=== PATIENT | female | born 1940 | race Caucasian/White ===

== ENCOUNTER → 2017-12-14 00:19 | Outpatient (CLI) | payer MEDICARE, BC, SELFPAY ==
[2017-12-14 08:19] LABS: HCT 41.9 % (36.0-46.0); HGB 13.3 g/dL (12.0-15.5)
--- NOTE | 2017-12-14 08:20 | DI.REPORT_ITS ---
SYMPTOM/DIAGNOSIS: SOB, R06.02, MITRAL VALVE REPLACEMENT Z95.2 CHEST X-RAY: Frontal and lateral views. Comparison 07/27/17 Heart size and pulmonary vasculature are within normal limits. Since the prior examination the patient has had a mitral valve replacement. There is elevation of the left hemidiaphragm. On the AP view there do appear to be lung markings in the left base medially. This may represent atelectasis. Pneumonia cannot be excluded. No effusions or pneumothoraces are identified. Degenerative changes are seen in the spine. Sternal wires are present. IMPRESSION: 1. Interval mitral valve replacement. 2. Question of a left basilar infiltrate medially. This may represent atelectasis or pneumonia. 3. Interval elevation of the left hemidiaphragm.
[2017-12-14 08:41] LABS: INR 2.2 (1.0-3.5); Prothrombin Time 21.2 sec (9.3-10.8)
[2017-12-14 09:08] LABS: TSH (W/Ref FT4) 0.17 uIU/mL (0.358-3.74)
[2017-12-14 09:27] LABS: FREE T4 1.69 ng/dL (0.76-1.46)
[2017-12-14 09:41] LABS: D-Dimer 625 ng/mlFEU (<500)
== END ==
PROVIDERS: PCP Family Medicine; Visit Provider Family Medicine
DX: R06.02 Shortness of breath (principal); I34.0 Nonrheumatic mitral (valve) insufficiency; R91.8 Other nonspecific abnormal finding of lung field; J98.6 Disorders of diaphragm; Z95.2 Presence of prosthetic heart valve; E03.9 Hypothyroidism, unspecified
CPT/HCPCS: 71046; 36415; 84439; 84443; 85014; 85018; 85379; 85610

== ENCOUNTER 2018-01-16 11:23 | Outpatient (CLI) | payer MEDICARE, BC, SELFPAY | END 2018-01-16 11:43 | PROVIDERS: PCP Family Medicine; Visit Provider Surgery | DX: R93.3 Abnormal findings on diagnostic imaging of other parts of digestive tract (principal) | CPT/HCPCS: 99212 ==

== ENCOUNTER 2018-01-18 00:09 | Outpatient (CLI) | payer MEDICARE, BC, SELFPAY ==
--- NOTE | 2018-01-18 14:40 | MERGE_ITS ---
*[facility]* *[facility]* [address] [place] [address] Date of study: 01/18/2018 Transthoracic Echocardiography M-mode, complete 2D, complete spectral Doppler, and color Doppler *STUDY CONCLUSIONS* Impressions: The previous study was not available for direct comparison, however there have been improvement in LV and RV function. Summary: 1. Left ventricle: The cavity size was normal. Wall thickness was increased in a pattern of mild LVH. Systolic function was mildly reduced. The estimated ejection fraction was 45-50%. Wall motion was normal; there were no regional wall motion abnormalities. 2. Ventricular septum: Septal motion showed paradoxical motion consistent with post surgery. 3. Aortic valve: There was mild regurgitation. 4. Mitral valve: Prior procedures included surgical repair. An annular ring prosthesis was present. Mean gradient (D): 2.1mm Hg. 5. Left atrium: The atrium was severely dilated. 6. Right ventricle: The cavity size was normal. Wall thickness was normal. Systolic function was normal. 7. Tricuspid valve: There was moderate regurgitation. 8. Pulmonary arteries: Pulmonary systolic pressure was increased, in the range of 35mm Hg to 40mm Hg. *PATIENT PRESENTATION* Height: 152.4cm ((60in) ) S/D Pressure: 112 / 72 Weight: 54.4kg ((119.7lb) ) BSA: 1.53m^2 Test start time: 12:45 PM. Test stop time: 01:50 PM. PERFORMING Unknown ORDERING Lev Ramirez REFERRING Lev Ramirez PERFORMING [facility] MAPPING ENGINEER RT Guerita (R)(CT), [facility] *PROCEDURE DATA* Procedure information: The patient was identified by two identifiers. This study was interpreted by [facility]. Pertinent images and digital data are archived for permanent storage and are available for subsequent review. Comparison was made to the study of 07/27/2017. Study status: Routine. Transthoracic echocardiography. M-mode, complete 2D, complete spectral Doppler, and color Doppler. A Transthoracic Echocardiogram was performed. Scanning was performed from the parasternal, apical, subcostal, and suprasternal notch acoustic windows. Images were obtained using an [id number] cardiac ultrasound machine. Image quality was adequate. Study completion: The patient tolerated the procedure well. There were no complications. History: PMH: H/O Mitral valve repair. *CARDIAC ANATOMY* Left ventricle: The cavity size was normal. Wall thickness was increased in a pattern of mild LVH. There was a false tendon within the ventricle. Systolic function was mildly reduced. The estimated ejection fraction was 45-50%. Wall motion was normal; there were no regional wall motion abnormalities. The study is not technically sufficient to allow evaluation of LV diastolic function. Aortic valve: Trileaflet; normal thickness leaflets. Mobility was not restricted. Doppler: Transvalvular velocity was within the normal range. There was no stenosis. There was mild regurgitation. VTI ratio of LVOT to aortic valve: 0.62. Valve area (VTI): 1.8cm^2. Indexed valve area (VTI): 1.2cm^2/m^2. Peak velocity ratio of LVOT to aortic valve: 0.63. Valve area (Vmax): 1.9cm^2. Indexed valve area (Vmax): 1.2cm^2/m^2. Mean velocity ratio of LVOT to aortic valve: 0.7. Valve area (Vmean): 2cm^2. Indexed valve area (Vmean): 1.3cm^2/m^2. Mean gradient (S): 5.2mm Hg. Peak gradient (S): 9.6mm Hg. Aorta: Aortic root: The aortic root was normal in size. Ascending aorta: The ascending aorta was normal in size. Mitral valve: Mildly thickened leaflets. Prior procedures included surgical repair. An annular ring prosthesis was present. Mobility was not restricted. Doppler: Transvalvular velocity was within the normal range. There was no evidence for stenosis. There was no significant regurgitation. Valve area by pressure half-time: 1.3cm^2. Indexed valve area by pressure half-time: 0.9cm^2/m^2. Mean gradient (D): 2.1mm Hg. Peak gradient (D): 4.5mm Hg. Left atrium: The atrium was severely dilated. Right ventricle: The cavity size was normal. Wall thickness was normal. Systolic function was normal. Ventricular septum: Septal motion showed paradoxical motion consistent with post surgery. Pulmonic valve: Structurally normal valve. Doppler: Transvalvular velocity was within the normal range. There was no evidence for stenosis. There was mild to moderate regurgitation. Peak gradient (S): 2.1mm Hg. Tricuspid valve: Structurally normal valve. Doppler: Transvalvular velocity was within the normal range. There was no evidence for stenosis. There was moderate regurgitation. Pulmonary artery: Pulmonary systolic pressure was increased, in the range of 35mm Hg to 40mm Hg. Right atrium: The atrium was normal in size. Pericardium: There was no pericardial effusion. Systemic veins: Inferior vena cava: Well visualized. The vessel was patent and normal in size. The respirophasic diameter changes were in the normal range (greater than or equal to 50%). Measurements Left ventricle Value 07/27/2017 Reference LV ID, ED, PLAX 4.1 cm 3.5 - 6.0 LV ID, ES, PLAX 3.3 cm 2.1 - 4.0 LV PW thickness, ED, PLAX 1.2 cm LV end-diastolic volume, 72 ml 85 1-p A2C LV ejection fraction, 1-p 50 % 60 A2C LV end-diastolic volume, 66 ml 103 1-p A4C LV ejection fraction, 1-p 42 % 64 A4C LV filling time, D, DP 660 ms LV e', lateral 0.047 m/sec 0.088 LV E/e', lateral 22 13 LV e', medial 0.041 m/sec 0.064 LV E/e', medial 26 17 LV e', average 0.044 m/sec 0.076 LV E/e', average 24 14 Ventricular septum Value 07/27/2017 Reference IVS thickness, ED, PLAX 1.2 cm LVOT Value 07/27/2017 Reference LVOT ID, A-P 1.9 cm 1.9 LVOT area 2.9 cm^2 2.7 LVOT peak velocity, S 0.98 m/sec 1.12 LVOT mean velocity, S 0.76 m/sec 0.76 LVOT VTI, S 19.4 cm 19.6 LVOT peak gradient, S 3.9 mm Hg 5 LVOT mean gradient, S 2.5 mm Hg 2.7 Stroke volume (SV), LVOT 57 ml 54 DP Stroke index (SV/bsa), 37 ml/m^2 35 LVOT DP Aortic valve Value 07/27/2017 Reference Aortic valve peak 1.5 m/sec 1.4 velocity, S Aortic valve mean 1.09 m/sec 1.03 velocity, S Aortic valve VTI, S 31.4 cm 25.0 Aortic mean gradient, S 5.2 mm Hg 4.7 Aortic peak gradient, S 9.6 mm Hg VTI ratio, LVOT/AV 0.62 0.79 Aortic valve area, VTI 1.8 cm^2 2.2 Velocity ratio, peak, 0.63 0.78 LVOT/AV Aortic valve area, peak 1.9 cm^2 2.1 velocity Velocity ratio, mean, 0.7 0.74 LVOT/AV Aortic valve area, mean 2 cm^2 2 velocity Aortic valve area/bsa, 1.3 cm^2/m^2 1.3 mean velocity Aortic regurg deceleration 321 cm/s^2 296 Aortic regurg pressure 424 ms 490 half-time Aorta Value 07/27/2017 Reference Aortic root ID, ED 3.3 cm 3.3 Ascending aorta ID, A-P, S 3.4 cm 3.4 RVOT Value 07/27/2017 Reference RVOT VTI, S 10.8 cm 9.4 Left atrium Value 07/27/2017 Reference LA ID, A-P, ES 4.4 cm LA ID/bsa, A-P (H) 2.9 cm/m^2 <=2.2 LA area, ES, A4C (H) 25.1 cm^2 29.8 8.8 - 23.4 LA area, ES, A2C 23 cm^2 31 LA volume/bsa, ES, 1-p A4C 55 ml/m^2 79 LA volume, ES, 2-p 84 ml 121 LA volume/bsa, ES, 2-p 55 ml/m^2 79 LA/aortic root ratio 1.33 Mitral valve Value 07/27/2017 Reference Mitral E-wave peak 1.06 m/sec 1.1 velocity Mitral A-wave peak 1.31 m/sec 0.78 velocity Mitral mean velocity, D 0.63 m/sec Mitral deceleration time (H) 584 ms 122 150 - 230 Mitral pressure half-time 169 ms 35 Mitral mean gradient, D 2.1 mm Hg Mitral peak gradient, D 4.5 mm Hg 4.9 Mitral E/A ratio, peak 0.81 1.41 Mitral valve area, PHT, DP 1.3 cm^2 6.2 Pulmonary veins Value 07/27/2017 Reference Pulmonary vein peak 0.57 m/sec velocity, S Pulmonary vein peak 0.36 m/sec velocity, D Pulmonary vein velocity 1.58 ratio, peak, S/D Pulmonary vein A-wave 0.41 m/sec reversal peak velocity Pulmonary vein A-wave 171 ms reversal duration Tricuspid valve Value 07/27/2017 Reference Tricuspid regurg peak 3 m/sec 3 velocity Tricuspid peak RV-RA 36.8 mm Hg 36.2 gradient Right atrium Value 07/27/2017 Reference RA area, ES, A4C 17.2 cm^2 15 8.3 - 19.5 Pulmonic valve Value 07/27/2017 Reference Pulmonic peak gradient, S 2.1 mm Hg 2.8 Legend: (L) and (H) violetta values outside specified reference range. I have personally reviewed the images and have reviewed and edited the reported findings. Electronically signed by Lev Ramirez 01/18/2018 15:58
== END 2018-01-18 00:29 ==
PROVIDERS: PCP Family Medicine; Visit Provider Student in an Organized Health Care Education/Training Program
DX: I48.91 Unspecified atrial fibrillation (principal); I51.7 Cardiomegaly; I08.2 Rheumatic disorders of both aortic and tricuspid valves; Z95.2 Presence of prosthetic heart valve; Z98.890 Other specified postprocedural states
CPT/HCPCS: 93306; 99212

== ENCOUNTER 2018-01-25 00:10 | Outpatient (CLI) | payer MEDICARE, BC, SELFPAY ==
--- NOTE | 2018-01-25 13:22 | DI.US_ITS ---
SYMPTOMS/DIAGNOSIS: RIGHT URETERAL STONE, N20.1, ? HYDRONEPHROSIS, F/U, RECHECK RENAL ULTRASOUND: Comparison CT is 12/20/17. The right kidney measures 9 cm long. There is mild to moderate hydronephrosis of the right kidney. Dilatation of the renal collecting system was present on the CT scan from 12/20/17. No renal mass or calculus is identified. Blood flow is seen to the right kidney. The left kidney measures 11.1 cm. There is a prominent left renal pelvis. No renal mass, calculus or obstruction is identified. The prevoid urinary bladder volume is 90.3 cc. Bladder wall appeared smooth. No intraluminal masses are seen. Both ureteral jets are visualized. The postvoid urinary bladder volume is 10 cc. IMPRESSION: Persistent mild to moderate right hydronephrosis.
== END 2018-01-25 00:30 ==
PROVIDERS: PCP Family Medicine; Visit Provider Urology
DX: N20.1 Calculus of ureter (principal); N13.39 Other hydronephrosis
CPT/HCPCS: 76770; 99213

== ENCOUNTER → 2018-01-25 13:41 | Outpatient (BNVA) | payer MEDICARE, BC, SELFPAY | PROVIDERS: Visit Provider Urology | DX: N20.1 Calculus of ureter (principal) | CPT/HCPCS: 99213 ==

== ENCOUNTER → 2018-02-20 14:17 | Outpatient (BNVA) | payer MEDICARE, BC, SELFPAY | PROVIDERS: PCP Family Medicine; Visit Provider Student in an Organized Health Care Education/Training Program | DX: I34.1 Nonrheumatic mitral (valve) prolapse (principal); Z95.818 Presence of other cardiac implants and grafts; I50.9 Heart failure, unspecified; I48.91 Unspecified atrial fibrillation; R03.0 Elevated blood-pressure reading, without diagnosis of hypertension | CPT/HCPCS: 99214 ==

== ENCOUNTER 2018-02-26 01:27 | Outpatient (CLI) | payer MEDICARE, BC, SELFPAY ==
--- NOTE | 2018-03-18 13:31 | ZIOP_ITS ---
O MONITOR DATE OF DICTATION March 18, 2018 Baseline rhythm sinus. Occasional single PAC. 5252 bursts SVT, longest 2 minute 8 second duration, fastest 214 beats per min vargas. Occasional single PVC, 1.7% total beat, occasional couplet, 1.1% total beat. 92 triplet. 24 bursts NS VT: longest 4 beat duration. Fastest 245 beats per minute. No bradycardia/Block. SYMPTOMS No symptoms. No triggered events. Average heart rate sinus 77 beats per minute, range 52-109 beats per minute. Nomi Connolly M.D. GREG/merlyn T - 03/18/2018
== END 2018-02-26 01:47 ==
PROVIDERS: PCP Family Medicine; Visit Provider Student in an Organized Health Care Education/Training Program
DX: I48.91 Unspecified atrial fibrillation (principal); I47.1 Supraventricular tachycardia; Z95.2 Presence of prosthetic heart valve
CPT/HCPCS: 93225

== ENCOUNTER 2018-03-18 09:52 | Outpatient (CLI) | payer MEDICARE, BC, SELFPAY | END 2018-03-18 10:12 | PROVIDERS: PCP Family Medicine; Referring Provider Student in an Organized Health Care Education/Training Program; Visit Provider Internal Medicine Interventional Cardiology | DX: I48.91 Unspecified atrial fibrillation (principal); I47.1 Supraventricular tachycardia; Z95.2 Presence of prosthetic heart valve | CPT/HCPCS: 0298T ==

== ENCOUNTER → 2018-03-20 08:49 | Outpatient (BNVA) | payer MEDICARE, BC, SELFPAY | PROVIDERS: PCP Family Medicine; Visit Provider Student in an Organized Health Care Education/Training Program | DX: I34.1 Nonrheumatic mitral (valve) prolapse (principal); Z79.01 Long term (current) use of anticoagulants; I50.9 Heart failure, unspecified; I48.91 Unspecified atrial fibrillation | CPT/HCPCS: 36415; 99214; 85610 ==

== ENCOUNTER 2018-03-20 09:36 | Outpatient (CLI) | payer MEDICARE, BC, SELFPAY ==
[2018-03-20 10:21] LABS: INR 1.6 (1.0-3.5); Prothrombin Time 15.3 sec (9.3-10.8)
== END 2018-03-20 09:56 ==
PROVIDERS: PCP Family Medicine; Visit Provider Student in an Organized Health Care Education/Training Program
DX: I48.91 Unspecified atrial fibrillation (principal); Z95.2 Presence of prosthetic heart valve; Z79.01 Long term (current) use of anticoagulants
CPT/HCPCS: 36415; 85610

== ENCOUNTER → 2018-04-12 09:48 | Outpatient (BNVA) | payer MEDICARE, BC, SELFPAY | PROVIDERS: PCP Family Medicine; Referring Provider Family Medicine; Visit Provider Surgery | DX: R93.5 Abnormal findings on diagnostic imaging of other abdominal regions, including retroperitoneum (principal); Z80.0 Family history of malignant neoplasm of digestive organs | CPT/HCPCS: 99213 ==

== ENCOUNTER → 2018-06-07 10:23 | Outpatient (BNVA) | payer MEDICARE, BC, SELFPAY | PROVIDERS: PCP Family Medicine; Referring Provider Family Medicine; Visit Provider Surgery | DX: Z01.818 Encounter for other preprocedural examination (principal); Z80.0 Family history of malignant neoplasm of digestive organs; K63.89 Other specified diseases of intestine | CPT/HCPCS: 99212; 99213 ==

== ENCOUNTER 2018-06-12 10:18 | Day surgery (SDC) | payer MEDICARE, BC, SELFPAY ==
--- NOTE | 2018-06-12 07:08 | W.COLOREPORT ---
Date of service: 06/12/18 Time of Service: 13:26 Colonoscopy Report Date of procedure: 06/12/18 Pre-op diagnosis general: Abnormal CT scan Post-op diagnosis procedure note: other (Rectal polyp) Procedure: Flexible sigmoidoscopy with polypectomy by cold forceps Surgeon: Deborah Juarez Anesthesia proc note operative: MAC (Carla Washington CRNA/ ASA 2) Estimated blood loss (mL): 5 Pathology: other (Rectal polyp) Complications: None Disposition: same day Indications: Mrs. Sellers is a pleasant 77 year old female who had a CT scan which showed thickening in the sigmoid colon. No GI symptoms. Her last Colonsocopy was in 2015 and was normal. She does have a sister with Colon Cancer. Risks, benefits and complications have been reviewed. Complications include but are not limited to bleeding, pain, perforation, missed small lesion/polyp, sore throat, aspiration and adverse reaction to the medications. Questions were entertained and answered to their satisfaction and they wished to proceed. No guarantees were given or implied. Prep: Other Procedure Start Time: 13:26 Procedure End Time: 13:35 Retraction Time: 5 minutes Findings: One rectal polyp. Normal colon otherwise Procedure Description: After informed consent was obtained the patient was taken to the procedure room and placed in a left decubitous position. Monitors were applied and a time out was done. The patients name, date of , procedure, allergies to medications and metal in their body was reviewed. The patient was then sedated. Once sedated and comfortable a rectal exam was done. External exam was normal. Internal exam revealed a normal sphincter tone and no palpable masses. The scope was then introduced and retro-flexed. No internal hemorrhoids were identified. The scope was then advanced to the splenic flexure without difficulty. The TI and appendiceal orifice were identified. The prep was adequate. The scope was then slowly retracted over 5 minutes back into the rectum. Polyps were removed at the rectum. The scope was removed and the patient was woken up and taken back to Same day surgery in stable condition. The patient tolerated the procedure well and there were no immediate complications. Follow up: The patient should follow up in 2 years unless they develop changes in bowel habits or other new gastrointestinal complaints.
--- NOTE | 2018-06-12 07:10 | W.PM.DSUDISC ---
Discharge Plan Disposition Patient Disposition: HOME Condition: Good Discharge Details Reason For Visit: abnormal CT scan Attending Provider: Deborah Juarez Primary Care Provider: Magdalena Tariq V Home Meds and New Rx's Prescriptions: Continued ADVAIR 100/50 1 DISK W/DEV DISK.W.DEV 1 puff Inhalation BID Qty: 3 RF: 4 amoxicillin 500 MG capsule 2,000 mg PO .PRE DENTAL PROCEDUR RF: 0 levothyroxine 100 MCG tablet 100 mcg PO .4 DAYS A WEEK RF: 0 montelukast [Singulair] 10 MG tablet 10 mg PO DAILY PRN PRNRF: 0 lisinopril 5 MG tablet 5 mg PO DAILY RF: 0 levothyroxine [Synthroid] 112 MCG tablet 112 mcg PO .3 DAYS A WEEK RF: 0 Veramyst 10 GM spray,suspension 2 spr NS DAILY RF: 0 metoprolol tartrate 25 mg tablet 25 mg PO BID RF: 0 Discharge Instructions Instructions: Flexible Sigmoidoscopy (DC) Additional Instructions: Findings: rectal polyp Follow up: 2 years Please call if you develop: fevers >101.5 Nausea or Vomiting Abdominal pain that is not transient DAY SURGERY UNIT POST COLONOSCOPY INSTRUCTIONS 1. Because there will be medication in your system for the next 24 hours, you may feel a little sleepy. Your coordination will be affected. Therefore: a. Do not drive or operate dangerous equipment for 24 hours. b. Do not drink alcohol beverages for 24 hours (not even beer). c. Plan to go home and rest for the day. 2. Generally there are no restrictions on your activity after a day or so has gone by, but you may feel a bit fatigued for a few days. 3 After you arrive home you may have a light meal and return to a normal diet as you can tolerate it without feeling sick to your stomach. 4. After surgery, you may feel pain or discomfort. This should be only transient, but if it persists please contact your doctor. 5. If there are any questions regarding the findings of your procedure, please feel free to contact your doctor. 6. If you are unable to contact your doctor with a problem, contact the hospital at [phone]. 7. Continue all your regular medications unless directed otherwise. I understand the above instructions and have no questions. Signature of Patient or Responsible Adult Escort Date/Time Name of Responsible Adult Escort Signature of Nurse Date/Time Stand Alone Forms: Solomon Sheldon (KEZIAU) Activity:: Activity as Tolerated Diet:: As Tolerated Discharge Orders Discharge Orders: Discharge Order (Routine); Ordered 06/12/18 Ordered By: Deborah Juarez DS: Diagnosis Discharge Diagnosis (1) H/O sigmoidoscopy: Status: Acute (2) Rectal polyp: Status: Acute
[2018-06-12 10:45] VITALS: BP 134/87; PULSE 90; RESP 18; TEMP 35.7; O2SAT 97
[2018-06-12] MEDS: Lactated Ringers 1,000 ML 80 ML IV (12:18)
--- NOTE | 2018-06-12 13:32 | BOWEL_PTH ---
PATIENT: Lilliana Sellers LOC: [facility] U#:[id number] AGE/SX: 77/F ROOM: RE06/12/[address]: Deborah Juarez MD : [id number] BED: DIS: 06/12/2018 SPEC #: [id number] RECD: 06/12/18 18:00 STATUS: SOPHIA RERoxana #: [id number] EFRAÍN: 06/12/18 13:[address]: Deborah Juarez DEPT: Surgical Specimen RECD BY: Brandy Mckeon ENTERED: 06/12/18 18:01 SP TYPE: Bowel OTHR DR: Magdalena Tariq V Tissues: 1 - BIOPSY BOWEL Procedures: GROSS AND MICRO LEVEL 4 Comments: [id number]
[2018-06-12 14:15] VITALS: BP 138/81; PULSE 82; RESP 18; TEMP 36.2; O2SAT 95
== END 2018-06-12 14:26 | disposition home or self-care (01) ==
LOC: SUR 10:20
PROVIDERS: PCP Family Medicine; Visit Provider Surgery
PROC: 0DJD8ZZ Inspection of Lower Intestinal Tract, Via Natural or Artificial Opening Endoscopic (ICD-10-PCS; CPT 45330; principal; 2018-06-12 11:15)
DX: R93.5 Abnormal findings on diagnostic imaging of other abdominal regions, including retroperitoneum (principal); D12.8 Benign neoplasm of rectum; Z80.0 Family history of malignant neoplasm of digestive organs; K21.9 Gastro-esophageal reflux disease without esophagitis
CPT/HCPCS: 45380; 88305

== ENCOUNTER 2018-06-29 10:37 | Emergency (ER) | payer MEDICARE, BC, SELFPAY ==
[2018-06-29 10:52] VITALS: BP 104/71; PULSE 90; RESP 16; TEMP 36; O2SAT 95
--- NOTE | 2018-06-29 11:21 | ED.GENADUL_ITS ---
Discharge Plan Disposition Patient Disposition: HOME Condition: Stable Discharge Details Chief Complaint: RespSymp Clinical Impression: Influenza A Primary Care Provider: Magdalena Tariq V ED Provider: Joi Saldaña Home Meds and New Rx's Prescriptions: New doxycycline hyclate 100 mg tablet 100 mg PO BID Qty: 7 RF: 0 benzonatate [Tessalon Perles] 100 mg capsule 100 mg PO TID PRN (Reason: cough) Qty: 10 RF: 0 oseltamivir [Tamiflu] 75 mg capsule 75 mg PO BID 5 Days Qty: 10 RF: 0 Continued ADVAIR 100/50 1 DISK W/DEV DISK.W.DEV 1 puff Inhalation BID Qty: 3 RF: 4 amoxicillin 500 MG capsule 2,000 mg PO .PRE DENTAL PROCEDUR RF: 0 levothyroxine 100 MCG tablet 100 mcg PO .4 DAYS A WEEK RF: 0 montelukast [Singulair] 10 MG tablet 10 mg PO DAILY PRN PRNRF: 0 lisinopril 5 MG tablet 5 mg PO DAILY RF: 0 levothyroxine [Synthroid] 112 MCG tablet 112 mcg PO .3 DAYS A WEEK RF: 0 Veramyst 10 GM spray,suspension 2 spr NS DAILY RF: 0 metoprolol tartrate 25 mg tablet 12.5 mg PO DAILY RF: 0 Discharge Instructions Instructions: H1N1 Influenza (ED) Additional Instructions: Use the albuterol inhaler as needed and directed for any shortness of breath. Take the Tessalon Perles as needed and directed for coughing. Take the Tamiflu until finished. If you have no relief or worsening of symptoms in the next week, start the antibiotics. An order for a outpatient echocardiogram was placed for you to obtain as soon as possible for further evaluation of the blood vessels in your lungs. Follow-up with your primary care in 2 days for reevaluation and for results of outpatient echocardiogram. Return immediately to the emergency department any worsening or new concerning symptoms. Discharge Data Discharge Physician: Joi Saldaña Medical Decision Making 77-year-old female with a history of asthma, atrial fibrillation and mitral valve repair due to mitral stenosis who presents with cough with yellow sputum, chills, intermittent shortness of breath and chest pain with coughing. Vitals within normal limits. Oxygen saturation 95% on room air. Patient noted to have frequent coughing in room. Slightly diminished breath sounds left upper lobe. No wheezing noted. No murmur noted. Differential diagnosis include bronchitis, influenza, pneumonia, viral syndrome. Patient is not short of breath and without any chest pain, due to her frequent coughing, will likely benefit from an albuterol treatment. Due to her history of asthma and intermittent shortness of breath, will give a dose of p.o. steroids. We will also obtain an influenza swab and chest x-ray to rule out pneumonia and flu. 1345 --labs and imaging reviewed. Influenza a positive. Chest x-ray noted a 2.5 cm right hilar mass and recommended a CT chest with contrast. CT chest noted a prominent right pulmonary artery in the same location as the mass seen on the chest x-ray and this was thought to be a shadow and not a mass. There is also a prominent right inferior pulmonary vein which is enlarged and could represent a pulmonary AV fistula. I placed an written order for an outpatient echo but I do not think this needs to be done urgently. There was a mild left basilar atelectasis or pneumonia. Patient has a normal white blood cell count, no fever, no tachycardia, normal O2 sat and her influenza A was positive. Will therefore hold on any treatment for pneumonia as this is likely atelectasis but will send home with a prescription for antibiotics if her symptoms do not improve or worsen. She states her cough has been present for 3 days, but she got significantly worse yesterday. As this is under 48 hours, with her history of mitral valve repair, will start Tamiflu. Will also send home with a prescription for Tessalon Perles. Will hold on further steroids due to risk of compromising her immune system and she since has no wheezing. Patient placed on care management list to arrange a f/u appt with pcp in the next week. She has a follow-up appointment with her server assistant Dr. Ramirez next month and states there was an echo already planned. Will have her obtain echo sooner and f/u with Dr. Ramirez for the results. Medical Records Medical records reviewed: Yes I reviewed the patient's medical records. Imaging Data Radiologic Study: Radiologist's impression: XR Chest, 2 Views EXAM DATE/TIME: 06/29/2018 11:38 AM FINDINGS: Lungs: Stable moderate COPD . Pleural space: Unremarkable. No pleural effusion. No pneumothorax. Heart/Mediastinum: Interval appearance of 2.5 cm right hilar mass. CT chest with contrast may be helpful to rule out neoplasm. Upper abdomen: Stable elevation of the left hemidiaphragm consistent with eventration. Surgical clips in the gallbladder fossa consistent with cholecystectomy. Bones/joints: Stable sternotomy. Mild thoracic spondylosis. IMPRESSION: 1. Interval appearance of 2.5 cm right hilar mass. CT chest with contrast may be helpful to rule out neoplasm. 2. Stable moderate COPD . CT Chest With Contrast EXAM DATE/TIME: 06/29/2018 12:10 PM FINDINGS: Lungs: Mild left basilar atelectasis and/or pneumonia. Possible 4 mm pulmonary nodule in the right upper lobe on the axial images which appears to be a branching blood vessel on sagittal images. Axial series 2, image 13, sagittal series 6, image 42. Pleural space: Bilateral apical pleural and/or parenchymal scarring. Heart: Moderate calcified coronary artery disease. Mediastinum: The prominent right pulmonary artery on axial series 2, image images 28-30, is in the same location as the possible 2.5 cm right hilar mass. This is a summation shadow with no mass. Pulmonary arteries: 33 mm diameter main pulmonary trunk suggesting pulmonary artery hypertension. Aorta: Normal. No aortic aneurysm. Other veins: Prominent 1.1 cm diameter right inferior posterior pulmonary vein which appears enlarged and could represent acquired pulmonary AV fistula. This could also help explain the apparent increased size of the right pulmonary artery since the previous exam. Axial series 2, image 31. Lymph nodes: Unremarkable. No enlarged lymph nodes. Bones/joints: Previous sternotomy. Mild thoracic spondylosis. Soft tissues: Unremarkable. Spleen: There are one or more accessory splenules. Upper abdomen: Stable elevation of the left hemidiaphragm consistent with eventration. IMPRESSION: 1. Mild left basilar atelectasis and/or pneumonia. 2. 33 mm diameter main pulmonary trunk suggesting pulmonary artery hypertension. 3. The prominent right pulmonary artery on axial series 2, image images 28-30, is in the same location as the possible 2.5 cm right hilar mass. This is a summation shadow with no mass. 4. Prominent 1.1 cm diameter right inferior posterior pulmonary vein which appears enlarged and could represent acquired pulmonary AV fistula. This could also help explain the apparent increased size of the adjacent right pulmonary artery since the previous exam. Axial series 2, image 31. Impression. Lab Data Lab results reviewed: Yes I reviewed the patient's lab results. 06/29/18 11:43 Nasopharynx Influenza Types A,B Antigen - Final Laboratory Tests Range/Units 06/29/18 06/29/18 12:10 12:10 WBC (4.4-10.8) k/cumm 6.79 RBC (4.00-5.20) m/cumm 4.80 Hgb (12.0-15.5) g/dL 14.2 Hct (36.0-46.0) % 43.6 MCV (80-95) fL 90.8 MCH (27.0-33.0) pg 29.6 MCHC (32.0-36.0) g/dL 32.6 RDW (11.7-14.6) % 14.7 H Plt Count (130-400) x1000/uL 180 MPV (8.0-11.0) fL 11.0 Immature Gran % 0.1 Neutrophils % 78.0 Lymphocytes % 6.5 Monocytes % 10.2 Eosinophils % 4.9 Basophils % 0.3 Absolute Neutrophils (1.2-6.7) k/cumm 5.30 Absolute Lymphocytes (1.2-3.4) k/cumm 0.44 L Absolute Monocytes (0.11-0.7) k/cumm 0.69 Absolute Eosinophils (0.0-0.7) k/cumm 0.33 Absolute Basophils (0.0-0.2) k/cumm 0.02 Sodium (136-145) mmol/L 139 Potassium (3.5-5.1) mmol/L 3.6 Chloride (98-107) mmol/L 102 Carbon Dioxide (21.0-32.0) mmol/L 28.6 Anion Gap (3-11) mmol/L 8.4 BUN (7-18) mg/dL 20 H Creatinine (0.55-1.02) mg/dL 0.76 Estimated GFR/1.73 m2 (mL/min/1.73m2) >= 60.00 Glucose (70-100) mg/dL 103 H Calcium (8.5-10.1) mg/dL 8.6 HPI General Mode of arrival: ambulatory . Date/Time Provider Initiated Documentation: 06/29/18 11:03 . Limitations to Documentation: no limitations . Information obtained by: patient . HPI Narrative: Patient is a 69-year-old female presents with cough with yellow sputum for the past 3 days. She admits to intermittent chills and shortness of breath. She denies known fever. She states she has had occasional chest pain only with coughing. She has a history of asthma and has had intermittent wheezing. She denies sore throat, ear pain, runny nose. She states she has been eating and drinking but slightly less than usual. She states she did not receive the flu shot this year. She states she was at the dentist this week and she took a dose of amoxicillin prior to her appointment due to her history of mitral valve repair. Patient states she is mainly concerned about her symptoms due to her mitral valve repair. She states she had her surgery done 8 months ago at [facility] in [place]. Related Data Home Medications Medication Instructions Recorded Confirmed Advair 100/50 1 puff INHALATION BID #3 08/10/09 06/29/18 Veramyst 2 spr NS DAILY 12/20/17 06/29/18 amoxicillin 2,000 mg PO .PRE DENTAL PROCEDUR 12/20/17 06/29/18 levothyroxine 100 mcg PO .4 DAYS A WEEK 12/20/17 06/29/18 levothyroxine [Synthroid] 112 mcg PO .3 DAYS A WEEK 12/20/17 06/29/18 lisinopril 5 mg PO DAILY 12/20/17 06/29/18 montelukast [Singulair] 10 mg PO DAILY PRN PRN 12/20/17 06/29/18 metoprolol tartrate 25 mg tablet 12.5 mg PO DAILY 03/20/18 06/29/18 benzonatate [Tessalon Perles] 100 mg PO TID PRN #10 cap 06/29/18 doxycycline hyclate 100 mg PO BID #7 tab 06/29/18 oseltamivir [Tamiflu] 75 mg PO BID 5 Days #10 cap 06/29/18 Previous Rx's Medication Instructions Recorded benzonatate [Tessalon Perles] 100 mg PO TID PRN #10 cap 06/29/18 doxycycline hyclate 100 mg PO BID #7 tab 06/29/18 oseltamivir [Tamiflu] 75 mg PO BID 5 Days #10 cap 06/29/18 Allergies Allergy/AdvReac Type Severity Reaction Status Date / Time egg Allergy Unknown Unverified 06/29/18 10:55 peas Allergy Unknown Unverified 06/29/18 10:55 tomato Allergy Unknown Unverified 06/29/18 10:55 lactose AdvReac Unknown Unverified 06/29/18 10:55 General Stated Complaint: RespSymp MERI: 4 Review of Systems Review of Systems All systems reviewed & are unremarkable except as noted in HPI and below Constitutional Reports as per HPI, Reports chills and Denies fever(s) Eyes Denies blurry vision ENT Denies dizziness, Denies sore throat and Denies throat swelling Cardiovascular Denies chest pain and Reports dyspnea Respiratory Reports cough and Reports dyspnea Gastrointestinal Denies abdominal pain, Denies diarrhea and Denies vomiting Genitourinary Denies hematuria and Denies dysuria Musculoskeletal Denies back pain and Denies numbness Integumentary/Breasts Denies lesions and Denies rash Neurologic Denies dizziness, Denies focal weakness and Denies numbness Allergic/Immunologic Denies throat swelling [facility] Medical History Right ureteral calculus (Resolved) Atrial fibrillation (Acute) H/O mitral valve replacement (Acute) Hypothyroidism (Acute) Asthma (Acute) Diverticulosis (Chronic) Urinoma (Resolved) Asthma GERD (gastroesophageal reflux disease) Hypothyroidism Mitral valve disorder Trigeminal neuralgia Surgical History History of open heart surgery (Resolved) Cholecystectomy Colonoscopy - IV Sedation (04/24/16) Family History Father Parkinsons Son Cardiovascular disease Sister Colon cancer Social History Smoking and Tabacco status: Never alcohol intake: current alcohol intake frequency: holidays/special occasions only substance use type: does not use Exam Const General: cooperative and no acute distress Orientation: alert, awake and oriented x3 HENMT Head: normal to inspection Ears: hearing grossly normal bilaterally, external ears normal and TM's normal bilaterally General nose exam: external nose normal Face and sinus: normal facial exam Mouth: oral mucosae normal Teeth and gingiva: dentition normal Throat: posterior oropharynx normal Eyes General: appearance normal, both eyes and all related structures Eyelids: eyelids normal Neck Neck: normal visual inspection Lymphatic: no lymphadenopathy noted Resp Effort & Inspection: normal respiratory effort and able to speak in complete sentences Auscultation: clear to auscultation bilaterally (but with slightly diminshed BS RAMOS), no rhonchi and no wheezes Cardio Rate: regular rate Rhythm: regular rhythm GI Inspection: normal to inspection Palpation: soft, not firm, no guarding, no hepatosplenomegaly, no masses and nontender Auscultation: normal bowel sounds Skin General skin exam: no rashes or lesions noted Neuro General: alert and awake Cognition: normal cognition Speech: speech normal Gait: normal gait Motor: muscle tone normal throughout Sensory Exam: no sensory deficits noted Extrem General: full ROM and no edema Psych Appearance: grossly normal Mental Status: mental status grossly normal Speech and Movement: speech and movement normal Affect: normal affect Thought Process: normal Course Vital Signs Temperature 96.8 F L 06/29/18 10:52 Pulse 90 06/29/18 10:52 Respiratory Rate 16 06/29/18 10:52 Blood Pressure 104/71 06/29/18 10:52 Pulse Oximetry 95 06/29/18 10:52 Temperature 96.8 F L 06/29/18 10:52 Temperature Source Skin 06/29/18 10:52 Pulse 90 06/29/18 10:52 Respiratory Rate 16 06/29/18 10:52 Respiratory Effort Non-Labored 06/29/18 10:52 Blood Pressure 104/71 06/29/18 10:52 Blood Pressure Position Sitting 06/29/18 10:52 Pulse Oximetry 95 06/29/18 10:52 Oxygen Delivery Method Room Air 06/29/18 10:52 Oxygen Flow Rate 0 06/29/18 10:52 Pain Level 9 06/29/18 10:52
--- NOTE | 2018-06-29 11:30 | DI.RAD_ITS ---
SYMPTOM/DIAGNOSIS: SOB, ? PNEUMONIA PA AND LATERAL CHEST: Comparison is made with 12/14/17. The left diaphragm is again noted to be elevated and there is left basilar scarring. There is question of a rounded area near the right hilum which could represent mass, adenopathy or overlying structures. The lungs show mild underlying fibrotic changes. Sternal wires are again noted. IMPRESSION: Question of a right perihilar mass. Stable left lower lobe scarring.
[2018-06-29] MEDS: predniSONE 20 MG TAB 60 MG PO (11:51)
[2018-06-29] MEDS: Albuterol/Ipratropium 3 ML UPD VIAL UPD (11:51)
--- NOTE | 2018-06-29 11:54 | DI.VRAD_ITS ---
EXAM: XR Chest, 2 Views EXAM DATE/TIME: 06/29/2018 11:38 AM CLINICAL HISTORY: 77 years old, female; Signs and symptoms; Cough and shortness of breath; Prior surgery TECHNIQUE: XR of the chest, 2 views. COMPARISON: CR CHEST 2 VIEWS PA,LAT 12/14/2017 8:20 AM FINDINGS: Lungs: Stable moderate COPD . Pleural space: Unremarkable. No pleural effusion. No pneumothorax. Heart/Mediastinum: Interval appearance of 2.5 cm right hilar mass. CT chest with contrast may be helpful to rule out neoplasm. Upper abdomen: Stable elevation of the left hemidiaphragm consistent with eventration. Surgical clips in the gallbladder fossa consistent with cholecystectomy. Bones/joints: Stable sternotomy. Mild thoracic spondylosis. IMPRESSION: 1. Interval appearance of 2.5 cm right hilar mass. CT chest with contrast may be helpful to rule out neoplasm. 2. Stable moderate COPD . Dictated and Authenticated by: Nomi Akhtar MD. Ordering:ESTHER Tamez MD
--- NOTE | 2018-06-29 12:08 | DI.CT_ITS ---
SYMPTOMS/DIAGNOSIS: RIGHT HILAR MASS, ? NEOPLASM VS PNEUMONIA CHEST CT: Comparison is made with December,. There is no evidence of mass, adenopathy or pneumonia. No pleural or pericardial effusions are seen. Again noted is marked biatrial enlargement as well as left ventricular enlargement. Coronary artery calcifications and mild aortic calcifications are seen. There is no evidence of aortic dissection. The pulmonary arteries are not well opacified and emboli cannot be excluded. There is dilatation of the main pulmonary trunk, as well as bilateral main pulmonary arteries. There is also a question of a dilated right pulmonary vein inferiorly. A pulmonary AV fistula is a possibility. The findings do not appear significantly changed from the previous exam. Sternal wires and mitral valve prosthesis are seen. The left diaphragm is again noted to be elevated with minimal adjacent atelectasis. Degenerative changes are noted in the spine. IMPRESSION: Questioned mass on chest x-ray is secondary to summation shadows of right pulmonary artery and right pulmonary vein. An AV fistula cannot be excluded. There are prominent pulmonary arteries, which could indicate pulmonary hypertension. Cardiac enlargement is again noted.
[2018-06-29 12:30] LABS: Abs Immature Grans 0.01 k/cumm (0.0-0.09); Absolute Basophil Count 0.02 k/cumm (0.0-0.2); Absolute Eosinophil Count 0.33 k/cumm (0.0-0.7); Absolute Lymphocyte Count 0.44 k/cumm (1.2-3.4); Absolute Monocyte Count 0.69 k/cumm (0.11-0.7); Basophils % 0.3; Eosinophils % 4.9; HCT 43.6 % (36.0-46.0); HGB 14.2 g/dL (12.0-15.5); Immature Grans % 0.1; Lymphocytes % 6.5; Mean Corp. HGB Concentration 32.6 g/dL (32.0-36.0); Mean Corpuscular Hemoglobin 29.6 pg (27.0-33.0); Mean Corpuscular Volume 90.8 fL (80-95); Monocytes % 10.2; Platelet Count 180 x1000/uL (130-400); RBC Distribution Width 14.7 % (11.7-14.6); White Blood Cell Count 6.79 k/cumm (4.4-10.8)
[2018-06-29 12:37] LABS: Anion Gap 8.4 mmol/L (3-11); BUN 20 mg/dL (7-18); CO2 28.6 mmol/L (21.0-32.0); CREATININE 0.76 mg/dL (0.55-1.02); Calcium 8.6 mg/dL (8.5-10.1); Chloride 102 mmol/L (98-107); Glucose 103 mg/dL (70-100); Potassium 3.6 mmol/L (3.5-5.1); Sodium 139 mmol/L (136-145)
[2018-06-29] MEDS: Omnipaque 350 MG/ML 100 ML BTL IJ (13:13)
--- NOTE | 2018-06-29 13:38 | DI.VRAD_ITS ---
EXAM: CT Chest With Contrast EXAM DATE/TIME: 06/29/2018 12:10 PM CLINICAL HISTORY: 77 years old, female; Signs and symptoms; Cough; Cough with hemorrhage; Patient HX: Right hilar mass seen on x-ray, rule out neoplasm vs. Pneumonia TECHNIQUE: Axial computed tomography images of the chest with intravenous contrast. All CT scans at this facility use at least one of these dose optimization techniques: automated exposure control; mA and/or kV adjustment per patient size (includes targeted exams where dose is matched to clinical indication); or iterative reconstruction. Coronal and sagittal reformatted images were created and reviewed. CONTRAST: Contrast Material: 70 ml of Omnipaque 350; Contrast Route: IV COMPARISON: CR XR CHEST 2V PA LATERAL 06/29/2018 11:26 AM FINDINGS: Lungs: Mild left basilar atelectasis and/or pneumonia. Possible 4 mm pulmonary nodule in the right upper lobe on the axial images which appears to be a branching blood vessel on sagittal images. Axial series 2, image 13, sagittal series 6, image 42. Pleural space: Bilateral apical pleural and/or parenchymal scarring. Heart: Moderate calcified coronary artery disease. Mediastinum: The prominent right pulmonary artery on axial series 2, image images 28-30, is in the same location as the possible 2.5 cm right hilar mass. This is a summation shadow with no mass. Pulmonary arteries: 33 mm diameter main pulmonary trunk suggesting pulmonary artery hypertension. Aorta: Normal. No aortic aneurysm. Other veins: Prominent 1.1 cm diameter right inferior posterior pulmonary vein which appears enlarged and could represent acquired pulmonary AV fistula. This could also help explain the apparent increased size of the right pulmonary artery since the previous exam. Axial series 2, image 31. Lymph nodes: Unremarkable. No enlarged lymph nodes. Bones/joints: Previous sternotomy. Mild thoracic spondylosis. Soft tissues: Unremarkable. Spleen: There are one or more accessory splenules. Upper abdomen: Stable elevation of the left hemidiaphragm consistent with eventration. IMPRESSION: 1. Mild left basilar atelectasis and/or pneumonia. 2. 33 mm diameter main pulmonary trunk suggesting pulmonary artery hypertension. 3. The prominent right pulmonary artery on axial series 2, image images 28-30, is in the same location as the possible 2.5 cm right hilar mass. This is a summation shadow with no mass. 4. Prominent 1.1 cm diameter right inferior posterior pulmonary vein which appears enlarged and could represent acquired pulmonary AV fistula. This could also help explain the apparent increased size of the adjacent right pulmonary artery since the previous exam. Axial series 2, image 31. Impression. Dictated and Authenticated by: Nomi Akhtar MD. Ordering:ESTHER Tamez MD
[2018-06-29 14:28] VITALS: BP 110/70; PULSE 99; RESP 18; TEMP 37.5; O2SAT 93
--- NOTE | 2018-07-01 08:22 | PDOC.ERCMPRO ---
Care Management Progress Note 07/01-Dr. Saldaña requested assistance with a PCP(Dr. Tucker) f/u this week for flu, possible pneumonia. Order for echo was sent to [facility]. Referral faxed to [facility] this am.
== END 2018-06-29 14:30 | disposition home or self-care (01) ==
PROVIDERS: Emergency Provider Physician Assistant; PCP Family Medicine
DX: J10.1 Influenza due to other identified influenza virus with other respiratory manifestations (principal); J45.909 Unspecified asthma, uncomplicated; Z95.4 Presence of other heart-valve replacement
CPT/HCPCS: 80048; 87449; 99285; 71046; 71260; 85025; 99284; J3490; J7512; J7620

== ENCOUNTER 2018-07-05 00:27 | Outpatient (CLI) | payer MEDICARE, BC, SELFPAY ==
--- NOTE | 2018-07-05 10:30 | MERGE_ITS ---
*[facility]* *[facility]* [address] [place] [address] Date of study: 07/05/2018 Transthoracic Echocardiography M-mode, complete 2D, complete spectral Doppler, and color Doppler *STUDY CONCLUSIONS* Impressions: Compared to the prior study 4 months ago, there has been no significant interval change. Summary: 1. Left ventricle: The cavity size was normal. Wall thickness was increased in a pattern of mild LVH. Systolic function was mildly reduced. The estimated ejection fraction was 45-50%. Wall motion was normal; there were no regional wall motion abnormalities. 2. Ventricular septum: Septal motion showed paradoxical motion. 3. Aortic valve: There was mild regurgitation. Valve area (VTI): 2.7cm^2. Valve area (Vmax): 2.1cm^2. Valve area (Vmean): 2.1cm^2. 4. Mitral valve: Prior procedures included surgical repair. An annular ring prosthesis was present. Mild thickening. Valve area by pressure half-time: 2.4cm^2. 5. Left atrium: The atrium was severely dilated. 6. Right ventricle: The cavity size was normal. Wall thickness was normal. Systolic function was normal. 7. Tricuspid valve: There was moderate regurgitation. 8. Pulmonic valve: Peak gradient (S): 2.9mm Hg. 9. Pulmonary arteries: Pulmonary systolic pressure was mildly increased. PA peak pressure: 40mm Hg (S). *PATIENT PRESENTATION* Height: 152.4cm ((60in) ) S/D Pressure: 115 / 78 Weight: 54kg ((118.7lb) ) BSA: 1.52m^2 Test start time: 10:45 AM. Test stop time: 11:50 AM. CONSULTING Magdalena Tariq V PERFORMING Unknown PERFORMING [facility] BELT BRANDER RT Guerita (Cherelle)(CT), [facility] ORDERING Joi Saldaña REFERRING HubertruiJoi rivera REFERRING Margaret, Do Piotr Tamez *PROCEDURE DATA* Procedure information: The patient was identified by two identifiers. This study was interpreted by [facility]. Pertinent images and digital data are archived for permanent storage and are available for subsequent review. Comparison was made to the study of 01/18/2018. Study status: Routine. Transthoracic echocardiography. M-mode, complete 2D, complete spectral Doppler, and color Doppler. A Transthoracic Echocardiogram was performed. Scanning was performed from the parasternal, apical, subcostal, and suprasternal notch acoustic windows. Images were obtained using an [id number] cardiac ultrasound machine. Image quality was adequate. Study completion: The patient tolerated the procedure well. History: PMH: Prominent right inferior posterior pulmonary vein. r/o pulmonary HTN/AV fistula. h/o MV repair. Z95.4. *CARDIAC ANATOMY* Left ventricle: The cavity size was normal. Wall thickness was increased in a pattern of mild LVH. There was a false tendon within the ventricle. Systolic function was mildly reduced. The estimated ejection fraction was 45-50%. Wall motion was normal; there were no regional wall motion abnormalities. The study is not technically sufficient to allow evaluation of LV diastolic function. Aortic valve: Trileaflet; normal thickness leaflets. Mobility was not restricted. Doppler: Transvalvular velocity was within the normal range. There was no stenosis. There was mild regurgitation. VTI ratio of LVOT to aortic valve: 0.86. Valve area (VTI): 2.7cm^2. Indexed valve area (VTI): 1.7cm^2/m^2. Peak velocity ratio of LVOT to aortic valve: 0.69. Valve area (Vmax): 2.1cm^2. Indexed valve area (Vmax): 1.4cm^2/m^2. Mean velocity ratio of LVOT to aortic valve: 0.68. Valve area (Vmean): 2.1cm^2. Indexed valve area (Vmean): 1.4cm^2/m^2. Mean gradient (S): 3.5mm Hg. Peak gradient (S): 6.4mm Hg. Aorta: Aortic root: The aortic root was at upper normal limits. Ascending aorta: The ascending aorta was normal in size. Mitral valve: Prior procedures included surgical repair. An annular ring prosthesis was present. Mild thickening. Mobility was not restricted. Doppler: Transvalvular velocity was within the normal range. There was no evidence for stenosis. There was no significant regurgitation. Valve area by pressure half-time: 2.4cm^2. Indexed valve area by pressure half-time: 1.6cm^2/m^2. Peak gradient (D): 3.2mm Hg. Left atrium: The atrium was severely dilated. Right ventricle: The cavity size was normal. Wall thickness was normal. Systolic function was normal. Ventricular septum: Septal motion showed paradoxical motion. Pulmonic valve: Poorly visualized. Structurally normal valve. Doppler: Transvalvular velocity was within the normal range. There was no evidence for stenosis. There was mild to moderate regurgitation. Peak gradient (S): 2.9mm Hg. Tricuspid valve: Mildly thickened leaflets. Doppler: Transvalvular velocity was within the normal range. There was no evidence for stenosis. There was moderate regurgitation. Pulmonary artery: Poorly visualized. Pulmonary systolic pressure was mildly increased. Right atrium: The atrium was normal in size. The Eustachian valve appeared prominent. Pericardium: There was no pericardial effusion. Systemic veins: Inferior vena cava: Well visualized. The vessel was patent and normal in size. The respirophasic diameter changes were in the normal range (greater than or equal to 50%), consistent with normal central venous pressure. Measurements Left ventricle Value 01/18/2018 Reference LV ID, ED, PLAX 4.3 cm 4.1 3.5 - 6.0 LV ID, ES, PLAX 3.0 cm 3.3 2.1 - 4.0 LV PW thickness, ED, PLAX 1.2 cm 1.2 LV end-diastolic volume, 79 ml 72 1-p A2C LV ejection fraction, 1-p 38 % 50 A2C LV end-diastolic volume, 85 ml 66 1-p A4C LV ejection fraction, 1-p 47 % 42 A4C LV e', lateral 0.058 m/sec 0.047 LV E/e', lateral 15 22 LV e', medial 0.037 m/sec 0.041 LV E/e', medial 24 26 LV e', average 0.048 m/sec 0.044 LV E/e', average 19 24 Ventricular septum Value 01/18/2018 Reference IVS thickness, ED, PLAX 1.2 cm 1.2 LVOT Value 01/18/2018 Reference LVOT ID, A-P 2.0 cm 1.9 LVOT area 3.1 cm^2 2.9 LVOT peak velocity, S 0.88 m/sec 0.98 LVOT mean velocity, S 0.6 m/sec 0.76 LVOT VTI, S 18.1 cm 19.4 LVOT peak gradient, S 3.1 mm Hg 3.9 LVOT mean gradient, S 1.7 mm Hg 2.5 Stroke volume (SV), LVOT 56 ml 57 DP Stroke index (SV/bsa), 37 ml/m^2 37 LVOT DP Aortic valve Value 01/18/2018 Reference Aortic valve peak 1.3 m/sec 1.5 velocity, S Aortic valve mean 0.89 m/sec 1.09 velocity, S Aortic valve VTI, S 21.0 cm 31.4 Aortic mean gradient, S 3.5 mm Hg 5.2 Aortic peak gradient, S 6.4 mm Hg 9.6 VTI ratio, LVOT/AV 0.86 0.62 Aortic valve area, VTI 2.7 cm^2 1.8 Velocity ratio, peak, 0.69 0.63 LVOT/AV Aortic valve area, peak 2.1 cm^2 1.9 velocity Velocity ratio, mean, 0.68 0.7 LVOT/AV Aortic valve area, mean 2.1 cm^2 2 velocity Aortic valve area/bsa, 1.4 cm^2/m^2 1.3 mean velocity Aorta Value 01/18/2018 Reference Aortic root ID, ED 3.3 cm 3.3 Ascending aorta ID, A-P, S 3.6 cm 3.4 Left atrium Value 01/18/2018 Reference LA ID, A-P, ES 4.2 cm 4.4 LA ID/bsa, A-P (H) 2.8 cm/m^2 2.9 <=2.2 LA area, ES, A4C (H) 25.7 cm^2 25.1 8.8 - 23.4 LA area, ES, A2C 28 cm^2 23 LA volume/bsa, ES, 1-p A4C 64 ml/m^2 55 LA volume, ES, 2-p 98 ml 84 LA volume/bsa, ES, 2-p 64 ml/m^2 55 LA/aortic root ratio 1.28 1.33 Mitral valve Value 01/18/2018 Reference Mitral E-wave peak 0.89 m/sec 1.06 velocity Mitral A-wave peak 1.28 m/sec 1.31 velocity Mitral deceleration time (H) 314 ms 584 150 - 230 Mitral pressure half-time 91 ms 169 Mitral peak gradient, D 3.2 mm Hg 4.5 Mitral E/A ratio, peak 0.69 0.81 Mitral valve area, PHT, DP 2.4 cm^2 1.3 Pulmonary arteries Value 01/18/2018 Reference PA pressure, S, DP (H) 40 mm Hg <=30 Tricuspid valve Value 01/18/2018 Reference Tricuspid regurg peak 2.9 m/sec 3 velocity Tricuspid peak RV-RA 33 mm Hg 36.8 gradient Right atrium Value 01/18/2018 Reference RA area, ES, A4C 16.1 cm^2 17.2 8.3 - 19.5 Systemic veins Value 01/18/2018 Reference Estimated CVP 10 mm Hg Right ventricle Value 01/18/2018 Reference RV pressure, S, DP (H) 43 mm Hg <=30 Pulmonic valve Value 01/18/2018 Reference Pulmonic peak gradient, S 2.9 mm Hg 2.1 Legend: (L) and (H) violetta values outside specified reference range. I have personally reviewed the images and have reviewed and edited the reported findings. Electronically signed by Garima Oconnor 07/05/2018 17:08
== END 2018-07-05 00:47 ==
PROVIDERS: PCP Family Medicine; Visit Provider Physician Assistant
DX: I50.1 Left ventricular failure, unspecified (principal); I51.7 Cardiomegaly; I25.10 Atherosclerotic heart disease of native coronary artery without angina pectoris; I48.91 Unspecified atrial fibrillation; I08.2 Rheumatic disorders of both aortic and tricuspid valves; Z95.4 Presence of other heart-valve replacement
CPT/HCPCS: 93306

== ENCOUNTER → 2018-11-13 10:15 | Outpatient (BNVA) | payer MEDICARE, BC, SELFPAY | PROVIDERS: PCP Family Medicine; Visit Provider Student in an Organized Health Care Education/Training Program | DX: Z95.4 Presence of other heart-valve replacement (principal); I48.1 Persistent atrial fibrillation; I51.9 Heart disease, unspecified; E03.9 Hypothyroidism, unspecified | CPT/HCPCS: 99214 ==

== ENCOUNTER 2018-12-10 01:39 | Outpatient (CLI) | payer MEDICARE, BC, SELFPAY ==
--- NOTE | 2018-12-30 11:37 | ZIOP_ITS ---
ZIO MONITOR DATE OF DICTATION December 30, [address] 12 days, 23 hours, December 10-2018 Baseline rhythm sinus. Occasional single PAC. 2323 bursts SVT, longest 1 minute 35 seconds duration, fastest 214 beats per minute. Atrial fibrillation/flutter noted less than 1% of monitor with average heart rate 138 beats per minute, range 93-180 beats per minute. The longest burst atrial fibrillation: 5 minutes, 4 seconds at 140 beats per minute average rate. Occasional single PVC, 1.1% total beat. Rare couplet. Rare triplet. Nonsustained ventricular tachycardia noted 7 times, longest run 5-beat duration, fastest 197 beats per minute. Arrhythmias do not appear to follow any sort of diurnal/nocturnal pattern. No symptoms. 2 triggered events during sinus rhythm PVCs. Average heart rate sinus 76 beats per minute, range 48-105 beats per minute. Nomi Connolly M.D. GREG/merlyn T - 12/30/2018
== END 2018-12-10 01:59 ==
PROVIDERS: PCP Family Medicine; Visit Provider Student in an Organized Health Care Education/Training Program
DX: R06.02 Shortness of breath (principal); I48.91 Unspecified atrial fibrillation; I47.1 Supraventricular tachycardia
CPT/HCPCS: 0296T

== ENCOUNTER 2018-12-30 10:46 | Outpatient (CLI) | payer MEDICARE, BC, SELFPAY | END 2018-12-30 11:06 | PROVIDERS: PCP Family Medicine; Referring Provider Family Medicine; Visit Provider Internal Medicine Interventional Cardiology | DX: R06.02 Shortness of breath (principal); I47.1 Supraventricular tachycardia; I48.91 Unspecified atrial fibrillation | CPT/HCPCS: 0298T ==

== ENCOUNTER → 2019-01-29 11:57 | Outpatient (BNVA) | payer MEDICARE, BC, SELFPAY | PROVIDERS: PCP Family Medicine; Visit Provider Student in an Organized Health Care Education/Training Program | DX: I48.1 Persistent atrial fibrillation (principal); I51.89 Other ill-defined heart diseases; Z95.4 Presence of other heart-valve replacement | CPT/HCPCS: 99214 ==

== ENCOUNTER 2019-07-08 08:00 | Outpatient (REF) | payer MEDICARE, BC, SELFPAY ==
[2019-07-08 20:21] LABS: FREE T4 1.59 ng/dL (0.76-1.46); TSH 0.06 uIU/mL (0.36-3.74)
== END 2019-07-08 08:20 ==
LOC: NCHCN 08:00
PROVIDERS: PCP Family Medicine; Visit Provider Family Medicine
DX: E03.9 Hypothyroidism, unspecified (principal)
CPT/HCPCS: 84439; 84443

== ENCOUNTER 2020-03-16 15:03 | Outpatient (REF) | payer MEDICARE, BC, SELFPAY ==
[2020-03-16 19:34] LABS: HCT 43.8 % (36.0-46.0); HGB 14.1 g/dL (11.2-15.7)
[2020-03-16 19:41] LABS: Anion Gap 9.1 mmol/L (3-11); BUN 21 mg/dL (7-18); CO2 26.9 mmol/L (21.0-32.0); CREATININE 0.79 mg/dL (0.55-1.02); Calcium 9.2 mg/dL (8.5-10.1); Chloride 105 mmol/L (98-107); Glucose 82 mg/dL (74-106); Sodium 141 mmol/L (136-145)
== END 2020-03-16 15:23 ==
LOC: NCHCN 15:03
PROVIDERS: PCP Family Medicine; Visit Provider Family Medicine
DX: Z00.00 Encounter for general adult medical examination without abnormal findings (principal); Z86.79 Personal history of other diseases of the circulatory system; Z79.01 Long term (current) use of anticoagulants
CPT/HCPCS: 80048; 85014; 85018

== ENCOUNTER 2020-08-04 10:45 | Outpatient (REF) | payer MEDICARE, BC, SELFPAY ==
[2020-08-04 16:21] LABS: TSH 0.03 uIU/mL (0.36-3.74)
== END 2020-08-04 10:46 | disposition home or self-care (01) ==
LOC: NCHCN 10:45
PROVIDERS: PCP Family Medicine; Visit Provider Family Medicine
DX: E03.9 Hypothyroidism, unspecified (principal)
CPT/HCPCS: 84439; 84443

== ENCOUNTER 2020-08-12 19:55 | Inpatient (IN) | payer MEDICARE, BC, SELFPAY ==
[2020-08-12] VITALS (48 sets, daily range): BP systolic 156–177; BP diastolic 66–84; PULSE 58–74; RESP 11–22; TEMP 36–36.6; O2SAT 93–99
--- NOTE | 2020-08-12 20:00 | RT.EKG_ITS ---
APPROVED REPORT Exam: Resting ECG Patient Location: E HR:77 bpm ECG Measurements Heart Rate 77 AXIS AK 144 P 82 QRSd 97 QRS -24 QT 440 T 8 QTc 478 Conclusion Sinus rhythm... Paired ventricular premature complexes...sequence of 2 V complexes
[2020-08-12 20:30] LABS: Lactate 1.1 mmol/L (0.6-1.4)
[2020-08-12 20:31] LABS: Abs Immature Grans 0.03 10^3/uL (0.0-0.06); Absolute Basophil Count 0.03 10^3/uL (0.0-0.2); Absolute Eosinophil Count 0.01 10^3/uL (0.0-0.7); Absolute Lymphocyte Count 0.36 10^3/uL (1.2-3.4); Absolute Monocyte Count 0.42 10^3/uL (0.1-0.8); Absolute Neutrophil Count 8.37 10^3/uL (1.2-6.7); Basophils % 0.3; Eosinophils % 0.1; HCT 42.5 % (36.0-46.0); HGB 13.9 g/dL (11.2-15.7); Immature Grans % 0.3; Lymphocytes % 3.9; MCH 29.6 pg (27.0-33.0); MCHC 32.7 % (32.0-36.0); MCV 90.6 fL (80-95); MPV 10.7 fL (8.0-11.0); Monocytes % 4.6; Neutrophils % 90.8; Nucleated RBC 0 %; Platelet Count 229 10^3/uL (130-400); RBC 4.69 10^6/uL (3.93-5.22); RDW-SD 42.8 fL; WBC 9.22 10^3/uL (4.4-10.8)
--- NOTE | 2020-08-12 20:36 | ED.GENADUL_ITS ---
Discharge Plan Disposition Patient Disposition: [facility] IN[facility]IENT Condition: Serious Discharge Details Chief Complaint: Abd Prob Clinical Impression: Acute appendicitis Primary Care Provider: Magdalena Tariq V ED Provider: Leo Segovia Home Meds and New Rx's Prescriptions: No Action Eliquis 5 mg tablet 5 mg PO BID RF: 0 metoprolol succinate 25 mg tablet extended release 24 hr 12.5 mg PO DAILY Qty: 30 RF: 6 ADVAIR 100/50 1 DISK W/DEV DISK.W.DEV 1 puff Inhalation DAILY Qty: 3 RF: 4 levothyroxine 100 MCG tablet 100 mcg PO .4 DAYS A WEEK RF: 0 montelukast [Singulair] 10 MG tablet 10 mg PO DAILY PRN PRNRF: 0 lisinopril 5 MG tablet 5 mg PO DAILY RF: 0 levothyroxine [Synthroid] 112 MCG tablet 112 mcg PO .3 DAYS A WEEK RF: 0 Veramyst 10 GM spray,suspension 2 spr NS DAILY RF: 0 Medical Decision Making 79-year-old female with past sickle history of coronary artery sclerosis, A. fib, mitral valve replacement, hypothyroidism, asthma, on apixaban presents with abdominal pain, nausea, and forcing herself to vomit that began earlier this morning. Clinically she does have some reproducible discomfort but she appears nontoxic. Will obtain routine laboratory values, lactate, give IV fluid and Zofran. Patient does not want any IV pain medication at this time Laboratory values are unremarkable for any obvious emergent process. Patient reports that her nausea is slightly improved but not resolved, pain persists. Will obtain CT imaging of the abdomen and pelvis with contrast. CT imaging read by radiology reveals acute appendicitis. Diverticulosis. Status post cholecystectomy and hysterectomy. Chronic generative changes of the spine. Thickening of a segment of the sigmoid colon wall suspicious for plan for bowel disease versus other causes of colitis. Patient given 3.375 of Zosyn. I made her aware of her diagnosis, she is agreeable to admission, still declines pain medication. Case discussed with Dr. Urban who is agreeable to admit the patient to her services. Medical Records Medical records reviewed: Yes I reviewed the patient's medical records. Lab Data Lab results reviewed: Yes I reviewed the patient's lab results. Labs: Laboratory Tests Range/Units 08/12/20 08/12/20 08/12/20 20:20 20:20 20:20 WBC (4.4-10.8) 10^3/uL 9.22 RBC (3.93-5.22) 10^6/uL 4.69 Hgb (11.2-15.7) g/dL 13.9 Hct (36.0-46.0) % 42.5 MCV (80-95) fL 90.6 MCH (27.0-33.0) pg 29.6 MCHC (32.0-36.0) % 32.7 RDW (11.7-14.6) % 13.0 Plt Count (130-400) 10^3/uL 229 MPV (8.0-11.0) fL 10.7 Immature Gran % 0.3 Neutrophils % 90.8 Lymphocytes % 3.9 Monocytes % 4.6 Eosinophils % 0.1 Basophils % 0.3 Nucleated RBC % % 0 Absolute Neutrophils (1.2-6.7) 10^3/uL 8.37 H Absolute Lymphocytes (1.2-3.4) 10^3/uL 0.36 L Absolute Monocytes (0.1-0.8) 10^3/uL 0.42 Absolute Eosinophils (0.0-0.7) 10^3/uL 0.01 Absolute Basophils (0.0-0.2) 10^3/uL 0.03 PT (9.3-11.0) sec INR (0.9-1.1) APTT (21.0-27.5) sec VBG Lactate (0.6-1.4) mmol/L 1.1 Sodium (136-145) mmol/L 138 Potassium (3.5-5.1) mmol/L 4.0 Chloride (98-107) mmol/L 103 Carbon Dioxide (21.0-32.0) mmol/L 28.6 Anion Gap (3-11) mmol/L 6.4 BUN (7-18) mg/dL 23 H Creatinine (0.55-1.02) mg/dL 0.7 Estimated GFR/1.73 m2 (mL/min/1.73m2) >= 60.00 Glucose (74-106) mg/dL 141 H Calcium (8.5-10.1) mg/dL 9.8 Total Bilirubin (0.2-1.0) mg/dL 0.5 AST (15-37) U/L 38 H ALT (14-59) U/L 26 Alkaline Phosphatase (46-116) U/L 110 Troponin I (<0.06) ng/mL < 0.05 Total Protein (6.4-8.2) g/dL 7.4 Albumin (3.4-5.0) g/dL 4.1 Lipase (73-393) U/L 66 TSH (0.36-3.74) uIU/mL 0.01 L Free T4 (0.76-1.46) ng/dL 1.67 H Range/Units 08/12/20 20:20 WBC (4.4-10.8) 10^3/uL RBC (3.93-5.22) 10^6/uL Hgb (11.2-15.7) g/dL Hct (36.0-46.0) % MCV (80-95) fL MCH (27.0-33.0) pg MCHC (32.0-36.0) % RDW (11.7-14.6) % Plt Count (130-400) 10^3/uL MPV (8.0-11.0) fL Immature Gran % Neutrophils % Lymphocytes % Monocytes % Eosinophils % Basophils % Nucleated RBC % % Absolute Neutrophils (1.2-6.7) 10^3/uL Absolute Lymphocytes (1.2-3.4) 10^3/uL Absolute Monocytes (0.1-0.8) 10^3/uL Absolute Eosinophils (0.0-0.7) 10^3/uL Absolute Basophils (0.0-0.2) 10^3/uL PT (9.3-11.0) sec 10.1 INR (0.9-1.1) 1.0 APTT (21.0-27.5) sec 23.2 VBG Lactate (0.6-1.4) mmol/L Sodium (136-145) mmol/L Potassium (3.5-5.1) mmol/L Chloride (98-107) mmol/L Carbon Dioxide (21.0-32.0) mmol/L Anion Gap (3-11) mmol/L BUN (7-18) mg/dL Creatinine (0.55-1.02) mg/dL Estimated GFR/1.73 m2 (mL/min/1.73m2) Glucose (74-106) mg/dL Calcium (8.5-10.1) mg/dL Total Bilirubin (0.2-1.0) mg/dL AST (15-37) U/L ALT (14-59) U/L Alkaline Phosphatase (46-116) U/L Troponin I (<0.06) ng/mL Total Protein (6.4-8.2) g/dL Albumin (3.4-5.0) g/dL Lipase (73-393) U/L TSH (0.36-3.74) uIU/mL Free T4 (0.76-1.46) ng/dL HPI General Mode of arrival: ambulatory . Date/Time Provider Initiated Documentation: 08/12/20 19:55 . Limitations to Documentation: no limitations . Information obtained by: patient . HPI Narrative: This is a 79-year-old female with [place] history of coronary arterial sclerosis, A. fib, mitral valve replacement, diverticulosis, hypothyroidism, asthma, takes apixaban daily. She states that she awoke this morning feeling fine, asymptomatic. She states that she ate blueberries and soon after had abdominal pain, diffuse, crampy in nature. She states the pain was moderate but subsequently became severe a 10 out of 10. She felt nauseous and force herself to vomit. She states that she felt better after vomiting. She denies recent travel, sick contacts or bad food exposure. Denies fever, headache, chest pain, shortness of breath, back pain, change in bowel or bladder function, skin rash, numbness, tingling, weakness. She reports a history of cholecystectomy but denies any other abdominal surgerie s. Denies history of bowel obstruction. Currently the pain is crampy and 5 out of 10. She states that she had a normal bowel movement this morning but no bowel movement since. Related Data Home Medications Medication Instructions Recorded Confirmed Veramyst 2 spr NS DAILY 12/20/17 08/12/20 levothyroxine 100 mcg PO .4 DAYS A WEEK 12/20/17 08/12/20 levothyroxine [Synthroid] 112 mcg PO .3 DAYS A WEEK 12/20/17 08/12/20 lisinopril 5 mg PO DAILY 12/20/17 08/12/20 montelukast [Singulair] 10 mg PO DAILY PRN PRN 12/20/17 08/12/20 metoprolol succinate 25 mg 12.5 mg PO DAILY #30 tab 07/30/18 08/12/20 tablet,extended release 24 hr apixaban 5 mg tablet 5 mg PO BID 11/13/18 08/12/20 ADVAIR 100/50 1 puff INHALATION DAILY #3 01/29/19 08/12/20 Previous Rx's Medication Instructions Recorded metoprolol succinate 25 mg 12.5 mg PO DAILY #30 tab 07/30/18 tablet,extended release 24 hr Allergies Allergy/AdvReac Type Severity Reaction Status Date / Time egg Allergy Unknown Unverified 08/12/20 21:10 peas Allergy Unknown Unverified 08/12/20 21:10 tomato Allergy Unknown Unverified 08/12/20 21:10 lactose AdvReac Unknown Unverified 08/12/20 21:10 General Stated Complaint: Abd Prob MERI: 4 Review of Systems Constitutional Constitutional: Denies fatigue, Denies fever(s) and Denies headache(s) ENT Ears, Nose, Mouth, and Throat: Denies headache(s) and Denies neck pain Cardiovascular Cardiovascular: Denies chest pain and Denies dyspnea Respiratory Respiratory: Denies dyspnea Gastrointestinal Gastrointestinal: Reports abdominal pain, Denies constipation, Denies diarrhea, Reports nausea and Reports vomiting Musculoskeletal Musculoskeletal: Denies back pain and Denies neck pain Integumentary/Breasts Skin/Breast: Denies rash Neurologic Neurologic: Denies headache(s) Endocrine Endocrine: Denies fatigue Hematologic/Lymphatic Hematologic/Lymphatic: Reports easy bleeding and Reports easy bruising [facility] Medical History (Updated 08/12/20 @ 22:18 by TARSHA Saenz) Asthma Asthma Atrial fibrillation Diverticulosis GERD (gastroesophageal reflux disease) H/O mitral valve replacement Hypothyroidism Hypothyroidism Mitral valve disorder Right ureteral calculus 90% calcium oxalate monohydrate and 10% calcium oxalate dihydrate Trigeminal neuralgia Urinoma Surgical History Cholecystectomy Colonoscopy - IV Sedation (04/24/16) History of open heart surgery Family History Father Parkinsons Son Cardiovascular disease Sister Colon cancer diseased Social History Smoking/Tobacco Use Status: Never Smoking risk assessment performed?: Yes Alcohol Intake: current Alcohol Intake frequency: holidays/special occasions only Drug use: Never Substance use type: does not use Do you feel safe at home: Yes Do you feel safe in your relationship?: Yes Exam Const General: cooperative, healthy appearing, comfortable and no acute distress Orientation: alert, awake and oriented x3 HENMT Head: normal to inspection, normocephalic and atraumatic Mouth: moist mucous membranes Eyes General: appearance normal, both eyes and all related structures Conjunctivae: conjunctivae normal Neck Neck: normal visual inspection, trachea midline and supple Resp Effort & Inspection: normal respiratory effort and able to speak in complete sentences Auscultation: clear to auscultation bilaterally Cardio Rate: regular rate Rhythm: regular rhythm GI Inspection: normal to inspection Palpation: soft, not firm, no guarding, no pulsatile masses and tender (Diffuse mild, slightly worse in the right lower quadrant) not at McBurney's point and with no rebound tenderness Auscultation: hypoactive bowel sounds Back/Spine/Pelvis Back: No back tenderness Skin General skin exam: no rashes or lesions noted Neuro General: patient alert, patient awake, moves all extremities and no focal motor deficits Cognition: normal cognition Speech: speech normal Gait: normal gait Motor: muscle tone normal throughout Sensory Exam: no sensory deficits noted Extrem General: normal to inspection and full ROM Psych Appearance: grossly normal Mental Status: mental status grossly normal Course Vital Signs Vital signs: Vital Signs Temperature 36.0 C L 08/12/20 20:00 Pulse 65 08/12/20 20:00 Respiratory Rate 18 08/12/20 20:00 Blood Pressure 156/77 H 08/12/20 20:00 Pulse Oximetry 97 08/12/20 20:00 Temperature 36.0 C L 08/12/20 20:00 Temperature Source Temporal Artery Scan 08/12/20 20:00 Pulse 65 08/12/20 20:00 Respiratory Rate 18 08/12/20 20:00 Respiratory Effort Non-Labored 08/12/20 20:04 Blood Pressure 156/77 H 08/12/20 20:00 Blood Pressure Position Sitting 08/12/20 20:00 Pulse Oximetry 97 08/12/20 20:00 Oxygen Delivery Method Room Air 08/12/20 20:00 Oxygen Flow Rate 0 08/12/20 20:00 Pain Level 5 08/12/20 20:00 Lab/Test Results Lab/Test Results: Laboratory Tests Range/Units 08/12/20 08/12/20 20:20 20:20 WBC (4.4-10.8) 10^3/uL 9.22 RBC (3.93-5.22) 10^6/uL 4.69 Hgb (11.2-15.7) g/dL 13.9 Hct (36.0-46.0) % 42.5 MCV (80-95) fL 90.6 MCH (27.0-33.0) pg 29.6 MCHC (32.0-36.0) % 32.7 RDW (11.7-14.6) % 13.0 Plt Count (130-400) 10^3/uL 229 MPV (8.0-11.0) fL 10.7 Immature Gran % 0.3 Neutrophils % 90.8 Lymphocytes % 3.9 Monocytes % 4.6 Eosinophils % 0.1 Basophils % 0.3 Nucleated RBC % % 0 Absolute Neutrophils (1.2-6.7) 10^3/uL 8.37 H Absolute Lymphocytes (1.2-3.4) 10^3/uL 0.36 L Absolute Monocytes (0.1-0.8) 10^3/uL 0.42 Absolute Eosinophils (0.0-0.7) 10^3/uL 0.01 Absolute Basophils (0.0-0.2) 10^3/uL 0.03 VBG Lactate (0.6-1.4) mmol/L 1.1
[2020-08-12 20:45] LABS: PTT Activated 23.2 sec (21.0-27.5); Prothrombin Time 10.1 sec (9.3-11.0)
[2020-08-12] MEDS: Normal Saline 1,000 ML 1000 ML IV (20:51)
[2020-08-12] MEDS: Ondansetron 4 MG/2 ML VIAL IVP ×2 (20:51→22:41)
[2020-08-12 20:56] LABS: ALT 26 U/L (14-59); AST 38 U/L (15-37); Albumin 4.1 g/dL (3.4-5.0); Alkaline Phosphatase 110 U/L (46-116); Anion Gap 6.4 mmol/L (3-11); BUN 23 mg/dL (7-18); Bilirubin, Total 0.5 mg/dL (0.2-1.0); CO2 28.6 mmol/L (21.0-32.0); CREATININE 0.7 mg/dL (0.55-1.02); Calcium 9.8 mg/dL (8.5-10.1); Chloride 103 mmol/L (98-107); Glucose 141 mg/dL (74-106); Lipase 66 U/L (73-393); Sodium 138 mmol/L (136-145); TSH (W/Ref FT4) 0.01 uIU/mL (0.36-3.74); Total Protein 7.4 g/dL (6.4-8.2)
[2020-08-12 20:57] LABS: Troponin I < 0.05 ng/mL (<0.06)
[2020-08-12 21:13] LABS: FREE T4 1.67 ng/dL (0.76-1.46)
[2020-08-12] MEDS: Normal Saline - Diluent 50 ML VIAL IV (21:19)
[2020-08-12] MEDS: Omnipaque 350 MG/ML 100 ML BTL IJ (21:23)
[2020-08-12] MEDS: Normal Saline Flush 10 ML SYR IVP ×2 (21:24→23:23)
--- NOTE | 2020-08-12 21:38 | DI.CT_ITS ---
EXAM: CT ABDOMEN PELVIS W CLINICAL HISTORY: pain/n/v TECHNIQUE: Imaging Protocol: Axial computed tomography images with coronal and sagittal reformatted images were created and reviewed CONTRAST MATERIAL: Intravenous: Omnipaque 350 Contrast volume:77 mL Oral: No FINDINGS: ABDOMEN: Lung Bases: Mild dependent atelectasis or scarring. Small hiatal hernia. Liver: Hypodensities seen in the liver likely reflecting a small cyst. The liver is normal density. No measurable mass. Portal, Superior Mesenteric, and Splenic Veins: Unremarkable. Gallbladder and Biliary Tract: Status post cholecystectomy. Stable appearance of the bile ducts. Pancreas: Normal density, no abnormal calcifications or inflammatory process. Spleen: Normal. Adrenals: No masses seen. Kidneys: Normal size, contour and axis. 2 mm nonobstructing stone in the lower pole of the right kidn ey. No masses seen. Abdominal Aorta: Abdominal portion non-dilated. There is tortuosity of the abdominal aorta. Mild-to- moderate atherosclerosis is present. Bowel: No obstruction or suspicious bowel wall thickening. There is a retrocecal appendix with its ti p at the inferior aspect of the liver. The appendix is enlarged measuring 1.2 cm in diameter with an enhancing wall. There are inflammatory changes around the appendix. No appendicoliths is seen. No periappendiceal abscess is present. The findings are suspicious for acute appendicitis. There is d iverticulosis of the descending and sigmoid colon but no evidence of acute diverticulitis. The sigmo id colon is underdistended. Peritoneal Cavity: No ascites, collection or mesenteric inflammatory response. No free air. Lymph Nodes: Within normal limits. Bones: Within normal limits for the patient's age. Soft Tissues: Unremarkable. PELVIS: Bladder: Symmetric distention, no gross wall thickening. Reproductive Organs: Status post hysterectomy. Lymph Nodes: Within normal limits. Bones: Within normal limits for the patient's age. IMPRESSION: Findings consistent with acute appendicitis. No abscess or free air. RADIATION DOSE DELIVERED: 632.84mGy.cm Total DLP DATA REPOSITORY: All CT scans at this facility are submitted to the National Radiology Data Registry (NRDR) Dose Index Registry (DIR) with the [employer] ([employer]). RADIATION OPTIMIZATION: All CT scans at this facility use at least one of these dose optimization te chniques: automated exposure control; mA and/or kV adjustment per patient size (includes targeted exa ms where dose is matched to clinical indication); or iterative reconstruction.
--- NOTE | 2020-08-12 22:03 | DI.VRAD_ITS ---
PROCEDURE INFORMATION: Exam: CT Abdomen And Pelvis With Contrast Exam date and time: 08/12/2020 9:16 PM Age: 79 years old Clinical indication: Nausea and vomiting; Prior surgery; Surgery date: 6+ months; Surgery type: Bladder, gallbladder TECHNIQUE: Imaging protocol: Computed tomography of the abdomen and pelvis with contrast. Radiation optimization: All CT scans at this facility use at least one of these dose optimization techniques: automated exposure control; mA and/or kV adjustment per patient size (includes targeted exams where dose is matched to clinical indication); or iterative reconstruction. Contrast material: [id number]; Contrast volume: 77 ml; Contrast route: INTRAVENOUS (IV); COMPARISON: CT Abdomen^ROUTINE ABDOMEN PELVIS WITH CONTRAST (Adult) 12/20/2017 8:53 AM FINDINGS: Heart: Cardiomegaly is present. Mediastinal space: A small hiatal hernia is present. Liver: A 7 mm cyst of the dome of the liver appears unchanged. The appendix is located within the right upper abdomen immediately inferior to the inferior surface of the liver. Gallbladder and bile ducts: The gallbladder is surgically absent. Pancreas: Normal. No ductal dilation. Spleen: Normal. No splenomegaly. Adrenal glands: Normal. No mass. Kidneys and ureters: Normal. No hydronephrosis. Stomach and bowel: Diverticulosis is present. There is thickening of the wall of a segment of the sigmoid colon without significant adjacent mesenteric inflammatory changes. Appendix: The appendix is dilated measuring up to 11 mm in diameter. The appendix wall is enhancing. Intraperitoneal space: Unremarkable. No free air. No significant fluid collection. Vasculature: The aorta demonstrates mild atherosclerotic calcification.. Aortic tortuosity is present. Lymph nodes: Unremarkable. No enlarged lymph nodes. Urinary bladder: Unremarkable as visualized. Reproductive: The uterus is surgically absent. No adnexal masses are seen. Bones/joints: Chronic degenerative changes of the spine are present. Soft tissues: Morbid obesity is present. IMPRESSION: 1. Acute appendicitis. 2. Diverticulosis. 3. Status post cholecystectomy and hysterectomy. 4. Chronic degenerative changes of the spine. 5. Thickening of a segment of the sigmoid colon wall suspicious for inflammatory bowel disease versus other causes of colitis. Dictated and Authenticated by: Paul Carnes MD. Ordering:BILLY Bailey MD
[2020-08-12] MEDS: PIPERACILLIN/TAZO 3.375 GM in Normal Saline 50 ML IVPB (22:18)
--- NOTE | 2020-08-12 22:20 | W.PM.HP.N ---
Date of service: 08/12/20 Time of Service: 22:20 Assessment and Plan Assessment and plan (1) Acute appendicitis: Status: Acute Assessment and plan: Informed consent is obtained for the procedural (explained in simple layman's terms that the pt and/or family could understand) explaining risks vs benefits and alternatives to the procedure and consequences if we do not do the procedure. Risks include but are not limited to:bleeding,infections, pneumonia, blood clots/DVT/PE, anesthesia(aspiration, damage to teeth/airway/LA/CVA//prolonged mechanical ventilation/PTX/IV infections), damage to bowel, bladder,blood vessels, ureters, bile ducts. Damage to solid organs requiring removal. Infertility. Leakage from anastomosis requiring colostomy/ Wound infections requiring further surgery. Scarring and disfigurement. Subsequent bowel obstructions from scar tissue. Possible open procedure if minimally invasive procedure is being attempted. We did have to reverse the apixaban. She has she is at risk for clotting. We will use for study units per kilogram and give 60 minutes prior to cut time. There is a theoretical risk of stroke including LA or CVA with giving this medication. There is a risk of bleeding because of her blood thinners. She has had a previous open vertical midline hysterectomy so there is a risk that we will need to do an open procedure because of this prior surgery. 75 mins spent in consultation- reviewing CT w/ rads, med review w/ pharmacy, med review w/ anesthesia , H/P surgical planning. (2) Coronary arteriosclerosis: Status: Acute (3) Atrial fibrillation: Status: Acute Qualifiers: Atrial fibrillation type: persistent Qualified Code(s): I48.1 - Persistent atrial fibrillation (4) H/O mitral valve replacement: Status: Acute (5) Hypothyroidism: Status: Acute (6) Asthma: Status: Acute History of Present Illness Consults Consult date: 08/13/20 Narrative: pt seen and examined. Still c/o RLQ pain. She is febrile. She vomited already this am. She has had a mitral valve repair done open-18 . She is on apixaban for A. fib. She has had an open vertical midline hyst and a lap moose. no problems w/ aesthesis. I did discuss the case with Dr. Javier. There is no signs of a sigmoid cancer. She does meet criteria for acute appendicitis by CT. There is no abscesses or fluid collection. D/w pharmacy. will do Kcentra 50 units per KG and give 60mis prior to procedure. Review of Systems All systems reviewed & are unremarkable except as noted in HPI and below PFSH Medical History (Updated 08/13/20 @ 09:32 by Angi Urban DO) Asthma Asthma Atrial fibrillation Diverticulosis GERD (gastroesophageal reflux disease) H/O mitral valve replacement Hypothyroidism Hypothyroidism Mitral valve disorder Right ureteral calculus 90% calcium oxalate monohydrate and 10% calcium oxalate dihydrate Trigeminal neuralgia Urinoma Surgical History Cholecystectomy Colonoscopy - IV Sedation (04/24/16) History of open heart surgery Family History Father Parkinsons Son Cardiovascular disease Sister Colon cancer diseased Social History Smoking/Tobacco Use Status: Never Smoking risk assessment performed?: Yes Alcohol Intake: current Alcohol Intake frequency: holidays/special occasions only Drug use: Never Substance use type: does not use Do you feel safe at home: Yes Do you feel safe in your relationship?: Yes Meds Home Medications and Allergies Allergies Allergy/AdvReac Type Severity Reaction Status Date / Time egg Allergy Unknown Unverified 08/12/20 21:10 peas Allergy Unknown Unverified 08/12/20 21:10 tomato Allergy Unknown Unverified 08/12/20 21:10 promethazine AdvReac Intermediate Other (See Unverified 08/13/20 07:31 Comment) lactose AdvReac Unknown Unverified 08/12/20 21:10 Home Medications Medication Instructions Recorded Confirmed Type Veramyst 2 spr NS DAILY 12/20/17 08/12/20 History levothyroxine 100 mcg PO DAILY 12/20/17 08/13/20 History lisinopril 5 mg PO DAILY 12/20/17 08/12/20 History montelukast [Singulair] 10 mg PO DAILY PRN PRN 12/20/17 08/12/20 History metoprolol succinate 25 mg 12.5 mg PO DAILY #30 tab 07/30/18 08/12/20 Rx tablet,extended release 24 hr apixaban 5 mg tablet 5 mg PO BID 11/13/18 08/12/20 History fluticasone propion-salmeterol 1 INHALATION DAILY 08/13/20 History [Advair Diskus] Exam Const General: cooperative, healthy appearing, comfortable, no acute distress, well developed and well groomed Nutritional Appearance: average body habitus and well nourished Orientation: alert, awake and oriented x3 HENMT Head: normal to inspection, normocephalic and atraumatic Ears: hearing grossly normal bilaterally and external ears normal General nose exam: external nose normal Face and sinus: normal facial exam and sinuses nontender Mouth: oral mucosae normal, lip normal, tongue normal and moist mucous membranes Teeth and gingiva: dentition normal Eyes General: appearance normal, both eyes and all related structures Conjunctivae: conjunctivae normal Sclera: sclerae normal Pupils: PERRL Neck Neck: normal visual inspection and full ROM Chest Chest: normal inspection of the chest Resp Effort & Inspection: normal respiratory effort, able to speak in complete sentences, no cough, no nasal flaring, not tachypneic and no use of accessory muscles Auscultation: clear to auscultation bilaterally, no rales, no rhonchi and no wheezes Cardio Jugular venous pressure: no JVD Rate: regular rate Rhythm: regular rhythm GI Inspection: no edema and non-distended Palpation: soft, no masses, tender and No ascites Auscultation: normal bowel sounds Other: vertical midline incision. no hernias. Localized rebound and guarding in RLQ. 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, margaret hands Psych Appearance: grossly normal and well kempt Mental Status: mental status grossly normal Speech and Movement: speech and movement normal Affect: normal affect Results Labs Result diagrams: 08/12/20 20:20 08/12/20 20:20 Labs: Laboratory Results - last 24 hr 08/12/20 08/12/20 08/12/20 20:20 20:20 20:20 WBC 9.22 RBC 4.69 Hgb 13.9 Hct 42.5 MCV 90.6 MCH 29.6 MCHC 32.7 RDW 13.0 Plt Count 229 MPV 10.7 Immature Gran % 0.3 Neutrophils % 90.8 Lymphocytes % 3.9 Monocytes % 4.6 Eosinophils % 0.1 Basophils % 0.3 Nucleated RBC % 0 Absolute Neutrophils 8.37 H Absolute Lymphocytes 0.36 L Absolute Monocytes 0.42 Absolute Eosinophils 0.01 Absolute Basophils 0.03 PT INR APTT VBG Lactate 1.1 Sodium 138 Potassium 4.0 Chloride 103 Carbon Dioxide 28.6 Anion Gap 6.4 BUN 23 H Creatinine 0.7 Estimated GFR/1.73 m2 >= 60.00 Glucose 141 H Calcium 9.8 Total Bilirubin 0.5 AST 38 H ALT 26 Alkaline Phosphatase 110 Troponin I < 0.05 Total Protein 7.4 Albumin 4.1 Lipase 66 TSH 0.01 L Free T4 1.67 H 08/12/20 20:20 WBC RBC Hgb Hct MCV MCH MCHC RDW Plt Count MPV Immature Gran % Neutrophils % Lymphocytes % Monocytes % Eosinophils % Basophils % Nucleated RBC % Absolute Neutrophils Absolute Lymphocytes Absolute Monocytes Absolute Eosinophils Absolute Basophils PT 10.1 INR 1.0 APTT 23.2 VBG Lactate Sodium Potassium Chloride Carbon Dioxide Anion Gap BUN Creatinine Estimated GFR/1.73 m2 Glucose Calcium Total Bilirubin AST ALT Alkaline Phosphatase Troponin I Total Protein Albumin Lipase TSH Free T4 Last Vital Signs Temp 36.0 C L 08/12/20 20:00 Pulse 60 08/12/20 21:01 Resp 13 08/12/20 21:01 BP 166/84 H 08/12/20 21:01 Pulse Ox 93 08/12/20 20:31 COVID-19 Screening Have you, or household traveled for leisure in last 14 days?: No Had IN PERSON contact w/suspected or confirmed C-19 person: No
[2020-08-12 22:42] LABS: Source Nasal/Nares
[2020-08-12 23:22] LABS: COVID-19 PCR Negative (Negative)
[2020-08-12] MEDS: Normal Saline 1,000 ML 125 ML IV (23:24)
[2020-08-12] MEDS: ACETAMINOPHEN 1,000 MG/100 ML BTL 400 MG IVPB (23:36)
[2020-08-13] VITALS (48 sets, daily range): BP systolic 118–167; BP diastolic 59–91; PULSE 50–85; RESP 15–27; TEMP 35.8–37.4; O2SAT 91–100
--- NOTE | 2020-08-13 03:31 | NUR.NOTE ---
Nursing Note: pt was ringing bautista. went into room and pt claimed she was eating her SCDs that go on her legs for compression. she ripped it off her legs, ripped it apart and had was drinking her antibiotics to make her feel better i explained to her that she has an iv with her anitbiotics and the leg compressings were to stay on her legs. after reporting to her nurse what she did the nurse asked for the bed alarms to be on, i went back into the room and i turned on bed alarms and asked Pt if she knew where she was. she said i feed the dog so you dont have to worry about it. i told her she was at [facility] the hospital and said no i came here two weeks ago.
[2020-08-13] MEDS: PIPERACILLIN/TAZO 3.375 GM in Normal Saline 50 ML IVPB ×4 (04:57→22:58)
[2020-08-13] MEDS: Ondansetron 4 MG/2 ML VIAL IVP ×2 (05:33→20:16)
[2020-08-13] MEDS: Normal Saline Flush 10 ML SYR IVP ×2 (05:33→20:17)
[2020-08-13] MEDS: Metoprolol CR 25 MG TABCR 12.5 MG PO (07:37)
[2020-08-13 08:34] LABS: Bilirubin Negative (Negative); Blood Trace-intact (Negative); Clarity Clear (Clear); Glucose Negative (Negative); Ketones Trace mg/dL (Negative); Leukocyte Esterase Negative (Negative); Nitrite Negative (Negative); Urobilinogen 0.2 EU/dL (Up TO 0.2)
--- NOTE | 2020-08-13 08:35 | INITIAL_ITS ---
- If Service Date Differs Date of service: 08/13/20 Time of Service: 08:35 Care Management Initial Assess REASON FOR HOSPITALIZATION:: Acute Appendicitis PAST MEDICAL HISTORY/PAST SURGICAL HISTORY:: Acute appendicitis, rectal polyp, sigmoidectomy, coronary arteriosclerosis, right uteral calculus, atrial fibrillation, mitral valve replacement, hypothyroidism, asthma PREVIOUS FUNCTIONAL STATUS/SOCIAL/FAMILY SUPPORTS:: Lilliana resides in [place], her children reside out of area including her son, Yousif in [place], [place], son Jacob in [facility] and daughter, Gwendolyn and grand-daughter Maribel. She has a friend Eladia who resides locally and is supportive. Lilliana is very independent at baseline and enjoys cross country skiing, golfing, kayaking, walking and biking. CURRENT FUNCTIONAL STATUS:: Lilliana will be brought to the OR for surgical intervention. CM will assess post operatively to discuss any pertinent discharge planning considerations. ADVANCE DIRECTIVES:: On file at [facility]; Yousif as agent, Jacob as alternate. Has patient been provided with info about the portal/API?: Yes Did the patient sign up for the portal?: No CODE STATUS:: Full Code INSURANCE COVERAGE / FINANCIAL ISSUES:: BC/BS. Medicare CURRENT HOME/COMMUNITY SERVICES/EQUIPMENT:: No current services or equipment. PRIMARY CARE PHYSICIAN:: Magdalena Tariq POTENTIAL DISCHARGE NEEDS:: Follow up appointment with PCP. PATIENT/FAMILY EDUCATION NEEDS:: Review discharge instructions, discuss Ask Me Three. ANTICIPATED BARRIERS TO DISCHARGE:: None identified. TRANSPORTATION:: Via private vehicle with a friend. PLAN:: Lilliana will return home when ready per MD. She will follow up with her PCP and plan of care as prescribed. She will transport via private vehicle with a friend.
[2020-08-13] MEDS: Normal Saline 1,000 ML 125 ML IV ×2 (08:40→16:55)
[2020-08-13 08:41] LABS: Bacteria Negative HPF (Negative); C & S Indicated? No; Casts Negative LPF (Negative); Crystals Negative HPF (Negative); Epithelial Cells Few HPF (Negative); Mucus Negative (Negative); WBC Negative HPF (0-5)
[2020-08-13 14:35] LABS: HCT 38.7 % (36.0-46.0); HGB 12.5 g/dL (11.2-15.7)
--- NOTE | 2020-08-13 15:35 | APP_PTH ---
PATIENT: Lilliana Sellers LOC: ICU U#:[id number] AGE/SX: 79/F ROOM: ICU.222 RE08/12/[address]: Angi Urban : 1940 BED: A DIS: 08/23/2020 SPEC #: [id number] RECD: 08/16/20 11:00 STATUS: SOPHIA REQ #: [id number] EFRAÍN: 08/13/20 15:[address]: Angi Urban DEPT: Surgical Specimen RECD BY: Brandy Mckeon ENTERED: 08/16/20 11:00 SP TYPE: Appendix OTHR DR: Magdalena Tariq V Tissues: 1 - APPENDIX NOT INCIDENTAL Procedures: GROSS AND MICRO LEVEL 3 Comments: [id number]
--- NOTE | 2020-08-13 17:10 | ROE_ITS ---
Date of service: 08/13/20 Time of Service: 17:10 Operative Note Operative Note DATE OF PROCEDURE: 08/13/20 PRE-OP DIAGNOSIS: acute appendix POST-OP DIAGNOSIS: other (gangrenous ) PROCEDURE: roderick baron SURGEON: Mumtaz Lr SQUAD BOSS: Magdalena Flores ANESTHESIA TYPE: General LMA/ETT Refer to Anesthesia Record ESTIMATED BLOOD LOSS: 50 PATHOLOGY: other COMPLICATIONS: None Patient was transported to: PACU Procedure Description: INDICATIONS: The patient has signs and symptoms compatible with acute appendicitis and is brought to the OR for laparoscopic appendectomy, possible open procedure. Informed consent is obtained for the procedural (explained in simple layman's terms that the pt and/or family could understand) explaining risks vs benefits and alternatives to the procedure and consequences if we do not do the procedure. Risks include but are not limited to:bleeding,infections, pneumonia, blood clots/DVT/PE, anesthesia(aspiration, damage to teeth/airway/DC/CVA//prolonged mechanical ventilation/PTX/IV infections), damage to bowel, bladder,blood vessels, ureters. Damage to solid organs requiring removal. Leakage from anastomosis requiring colostomy. Wound infections requirng further surgery. Scarring and disfigurement. Subsequent bowel obstructions from scar tissue. Possible open procedure if minimaly invsive procedure is being attempted. Abscess and stump appendicitis as well as others. DESCRIPTION OF PROCEDURE: She had received Kcentra earlier in the day because she is on a NOAC. The patient was brought to the operating room suite and placed in supine position. Anesthesia was administered per the Department of Anesthesia. A Whiting catheter and OG tube are placed. The patient was prepped and draped in the usual sterile fashion using ChloraPrep scrub solution. Pause for the cause was done. 30 mL of 1% buffered was used for local anesthetization. The patient had had a previous vertical midline scar for a radical hysterectomy. Cutdown was done using the scar at the umbilicus. Stay sutures of 0 Vicryl are placed through the fascia. She finger is placed and swept into the abdomen. She has dense adhesions from the omentum up until the anterior abdominal wall. These were taken down with combination of blunt dissection and electrocautery. I was able to gain sufficient access to place a trocar. This was secured with Vicryl sutures camera was inserted through the port shows no damage to underlying structures. She does have a pessary in place in the vagina this is noted camera inserted through the port shows no damage to underlying structures. Bowel, liver and stomach that are visualized are normal in appearance. Pelvic organs are not visualized. The appendix is inflamed, erythematous,enlarged, & distened, but does not appear to have been ruptured. There is no purulent drainage in the pelvis. It is not adhered to any adjacent structures. A 5 mm port was then placed in the suprapubic position under direct visualization following creation of a local field block as well as a second 5 mm port in the LLQ. The appendix is extremely retrocecal. I had to open the white line of Toldt with the scissors in order to expose the base of the appendix. It was also intermittently adhered to the sidewall, whether this is truly a mesenteric attachment or just inflammatory tissue is not identified but she has multiple adhesions from the sidewall to other structures including the liver and the colon. The adhesions that are in my way are taken down with with clipping and sharply divided with the scissors. About 30 minutes is spent simply dissecting out the appendix. It is does not appear to be ruptured. There are no fluid collections or any leakage of stool or abscess fluid. The base appears healthy and will take and hold sutures. the appendix is elevated and a rent dissected into the mesentery. The base of the appendix is healthy and will hold yue. A Endo-PRISCILA stapler is placed across the base of the appendix and fired and 2nd stapler placed across the mesentery and fired. The appendix is placed in a bag and brought out. There is no bleeding or enteric leakage from the staple lines. The pt does not require a drain. The abdomen was copiously irrigated with a liter of saline. All saline is evacuated. The scope and ports are removed. Pneumoperitoneum is evacuated. The fascia under the 12 mm port is closed with 0 Vicryl. There is some mild bleeding from the dissection sites that is slightly more than I would expect. I think this is more from being on the NOAC. FloSeal was placed in this area. There is no specific bleeder that could be ligated or cauterized but just generalized ooze in the region. There was no bleeding from the port sites as when they removed and the pneumoperitoneum evacuated. The fascia under the Sol trocar site is closed with interrupted sutures of 0 vicryl. the wounds were copiously irrigated and closed in 2 layers with 4-0 Monocryl. Skin glue is used. Sterile dressings are applied. The patient tolerated the procedure without complication, transferred to the recovery room in stable condition. MUMTAZ LR DO
--- NOTE | 2020-08-13 17:15 | PGE_ITS ---
Date of Service Date of service: 08/13/20 Time of Service: 17:00 Assessment and Plan Assessment and plan (1) GERD (gastroesophageal reflux disease): Status: None (2) Acute appendicitis: Status: Acute Assessment and plan: will admit pt to ICU postOP for close observation no signs of acute AR/CVA continue to monitoer hold NSAID's/lovnox cont abx supporive care pulm toilet (3) Coronary arteriosclerosis: Status: Acute (4) Atrial fibrillation: Status: Acute Qualifiers: Atrial fibrillation type: persistent Qualified Code(s): I48.1 - Persistent atrial fibrillation (5) H/O mitral valve replacement: Status: Acute (6) Hypothyroidism: Status: Acute (7) Asthma: Status: Acute Subjective Subjective Interval history since last seen: pt was extremely sleepy adn slow to wake up in PACU. She would respond to pain. After a prolonged stay, she was more awake. A complete Neuro exam was done by anethesia adn observed. There were no neurologic deficets. Pt did wake up to cooperate. She had some PAC and sinus arrthymia throughout the case- nothing sustained. There were no ST or T wave changes. She did have some vomiting in PACU. She seems to be able to handle her secretions. There was a slight more amount of bleeding than what I would normally expect. A drain was not placed. Lovenox will be held. She is not c/o any chest pain. vitals were all stable throughout the case. SKIN: No rashes. No breakdown HEAD, EYES, EARS, NECK, AND THROAT: Head is normocephalic, pupils equal, round, reactive to light and accommodation, ocular movement intact, sclera clear no jaundice. Dentition intact. No thrush NECK: Supple, Trachea midline. No JVD LUNGS: normal respiration, clear to auscultation HEART: Regular rate and rhythm, EXTREMITY: No edema or cyanosis no redness or calf pain ABDOMEN: incisions are c/d/i. no distention NEURO: no focal neuro deficits. motor 4/5 upper and lower. Objective Last Vital Signs Temp 36.1 C L 08/13/20 17:05 Pulse 58 L 08/13/20 17:05 Resp 21 08/13/20 17:05 BP 144/91 H 08/13/20 17:05 Pulse Ox 97 08/13/20 17:05 Laboratory Results - last 24 hr 08/12/20 08/12/20 08/12/20 20:20 20:20 20:20 WBC 9.22 RBC 4.69 Hgb 13.9 Hct 42.5 MCV 90.6 MCH 29.6 MCHC 32.7 RDW 13.0 Plt Count 229 MPV 10.7 Immature Gran % 0.3 Neutrophils % 90.8 Lymphocytes % 3.9 Monocytes % 4.6 Eosinophils % 0.1 Basophils % 0.3 Nucleated RBC % 0 Absolute Neutrophils 8.37 H Absolute Lymphocytes 0.36 L Absolute Monocytes 0.42 Absolute Eosinophils 0.01 Absolute Basophils 0.03 PT INR APTT VBG Lactate 1.1 Sodium 138 Potassium 4.0 Chloride 103 Carbon Dioxide 28.6 Anion Gap 6.4 BUN 23 H Creatinine 0.7 Estimated GFR/1.73 m2 >= 60.00 Glucose 141 H Calcium 9.8 Total Bilirubin 0.5 AST 38 H ALT 26 Alkaline Phosphatase 110 Troponin I < 0.05 Total Protein 7.4 Albumin 4.1 Lipase 66 TSH 0.01 L Free T4 1.67 H Urine Color Urine Clarity Urine pH Ur Specific [place] Urine Protein Urine Ketones Urine Blood Urine Nitrite Urine Bilirubin Urine Urobilinogen Ur Leukocyte Esterase Urine RBC Urine WBC Ur Epithelial Cells Urine Crystals Urine Bacteria Urine Casts Urine Mucus Ur Culture Indicated? Urine Glucose COVID-19 Source SARS-CoV-2 (PCR) Patient ABO/Rh Antibody Screen 08/12/20 08/12/20 08/12/20 20:20 22:15 22:25 WBC RBC Hgb Hct MCV MCH MCHC RDW Plt Count MPV Immature Gran % Neutrophils % Lymphocytes % Monocytes % Eosinophils % Basophils % Nucleated RBC % Absolute Neutrophils Absolute Lymphocytes Absolute Monocytes Absolute Eosinophils Absolute Basophils PT 10.1 INR 1.0 APTT 23.2 VBG Lactate Sodium Potassium Chloride Carbon Dioxide Anion Gap BUN Creatinine Estimated GFR/1.73 m2 Glucose Calcium Total Bilirubin AST ALT Alkaline Phosphatase Troponin I Total Protein Albumin Lipase TSH Free T4 Urine Color Urine Clarity Urine pH Ur Specific [place] Urine Protein Urine Ketones Urine Blood Urine Nitrite Urine Bilirubin Urine Urobilinogen Ur Leukocyte Esterase Urine RBC Urine WBC Ur Epithelial Cells Urine Crystals Urine Bacteria Urine Casts Urine Mucus Ur Culture Indicated? Urine Glucose COVID-19 Source Cancelled Nasal/nares SARS-CoV-2 (PCR) Cancelled Negative Patient ABO/Rh Antibody Screen 08/13/20 08/13/20 08/13/20 08:25 14:14 14:15 WBC RBC Hgb Hct MCV MCH MCHC RDW Plt Count MPV Immature Gran % Neutrophils % Lymphocytes % Monocytes % Eosinophils % Basophils % Nucleated RBC % Absolute Neutrophils Absolute Lymphocytes Absolute Monocytes Absolute Eosinophils Absolute Basophils PT INR APTT VBG Lactate Sodium Potassium Chloride Carbon Dioxide Anion Gap BUN Creatinine Estimated GFR/1.73 m2 Glucose Calcium Total Bilirubin AST ALT Alkaline Phosphatase Troponin I Total Protein Albumin Lipase TSH Free T4 Urine Color Yellow Urine Clarity Clear Urine pH 6.0 Ur Specific [place] 1.020 Urine Protein Negative Urine Ketones Trace H Urine Blood Trace-intact H Urine Nitrite Negative Urine Bilirubin Negative Urine Urobilinogen 0.2 Ur Leukocyte Esterase Negative Urine RBC 3-5 H Urine WBC Negative Ur Epithelial Cells Few Urine Crystals Negative Urine Bacteria Negative Urine Casts Negative Urine Mucus Negative Ur Culture Indicated? No Urine Glucose Negative COVID-19 Source SARS-CoV-2 (PCR) Patient ABO/Rh Cancelled O Positive Antibody Screen Negative 08/13/20 14:15 WBC RBC Hgb 12.5 Hct 38.7 MCV MCH MCHC RDW Plt Count MPV Immature Gran % Neutrophils % Lymphocytes % Monocytes % Eosinophils % Basophils % Nucleated RBC % Absolute Neutrophils Absolute Lymphocytes Absolute Monocytes Absolute Eosinophils Absolute Basophils PT INR APTT VBG Lactate Sodium Potassium Chloride Carbon Dioxide Anion Gap BUN Creatinine Estimated GFR/1.73 m2 Glucose Calcium Total Bilirubin AST ALT Alkaline Phosphatase Troponin I Total Protein Albumin Lipase TSH Free T4 Urine Color Urine Clarity Urine pH Ur Specific [place] Urine Protein Urine Ketones Urine Blood Urine Nitrite Urine Bilirubin Urine Urobilinogen Ur Leukocyte Esterase Urine RBC Urine WBC Ur Epithelial Cells Urine Crystals Urine Bacteria Urine Casts Urine Mucus Ur Culture Indicated? Urine Glucose COVID-19 Source SARS-CoV-2 (PCR) Patient ABO/Rh Antibody Screen
--- NOTE | 2020-08-13 18:46 | NUR.NOTE ---
Nursing Note: At 1726 on 08/13/20, this RN gave bedside report on the pt. to the SHAKER REPAIRER (Coral Freitas RN). Pt. being transferred from PACU to ICU after having originally been on Med/Surg per MD order. Pt.'s belongings moved from Med/Surg to ICU at this time. RN will reassess as necessary.
[2020-08-13] MEDS: Budesonide/Formoterol 160/4.5 6 GM 60 PUFF INH IH (20:16)
[2020-08-13 21:09] LABS: HCT 40.4 % (36.0-46.0); HGB 12.8 g/dL (11.2-15.7)
[2020-08-13 21:36] LABS: Troponin I < 0.05 ng/mL (<0.06)
[2020-08-14] VITALS (42 sets, daily range): BP systolic 152–174; BP diastolic 77–103; PULSE 57–128; RESP 12–28; TEMP 36.2–36.6; O2SAT 86–99
[2020-08-14] MEDS: ACETAMINOPHEN 1,000 MG/100 ML BTL 400 MG IVPB ×4 (00:17→23:56)
[2020-08-14] MEDS: Normal Saline 1,000 ML 125 ML IV (02:06)
[2020-08-14] MEDS: PIPERACILLIN/TAZO 3.375 GM in Normal Saline 50 ML IVPB ×4 (04:23→23:17)
[2020-08-14] MEDS: Levothyroxine 100 MCG TAB PO (06:40)
[2020-08-14 07:19] LABS: Abs Immature Grans 0.03 10^3/uL (0.0-0.06); Absolute Basophil Count 0.02 10^3/uL (0.0-0.2); Absolute Lymphocyte Count 0.56 10^3/uL (1.2-3.4); Absolute Monocyte Count 1.53 10^3/uL (0.1-0.8); Absolute Neutrophil Count 8.55 10^3/uL (1.2-6.7); Basophils % 0.2; HCT 38.8 % (36.0-46.0); HGB 12.3 g/dL (11.2-15.7); Immature Grans % 0.3; Lymphocytes % 5.2; MCH 29.2 pg (27.0-33.0); MCHC 31.7 % (32.0-36.0); MCV 92.2 fL (80-95); MPV 11.5 fL (8.0-11.0); Monocytes % 14.3; Nucleated RBC 0 %; Platelet Count 198 10^3/uL (130-400); RBC 4.21 10^6/uL (3.93-5.22); RDW 13.2 % (11.7-14.6); RDW-SD 45.3 fL; WBC 10.69 10^3/uL (4.4-10.8)
--- NOTE | 2020-08-14 07:34 | PDOC.CMPRO ---
Care Management Progress Note S/O: Lilliana was admitted to ICU post surgically for close monitoring, per RN she is doing well and will be moved out of the ICU to Med/Surg and begin to have her diet advanced and monitored for toleration. CM continues to follow. A: 79 year old female admitted to [facility] 08/12/20 for Acute Appendicitis P: Lilliana will return home when ready per MD. She will follow up with her PCP and plan of care as prescribed. She will transport via private vehicle with a friend.
[2020-08-14 07:42] LABS: Diff Comment Diff Reviewed; RBC Morphology Normal
[2020-08-14] MEDS: Ondansetron 4 MG/2 ML VIAL IVP (08:07)
--- NOTE | 2020-08-14 10:20 | PGE_ITS ---
Date of Service Date of service: 08/14/20 Time of Service: 10:20 Assessment and Plan Assessment and plan (1) S/P laparoscopic appendectomy: Status: Acute (2) GERD (gastroesophageal reflux disease): Status: None (3) Acute appendicitis: Status: Acute Assessment and plan: pod#1. s/p lap appy no signs of acute IL/CVA encourage walking hold diet until passing gas can transfer to [facility]-surg supportive care (4) Atrial fibrillation: Status: Acute Qualifiers: Atrial fibrillation type: persistent Qualified Code(s): I48.1 - Persis tent atrial fibrillation Subjective Subjective Interval history since last seen: pt c/o feeling nausated. x1 episode of emesis. pt i smuch more alert today. She is not hungry adn not passing gas. no headaches. No CP or SOB. no productive cough. no dysuria. no leg pain or swelling. no focal neurologic defeciets. Exam Const General: cooperative, healthy appearing, comfortable, no acute distress, well developed and well groomed Nutritional Appearance: average body habitus and well nourished Orientation: alert, awake and oriented x3 [facility] Head: normal to inspection, normocephalic and atraumatic Ears: hearing grossly normal bilaterally and external ears normal General nose exam: external nose normal Face and sinus: normal facial exam and sinuses nontender Mouth: oral mucosae normal, lip normal, tongue normal and moist mucous membranes Teeth and gingiva: dentition normal Eyes General: appearance normal, both eyes and all related structures Conjunctivae: conjunctivae normal Sclera: sclerae normal Pupils: PERRL Neck Neck: normal visual inspection and full ROM Chest Chest: normal inspection of the chest Resp Effort & Inspection: normal respiratory effort, able to speak in complete sentences, no cough, no nasal flaring, not tachypneic and no use of accessory muscles Auscultation: clear to auscultation bilaterally, no rales, no rhonchi and no wheezes Cardio Jugular venous pressure: no JVD Rate: regular rate Rhythm: regular rhythm GI Inspection: normal to inspection, no edema and non-distended Palpation: soft, no masses, tender (mildly tender at epigastric incision ) and No ascites Auscultation: hypoactive bowel sounds Skin General skin exam: no rashes or lesions noted Trauma: no lacerations or abrasions Neuro General: patient alert, patient oriented x3, oriented, gait normal, moves all extremities, no focal motor deficits and CN's II-XI intact bilaterally Cognition: normal cognition Speech: speech normal Gait: normal gait Motor: muscle tone normal throughout Extrem General: normal to inspection, full ROM and no clubbing, cyanosis or edema Psych Appearance: grossly normal and well kempt Mental Status: mental status grossly normal Speech and Movement: speech and movement normal Affect: normal affect Objective Last Vital Signs Temp 36.4 C L 08/14/20 08:07 Pulse 64 08/14/20 05:01 Resp 16 08/14/20 05:01 BP 164/81 H 08/14/20 05:01 Pulse Ox 93 08/14/20 05:01 Laboratory Results - last 24 hr 08/13/20 08/13/20 08/13/20 14:14 14:15 14:15 WBC RBC Hgb 12.5 Hct 38.7 MCV MCH MCHC RDW Plt Count MPV Immature Gran % Neutrophils % Lymphocytes % Monocytes % Eosinophils % Basophils % Nucleated RBC % Absolute Neutrophils Absolute Lymphocytes Absolute Monocytes Absolute Eosinophils Absolute Basophils RBC Morphology Troponin I Patient ABO/Rh Cancelled O Positive Antibody Screen Negative 08/13/20 08/13/20 08/14/20 21:00 21:00 06:18 WBC 10.69 RBC 4.21 Hgb 12.8 12.3 Hct 40.4 38.8 MCV 92.2 MCH 29.2 MCHC 31.7 L RDW 13.2 Plt Count 198 MPV 11.5 H Immature Gran % 0.3 Neutrophils % 80.0 Lymphocytes % 5.2 Monocytes % 14.3 Eosinophils % 0.0 Basophils % 0.2 Nucleated RBC % 0 Absolute Neutrophils 8.55 H Absolute Lymphocytes 0.56 L Absolute Monocytes 1.53 H Absolute Eosinophils 0.00 Absolute Basophils 0.02 RBC Morphology Normal Troponin I < 0.05 Patient ABO/Rh Antibody Screen
[2020-08-14 10:42] LABS: Anion Gap 9.8 mmol/L (3-11); BUN 13 mg/dL (7-18); CO2 26.2 mmol/L (21.0-32.0); CREATININE 0.7 mg/dL (0.55-1.02); Calcium 9.1 mg/dL (8.5-10.1); Chloride 104 mmol/L (98-107); Glucose 114 mg/dL (74-106); NT-proBNP 4114 pg/mL (<300); Potassium 3.9 mmol/L (3.5-5.1); Sodium 140 mmol/L (136-145)
[2020-08-14] MEDS: Metoprolol CR 25 MG TABCR 12.5 MG PO (11:21)
[2020-08-14] MEDS: Pantoprazole 40 MG VIAL IVP (11:22)
[2020-08-14] MEDS: Normal Saline Flush 10 ML SYR IVP (11:22)
[2020-08-14] MEDS: Budesonide/Formoterol 160/4.5 6 GM 60 PUFF INH IH ×2 (11:25→20:40)
[2020-08-14] MEDS: Enoxaparin 40 MG/0.4 ML SYR SC (14:14)
[2020-08-14] MEDS: Normal Saline 1,000 ML 100 ML IV (14:31)
--- NOTE | 2020-08-14 15:14 | NUR.NOTE ---
Nursing Note: 08/14/20 1500 pt transferred from ICU room 219 to ms room 225. Pt ambulated from ICU to MS. HR irregular, ls diminished posteriorly. Positive bs x 4. IV in bilat ac, right ac with ns running. Pt denies chest pain/ pressure/ SOB. pt denies pain. Gait steady with ambulation. output not seen at this itme. 3 trochar sites cdi with glue.
[2020-08-15] VITALS (16 sets, daily range): BP systolic 116–164; BP diastolic 71–94; PULSE 61–158; RESP 15–20; TEMP 35.9–36.9; O2SAT 89–96
[2020-08-15] MEDS: Mylanta Suspension 30 ML CUP PO (00:42)
[2020-08-15] MEDS: Normal Saline 1,000 ML 100 ML IV ×2 (02:27→15:20)
[2020-08-15] MEDS: Ondansetron 4 MG/2 ML VIAL IVP ×2 (03:06→08:21)
[2020-08-15] MEDS: PIPERACILLIN/TAZO 3.375 GM in Normal Saline 50 ML IVPB ×4 (03:07→22:30)
[2020-08-15] MEDS: Levothyroxine 100 MCG TAB PO (05:34)
[2020-08-15 06:57] LABS: Abs Immature Grans 0.04 10^3/uL (0.0-0.06); Absolute Basophil Count 0.03 10^3/uL (0.0-0.2); Absolute Eosinophil Count 0.01 10^3/uL (0.0-0.7); Absolute Lymphocyte Count 0.62 10^3/uL (1.2-3.4); Absolute Monocyte Count 1.45 10^3/uL (0.1-0.8); Absolute Neutrophil Count 8.65 10^3/uL (1.2-6.7); Basophils % 0.3; Eosinophils % 0.1; HCT 38.8 % (36.0-46.0); HGB 12.6 g/dL (11.2-15.7); Immature Grans % 0.4; Lymphocytes % 5.7; MCH 29.3 pg (27.0-33.0); MCHC 32.5 % (32.0-36.0); MCV 90.2 fL (80-95); MPV 11.7 fL (8.0-11.0); Monocytes % 13.4; Neutrophils % 80.1; Nucleated RBC 0 %; Platelet Count 198 10^3/uL (130-400); RDW 13.2 % (11.7-14.6); RDW-SD 43.4 fL
[2020-08-15] MEDS: Budesonide/Formoterol 160/4.5 6 GM 60 PUFF INH IH ×2 (07:42→20:24)
[2020-08-15] MEDS: Enoxaparin 40 MG/0.4 ML SYR SC (08:24)
[2020-08-15] MEDS: Normal Saline Flush 10 ML SYR IVP ×4 (08:25→22:00)
[2020-08-15] MEDS: ACETAMINOPHEN 1,000 MG/100 ML BTL 400 MG IVPB ×2 (08:25→15:43)
[2020-08-15] MEDS: Pantoprazole 40 MG VIAL IVP (08:25)
[2020-08-15] MEDS: Lisinopril 5 MG TAB PO (10:08)
[2020-08-15] MEDS: Metoprolol CR 25 MG TABCR 12.5 MG PO (10:08)
--- NOTE | 2020-08-15 10:23 | PHA.REVIEW ---
Pharmacy Admission Review - Admission Clinical Review (Last Updated 08/13/20 @ 09:32 by Angi Urban DO) Acute appendicitis (Acute) Coronary arteriosclerosis (Acute) Atrial fibrillation (Acute) H/O mitral valve replacement (Acute) Hypothyroidism (Acute) Asthma (Acute) egg Allergy (Unknown, Unverified 08/12/20 21:10) peas Allergy (Unknown, Unverified 08/12/20 21:10) tomato Allergy (Unknown, Unverified 08/12/20 21:10) promethazine Adverse Reaction (Intermediate, Unverified 08/13/20 07:31) Other (See Comment) lactose Adverse Reaction (Unknown, Unverified 08/12/20 21:10) Height 5 ft Weight 52.7 kg - Renal Dosing Renal Dosing: BUN 13 mg/dL (7-18) D 08/14/20 06:18 Creatinine 0.7 mg/dL (0.55-1.02) 08/14/20 06:18 - Anticoagulation Anticoagulation: Hgb 12.6 g/dL (11.2-15.7) 08/15/20 06:10 Hct 38.8 % (36.0-46.0) 08/15/20 06:10 Plt Count 198 10^3/uL (130-400) 08/15/20 06:10 INR 1.0 (0.9-1.1) 08/12/20 20:20 Creatinine 0.7 mg/dL (0.55-1.02) 08/14/20 06:18 DVT Prohphylaxis: Reviewed Medications: Enoxaparin Therapeutic Anticoagulation: Reviewed (expect apixaban to restart 1-2 days post op) - Opiate Usage Scheduled Bowel Reg ordered if on Opiates?: No (NPO) - Relevant Labs Sodium 140 mmol/L (136-145) 08/14/20 06:18 Potassium 3.9 mmol/L (3.5-5.1) 08/14/20 06:18 Chloride 104 mmol/L (98-107) 08/14/20 06:18 Magnesium 2.0 mg/dL (1.8-2.4) 08/14/20 06:18 - DM Control DM Control: Glucose 114 mg/dL (74-106) H 08/14/20 06:18 - Heart Failure/TX Heart Failure/TX: Troponin I < 0.05 ng/mL (<0.06) 08/13/20 21:00 NT-Pro-B Natriuret Pep 4114 pg/mL (<300) H 08/14/20 06:18 - BP Control BP Control: Blood Pressure 138/71 Blood Pressure 164/77 If elevated: Reviewed - IV to PO Switch IV Medications: Reviewed (NPO) - Current meds Current Medication Order Review: Reviewed
--- NOTE | 2020-08-15 12:33 | PDOC.CMPRO ---
Care Management Progress Note S/O: Lilliana remains on Med/Surg and is walking the hallways independently when CM greets her. Per reports she is struggling with nausea and vomiting this afternoon and will remain at [facility] for further monitoring and treatment. CM continues to follow. A: 79 year old female admitted to [facility] 08/12/20 for Acute Appendicitis P: Lilliana will return home when ready per MD. She will follow up with her PCP and plan of care as prescribed. She will transport via private vehicle with a friend.
--- NOTE | 2020-08-15 12:56 | W.PM.PROGNOT ---
Date of Service Date of service: 08/15/20 Time of Service: 12:56 Assessment and Plan Assessment and plan (1) S/P laparoscopic appendectomy: Status: Acute (2) GERD (gastroesophageal reflux disease): Status: None (3) Acute appendicitis: Status: Acute (4) Atrial fibrillation: Status: Acute Qualifiers: Atrial fibrillation type: persistent Qualified Code(s): I48.1 - Persistent atrial fibrillation (5) Hypothyroidism: Status: Acute (6) Asthma: Status: Acute (7) Ileus following gastrointestinal surgery: Status: Acute Assessment and plan: POD#2 s/p lap appy for gangrenous appy cont hydration encourage ambulation- pt is excelerating at this. cont abx cont supportive care Subjective Subjective Interval history since last seen: Pt denies: no headaches. No CP or SOB. no productive cough. no dysuria. no leg pain or swelling. She has been up walking frequently. She continues to have emesis in early am- possibly after sleeping. Her BS or high pitched. She is not passing gas and is distended. She is mildly uncomfortable, from feeling bloated. She has no appetite. Exam Const General: cooperative, healthy appearing, comfortable, no acute distress, well developed and well groomed Nutritional Appearance: average body habitus and well nourished Orientation: alert, awake and oriented x3 [facility] Head: normal to inspection, normocephalic and atraumatic Ears: hearing grossly normal bilaterally and external ears normal General nose exam: external nose normal Face and sinus: normal facial exam and sinuses nontender Mouth: oral mucosae normal, lip normal, tongue normal and moist mucous membranes Teeth and gingiva: dentition normal Eyes General: appearance normal, both eyes and all related structures Conjunctivae: conjunctivae normal Sclera: sclerae normal Pupils: PERRL Neck Neck: normal visual inspection and full ROM Chest Chest: normal inspection of the chest Resp Effort & Inspection: normal respiratory effort, able to speak in complete sentences, no cough, no nasal flaring, not tachypneic and no use of accessory muscles Auscultation: clear to auscultation bilaterally, no rales, no rhonchi and no wheezes Cardio Jugular venous pressure: no JVD Rate: regular rate Rhythm: regular rhythm GI Inspection: normal to inspection, no edema and distended Palpation: soft, no masses, tender (more so at umbilical insicion. no rebound or guarding) and No ascites Auscultation: high-pitched sounds Skin General skin exam: no rashes or lesions noted Trauma: no lacerations or abrasions Neuro General: patient alert, patient oriented x3, oriented, gait normal, moves all extremities, no focal motor deficits and CN's II-XI intact bilaterally Cognition: normal cognition Speech: speech normal Gait: normal gait Motor: muscle tone normal throughout Extrem General: full ROM and no clubbing, cyanosis or edema Other: changes consistent w/ OA. Psych Appearance: grossly normal and well kempt Mental Status: mental status grossly normal Speech and Movement: speech and movement normal Affect: normal affect Objective Last Vital Signs Temp 36.7 C 08/15/20 08:16 Pulse 86 08/15/20 08:16 Resp 18 08/15/20 08:16 BP 138/71 08/15/20 08:16 Pulse Ox 94 08/15/20 08:16 Laboratory Results - last 24 hr 08/15/20 06:10 WBC 10.80 RBC 4.30 Hgb 12.6 Hct 38.8 MCV 90.2 MCH 29.3 MCHC 32.5 RDW 13.2 Plt Count 198 MPV 11.7 H Immature Gran % 0.4 Neutrophils % 80.1 Lymphocytes % 5.7 Monocytes % 13.4 Eosinophils % 0.1 Basophils % 0.3 Nucleated RBC % 0 Absolute Neutrophils 8.65 H Absolute Lymphocytes 0.62 L Absolute Monocytes 1.45 H Absolute Eosinophils 0.01 Absolute Basophils 0.03
[2020-08-15] MEDS: LORazepam 2 MG/ML VIAL 0.5 MG IVP ×2 (19:49→20:23)
--- NOTE | 2020-08-15 20:00 | RT.EKG_ITS ---
APPROVED REPORT Exam: Resting ECG Patient Location: I HR:135 bpm ECG Measurements Heart Rate 135 AXIS MD [id number] P [id number] QRSd 90 QRS -30 QT 307 T 107 QTc 471 Conclusion Atrial fibrillation with rapid V-rate...A-rate 351 Ventricular premature complex...V complex w/ short R-R interval LVH with secondary repolarization abnormality...multi-LVH criteria, abnrm ST-T
--- NOTE | 2020-08-15 20:07 | NUR.NOTE ---
Patient state she wants to hold off on having a nasogastric tube inserted at the moment. State she is worried that her heart is not gonna take the pressure of the insert. Procedure was explained in detail to the patient she voiced understanding but fear. patient state she is scared since earlier when told she about the procedure from previous nurse. Patient was further educated about Lorezepam that will be administered for the anxiety. Same was administered. CC was informed.
--- NOTE | 2020-08-15 20:48 | W.MEDCONSULT ---
Date of service: 08/15/20 Time of Service: 20:48 Assessment and Plan Assessment and plan (1) Atrial fibrillation: Status: Acute Assessment and plan: AF/RVR. Will start with IV Lopressor, and check K, Mg stat. Further treatment as responds. Qualifiers: Atrial fibrillation type: persistent Qualified Code(s): I48.1 - Persistent atrial fibrillation History of Present Illness History of Present Illness Chief Complaint: palpitations Narrative: I was asked to see patient due to AF/RVR. Patient is s/p appy. Patient with known AF (apparently paroxysmal), usually on Lopressor 12.5 daily. Last given dose this AM but there is report that she has been vomiting and may not have absorbed the dose. In any case had been in NSR until a short while ago was noted to be in AF. patient states she feels a fluttering but denies CP or SOB. On exam BP 116/74, pulse 130s-140s. EKG shows AF, NSSTTWCs. Review of Systems All systems reviewed & are unremarkable except as noted in HPI and below PFSH Medical History Asthma Asthma Atrial fibrillation Diverticulosis GERD (gastroesophageal reflux disease) H/O mitral valve replacement Hypothyroidism Hypothyroidism Mitral valve disorder Right ureteral calculus 90% calcium oxalate monohydrate and 10% calcium oxalate dihydrate Trigeminal neuralgia Urinoma Surgical History Cholecystectomy Colonoscopy - IV Sedation (04/24/16) History of open heart surgery Family History Father Parkinsons Son Cardiovascular disease Sister Colon cancer diseased Social History Smoking/Tobacco Use Status: Never Smoking risk assessment performed?: Yes Alcohol Intake: current Alcohol Intake frequency: holidays/special occasions only Drug use: Never Substance use type: does not use Do you feel safe at home: Yes Do you feel safe in your relationship?: Yes Exam Narrative Exam Narrative: see HPI Results Last Vital Signs Temp 36.5 C 08/15/20 20:05 Pulse 66 08/15/20 20:05 Resp 20 08/15/20 20:05 BP 116/74 08/15/20 20:05 Pulse Ox 95 04/11/21 20:05 Labs Result diagrams: 08/15/20 06:10 08/14/20 06:18 Labs: Laboratory Results - last 24 hr 08/15/20 06:10 WBC 10.80 RBC 4.30 Hgb 12.6 Hct 38.8 MCV 90.2 MCH 29.3 MCHC 32.5 RDW 13.2 Plt Count 198 MPV 11.7 H Immature Gran % 0.4 Neutrophils % 80.1 Lymphocytes % 5.7 Monocytes % 13.4 Eosinophils % 0.1 Basophils % 0.3 Nucleated RBC % 0 Absolute Neutrophils 8.65 H Absolute Lymphocytes 0.62 L Absolute Monocytes 1.45 H Absolute Eosinophils 0.01 Absolute Basophils 0.03
[2020-08-15] MEDS: Metoprolol 5 MG/5 ML VIAL IVP ×2 (21:06→21:22)
[2020-08-15 21:31] LABS: Magnesium 2.1 mg/dL (1.8-2.4); Potassium 3.2 mmol/L (3.5-5.1)
[2020-08-15] MEDS: Metoprolol 5 MG/5 ML VIAL (21:38)
[2020-08-15 21:40] LABS: Troponin I 0.06 ng/mL (<0.06)
[2020-08-15] MEDS: dilTIAZem 25 MG/5 ML VIAL 10 MG IVP (22:22)
[2020-08-15] MEDS: POTASSIUM CHLORIDE 20 MEQ/100 ML BAG 50 MEQ IVPB (23:00)
[2020-08-15] MEDS: Normal Saline 100 ML (23:30)
[2020-08-15] MEDS: dilTIAZem 125 MG in Normal Saline 100 ML IV (23:57)
[2020-08-16] VITALS (49 sets, daily range): BP systolic 85–157; BP diastolic 41–127; PULSE 53–123; RESP 13–22; TEMP 36–36.6; O2SAT 88–97
[2020-08-16] MEDS: ACETAMINOPHEN 1,000 MG/100 ML BTL 400 MG IVPB ×4 (00:05→23:30)
[2020-08-16] MEDS: Metoprolol 5 MG/5 ML VIAL 2.5 MG IVP ×5 (00:52→23:30)
[2020-08-16] MEDS: POTASSIUM CHLORIDE 20 MEQ/100 ML BAG 50 MEQ IVPB (01:05)
[2020-08-16] MEDS: Normal Saline 1,000 ML 100 ML IV ×2 (03:05→14:17)
[2020-08-16] MEDS: PIPERACILLIN/TAZO 3.375 GM in Normal Saline 50 ML IVPB ×4 (03:40→21:33)
[2020-08-16] MEDS: Metoprolol 5 MG/5 ML VIAL (03:44)
[2020-08-16 07:00] LABS: Abs Immature Grans 0.04 10^3/uL (0.0-0.06); Absolute Basophil Count 0.05 10^3/uL (0.0-0.2); Absolute Eosinophil Count 0.02 10^3/uL (0.0-0.7); Absolute Lymphocyte Count 0.72 10^3/uL (1.2-3.4); Basophils % 0.5; Eosinophils % 0.2; HCT 42.3 % (36.0-46.0); HGB 13.6 g/dL (11.2-15.7); Immature Grans % 0.4; Lymphocytes % 6.6; MCH 29.2 pg (27.0-33.0); MCHC 32.2 % (32.0-36.0); MPV 11.5 fL (8.0-11.0); Monocytes % 15.6; Neutrophils % 76.7; Nucleated RBC 0 %; Platelet Count 226 10^3/uL (130-400); RBC 4.65 10^6/uL (3.93-5.22); RDW 13.2 % (11.7-14.6); RDW-SD 44.2 fL; WBC 10.89 10^3/uL (4.4-10.8)
[2020-08-16 07:07] LABS: Anion Gap 7.3 mmol/L (3-11); BUN 19 mg/dL (7-18); CO2 31.7 mmol/L (21.0-32.0); CREATININE 0.8 mg/dL (0.55-1.02); Chloride 104 mmol/L (98-107); Glucose 96 mg/dL (74-106); Potassium 3.9 mmol/L (3.5-5.1); Sodium 143 mmol/L (136-145)
[2020-08-16 07:13] LABS: Absolute Neutrophil Count 8.35 10^3/uL (1.2-6.7); Troponin I < 0.05 ng/mL (<0.06)
[2020-08-16 07:36] LABS: Diff Comment Diff Reviewed; RBC Morphology Normal
--- NOTE | 2020-08-16 07:53 | PDOC.CMPRO ---
Care Management Progress Note S/O: Lilliana was transferred back to the ICU. Per report she is not passing gas and distended, and feels uncomfortable and bloated. Med consult ordered and started on IV Lopressor. CM notified that Lilliana has an ileus, will be made NPO and NG tube will be placed. CM continues to follow. A: 79 year old female admitted to [facility] 08/12/20 for Acute Appendicitis P: Lilliana will return home when ready per MD. She will follow up with her PCP and plan of care as prescribed. She will transport via private vehicle with a friend.
[2020-08-16] MEDS: Budesonide/Formoterol 160/4.5 6 GM 60 PUFF INH IH (08:04)
[2020-08-16] MEDS: Normal Saline Flush 10 ML SYR IVP ×2 (08:12→21:33)
[2020-08-16] MEDS: Enoxaparin 40 MG/0.4 ML SYR SC (08:13)
[2020-08-16] MEDS: Pantoprazole 40 MG VIAL IVP (08:13)
--- NOTE | 2020-08-16 08:38 | W.PM.PROGNOT ---
Date of Service Date of service: 08/16/20 Time of Service: 08:38 Assessment and Plan Assessment and plan (1) Ileus following gastrointestinal surgery: Status: Acute Assessment and plan: I did discuss with the patient the rationale and need for placing NG tube. I think this will help alleviate her vomiting and allow the ileus to resolve quicker Patient understood and consents Continue supportive care. (2) S/P laparoscopic appendectomy: Status: Acute (3) GERD (gastroesophageal reflux disease): Status: None (4) Atrial fibrillation: Status: Acute Assessment and plan: Rate controlled today. Qualifiers: Atrial fibrillation type: persistent Qualified Code(s): I48.1 - Persistent atrial fibrillation Subjective Subjective Interval history since last seen: Patient feels that she is having a lot of gurgling in her stomach. But she is not passing gas. She had another emesis this morning. Her heart rate is in the 80s today. Notes from medicine reviewed and appreciated. Her abdomen seems slightly less less distended. Although she did vomit again this a.m. No chest pain or shortness of breath. No thrush. No dysuria. No pain or swelling in her calves. She is not passing any gas. She did refuse an NG tube last night. I did discuss with her that distention of her abdomen and her bowels can actually press on the vagus nerve and cause worsening or recurrence of her A. fib. Also coupled with the fact that she probably was not absorbing her p.o. beta-hilda. Her heart rate is much better now that she is on IV. However we do need to get her bowels decompressed and most likely the ileus will resolve. She has no fevers. She has no peritonitis. She is not tachycardic today. And her BP is stable. Exam Const Other: PHYSICAL EXAM GENERAL APPEARANCE: Alert, healthy appearance, oriented, in no acute distress SKIN: No rashes. No breakdown HYDRATION: Well hydrated HEAD, EYES, EARS, NECK, THROAT: Head is normocephalic, pupils equal, round, reactive to light and accommodation, ocular movement intact, sclera clear and no jaundice. Dentition intact. No sore throat. No jaw pain. No thrush NECK: Supple, Trachea midline. No JVD. LUNGS: normal respiration/nl chest excursion. Clear to auscultation B/l no R/R/W HEART: Regular rate and rhythm, EXTREMITY: No edema or cyanosis no leg pain, redness, swelling. No IV infiltration ABDOMEN: moderate distention. incision are C/D/I. BS are high pitched. no peritonitis. NEURO: no focal neuro deficits. Objective Last Vital Signs Temp 36.1 C L 08/16/20 05:30 Pulse 74 08/16/20 06:34 Resp 16 08/16/20 06:01 BP 138/88 08/16/20 06:01 Pulse Ox 93 08/16/20 08:06 Laboratory Results - last 24 hr 08/15/20 08/15/20 08/16/20 21:12 21:12 06:08 WBC RBC Hgb Hct MCV MCH MCHC RDW Plt Count MPV Immature Gran % Neutrophils % Lymphocytes % Monocytes % Eosinophils % Basophils % Nucleated RBC % Absolute Neutrophils Absolute Lymphocytes Absolute Monocytes Absolute Eosinophils Absolute Basophils RBC Morphology Sodium 143 Potassium 3.2 L 3.9 D Chloride 104 Carbon Dioxide 31.7 Anion Gap 7.3 BUN 19 H D Creatinine 0.8 Estimated GFR/1.73 m2 >= 60.00 Glucose 96 Calcium 9.0 Magnesium 2.1 2.0 Troponin I 0.06 08/16/20 08/16/20 06:08 06:08 WBC 10.89 H RBC 4.65 Hgb 13.6 Hct 42.3 MCV 91.0 MCH 29.2 MCHC 32.2 RDW 13.2 Plt Count 226 MPV 11.5 H Immature Gran % 0.4 Neutrophils % 76.7 Lymphocytes % 6.6 Monocytes % 15.6 Eosinophils % 0.2 Basophils % 0.5 Nucleated RBC % 0 Absolute Neutrophils 8.35 H Absolute Lymphocytes 0.72 L Absolute Monocytes 1.70 H Absolute Eosinophils 0.02 Absolute Basophils 0.05 RBC Morphology Normal Sodium Potassium Chloride Carbon Dioxide Anion Gap BUN Creatinine Estimated GFR/1.73 m2 Glucose Calcium Magnesium Troponin I < 0.05
--- NOTE | 2020-08-16 08:59 | DI.RAD_ITS ---
EXAM: XR ABDOMEN FLAT PLATE CLINICAL HISTORY: sbo. TECHNIQUE: 2D digital imaging was performed. COMPARISON: CT CT ABDOMEN PELVIS W from 08/12/[address] ABDOMEN PELVIS W from 08/12/2020 FINDINGS: There are sternotomy wires noted and possible prosthetic cardiac valve. Surgical clips are seen in the right upper quad from prior cholecystectomy. There are also surgical clips lower down on the right side possibly related to appendectomy subsequent to the CT scan of 12/2020. There is a diffuse highly is pattern evident on this supine film. Cannot assess for free air without an upright or decubitus view. Nevertheless, there is air seen in the hepatic flexure of the colon a s well as the transverse colon. IMPRESSION: Recent appendicitis surgery. Non recent cholecystectomy. Diffuse probable I ileus pattern. Recommend upright view. DATA REPOSITORY: RADIATION DOSE DELIVERED:
[2020-08-16] MEDS: Lidocaine 2% Jelly 6 ML SYR TP (09:57)
[2020-08-16] MEDS: LORazepam 2 MG/ML VIAL 0.5 MG IVP (09:58)
--- NOTE | 2020-08-16 10:51 | W.PM.PROGNOT ---
Date of Service Date of service: 08/16/20 Time of Service: 10:51 Assessment and Plan Assessment and plan (1) Ileus following gastrointestinal surgery: Status: Acute Assessment and plan: Surgery managing. NG being placed this AM and will be NPO (2) Coronary arteriosclerosis: Status: Acute Assessment and plan: Typically on BB; now NPO. (3) Atrial fibrillation: Status: Acute Assessment and plan: Typically in sinus rhythm. Transitioned to afib with RVR and placed on cardizem drip. Drip rate at 15mg/hr this AM and HR improved; in the 70's - 90's. Will continue with cardizem drip; cannot attempt to transition to oral given NPO status. Monitor. When not NPO planning to restart metoprolol but at higher dose than her home dose of 12.5mg daily. Qualifiers: Atrial fibrillation type: persistent Qualified Code(s): I48.1 - Persistent atrial fibrillation Subjective Subjective Patient reports: afebrile Interval history since last seen: No CP. NG being placed d/t ileus; NPO status. Continues on Cardizem drip at 15mg/hr. Exam Const General: cooperative and no acute distress Nutritional Appearance: average body habitus Orientation: alert and oriented x3 Resp Effort & Inspection: normal respiratory effort Auscultation: clear to auscultation bilaterally Cardio Other: Irreg irreg GI Palpation: soft Auscultation: absent bowel sounds Extrem General: no pedal edema and no calf tenderness Objective Last Vital Signs Temp 36.1 C L 08/16/20 05:30 Pulse 74 08/16/20 06:34 Resp 16 08/16/20 06:01 BP 138/88 08/16/20 06:01 Pulse Ox 94 08/16/20 08:56 Laboratory Results - last 24 hr 08/15/20 08/15/20 08/16/20 21:12 21:12 06:08 WBC RBC Hgb Hct MCV MCH MCHC RDW Plt Count MPV Immature Gran % Neutrophils % Lymphocytes % Monocytes % Eosinophils % Basophils % Nucleated RBC % Absolute Neutrophils Absolute Lymphocytes Absolute Monocytes Absolute Eosinophils Absolute Basophils RBC Morphology Sodium 143 Potassium 3.2 L 3.9 D Chloride 104 Carbon Dioxide 31.7 Anion Gap 7.3 BUN 19 H D Creatinine 0.8 Estimated GFR/1.73 m2 >= 60.00 Glucose 96 Calcium 9.0 Magnesium 2.1 2.0 Troponin I 0.06 08/16/20 08/16/20 06:08 06:08 WBC 10.89 H RBC 4.65 Hgb 13.6 Hct 42.3 MCV 91.0 MCH 29.2 MCHC 32.2 RDW 13.2 Plt Count 226 MPV 11.5 H Immature Gran % 0.4 Neutrophils % 76.7 Lymphocytes % 6.6 Monocytes % 15.6 Eosinophils % 0.2 Basophils % 0.5 Nucleated RBC % 0 Absolute Neutrophils 8.35 H Absolute Lymphocytes 0.72 L Absolute Monocytes 1.70 H Absolute Eosinophils 0.02 Absolute Basophils 0.05 RBC Morphology Normal Sodium Potassium Chloride Carbon Dioxide Anion Gap BUN Creatinine Estimated GFR/1.73 m2 Glucose Calcium Magnesium Troponin I < 0.05
[2020-08-16] MEDS: dilTIAZem 125 MG in Normal Saline 100 ML 10 MG IV (12:03)
--- NOTE | 2020-08-16 15:10 | W.NUTCONSULT ---
Date of service: 08/16/20 Time of Service: 15:10 Nutritional Consult ASSESSMENT: 79 year old female admitted to ICU after developing ileus s/p lap appendectomy (08/13/20). NPO day x 4. BMI on low end of normal for age. Allergic to egg products and lactose. Pt at nutritional risk in view of extended period of time NPO, increased nutrition needs after recent surgery, advanced age and low weight for age. May need to consider nutrition support if unable to advance diet in next 24-48 hours. In view of egg allergy, TPN lipids may be contraindicated. Estimated Needs: 8115-6347 kcal, 55-66 g protein, 1560 ml fluid. Met with Lilliana today. She appears well nourished and she reports stable weight prior to surgery. INTERVENTION: currently NPO may need nutrition support if unable to advance diet in next 24-48 hours MONITORING AND EVALUATION: labs, weight, diet Time Spent in Nutritional Counseling and Treatment: 20
[2020-08-17] VITALS (40 sets, daily range): BP systolic 117–140; BP diastolic 69–90; PULSE 65–108; RESP 13–21; TEMP 35.8–36.5; O2SAT 87–97
[2020-08-17] MEDS: Normal Saline 1,000 ML 100 ML IV ×2 (02:52→14:09)
[2020-08-17] MEDS: PIPERACILLIN/TAZO 3.375 GM in Normal Saline 50 ML IVPB ×4 (03:37→22:00)
[2020-08-17] MEDS: dilTIAZem 125 MG in Normal Saline 100 ML 10 MG IV (03:37)
[2020-08-17] MEDS: Metoprolol 5 MG/5 ML VIAL 2.5 MG IVP ×3 (05:46→17:43)
[2020-08-17 07:06] LABS: Abs Immature Grans 0.05 10^3/uL (0.0-0.06); Absolute Basophil Count 0.06 10^3/uL (0.0-0.2); Absolute Eosinophil Count 0.08 10^3/uL (0.0-0.7); Absolute Lymphocyte Count 0.77 10^3/uL (1.2-3.4); Absolute Neutrophil Count 7.42 10^3/uL (1.2-6.7); Basophils % 0.6; Eosinophils % 0.8; HCT 40.2 % (36.0-46.0); HGB 12.8 g/dL (11.2-15.7); Immature Grans % 0.5; MCH 29.1 pg (27.0-33.0); MCHC 31.8 % (32.0-36.0); MCV 91.4 fL (80-95); MPV 10.8 fL (8.0-11.0); Monocytes % 12.5; Neutrophils % 77.6; Nucleated RBC 0 %; Platelet Count 220 10^3/uL (130-400); WBC 9.58 10^3/uL (4.4-10.8)
[2020-08-17 07:16] LABS: Anion Gap 7.9 mmol/L (3-11); BUN 23 mg/dL (7-18); CO2 30.1 mmol/L (21.0-32.0); CREATININE 0.6 mg/dL (0.55-1.02); Calcium 8.9 mg/dL (8.5-10.1); Chloride 107 mmol/L (98-107); Glucose 87 mg/dL (74-106); Potassium 3.2 mmol/L (3.5-5.1); Sodium 145 mmol/L (136-145)
[2020-08-17] MEDS: Normal Saline Flush 10 ML SYR IVP (07:37)
[2020-08-17] MEDS: ACETAMINOPHEN 1,000 MG/100 ML BTL 400 MG IVPB ×2 (07:37→15:33)
[2020-08-17] MEDS: Enoxaparin 40 MG/0.4 ML SYR SC (07:38)
[2020-08-17] MEDS: Pantoprazole 40 MG VIAL IVP (07:38)
[2020-08-17] MEDS: Budesonide/Formoterol 160/4.5 6 GM 60 PUFF INH IH (08:14)
[2020-08-17] MEDS: POTASSIUM CHLORIDE 20 MEQ/100 ML BAG 50 MEQ IVPB ×2 (08:17→10:50)
--- NOTE | 2020-08-17 08:26 | W.PM.PROGNOT ---
Date of Service Date of service: 08/17/20 Time of Service: 14:45 Assessment and Plan Assessment and plan (1) Atrial fibrillation: Status: Acute Assessment and plan: Since NGT is to suction, would continue cardizem drip and IV lopressor. Qualifiers: Atrial fibrillation type: persistent Qualified Code(s): I48.1 - Persistent atrial fibrillation (2) Ileus following gastrointestinal surgery: Status: Acute Assessment and plan: NGT back to suction. Defer to primary team (3) Coronary arteriosclerosis: Status: Acute Assessment and plan: NO evidence of ACS. Continue IV lopressor. No change in tx. Hospitalists will continue to follow. Subjective Subjective Interval history since last seen: On diltiazem @5-10 cc/hr. Currently on 5 cc/hr with HR in the 70s. NGT placed back on suction last night with a large amount of output (remains so). Denies dizziness, chest pain/pain of any kind/SOB, nausea/vomiting. No flatus. Exam Narrative Exam Narrative: General: Pleasant elderly female, very comfortable in bed HEENT: EOMI, MMM Heart: Irregularly irregular rhythm Lungs: CTAB/diminished at bases Abdomen: soft, nontender, +BS Extremities: no edema BLE's Objective Last Vital Signs Temp 36.4 C L 08/17/20 01:41 Pulse 84 08/17/20 05:23 Resp 13 08/17/20 07:00 BP 126/71 08/17/20 04:01 Pulse Ox 96 08/17/20 07:00 Laboratory Results - last 24 hr 08/17/20 08/17/20 06:47 06:47 WBC 9.58 RBC 4.40 Hgb 12.8 Hct 40.2 MCV 91.4 MCH 29.1 MCHC 31.8 L RDW 13.0 Plt Count 220 MPV 10.8 Immature Gran % 0.5 Neutrophils % 77.6 Lymphocytes % 8.0 Monocytes % 12.5 Eosinophils % 0.8 Basophils % 0.6 Nucleated RBC % 0 Absolute Neutrophils 7.42 H Absolute Lymphocytes 0.77 L Absolute Monocytes 1.20 H Absolute Eosinophils 0.08 Absolute Basophils 0.06 Sodium 145 Potassium 3.2 L Chloride 107 Carbon Dioxide 30.1 Anion Gap 7.9 BUN 23 H Creatinine 0.6 Estimated GFR/1.73 m2 >= 60.00 Glucose 87 Calcium 8.9 Magnesium 2.0
--- NOTE | 2020-08-17 08:29 | W.PM.PROGNOT ---
Documented by User: TARSHA Bejarano 08/17/20 08:34 Date of Service Date of service: 08/17/20 Time of Service: 08:29 Assessment and Plan Assessment and plan (1) S/P laparoscopic appendectomy: Status: Acute (2) GERD (gastroesophageal reflux disease): Status: None (3) Acute appendicitis: Status: Acute (4) Atrial fibrillation: Status: Acute Qualifiers: Atrial fibrillation type: persistent Qualified Code(s): I48.1 - Persistent atrial fibrillation (5) Hypothyroidism: Status: Acute (6) Asthma: Status: Acute (7) Ileus following gastrointestinal surgery: Status: Acute Assessment and plan: POD #4 s/p lap appy for gangrenous appy cont hydration NG tube in place. Bilious material in the canister Strongly encouraged ambulation cont abx cont supportive care Subjective Subjective Interval history since last seen: patient reports she is feeling okay this morning. Denies any nausea or vomiting at this time. Denies any pain at this time. Exam Const General: cooperative, healthy appearing and comfortable Orientation: alert and oriented x3 Resp Effort & Inspection: normal respiratory effort, no audible wheezes and no cough GI Palpation: soft, no guarding and nontender Other: Mild ecchymosis around incision sites. Objective Last Vital Signs Temp 36.4 C L 08/17/20 01:41 Pulse 84 08/17/20 05:23 Resp 13 08/17/20 07:00 BP 126/71 08/17/20 04:01 Pulse Ox 96 08/17/20 07:00 Laboratory Results - last 24 hr 08/17/20 08/17/20 06:47 06:47 WBC 9.58 RBC 4.40 Hgb 12.8 Hct 40.2 MCV 91.4 MCH 29.1 MCHC 31.8 L RDW 13.0 Plt Count 220 MPV 10.8 Immature Gran % 0.5 Neutrophils % 77.6 Lymphocytes % 8.0 Monocytes % 12.5 Eosinophils % 0.8 Basophils % 0.6 Nucleated RBC % 0 Absolute Neutrophils 7.42 H Absolute Lymphocytes 0.77 L Absolute Monocytes 1.20 H Absolute Eosinophils 0.08 Absolute Basophils 0.06 Sodium 145 Potassium 3.2 L Chloride 107 Carbon Dioxide 30.1 Anion Gap 7.9 BUN 23 H Creatinine 0.6 Estimated GFR/1.73 m2 >= 60.00 Glucose 87 Calcium 8.9 Magnesium 2.0 Documented by User: Angi Urban DO 08/17/20 14:01 Assessment and Plan Assessment and plan (1) Ileus following gastrointestinal surgery: Status: Acute Assessment and plan: Patient continues to having ileus and is frustrated. She is passed gas yesterday afternoon but none today. I am going to check a CT and make sure she is not developing an abscess. She does not appear toxic/septic. Her bowels just are not opening up. Hemoglobin is stable. She is not running a fever or white count. Her lungs are clear. She has no no lower extremity edema or swelling. Her heart rate is controlled today.
--- NOTE | 2020-08-17 10:09 | W.NUTRFU ---
Date of service: 08/17/20 Time of Service: 10:09 Nutritional Follow up NOTE: Lilliana continues to need NG tube/suction. Egg allergy documented. Recommend consider TPN if NPO status continuous past 5 days. Per Pharmacy, lipid emulsion contraindicated with egg allergy. Recommend D10/AA 4.25% 2000 ml run at 83cc/hour providing 1020 kcal/82 g protein. Recommend avoiding lipid emulsion as contains egg derivatives. Will continue to follow Time Spent in Nutritional Counseling and Treatment: 5
--- NOTE | 2020-08-17 10:27 | CMPROGNOTE_ITS ---
- If Service Date Differs Date of service: 08/17/20 Time of Service: 10:27 Care Management Progress Note S/O: Lilliana was sitting up in bed when CM met with her. She appeared to be in good spirits and readily engaged with CM. She stated that she was not having any pain but that her bowel would just not become unblocked. She verbalized wanting to go home and asserted that she would not need any services. She informed CM that she lives in a building that has 4 apartments and that all of the tenants are like family. She assured CM that they would all fuss over her and do whatever she needed for them to do. A: 79 year old female admitted to [facility] 08/12/20 for Acute Appendicitis P: Lilliana will return home when ready per MD. She will follow up with her PCP and plan of care as prescribed. She will transport via private vehicle with a friend. CM will continue to support Lilliana and assess for discharge planning needs.
--- NOTE | 2020-08-17 10:33 | DI.RAD_ITS ---
EXAM: 2D digital imaging was performed. CLINICAL HISTORY: SBO. COMPARISON: CR XR ABDOMEN FLAT PLATE from 08/16/2020 TECHNIQUE: Supine views of the abdomen performed. FINDINGS: BOWEL GAS PATTERN: There has been a decrease in size and number of dilated loops of small bowel since the prior examination. CALCIFICATIONS: No radiopaque calcifications. OSSEOUS STRUCTURES: Normal for age. OTHER FINDINGS: The tip of the orogastric tube is seen in the stomach. Surgical clips are seen in th e abdomen. IMPRESSION: 1. Interval decrease in size and number of dilated loops of small bowel since the prior examination. 2. No radiopaque calculi. DATA REPOSITORY: RADIATION DOSE DELIVERED:
--- NOTE | 2020-08-17 13:00 | DI.CT_ITS ---
EXAM: CT ABDOMEN PELVIS W CLINICAL HISTORY: ileus following appendectomy. r/o abscess TECHNIQUE: Imaging Protocol: Axial computed tomography images with coronal and sagittal reformatted images were created and reviewed CONTRAST MATERIAL: Intravenous: Omnipaque 350 Contrast volume:100 mL Oral: No COMPARISON: CT CT ABDOMEN PELVIS W from 08/12/2020 FINDINGS: ABDOMEN: Lung Bases: Small bilateral pleural effusions and basilar subjacent infiltrates are noted. Cardiomeg polina. Liver: Focal fatty infiltration is seen in the liver. There is a tiny hypodensity in the right lobe of the liver which is too small for further characterization but likely reflect a small cyst. Portal, Superior Mesenteric, and Splenic Veins: Unremarkable. Gallbladder and Biliary Tract: Status post cholecystectomy. No significant biliary ductal dilatation . Pancreas: Normal density, no abnormal calcifications or inflammatory process. Spleen: Normal. Adrenals: No masses seen. Kidneys: Normal size, contour and axis. No radiodense stones or obstructive uropathy. No masses seen. Abdominal Aorta: Abdominal portion non-dilated. Atherosclerosis. Bowel: No bowel wall thickening. Status post appendectomy. There is a moderate hiatal hernia. Ther e is a orogastric tube with its tip in the stomach. There are dilated loops of small bowel seen in t he abdomen with relatively with normal caliber distal ileum. There is a transition in the mid abdome n. But no mass is appreciated. Given the recent surgery this likely reflects a ileus. Continued fo llow-up is recommended. Diverticulosis throughout the colon but no evidence of acute diverticulitis. There is a small paraumbilical hernia containing an unremarkable loop of small bowel. Peritoneal Cavity: There is a trace amount of free fluid in the abdomen. No focal fluid collection i s seen to suggest an abscess. No free air. Lymph Nodes: Within normal limits. Bones: Within normal limits for the patient's age. Soft Tissues: There is edema seen in the soft tissues of the anterior abdomen. Pockets of subcutaneo us air are seen in the anterior abdominal wall which may reflect recent surgery. No focal fluid gogo ection is seen in the anterior abdominal wall to suggest an abscess. PELVIS: Bladder: There is marked distention of the urinary bladder but no gross abnormality. Reproductive Organs: Status post hysterectomy. Lymph Nodes: Within normal limits. Bones: Within normal limits for the patient's age. IMPRESSION: 1. Status post appendectomy. No abdominal or abdominal wall abscess. No pneumoperitoneum. 2. Small bowel containing paraumbilical hernia. The contained small bowel is unremarkable. 3. Small bilateral pleural effusions and bilateral basilar infiltrates which may represent atelectasi s or pneumonia. 4. Dilated loops of small bowel which may represent an ileus. Small-bowel obstruction cannot be enti rely excluded. 5. Postsurgical changes in the anterior abdominal wall. RADIATION DOSE DELIVERED: 796.66mGy.cm Total DLP DATA REPOSITORY: All CT scans at this facility are submitted to the National Radiology Data Registry (NRDR) Dose Index Registry (DIR) with the [employer] (A[employer]). RADIATION OPTIMIZATION: All CT scans at this facility use at least one of these dose optimization te chniques: automated exposure control; mA and/or kV adjustment per patient size (includes targeted exa ms where dose is matched to clinical indication); or iterative reconstruction.
[2020-08-17] MEDS: Omnipaque 350 MG/ML 100 ML BTL IJ (13:31)
[2020-08-17] MEDS: Normal Saline - Diluent 50 ML VIAL IV (13:32)
[2020-08-17] MEDS: dilTIAZem 125 MG in Normal Saline 100 ML IV (15:49)
[2020-08-18] VITALS (30 sets, daily range): BP systolic 128–161; BP diastolic 74–99; PULSE 69–120; RESP 11–18; TEMP 36–36.6; O2SAT 88–98
[2020-08-18] MEDS: ACETAMINOPHEN 1,000 MG/100 ML BTL 400 MG IVPB ×3 (00:15→23:27)
[2020-08-18] MEDS: Metoprolol 5 MG/5 ML VIAL 2.5 MG IVP ×4 (00:15→23:28)
[2020-08-18] MEDS: Normal Saline 1,000 ML 100 ML IV (00:17)
[2020-08-18] MEDS: PIPERACILLIN/TAZO 3.375 GM in Normal Saline 50 ML IVPB ×4 (04:10→21:29)
[2020-08-18 07:28] LABS: Abs Immature Grans 0.03 10^3/uL (0.0-0.06); Absolute Basophil Count 0.06 10^3/uL (0.0-0.2); Absolute Eosinophil Count 0.27 10^3/uL (0.0-0.7); Absolute Lymphocyte Count 0.78 10^3/uL (1.2-3.4); Absolute Monocyte Count 0.96 10^3/uL (0.1-0.8); Absolute Neutrophil Count 5.75 10^3/uL (1.2-6.7); Basophils % 0.8; Eosinophils % 3.4; HCT 38.6 % (36.0-46.0); HGB 12.1 g/dL (11.2-15.7); Immature Grans % 0.4; Lymphocytes % 9.9; MCH 29.4 pg (27.0-33.0); MCHC 31.3 % (32.0-36.0); MCV 93.7 fL (80-95); MPV 11.1 fL (8.0-11.0); Monocytes % 12.2; Neutrophils % 73.3; Nucleated RBC 0 %; Platelet Count 221 10^3/uL (130-400); RBC 4.12 10^6/uL (3.93-5.22); RDW 13.1 % (11.7-14.6); RDW-SD 45.1 fL; WBC 7.85 10^3/uL (4.4-10.8)
[2020-08-18 07:38] LABS: Anion Gap 11.6 mmol/L (3-11); BUN 16 mg/dL (7-18); CO2 28.4 mmol/L (21.0-32.0); CREATININE 0.7 mg/dL (0.55-1.02); Calcium 8.8 mg/dL (8.5-10.1); Chloride 108 mmol/L (98-107); Glucose 57 mg/dL (74-106); Potassium 3.3 mmol/L (3.5-5.1); Sodium 148 mmol/L (136-145)
[2020-08-18 07:49] LABS: Magnesium 1.8 mg/dL (1.8-2.4); NT-proBNP 2782 pg/mL (<300)
--- NOTE | 2020-08-18 08:00 | DI.RAD_ITS ---
EXAM: XR ABDOMEN FLAT PLATE CLINICAL HISTORY: ileus. TECHNIQUE: 2D digital imaging was performed. COMPARISON: CR XR ABDOMEN FLAT PLATE from 08/17/2020 FINDINGS: NG tube is again noted in the stomach. The stomach is not distended. However, there is still air-fi lled dilated small bowel loops consistent with distal small-bowel obstruction. There is contrast in the bladder from preceding CT scan. IMPRESSION: Persistent distal small bowel obstruction pattern. NG tube remains in the stomach. Sternotomy wires noted. DATA REPOSITORY: RADIATION DOSE DELIVERED:
--- NOTE | 2020-08-18 08:19 | PGE_ITS ---
Date of Service Date of service: 08/18/20 Time of Service: 11:30 Assessment and Plan Assessment and plan (1) Incisional hernia of anterior abdominal wall with obstruction: Status: Acute Assessment and plan: To OR as this note is being written. Defer to general surgery (2) Atrial fibrillation: Status: Acute Assessment and plan: Continue cardizem drip and IV lopressor as long as the patient is not allowed to have PO. Once able, we will transition to PO meds. Qualifiers: Atrial fibrillation type: persistent Qualified Code(s): I48.1 - Persis tent atrial fibrillation (3) Coronary arteriosclerosis: Status: Acute Assessment and plan: NO evidence of ACS. Continue IV lopressor. No change in tx. Hospitalists will continue to follow. Subjective Subjective Interval history since last seen: About to go back to surgery for incisional hernia likely related to clinical small bowel obstruction. Denies dizziness, chest pain, shortness of breath nausea, pain. Passed flatus. 500 cc out in NGT. Still to suction. Anxious. REmains on diltiazem gtt. Exam Narrative Exam Narrative: General: Pleasant elderly female, visibly nervous, but not in distress, A&Ox3 HEENT: EOMI, MMM Heart: Irregularly irregular rhythm Lungs: CTAB/diminished at bases Abdomen: soft, nontender, +BS Extremities: no edema BLE's Objective Last Vital Signs Temp 36.1 C L 08/18/20 08:04 Pulse 108 H 08/18/20 08:04 Resp 16 08/18/20 08:04 BP 132/90 08/18/20 05:30 Pulse Ox 94 08/18/20 08:04 Laboratory Results - last 24 hr 08/18/20 08/18/20 08/18/20 06:05 06:05 06:05 WBC 7.85 RBC 4.12 Hgb 12.1 Hct 38.6 MCV 93.7 MCH 29.4 MCHC 31.3 L RDW 13.1 Plt Count 221 MPV 11.1 H Immature Gran % 0.4 Neutrophils % 73.3 Lymphocytes % 9.9 Monocytes % 12.2 Eosinophils % 3.4 Basophils % 0.8 Nucleated RBC % 0 Absolute Neutrophils 5.75 Absolute Lymphocytes 0.78 L Absolute Monocytes 0.96 H Absolute Eosinophils 0.27 Absolute Basophils 0.06 Sodium 148 H Potassium 3.3 L Chloride 108 H Carbon Dioxide 28.4 Anion Gap 11.6 H BUN 16 D Creatinine 0.7 Estimated GFR/1.73 m2 >= 60.00 Glucose 57 L Calcium 8.8 Magnesium 1.8 NT-Pro-B Natriuret Pep 2782 H Objective Narrative Objective Narrative: CT abdomen/pelvis 08/17: 1. Status post appendectomy. No abdominal or abdominal wall abscess. No pneumoperitoneum. 2. Small bowel containing paraumbilical hernia. The contained small bowel is unremarkable. 3. Small bilateral pleural effusions and bilateral basilar infiltrates which may represent atelectasis or pneumonia. 4. Dilated loops of small bowel which may represent an ileus. Small-bowel obstruction cannot be entirely excluded. 5. Postsurgical changes in the anterior abdominal wall.
[2020-08-18] MEDS: Pantoprazole 40 MG VIAL IVP (08:30)
[2020-08-18] MEDS: Enoxaparin 40 MG/0.4 ML SYR SC (08:30)
[2020-08-18] MEDS: MAGNESIUM SULFATE 2 GM/50 ML BAG IVPB (08:31)
[2020-08-18] MEDS: POTASSIUM CHLORIDE 20 MEQ/100 ML BAG 50 MEQ IVPB ×2 (08:31→11:04)
[2020-08-18] MEDS: Dextrose 50%-Water 25 GM/50 ML SYR IVP (08:35)
[2020-08-18] MEDS: Budesonide/Formoterol 160/4.5 6 GM 60 PUFF INH IH (09:40)
--- NOTE | 2020-08-18 10:03 | CMPROGNOTE_ITS ---
- If Service Date Differs Date of service: 08/18/20 Time of Service: 10:03 Care Management Progress Note S/O: Lilliana was taken back to surgery today to repair an incarcerated incisional hernia that was contributing to an ileus/lsbo following her appendectomy. CM unable to meet with her as she was in surgery much of the day and asleep at 4 pm when visit attempted. Lilliana is afebrile and her vital signs are stable. Per nursing, her pain level was a 6/10 when she returned from surgery. CM will continue to follow. A: 79 year old female admitted to [facility] 08/12/20 for Acute Appendicitis P: Lilliana will return home when ready per MD. She may benefit from new home health nursing services. Lilliana will follow up with her PCP and plan of care as prescribed. She will transport via private vehicle with a friend. CM will continue to support Lilliana and assess for discharge planning needs.
--- NOTE | 2020-08-18 10:03 | W.PM.PROGNOT ---
Documented by User: TARSHA Bejarano 08/18/20 10:07 Date of Service Date of service: 08/18/20 Time of Service: 10:03 Assessment and Plan Assessment and plan (1) S/P laparoscopic appendectomy: Status: Acute (2) GERD (gastroesophageal reflux disease): Status: None (3) Acute appendicitis: Status: Acute (4) Atrial fibrillation: Status: Acute Qualifiers: Atrial fibrillation type: persistent Qualified Code(s): I48.1 - Persistent atrial fibrillation (5) Hypothyroidism: Status: Acute (6) Asthma: Status: Acute (7) Ileus following gastrointestinal surgery: Status: Acute Assessment and plan: POD #5 s/p lap appy for gangrenous appy cont hydration NG tube in place. Bilious material in the canister Strongly encouraged ambulation cont abx cont supportive care CT scan from 08/17 showed incisional hernia containing a loop of small bowel. Discussed the concerns and potential outcomes associated with hernia and loop of small bowel within the hernia. Discussed the procedure at length, potential risks and benefits. P// Incisional hernia repair with possible mesh. Subjective Subjective Interval history since last seen: Patient reports she is feeling okay, this morning. She reports she is passing some Flatus and has felt rumbling in her lower abdomen. She denies having any abdominal pain at this time. Exam Const General: cooperative, healthy appearing and comfortable Orientation: alert and oriented x3 Resp Effort & Inspection: normal respiratory effort, no audible wheezes and no cough GI Inspection: normal to inspection Palpation: hernia (incisional infraumbilical hernia) Objective Last Vital Signs Temp 36.1 C L 08/18/20 09:21 Pulse 98 H 08/18/20 09:21 Resp 16 08/18/20 09:21 BP 128/82 08/18/20 09:21 Pulse Ox 94 08/18/20 09:21 Laboratory Results - last 24 hr 08/18/20 08/18/20 08/18/20 06:05 06:05 06:05 WBC 7.85 RBC 4.12 Hgb 12.1 Hct 38.6 MCV 93.7 MCH 29.4 MCHC 31.3 L RDW 13.1 Plt Count 221 MPV 11.1 H Immature Gran % 0.4 Neutrophils % 73.3 Lymphocytes % 9.9 Monocytes % 12.2 Eosinophils % 3.4 Basophils % 0.8 Nucleated RBC % 0 Absolute Neutrophils 5.75 Absolute Lymphocytes 0.78 L Absolute Monocytes 0.96 H Absolute Eosinophils 0.27 Absolute Basophils 0.06 Sodium 148 H Potassium 3.3 L Chloride 108 H Carbon Dioxide 28.4 Anion Gap 11.6 H BUN 16 D Creatinine 0.7 Estimated GFR/1.73 m2 >= 60.00 Glucose 57 L Calcium 8.8 Magnesium 1.8 NT-Pro-B Natriuret Pep 2782 H Documented by User: Yousif Darling MD 08/18/20 11:56 Assessment and Plan Assessment and plan (1) S/P laparoscopic appendectomy: Status: Acute (2) GERD (gastroesophageal reflux disease): Status: None (3) Acute appendicitis: Status: Acute (4) Atrial fibrillation: Status: Acute Qualifiers: Atrial fibrillation type: persistent Qualified Code(s): I48.1 - Persistent atrial fibrillation (5) Hypothyroidism: Status: Acute (6) Asthma: Status: Acute (7) Ileus following gastrointestinal surgery: Status: Acute Assessment and plan: Attestation: Pt seen and examined. I personally reviewed 08/17 CT abdomen and compared to CT from time of admission. Reviwed op note . Patient has had prolonged ileus post op. Has started to have some flatus today and denies significant abdominal pain. Alert and cogent NG slight bilious Abdomen distended but soft. Infraumbilical incision intact without erthema, edema, drainage There is a soft palpable mass about 4 cm diam with gurgles on palpation. Unable to reduce. Modestly tender CT from admission shows appendicitis, diastasis recti, no evidence of periumbilical hernia. CT 08/17 shows extensive moderate smal bowel distention, distal segment of ileum to ICV decompressed, colon relatively decompressed throughout. There is a short loop of small bowel herniated through abdominal wall in immediate infraumbilical position . I believe this may well represent the transition point from distended to collapsed small bowel segment. Imp - incarcerated incisional hernia with loop of small bowel present. THis incision was used for large trochar at time of appendectomy and was closed with Vicryl suture. I don't think the bowel is strangulated . Given the hernia is new, incisional & at least partially obstructing, return to OR for repair is the best course. Discussed with patient. Given this has occurred within days of prior OR and that she had pre-existing diastatic midline , it may be prudent to re-inforce fascial repair with onlay of macroporous mesh to mitigate against another recurrence. Discussed with patient. I believe she understands the situation/risks and benefits. Consent is obtained. She does not want family informed of plans. Prophylactic antibiotics to be given. Youisf Darling MD FACS
[2020-08-18] MEDS: dilTIAZem 125 MG in Normal Saline 100 ML 10 MG IV (12:45)
[2020-08-18] MEDS: Bupivacaine 0.25% Pres-Free 30 ML VIAL (13:39)
--- NOTE | 2020-08-18 13:39 | ROE_ITS ---
Time of Service: 13:48 Operative Note Operative Note DATE OF PROCEDURE: 08/13/20 PRE-OP DIAGNOSIS: Incarcerated Incisional hernia with small bowel involvement POST-OP DIAGNOSIS: same (gangrenous ) PROCEDURE: 1- Repair incarcerated Incisional Hernia with Mesh SURGEON: Yousif Darling PROCESS MECHANIC: Magdalena Flores ANESTHESIA TYPE: General LMA/ETT Refer to Anesthesia Record ESTIMATED BLOOD LOSS: 25 PATHOLOGY: none sent COMPLICATIONS: None Patient was transported to: PACU Patient's condition: stable Implants: Ventralex 6.5cm mesh Indications: Patient with ileus/psbo 5 days post-op from laparoscopic appendectomy. Has incarcerated incisional hernia with small bowel involved. Findings: Small bowel is incarcerated through 3cm fascial defect. It is encountered immediately after opening the dermis. Bowel is completely viable. Previously placed fascial closure sutures are intact but have cut through attenuated fascia. Character of the fascia is attenuated, thin and does not allow for a confident primary fascial closure. Procedure Description: 79 year-old lady who is approximately postop day 5 after laparoscopic appendectomy. She has had persistent ileus and lack of bowel function. This prompted CT scan done yesterday. This reveals findings interpreted as ileus however review of CT scan reveals an abdominal wall hernia immediately inferior to the umbilicus at the site of her midline trocar. There is small bowel in this position and to my eye it appears to be a transition point from dilated to nondilated small bowel. Physical exam confirms presence of incarcerated small bowel underlying the incision. Patient was counseled regarding the situation and advised to undergo repeat trip to the operating room to reduce the hernia and provide fascial closure. It is likely that mesh will be utilized to accomplish the repair or at least to reinforce the fascial closure. There is a small possibility of need for partial small bowel resection although the clinical picture suggests that strangulation is not present. After discussion of risks and benefits patient consents for procedure. Patient is taken the operating suite placed on the OR table in supine position general tracheal anesthesia is induced. Sequential SUKHWINDER stockings are employed. Prophylactic antibiotics were administered. Sterile prepping and draping is carried out. The incarcerated small bowel remains palpable beneath the 3 cm infraumbilical midline incision. The incision is entered sharply with a 15 blade scalpel. Immediately after dividing the dermal closure small bowel wall is encountered. There is a slight maroon or purplish discoloration to the bowel but it appears viable. There is no fluid surrounding it. Palpation of the fascia reveals a 3 cm defect and the bowel cannot be reduced through it. A couple of the fascial closure sutures remain intact in the cephalad position. I opened the entirety of the prior fascial defect by adding the intact cephalad sutures. Opening the fascia more completely allowed for inspection of the small bowel. The point of incarceration is identified on both afferent and efferent limbs of the loop and all of the bowel wall is viable. The small bowel was returned to the peritoneal cavity. Infection of previously placed fascial sutures reveals that they are all intact however those which failed were found to have pulled through the at tenuated fascia. There is no ascites or blood present in the peritoneal cavity. Palpation of the undersurface of the peritoneum surrounding the defect is without adherent loops of bowel or omentum. The fascial defect measures about 5 cm in maximum dimension. The character of the fascia is quite attenuated and thin. The closure seems to lend itself to a horizontal one rather than a another attempt at vertical closure. The attenuation of the fascia suggests that another primary closure may well lead to recurrent hernia, thus a mesh repair is necessary. Time is spent clearing the anterior surface of the fascia of the subcutaneous fat and debriding some strands of devitalized fascia from the margins of the defect. A 6.4 cm diameter circular Ventralex mesh is chosen to help achieve repair. I was not able to develop a preperitoneal plane to place this within and thus an intraperitoneal position is chosen. The Ventralex was secured in this position with the defect centered over the mesh. Transfascial sutures of 2-0 Vicryl are placed initially in the 4 cardinal directions. Fascial overlap of about 2 cm is easily achieved in both the cephalad and caudad directions. Approximately 1 cm of fascial overlap is achieved at each lateral aspect. Care was taken to not allow viscera to intercede between the mesh and abdominal wall. A second set of transfascial U sutures are placed in fashion?between those placed in the cardinal directions. The sutures are placed under direct vision incorporating the ring of the mesh and again no viscera is allowed between the mesh and abdominal wall. The fascial margins are then reapproximated in a transverse direction over the central mesh with a series of 5 [id number] 2-0 Vicryl sutures. No significant tension seemed apparent. A couple of 3-0 Vicryl subcutaneous sutures are utilized to reapproximate the modest amount of subcutaneous fat. [place] are utilized to reapproximate skin. A tessie suction type dressing was applied over the incision. Patient tolerated the procedure well. There were no evident complications. All counts were reported as correct. Yousif Darling MD FACS 08/18/2020 Image: Incarcerated small bowel in the subcutaneous position. It was revealed immediately after opening the dermis of prior infraumbilical incision.
[2020-08-18] MEDS: POTASSIUM CHLORIDE/D5-0.45NACL 1,000 ML 100 MEQ IV (15:20)
--- NOTE | 2020-08-18 16:12 | CHAPLAIN ---
Lilliana went back to the OR today for another surgery. Prior to her surgery she told me the medical staff told her she would be back biking next month and she was very pleased to hear that. She told me about places where she and her friend bike around here and trips she and her took to bike around the state and in [place].
[2020-08-18] MEDS: Ondansetron 4 MG/2 ML VIAL IVP (19:42)
[2020-08-18] MEDS: MORPHine 2 MG/ML SYR IVP (19:43)
[2020-08-18] MEDS: Normal Saline Flush 10 ML SYR IVP (19:45)
[2020-08-19] VITALS (31 sets, daily range): BP systolic 115–136; BP diastolic 70–92; PULSE 0–117; RESP 16–18; TEMP 36–36.3; O2SAT 90–98
[2020-08-19] MEDS: POTASSIUM CHLORIDE/D5-0.45NACL 1,000 ML 100 MEQ IV ×2 (01:29→11:15)
[2020-08-19] MEDS: LORazepam 2 MG/ML VIAL 0.5 MG IVP (03:22)
[2020-08-19] MEDS: PIPERACILLIN/TAZO 3.375 GM in Normal Saline 50 ML IVPB ×2 (04:21→10:42)
[2020-08-19] MEDS: dilTIAZem 125 MG in Normal Saline 100 ML 10 MG IV ×2 (04:26→18:44)
[2020-08-19] MEDS: Metoprolol 5 MG/5 ML VIAL 2.5 MG IVP ×3 (06:52→18:48)
[2020-08-19 07:05] LABS: Abs Immature Grans 0.04 10^3/uL (0.0-0.06); Absolute Basophil Count 0.01 10^3/uL (0.0-0.2); Absolute Lymphocyte Count 0.46 10^3/uL (1.2-3.4); Absolute Monocyte Count 0.96 10^3/uL (0.1-0.8); Absolute Neutrophil Count 8.99 10^3/uL (1.2-6.7); Basophils % 0.1; HCT 36.7 % (36.0-46.0); Immature Grans % 0.4; Lymphocytes % 4.4; MCH 29.7 pg (27.0-33.0); MCHC 32.7 % (32.0-36.0); MCV 90.8 fL (80-95); MPV 10.8 fL (8.0-11.0); Monocytes % 9.2; Neutrophils % 85.9; Nucleated RBC 0 %; Platelet Count 234 10^3/uL (130-400); RBC 4.04 10^6/uL (3.93-5.22); RDW 13.2 % (11.7-14.6); RDW-SD 44.3 fL; WBC 10.46 10^3/uL (4.4-10.8)
[2020-08-19 07:06] LABS: Anion Gap 11.4 mmol/L (3-11); BUN 10 mg/dL (7-18); CO2 24.6 mmol/L (21.0-32.0); CREATININE 0.6 mg/dL (0.55-1.02); Calcium 8.6 mg/dL (8.5-10.1); Chloride 106 mmol/L (98-107); Glucose 173 mg/dL (74-106); Potassium 4.4 mmol/L (3.5-5.1); Sodium 142 mmol/L (136-145)
[2020-08-19 07:17] LABS: Magnesium 1.9 mg/dL (1.8-2.4); NT-proBNP 4126 pg/mL (<300)
--- NOTE | 2020-08-19 08:16 | W.PM.PROGNOT ---
Date of Service Date of service: 08/19/20 Time of Service: 14:32 Assessment and Plan Assessment and plan (1) Atrial fibrillation: Status: Acute Assessment and plan: Continue cardizem drip and IV lopressor as long as the patient is not allowed to have PO. I understand that there is a plan to trial a diet today. If tolerates, transition to PO meds. Qualifiers: Atrial fibrillation type: persistent Qualified Code(s): I48.1 - Persistent atrial fibrillation (2) Incisional hernia of anterior abdominal wall with obstruction: Status: Acute Assessment and plan: S/p mesh repair. Defer to general surgery. Monitor volume status. Decrease IVF. (3) Coronary arteriosclerosis: Status: Acute Assessment and plan: NO evidence of ACS. Continue IV lopressor. No change in tx. Hospitalists will continue to follow. Subjective Subjective Interval history since last seen: Ms Sellers is s/p lap mesh repair of her infraumbilical incisional hernia yesterday. No complications. She got ativan for anxiety this morning. Afebrile. HRs 87 this am. BP 122/70. BG 173 on this am's labs. NGT to suction. No flatus yet, but she does have bowel sounds. 75 ccs this morning; 300 in the canister this am. on 2L this am - 95%. Will be working with IS today. Voided. No pain. Denies dizziness, chest pain, shortness of breath, nausea, pain. Exam Narrative Exam Narrative: General: Pleasant elderly female, visibly nervous, but not in distress, A&Ox3 HEENT: EOMI, MMM Heart: Irregularly irregular rhythm Lungs: CTAB/diminished at bases Abdomen: Abdomen distended, + BS, dressing c/d/i. Extremities: no edema BLE's Objective Last Vital Signs Temp 36 C L 08/19/20 04:30 Pulse 117 H 08/19/20 06:52 Resp 16 08/19/20 04:30 BP 136/88 08/19/20 06:52 Pulse Ox 92 08/19/20 04:30 Laboratory Results - last 24 hr 08/19/20 08/19/20 08/19/20 05:35 06:15 06:15 WBC 10.46 D RBC 4.04 Hgb 12.0 Hct 36.7 MCV 90.8 MCH 29.7 MCHC 32.7 RDW 13.2 Plt Count 234 MPV 10.8 Immature Gran % 0.4 Neutrophils % 85.9 Lymphocytes % 4.4 Monocytes % 9.2 Eosinophils % 0.0 Basophils % 0.1 Nucleated RBC % 0 Absolute Neutrophils 8.99 H Absolute Lymphocytes 0.46 L Absolute Monocytes 0.96 H Absolute Eosinophils 0.00 Absolute Basophils 0.01 Sodium 142 Potassium 4.4 D Chloride 106 Carbon Dioxide 24.6 Anion Gap 11.4 H BUN 10 D Creatinine 0.6 Estimated GFR/1.73 m2 >= 60.00 Glucose 173 H D Calcium 8.6 Magnesium 1.9 NT-Pro-B Natriuret Pep 4126 H
[2020-08-19] MEDS: Budesonide/Formoterol 160/4.5 6 GM 60 PUFF INH IH (08:19)
[2020-08-19] MEDS: ACETAMINOPHEN 1,000 MG/100 ML BTL 400 MG IVPB ×2 (09:22→15:53)
[2020-08-19] MEDS: Pantoprazole 40 MG VIAL IVP (09:23)
[2020-08-19] MEDS: Normal Saline Flush 10 ML SYR IVP (09:24)
[2020-08-19] MEDS: Enoxaparin 40 MG/0.4 ML SYR SC (09:24)
--- NOTE | 2020-08-19 10:58 | W.PM.PROGNOT ---
Date of Service Date of service: 08/19/20 Time of Service: 10:58 Assessment and Plan Assessment and plan (1) Incisional hernia of anterior abdominal wall with obstruction: Status: Acute Assessment and plan: a// Patient doing well postop day 1 repair of incarcerated incisional hernia. Bowel sounds present which may signal resolution of ileus is occurring. Plan: Clamp NG tube for 4 hours. Potentially remove if residual slow Encouraged out of bed to chair. PT consult for eval and treat. Anticipate resolution of ileus in the near future so that p.o. diet can resume. If not we will need to consider alternatives. (2) S/P laparoscopic appendectomy: Status: Acute Subjective Subjective Interval history since last seen: Postop day 1/postop day 06 Patient had repair of incarcerated incisional hernia yesterday. No major issues in the past 24 hours. Not Using or requiring any pain medication. To be up in chair today. NG output about 100 cc/several hours. Bilious tinged. No flatus. Nurse reports bowel sounds present. Some rhythm irregularities noted. Episodes of bradycardia A. fib. Few ectopic beats. hemodynamically stable. Diltiazem drip remains. Medicine team engaged. Exam Narrative Exam Narrative: Awake and alert. Conversational. Wounds all extremities symmetrically. No respiratory laboring. No audible wheeze. Abdomen not distended. Erick dressing in place?appears dry. Abdomen nontender Objective Last Vital Signs Temp 97.2 F L 08/19/20 10:01 Pulse 93 H 08/19/20 10:01 Resp 18 08/19/20 10:01 BP 128/78 08/19/20 10:01 Pulse Ox 93 08/19/20 10:01 Laboratory Results - last 24 hr 08/19/20 08/19/20 08/19/20 05:35 06:15 06:15 WBC 10.46 D RBC 4.04 Hgb 12.0 Hct 36.7 MCV 90.8 MCH 29.7 MCHC 32.7 RDW 13.2 Plt Count 234 MPV 10.8 Immature Gran % 0.4 Neutrophils % 85.9 Lymphocytes % 4.4 Monocytes % 9.2 Eosinophils % 0.0 Basophils % 0.1 Nucleated RBC % 0 Absolute Neutrophils 8.99 H Absolute Lymphocytes 0.46 L Absolute Monocytes 0.96 H Absolute Eosinophils 0.00 Absolute Basophils 0.01 Sodium 142 Potassium 4.4 D Chloride 106 Carbon Dioxide 24.6 Anion Gap 11.4 H BUN 10 D Creatinine 0.6 Estimated GFR/1.73 m2 >= 60.00 Glucose 173 H D Calcium 8.6 Magnesium 1.9 NT-Pro-B Natriuret Pep 4126 H
--- NOTE | 2020-08-19 13:05 | PT.INIE ---
Date of service: 08/19/20 Time of Service: 14:03 PT Notes Visit Reasons: ACUTE APPENDICITIS Physical Therapy Inpatient Initial Evaluation Date: 08/19/2020 Referring Doctor: Yousif Darling MD PT Orders: PT CONSULT: Extended stay weakness. Elderly, S/P two abdominal operation- eval and treat please Precautions: Fall. Standard. Activity as tolerated. Patient Profile/Admitting Diagnosis: Lilliana is an 79-year-old female who presented to the ED on 08/19/2020 with abdominal pain and nausea. Patient is diagnosed with acute appendicitis and is status post laparoscopic appendectomy on 08/13/2020 with repair of incisional hernia on 08/18/2020. Patient is also diagnosed with ileus. PMHX: Medical History (Updated 08/13/20 @ 09:32 by nAgi Urban DO) Asthma Asthma Atrial fibrillation Diverticulosis GERD (gastroesophageal reflux disease) H/O mitral valve replacement Hypothyroidism Hypothyroidism Mitral valve disorder Right ureteral calculus 90% calcium oxalate monohydrate and 10% calcium oxalate dihydrate Trigeminal neuralgia Urinoma Surgical History Cholecystectomy Colonoscopy - IV Sedation (04/24/16) History of open heart surgery Social History/Home Situation: Lives alone with 4 other adults in an apartment building with a ramp to enter. Independent with all aspects of ADLs without need for adaptive equipment or assistive ambulatory device. Still drives. Has an alternate 3-4 steps to enter the apartment building. Equipment Owned/DME: None Subjective: Agreeable to PT consult. Appeared drowsy. Denies headache, lightheadedness, and chest pain. Did report continued lower abdominal pain that did not limit ambulation activity. Objective: General Observation: Telemetry monitoring in place. IV in right UE. Bilateral TEDS on. I have enjoying this Mental Status: Alert and oriented as to person, place, time, and purpose. Able to pay attention, focus, and respond appropriately. Pain: 1-2/10 in lower abdominal area Vital Signs: HR between 75 to 96 bpm throughout session ROM: Right Upper Extremity: Shoulder Flexion WFL. Shoulder abduction WFL. Shoulder ER/IR WFL. Elbow flexion WFL. Forearm pronation/supination WFL. Wrist flexion WFL. Opening and closing of hand WFL. Left Upper Extremity: Shoulder Flexion WFL. Shoulder abduction WFL. Shoulder ER/IR WFL. Elbow flexion WFL. Forearm pronation/supination WFL. Wrist flexion WFL. Opening and closing of hand WFL. Right Lower Extremity: Hip flexion WFL. Hip abduction WFL. Hip ER/IR WFL. Knee flexion WFL. Knee extension. Ankle dorsiflexion/eversion WFL. Ankle plantarflexion/inversion WFL. Left Lower Extremity: Hip flexion WFL. Hip abduction WFL. Hip ER/IR WFL. Knee flexion WFL. Knee extension. Ankle dorsiflexion WFL. Ankle plantarflexion WFL. Strength: Right Upper Extremity: Shoulder flexors 4/5. Shoulder abductors 4/5. Shoulder ER 4/5/ Shoulder IR 4/5. Forearm pronators 4/5. Forearm supinators 4/5. Elbow flexors 5/5. Elbow extensors 5/5. Restaurant Maintenance Technician strong. Left Upper Extremity: Shoulder flexors 4/5. Shoulder abductors 4/5. Shoulder ER 4/5/ Shoulder IR 4/5. Forearm pronators 4/5. Forearm supinators 4/5. Elbow flexors 5/5. Elbow extensors 5/5. Restaurant Maintenance Technician strong. Right Lower Extremity: Hip flexors 4/5. Hip abductors 4/5. Hip external rotators 4/5. HIp internal rotators 4/5. Knee flexors 4/5. Knee extensors 4/5. Ankle dorsiflexors/evertors 4/5. Ankle plantarflexors/invertors 4/5. Left Lower Extremity: Hip flexors 4/5. Hip abductors 4/5. Hip external rotators 4/5. HIp internal rotators 4/5. Knee flexors 4/5. Knee extensors 4/5. Ankle dorsiflexors/evertors 4/5. Ankle plantarflexors/invertors 4/5. Bed Mobility/Transfers: Sit to supine minimal assist to BLE Sit to stand contact-guard assist. Patient did demonstrate forward postural sway requiring the use of front wheeled walker for safety. Stand to sit contact-guard assist Bed to chair contact-guard assist Chair to bed contact-guard assist Gait: Guided patient with level surface ambulation with a distance of 80 feet requiring contact-guard assist. Katherine decreased. Step height decreased. Step length decreased. No report of increased lower abdominal pain during activity. Balance: Static Sitting: Normal Dynamic Sitting: Normal Static Standing: Fair Dynamic Standing: Fair Special Tests: Mobility Limitations Standardized Measure [facility] AM-PAC 6 clicks Basic Mobility Inpatient Short Form: Raw Score: 18 CMS Score: 47% deficit Informed Consent/Education: Patient instructed in purpose of PT consult and plan of care. Agreeable to proceed with established PT POC to achieve personal goals. Assessment: Lilliana demonstrate functional mobility decline requiring the use of front wheeled walker for all mobility ADL performance to maximize independence and reduce fall risk, generalized postoperative weakness, and increased risk for falls due to admitting diagnosis and postoperative status. Patient will benefit from home health PT services in order to progress mobility level using least restrictive assistive ambulatory device, assess home safety, identify additional equipment needs, and establish a functional maintenance program that will increase ability of patient to remain at home. Patient presents with clinical signs and symptoms consistent with current/admitting diagnoses that have resulted to mobility limitations, gait instability, generalized weakness, and impairment of motor control as demonstrated by the following impairment level findings: 1. Decreased strength to B hip major muscle groups 2. Impaired standing balance 3. Impaired activity tolerance 4. Lower abdominal pain Impairments are contributing to the following functional limitations: 1. Dependent sit to supine 2. Increased dependence with transfers 3. Inability to safely ambulate without assistive device and physical assistance 4. Increase completion time for mobility ADL performance 5. Increased fall risk 6. Inability to negotiate steps alone safely 7. Inability to return to prior living environment at this time Patient is assessed as a 11902 moderate complexity based on the following: History: 79-year-old female with past medical history as indicated above Examination: Demonstrable impairment in strength, balance, and mobility level with underlying impairments and functional limitations as exhibited above as well as deficit score of 47% utilizing the Health system Mobility Inpatient Short Form Presentation: Evolving Decision Makin moderate complexity Goals: Goals X1 week 1. Supine-Sit independent 2. Sit-Supine independent 3. Sit-Stand independent 4. Stand-Sit independent 5. Bed-Chair independent 6. Chair-Bed independent 7. Independent gait on level surface with use of no assistive device for at least 300 feet without report of pain nor dyspnea 8. Independent stair negotiation while holding onto rails for at least 5 steps without report of pain nor dyspnea 9. Independent with home exercise program 10. Good static and dynamic standing balance/tolerance Plan of Care/Treatment Plan: 1-2x/day, 7 days/week x 1 week. Plan of care has been reviewed with the ELECTRICAL AND INSTRUMENTATION MANAGER providing the service under Physical Therapy direction. Initiate Physical Therapy intervention for strengthening, bed mobility, transfers, gait, stairs, balance training, and use of assistive device. DISCHARGE RECOMMENDATIONS: Discharge home when medically cleared by hospitalist. Patient will benefit from home health PT services in order to progress mobility level using least restrictive assistive ambulatory device, assess home safety, identify additional equipment needs, and establish a functional maintenance program that will increase ability of patient to remain at home. TREATMENT CODE/TIME: 30922 x 30 minutes, 46697 x 10 minutes beginning at 13:05 PM. Thank you for the opportunity to participate in the care of this patient. Anna Gann PT, DPT, CLT [facility] [place], [place]
--- NOTE | 2020-08-19 17:12 | PDOC.CMPRO ---
- If Service Date Differs Date of service: 08/19/20 Time of Service: 17:12 Care Management Progress Note S/O: Lilliana was sitting up in her chair when CM met with her. She reported that she is feeling better, but she has had a difficult hospital course. She explained that she went to the OR yesterday. She has an NG tube in place currently, which the surgeon plans to clamp, per report. She was seen by PT today, who recommend HH PT, which she does not feel that she needs at this time. She stated that she has a good support system. CM stated that if she decides that she would benefit from the help, CM will order HH services upon discharge. CM will continue to follow. A: Lilliana is an 79 year old female admitted to [facility] 08/12/20 for Acute Appendicitis P: Lilliana will return home when ready per MD. She may benefit from new home health nursing services. Lilliana will follow up with her PCP and plan of care as prescribed. She will transport via private vehicle with a friend. CM will continue to support Lilliana and assess for discharge planning needs.
[2020-08-20] VITALS (34 sets, daily range): BP systolic 107–154; BP diastolic 69–101; PULSE 73–138; RESP 14–18; TEMP 36.1–37.2; O2SAT 88–95
--- NOTE | 2020-08-20 | DI.RAD_ITS ---
EXAM: 2D digital imaging was performed. CLINICAL HISTORY: post op vomit. COMPARISON: No exams were available for comparison TECHNIQUE: Supine and uprightSupine and Lateral views of the abdomen was performed. FINDINGS: LUNG BASES: Small bilateral pleural effusions. BOWEL GAS PATTERN: Bowel gas pattern is nonspecific. Scattered mildly dilated loops of small bowel a re seen likely reflecting an ileus. FREE AIR: None. CALCIFICATIONS: No radiopaque calcifications. OSSEOUS STRUCTURES: Degenerative changes in the spine. OTHER FINDINGS: Surgical clips in the right upper quadrant of the abdomen. There is a battery pack o verlying the right iliac bone. Skin yue are seen in the midline of the pelvis. IMPRESSION: Findings suggestive of abdominal ileus. Follow-up is recommended. DATA REPOSITORY: RADIATION DOSE DELIVERED:
[2020-08-20] MEDS: Metoprolol 5 MG/5 ML VIAL 2.5 MG IVP ×3 (00:15→12:34)
[2020-08-20] MEDS: ACETAMINOPHEN 1,000 MG/100 ML BTL 400 MG IVPB ×3 (00:16→16:52)
[2020-08-20] MEDS: Ondansetron 4 MG/2 ML VIAL IVP ×2 (01:07→12:18)
[2020-08-20] MEDS: POTASSIUM CHLORIDE/D5-0.45NACL 1,000 ML 50 MEQ IV ×2 (04:55→13:39)
[2020-08-20 07:37] LABS: Magnesium 1.8 mg/dL (1.8-2.4); NT-proBNP 2489 pg/mL (<300)
--- NOTE | 2020-08-20 08:15 | RT.EKG_ITS ---
APPROVED REPORT Exam: Resting ECG Patient Location: I HR:83 bpm ECG Measurements Heart Rate 83 AXIS VT [id number] P [id number] QRSd 87 QRS -24 QT [id number] T [id number] QTc 0 Conclusion Atrial fibrillation...V-rate 67-139, irreg A-activity Ventricular premature complex...V complex w/ short R-R interval
--- NOTE | 2020-08-20 08:18 | W.PM.PROGNOT ---
Date of Service Date of service: 08/20/20 Time of Service: 12:02 Assessment and Plan Assessment and plan (1) Atrial fibrillation: Status: Acute Assessment and plan: Start PO lopressor 12.5 mg PO BID. The patient was on toprol XL 12.5 mg PO Daily at home, but was getting more than that in the IV lopressor form here. Lopressor will have holding parameters. Will see if cardizem gtt will turn itself off with initiation of PO lopressor. If not, would titrate BB up in attempts to wean cardizem gtt rather than jump to introducing a 2nd oral drug. I think it is safe to d/c MIVF today. If all goes well with PO intake today, would resume eliquis. Qualifiers: Atrial fibrillation type: persistent Qualified Code(s): I48.1 - Persistent atrial fibrillation (2) Incisional hernia of anterior abdominal wall with obstruction: Status: Acute Assessment and plan: S/p mesh repair. Defer to general surgery. Monitor volume status. D/c MIVF. (3) Coronary arteriosclerosis: Status: Acute Assessment and plan: No evidence of ACS. Reinitiate PO BB. Hospitalists will continue to follow. Subjective Subjective Interval history since last seen: Ms Sellers states she is feeling better now. She states she is no longer nauseated. She denies dizziness, chest pain, shortness of breath. She does not have abdominal pain at this time. She just had a little bit of broth but did not have breakfast. Had a bM last night. When nausated, HR dipped down to 34 last night, likely vagal. Cardizem had to be held, but then restarted. On diltiazem gtt this am at 10 mg/hr. In and out of BBB. Got ativan 0.5 mg this am for anxiety. Passing flatus. Did not feel well this am, but better now Required 1.5 - 0.5 L. 87% on RA sleeping. RA now. No meds for pain. Exam Narrative Exam Narrative: General: Pleasant elderly female, no NGT, appears comfortable, somnolent in bed, A&Ox3, [place] HEENT: EOMI, MMM Heart: irregularly irregular rhythm, no m/r/g Lungs: faint crackles at B bases Abdomen: soft, mildly distended Extremities: no edema BLE's Objective Last Vital Signs Temp 37.2 C 08/20/20 03:20 Pulse 87 08/20/20 06:54 Resp 18 08/20/20 03:20 BP 142/78 H 08/20/20 06:54 Pulse Ox 95 08/20/20 03:20 Laboratory Results - last 24 hr 08/20/20 06:05 Magnesium 1.8 NT-Pro-B Natriuret Pep 2489 H
[2020-08-20] MEDS: Pantoprazole 40 MG VIAL IVP (08:54)
[2020-08-20] MEDS: Normal Saline Flush 10 ML SYR IVP (08:54)
[2020-08-20] MEDS: Enoxaparin 40 MG/0.4 ML SYR SC (08:55)
[2020-08-20 09:07] LABS: Anion Gap 7.6 mmol/L (3-11); BUN 11 mg/dL (7-18); CO2 28.4 mmol/L (21.0-32.0); CREATININE 0.6 mg/dL (0.55-1.02); Calcium 8.9 mg/dL (8.5-10.1); Chloride 105 mmol/L (98-107); Glucose 114 mg/dL (74-106); Sodium 141 mmol/L (136-145); Troponin I < 0.05 ng/mL (<0.06)
[2020-08-20] MEDS: Budesonide/Formoterol 160/4.5 6 GM 60 PUFF INH IH (09:30)
--- NOTE | 2020-08-20 10:01 | CMPROGNOTE_ITS ---
- If Service Date Differs Date of service: 08/20/20 Time of Service: 10:01 Care Management Progress Note S/O: Lilliana was sitting up in her bed when CM met with her. She was vomiting at the time and disinclined to converse. Lilliana was medicated for the N&V with good effect and felt better in the afternoon, per provider. Lilliana had a second surgery on Sunday to for an incarcerated incisional hernia that developed following her appendectomy. Yesterday she was able to have her NG tube removed and tolerated clear liquids over night. She has been working with PT and has been able to ambulate in the burt with them. A: Lilliana is an 79 year old female admitted to [facility] 08/12/20 for Acute Ap pendicitis P: Lilliana will return home when ready per MD. She may benefit from new home health nursing services. Lilliana will follow up with her PCP and plan of care as prescribed. She will transport via private vehicle with a friend. CM will continue to support Lilliana and assess for discharge planning needs. cc:
[2020-08-20] MEDS: Metoprolol 12.5 MG TAB PO ×2 (12:08→20:01)
--- NOTE | 2020-08-20 13:00 | W.NUTRFU ---
Date of service: 08/20/20 Time of Service: 13:00 Nutritional Follow up NOTE: Lilliana has had minimal nutrient intake for last 8 days. Currently on D50 and propofol providing less than 500 calories/qd. Diet advanced to clear liquids again- will advance as tolerated. If unable to advance to full liquids in next 24 hours, consider TPN. Egg allergy contraindicates lipid emulsion. Will continue to follow. Time Spent in Nutritional Counseling and Treatment: 0
--- NOTE | 2020-08-20 13:14 | PTTR_ITS ---
Date of service: 08/20/20 Time of Service: 11:10 PT Notes Visit Reasons: ACUTE APPENDICITIS Inpatient Physical Therapy Treatment Note [facility] Date: 08/20/2020 PRECAUTIONS: Fall SUBJECTIVE: Lilliana states that she is feeling very tired this morning, which she reports is due to medications she received last night to help with her restless legs. OBJECTIVE: PAIN: No c/o pain BED MOBILITY/TRANSFERS Rolling L/R: [] Supine-sit: [] Sit-supine: I with HOB flat Sit-stand: S Stand-sit: S Bed-Chair: [] Chair-bed: [] GAIT Assistive Device: FWW in a.m.; No AD in p.m. Weight bearing: Full Assist: SBA Distance: 300' in a.m.; 400' in p.m. Deviation: Decreased diane in a.m. THEREX: Patient was instructed in a LE strengthening program, completed in a sta nding position, as per flow sheet. She was also instructed in several balance retraining exercises in combination with gait training with dynamic B UE movements. ASSESSMENT: Patient tolerated sessions well without complaint, although reports that she is much weaker than her baseline level of function. She was able to tolerate a progression in gait distance and demonstrates improved mobility and stability versus yesterday. PLAN: Continue with global strengthening and conditioning as well as continued gait training for improved activity tolerance and continued progression toward baseline level of function. TREATMENT CODE/TIME: Session 1: 25 minutes; 17235 x2 (11:10) Session 2: 30 minutes; [id number], [id number] (13:05)
--- NOTE | 2020-08-20 13:30 | W.PM.PROGNOT ---
Date of Service Date of service: 08/20/20 Time of Service: 13:30 Assessment and Plan Assessment and plan (1) Incisional hernia of anterior abdominal wall with obstruction: Status: Acute (2) S/P laparoscopic appendectomy: Status: Acute Assessment and plan: Assessment: Patient postop day 2 after reduction and repair incarcerated incisional hernia. Small amount of flatus and BM are encouraging regarding potential resolution of ileus. We will remove tessie dressing and check incision tomorrow. We will check abdominal x-ray?2 view in context of episode of emesis today. Subjective Subjective Interval history since last seen: now postop day 2 after reduction there of incarcerated incisional hernia. Had NG tube removed yesterday after clamping x4 hours and residual of 0. Tolerated small amounts of clear liquids overnight small emesis this morning. Small BM last night and pass gas on one occasion this AM. Denies abdominal pain. Nausea that present now. Is ambulating in burt with PT. Exam Narrative Exam Narrative: Appears comfortable. Interactive and appropriate. Respiratory?no laboring or wheezing Abdomen?slight distention but entirely soft and no guarding. Nontender. Tessie dressing remains dry and intact and functional Objective Last Vital Signs Temp 97.2 F L 08/20/20 11:55 Pulse 83 08/20/20 12:39 Resp 18 08/20/20 12:39 BP 138/92 H 08/20/20 12:39 Pulse Ox 92 08/20/20 12:39 Laboratory Results - last 24 hr 08/20/20 06:05 Sodium 141 Potassium 4.0 Chloride 105 Carbon Dioxide 28.4 Anion Gap 7.6 BUN 11 Creatinine 0.6 Estimated GFR/1.73 m2 >= 60.00 Glucose 114 H Calcium 8.9 Magnesium 1.8 Troponin I < 0.05 NT-Pro-B Natriuret Pep 2489 H
[2020-08-20] MEDS: dilTIAZem 125 MG in Normal Saline 100 ML 10 MG IV (13:47)
--- NOTE | 2020-08-20 15:54 | CHAPLAIN ---
I hadn't seen Lilliana since her second surgery. She said she is sitting up because her nurses asked her to, but she prefers to lay downs. She opes to get back to riding her bike this summer, but said that seems far off now. She is in touch with her friend by phone.
[2020-08-20] MEDS: Melatonin 3 MG TAB PO (22:08)
[2020-08-21] VITALS (24 sets, daily range): BP systolic 93–122; BP diastolic 56–79; PULSE 55–115; RESP 16–20; TEMP 36.1–36.8; O2SAT 82–99
[2020-08-21] MEDS: dilTIAZem 125 MG in Normal Saline 100 ML 10 MG IV (00:29)
[2020-08-21] MEDS: ACETAMINOPHEN 1,000 MG/100 ML BTL 400 MG IVPB ×3 (00:31→15:48)
[2020-08-21] MEDS: Normal Saline Flush 10 ML SYR IVP ×3 (02:30→15:49)
[2020-08-21 06:47] LABS: Abs Immature Grans 0.03 10^3/uL (0.0-0.06); Absolute Basophil Count 0.02 10^3/uL (0.0-0.2); Absolute Eosinophil Count 0.18 10^3/uL (0.0-0.7); Absolute Monocyte Count 0.87 10^3/uL (0.1-0.8); Basophils % 0.3; Eosinophils % 3.1; HCT 39.2 % (36.0-46.0); HGB 12.6 g/dL (11.2-15.7); Immature Grans % 0.5; Lymphocytes % 15.5; MCH 29.7 pg (27.0-33.0); MCHC 32.1 % (32.0-36.0); MCV 92.5 fL (80-95); MPV 9.9 fL (8.0-11.0); Neutrophils % 65.6; Nucleated RBC 0 %; Platelet Count 256 10^3/uL (130-400); RBC 4.24 10^6/uL (3.93-5.22); RDW 13.5 % (11.7-14.6); RDW-SD 45.7 fL
[2020-08-21 06:57] LABS: Anion Gap 4.9 mmol/L (3-11); BUN 7 mg/dL (7-18); CO2 31.1 mmol/L (21.0-32.0); CREATININE 0.6 mg/dL (0.55-1.02); Calcium 8.6 mg/dL (8.5-10.1); Chloride 107 mmol/L (98-107); Glucose 94 mg/dL (74-106); Potassium 3.8 mmol/L (3.5-5.1); Sodium 143 mmol/L (136-145)
[2020-08-21 07:08] LABS: Magnesium 1.6 mg/dL (1.8-2.4); NT-proBNP 2771 pg/mL (<300)
[2020-08-21] MEDS: Pantoprazole 40 MG VIAL IVP (08:10)
[2020-08-21] MEDS: Enoxaparin 40 MG/0.4 ML SYR SC (08:10)
[2020-08-21] MEDS: Metoprolol 12.5 MG TAB PO ×2 (08:11→15:49)
[2020-08-21] MEDS: POTASSIUM CHLORIDE/D5-0.45NACL 1,000 ML 50 MEQ IV (08:13)
[2020-08-21] MEDS: Budesonide/Formoterol 160/4.5 6 GM 60 PUFF INH IH (08:13)
--- NOTE | 2020-08-21 08:48 | PDOC.CMPRO ---
- If Service Date Differs Date of service: 08/21/20 Time of Service: 08:49 Care Management Progress Note S/O: Lilliana was sitting up in a chair when CM met with her. She was smiling and volunteered that she is feeling much better, certainly better than she was on Sunday. She stated that her pain is controlled and she is looking forward to the day when she can return home. She continues to deny the need for services, however she does have a wound vac (tessie). If she is discharged with one, it may be beneficial for her to have new nursing to assist with the vac and dressing changes. A: Lilliana is an 79 year old female admitted to [facility] 08/12/20 for Acute Appendicitis P: Lilliana will return home when ready per MD. She may benefit from new home health nursing services. Lilliana will follow up with her PCP and plan of care as prescribed. She will transport via private vehicle with a friend. CM will continue to support Lilliana and assess for discharge planning needs.
--- NOTE | 2020-08-21 11:09 | W.PM.PROGNOT ---
Date of Service Date of service: 08/21/20 Time of Service: 11:09 Assessment and Plan Assessment and plan (1) Incisional hernia of anterior abdominal wall with obstruction: Status: Acute Assessment and plan: s/p abdominal wall hernia w/ SBO repaired w/ mesh on 08/18. No ischemic bowel and no bowel resection needed. Now passing flatus and BM. Patient is hungry. Proceed w/ clear liquids and advance as tolerated if ok w/ surgeon. (2) Ileus following gastrointestinal surgery: Status: Resolved Assessment and plan: appears to have resolved as evidenced by flatus and BM and no further nausea or vomiting. Watch closely as diet is advanced. (3) S/P laparoscopic appendectomy: Status: Acute Assessment and plan: s/p lap appy on 08/13 w/ subsequent development of SBO and ileus d/t incarcerated abdominal wall hernia. Patient is doing much better since hernia repair. advance diet as above. cont. pulmonary toiletry w/ IS and ambulation. (4) Atrial fibrillation: Status: Acute Assessment and plan: wean off diltiazem drip; increase lopressor to 12.5 mg Q8hr as tolerated. hold off her lisinopril. resume Apixaban as it appears that she is doing well post operatively and probably will not need to return to surgery. Qualifiers: Atrial fibrillation type: persistent Qualified Code(s): I48.1 - Persistent atrial fibrillation (5) Volume overload: Status: Acute Assessment and plan: cumulative fluid positive balance of over 7 liters. I will give her one time dose of furosemide 20 mg IV today. If tolerating her oral diet then I would stop her iv fluids. Qualifiers: Hypervolemia type: unspecified Qualified Code(s): E87.70 - Fluid overload, unspecified Subjective Subjective Interval history since last seen: POD #8 lap appy, POD #3 Repair incarcerated Incisional Hernia with Mesh. Patient reportedly had BM and is having flatus. She is hungry and has had no nauea or vomiting. She would like solid foods. I explained to her that the surgeon wants to proceed cautiously since she had an SBO and yesterday had an emesis (she feels was medication related). Afib rate is controlled at rest w/ HR in the 70's but still afib. With activity she will get up to 120 bpm but remains asymptomatic. She is still on diltiazem drip at 10 mg/hr. Nursing reports that they were told to not titrate this down. I advised Penny, patient's nurse to proceed w/ weaning the diltiazem drip off as tolerated. Acceptable resting HR of 90 bpm or less and HR under 130 w/ activity. I will titrate up her lopressor to 12.5 mg Q8h as tolerated. Patient was on Toprol XL 25 mg 1/2 tab daily at home. I think that her diet can be advanced. She is on sips and chips of ice. She should be able to tolerate clear liquids. I will resume her Eliquis tonight and stop her lovenox. She is rather edematous in her left hand and forearm and both legs w/ the L>R. I will give her one time dose of lasix 20 mg IVP. If she tolerates clears for lunch then her iv fluids can be discontinued. Exam Narrative Exam Narrative: Elderly white female sitting up in her chair in no discomfort or distress. Alert and oriented x 3 Lungs w/ bibasilar rales Heart irregularly irregular but controlled rate Abdomen: soft, nondistended, active bowel sounds. No ecchymosis or drainage around the dressing ( I did not take down the dressing as I am leaving this to her surgeon and nurse to monitor) Extremities: left hand and forearm is edematous at 2+, right hand and forearm are not edematous (patient previously had iv site in left forearm; we will keep an eye on this and if no improvement after lasix may need to perform duplex US); both legs are edematous at 1+ right and 2+ on left; no calf tenderness, no Manisha sign Objective Last Vital Signs Temp 36.1 C L 08/21/20 00:41 Pulse 81 08/21/20 00:34 Resp 18 08/21/20 00:41 BP 107/69 08/21/20 00:41 Pulse Ox 93 08/21/20 00:41 Laboratory Results - last 24 hr 08/21/20 08/21/20 08/21/20 06:35 06:35 06:35 WBC 5.80 RBC 4.24 Hgb 12.6 Hct 39.2 MCV 92.5 MCH 29.7 MCHC 32.1 RDW 13.5 Plt Count 256 MPV 9.9 Immature Gran % 0.5 Neutrophils % 65.6 Lymphocytes % 15.5 Monocytes % 15.0 Eosinophils % 3.1 Basophils % 0.3 Nucleated RBC % 0 Absolute Neutrophils 3.80 Absolute Lymphocytes 0.90 L Absolute Monocytes 0.87 H Absolute Eosinophils 0.18 Absolute Basophils 0.02 Sodium 143 Potassium 3.8 Chloride 107 Carbon Dioxide 31.1 Anion Gap 4.9 BUN 7 Creatinine 0.6 Estimated GFR/1.73 m2 >= 60.00 Glucose 94 Calcium 8.6 Magnesium 1.6 L NT-Pro-B Natriuret Pep 2771 H
[2020-08-21] MEDS: MAGNESIUM SULFATE 4 GM/100 ML BAG IVPB (11:15)
--- NOTE | 2020-08-21 11:28 | PT.INTREAT ---
PT Notes Visit Reasons: ACUTE APPENDICITIS Inpatient Physical Therapy Treatment Note [facility] Date: 08/21/20 OBJECTIVE: Stand-sit: SBA GAIT Assistive Device: no assist device Weight bearing: Full Assist: SBA Distance: 600ft STAIRS:Pt completed the first 6inch step up and down 10x each leg. ASSESSMENT: Pt had just ambulated with nurses right before an still was motivated and ambulated with PT very willingly. PLAN: Cont as per PT POC. TREATMENT CODE/TIME: 9:50-10:05 (15) TA
[2020-08-21] MEDS: Furosemide 20 MG/2 ML VIAL IVP (11:49)
--- NOTE | 2020-08-21 14:45 | W.PM.PROGNOT ---
Date of Service Date of service: 08/21/20 Time of Service: 13:08 Assessment and Plan Assessment and plan (1) S/P laparoscopic appendectomy: Status: Acute (2) Incisional hernia of anterior abdominal wall with obstruction: Status: Acute Assessment and plan: Patient now postop day 3 status post repair of incarcerated incisional hernia. About 9 days post laparoscopic appendectomy. Appears to have cleared ileus. Will Hep-Lock IV and advance diet. Encouraged her to continue with frequent ambulation. Subjective Subjective Interval history since last seen: Patient has felt increasingly improved over past 24 hours. Has had BM and routinely passing flatus. Tolerating clear liquids. Ambulating in burt. Here for advancement of diet. Exam Narrative Exam Narrative: Appears bright. Engaged and conversational. Making jokes. Hemodynamically stable Respiratory?normal rate, no laboring, no audible wheezes Cardiac?no tachycardia Abdomen?nondistended, nontender, I removed tessie dressing. Incision is intact. Modest surrounding ecchymoses. No suggestion of hematoma or seroma. No palpable mass beneath the incision. Objective Last Vital Signs Temp 97.0 F L 08/21/20 13:27 Pulse 61 08/21/20 13:27 Resp 16 08/21/20 13:27 BP 102/65 08/21/20 13:27 Pulse Ox 93 08/21/20 13:27 Laboratory Results - last 24 hr 08/21/20 08/21/20 08/21/20 06:35 06:35 06:35 WBC 5.80 RBC 4.24 Hgb 12.6 Hct 39.2 MCV 92.5 MCH 29.7 MCHC 32.1 RDW 13.5 Plt Count 256 MPV 9.9 Immature Gran % 0.5 Neutrophils % 65.6 Lymphocytes % 15.5 Monocytes % 15.0 Eosinophils % 3.1 Basophils % 0.3 Nucleated RBC % 0 Absolute Neutrophils 3.80 Absolute Lymphocytes 0.90 L Absolute Monocytes 0.87 H Absolute Eosinophils 0.18 Absolute Basophils 0.02 Sodium 143 Potassium 3.8 Chloride 107 Carbon Dioxide 31.1 Anion Gap 4.9 BUN 7 Creatinine 0.6 Estimated GFR/1.73 m2 >= 60.00 Glucose 94 Calcium 8.6 Magnesium 1.6 L NT-Pro-B Natriuret Pep 2771 H
[2020-08-21] MEDS: Apixaban 5 MG TAB PO (21:00)
[2020-08-21] MEDS: Pramipexole 0.25 MG TAB 0.125 MG PO (21:55)
[2020-08-21] MEDS: Melatonin 3 MG TAB PO (21:55)
[2020-08-22] VITALS (46 sets, daily range): BP systolic 92–130; BP diastolic 51–87; PULSE 66–120; RESP 16–18; TEMP 36–37; O2SAT 88–98
[2020-08-22] MEDS: ACETAMINOPHEN 1,000 MG/100 ML BTL 400 MG IVPB ×4 (01:04→23:14)
[2020-08-22] MEDS: Metoprolol 12.5 MG TAB PO ×4 (01:04→23:13)
[2020-08-22] MEDS: Normal Saline Flush 10 ML SYR IVP ×3 (01:09→23:14)
[2020-08-22] MEDS: dilTIAZem 125 MG in Normal Saline 100 ML 10 MG IV (04:45)
[2020-08-22 06:48] LABS: Abs Immature Grans 0.05 10^3/uL (0.0-0.06); Absolute Basophil Count 0.03 10^3/uL (0.0-0.2); Absolute Eosinophil Count 0.29 10^3/uL (0.0-0.7); Absolute Lymphocyte Count 0.53 10^3/uL (1.2-3.4); Absolute Monocyte Count 0.93 10^3/uL (0.1-0.8); Absolute Neutrophil Count 6.68 10^3/uL (1.2-6.7); Basophils % 0.4; Eosinophils % 3.4; HCT 41.3 % (36.0-46.0); HGB 13.2 g/dL (11.2-15.7); Immature Grans % 0.6; Lymphocytes % 6.2; MCV 90.8 fL (80-95); MPV 10.2 fL (8.0-11.0); Monocytes % 10.9; Neutrophils % 78.5; Nucleated RBC 0 %; Platelet Count 270 10^3/uL (130-400); RBC 4.55 10^6/uL (3.93-5.22); RDW 13.8 % (11.7-14.6); RDW-SD 45.5 fL; WBC 8.51 10^3/uL (4.4-10.8)
[2020-08-22 06:59] LABS: Anion Gap 3.5 mmol/L (3-11); BUN 12 mg/dL (7-18); CO2 32.5 mmol/L (21.0-32.0); CREATININE 0.7 mg/dL (0.55-1.02); Calcium 8.3 mg/dL (8.5-10.1); Chloride 104 mmol/L (98-107); Glucose 94 mg/dL (74-106); Magnesium 2.1 mg/dL (1.8-2.4); Potassium 3.7 mmol/L (3.5-5.1); Sodium 140 mmol/L (136-145)
[2020-08-22] MEDS: Budesonide/Formoterol 160/4.5 6 GM 60 PUFF INH IH (08:02)
[2020-08-22] MEDS: Apixaban 5 MG TAB PO ×2 (08:06→20:01)
[2020-08-22] MEDS: Pantoprazole 40 MG VIAL IVP (08:06)
--- NOTE | 2020-08-22 09:01 | PT.INTREAT ---
PT Notes Visit Reasons: ACUTE APPENDICITIS Inpatient Physical Therapy Treatment Note [facility] Date: 08/22/20 OBJECTIVE: Sit-stand: SBA Stand-sit: SBA GAIT Assistive Device: No assist device Weight bearing: full Assist: SBA Distance: 600ft ASSESSMENT: Pt tolerated today's session well. Pt had to have her HR monitored during session today. PLAN: Cont as per PT POC. TREATMENT CODE/TIME: (15) TA 8:45-9:00
[2020-08-22] MEDS: dilTIAZem 30 MG TAB 60 MG PO (10:25)
--- NOTE | 2020-08-22 10:43 | PGE_ITS ---
Date of Service Date of service: 08/22/20 Time of Service: 10:43 Assessment and Plan Assessment and plan (1) Atrial fibrillation: Status: Acute Assessment and plan: Diltiazem drip has been weaned off this morning. She has been started on oral diltiazem 60 mg p.o. 3 times daily along with her Lopressor 12.5 mg p.o. 3 times daily we will monitor heart rate and rhythm overnight and if it remains well controlled i.e. resting heart rates of 90 or less and heart rates less than 130 with activity and she could be discharged home. Patient's apixaban was resumed last night. Qualifiers: Atrial fibrillation type: persistent Qualified Code(s): I48.1 - Pe rsistent atrial fibrillation (2) S/P laparoscopic appendectomy: Status: Acute Assessment and plan: s/p lap appy on 08/13 w/ subsequent development of SBO and ileus d/t incarcerated abdominal wall hernia. Patient is doing much better since hernia repair. Diet is been advanced to regular diet which she is tolerating. Present time the only thing swallowing up her discharge is her paroxysmal atrial fibrillation rate. (3) Incisional hernia of anterior abdominal wall with obstruction: Status: Acute Assessment and plan: s/p abdominal wall hernia w/ SBO repaired w/ mesh on 08/18. No ischemic bowel and no bowel resection needed. Now passing flatus and BM. Patient is hungry. Proceed w/ clear liquids and advance as tolerated if ok w/ surgeon. (4) Volume overload: Status: Acute Assessment and plan: cumulative fluid positive balance of over 7 liters. I will give her one time dose of furosemide 20 mg IV today. If tolerating her oral diet then I would stop her iv fluids. Qualifiers: Hypervolemia type: unspecified Qualified Code(s): E87.70 - Fluid overload, unspecified Subjective Subjective Interval history since last seen: Patient continues to improve from a postoperative standpoint. She has a good appetite and her diet has been advanced to regular foods. She has no nausea or vomiting no abdominal pain. She denies any chest pain or shortness of breath. Atrial fibrillation remains a bit of a problem with heart rates in the high 90s to low 100s at rest and going up into the 130s with activity. Her diltiazem drip was restarted overnight. When he came in this morning her diltiazem was going to 15 mg/h. Blood pressures a bit on the soft side running in the high 90s. However she has been asymptomatic from either the heart rate or the blood pressure. I told nursing staff to proceed with her Lopressor as long as her systolic pressure is 95 or higher and we will start her on some oral diltiazem and wean her off the IV diltiazem drip. Exam Narrative Exam Narrative: Elderly female who is alert and oriented person place time circumstance in no discomfort. She is sitting up in her chair having completed breakfast. Heart irregularly irregular and slightly tachycardic Lungs are clear anteriorly but posteriorly she has some fine bibasilar rales. Abdomen soft nontender nondistended normal bowel sounds Extremities her left hand and arm edema has improved overnight. She still has some residual edema in her left foot and calf. Negative Homans' sign on the left. Normal pedal pulses. Objective Last Vital Signs Temp 37 C 08/22/20 08:10 Pulse 108 H 08/22/20 10:25 Resp 16 08/22/20 10:25 BP 105/58 L 08/22/20 10:25 Pulse Ox 95 08/22/20 10:25 Laboratory Results - last 24 hr 08/22/20 08/22/20 06:20 06:20 WBC 8.51 D RBC 4.55 Hgb 13.2 Hct 41.3 MCV 90.8 MCH 29.0 MCHC 32.0 RDW 13.8 Plt Count 270 MPV 10.2 Immature Gran % 0.6 Neutrophils % 78.5 Lymphocytes % 6.2 Monocytes % 10.9 Eosinophils % 3.4 Basophils % 0.4 Nucleated RBC % 0 Absolute Neutrophils 6.68 Absolute Lymphocytes 0.53 L Absolute Monocytes 0.93 H Absolute Eosinophils 0.29 Absolute Basophils 0.03 Sodium 140 Potassium 3.7 Chloride 104 Carbon Dioxide 32.5 H Anion Gap 3.5 BUN 12 Creatinine 0.7 Estimated GFR/1.73 m2 >= 60.00 Glucose 94 Calcium 8.3 L Magnesium 2.1 Reviewed Pertinent PMH: Yes Objective Narrative Objective Narrative: I performed [id number] ultrasound of her left leg and found the veins compressible from the left common femoral through the greater saphenous vein and down into the deep femoral and superficial femoral veins as well as the popliteal vein.
--- NOTE | 2020-08-22 12:11 | PDOC.CMPRO ---
- If Service Date Differs Date of service: 08/22/20 Time of Service: 12:11 Care Management Progress Note S/O: Lilliana was sitting up in bed when CM met with her. She was smiling and volunteered that she is feeling much better. She continues to deny the need for services, especially since the wound vac was removed yesterday. Her very close friend Eladia is a retired nurse practitioner who will see her every day at home. Lilliana also shared that she has 2 other close friends who are very attentive. Lilliana has been told that she will likely be discharged tomorrow and she is very happy about that. She did express gratitude for her care and stated that everyone was truly wonderful to her.. A: Lilliana is an 79 year old female admitted to [facility] 08/12/20 for Acute Appendicitis P: Lilliana will return home when ready per MD. She will follow up with her PCP and plan of care as prescribed. She will transport via private vehicle with her friend Eladia. CM will continue to support Lilliana and assess for discharge planning needs.
--- NOTE | 2020-08-22 13:03 | W.PM.PROGNOT ---
Date of Service Date of service: 08/22/20 Time of Service: 11:45 Assessment and Plan Assessment and plan (1) Incisional hernia of anterior abdominal wall with obstruction: Status: Acute (2) S/P laparoscopic appendectomy: Status: Acute Assessment and plan: Patient doing well from surgical standpoint. Bowel obstruction/ileus has resolved. Having routine bowel function and is ambulating. Requires no pain medication. Nearing discharge. We will leave to judgment of hospitalist service?still requiring stabilization of A. fib/rhythm. Will require follow-up with general surgery?Dr. Urban? in about 7-10 days for staple removal. Subjective Subjective Interval history since last seen: Patient has had uneventful 24 hours. She feels comfortable. Tolerating diet. Had small soft BM and continues to have flatus. Continues to ambulate without issue. Eager for discharge home. Had bedside ultrasound of left leg this morning. Negative for DVT. Exam Narrative Exam Narrative: General?alert awake interactive and appropriate HEENT?sclera anicteric oral mucosa moist Respiratory?no labored breathing Cardiac?no tachycardia Abdomen?soft and nondistended. 4 cm infraumbilical incision intact with yue in place. Mild surrounding ecchymosis. No suggestion of hematoma, seroma or recurrent hernia. No bulging with modest Valsalva. Objective Last Vital Signs Temp 97.3 F L 08/22/20 12:16 Pulse 78 08/22/20 12:16 Resp 16 08/22/20 12:16 BP 94/69 L 08/22/20 12:16 Pulse Ox 93 08/22/20 12:16 Laboratory Results - last 24 hr 08/22/20 08/22/20 06:20 06:20 WBC 8.51 D RBC 4.55 Hgb 13.2 Hct 41.3 MCV 90.8 MCH 29.0 MCHC 32.0 RDW 13.8 Plt Count 270 MPV 10.2 Immature Gran % 0.6 Neutrophils % 78.5 Lymphocytes % 6.2 Monocytes % 10.9 Eosinophils % 3.4 Basophils % 0.4 Nucleated RBC % 0 Absolute Neutrophils 6.68 Absolute Lymphocytes 0.53 L Absolute Monocytes 0.93 H Absolute Eosinophils 0.29 Absolute Basophils 0.03 Sodium 140 Potassium 3.7 Chloride 104 Carbon Dioxide 32.5 H Anion Gap 3.5 BUN 12 Creatinine 0.7 Estimated GFR/1.73 m2 >= 60.00 Glucose 94 Calcium 8.3 L Magnesium 2.1
[2020-08-22] MEDS: dilTIAZem 60 MG TAB PO ×2 (15:04→19:55)
[2020-08-22] MEDS: Melatonin 3 MG TAB PO (22:07)
[2020-08-22] MEDS: Pramipexole 0.25 MG TAB 0.125 MG PO (22:07)
[2020-08-23] VITALS (51 sets, daily range): BP systolic 87–131; BP diastolic 50–89; PULSE 67–150; RESP 0–165; TEMP 36–36.3; O2SAT 86–98
[2020-08-23] MEDS: Metoprolol CR 25 MG TABCR 37.5 MG PO (08:14)
[2020-08-23] MEDS: Apixaban 5 MG TAB PO (08:15)
[2020-08-23] MEDS: dilTIAZem CD 180 MG CAPCR PO (08:15)
[2020-08-23] MEDS: Budesonide/Formoterol 160/4.5 6 GM 60 PUFF INH IH (08:59)
[2020-08-23] MEDS: Levothyroxine 100 MCG TAB PO (09:01)
[2020-08-23] MEDS: Metoprolol 5 MG/5 ML VIAL 2.5 MG IVP (09:01)
[2020-08-23] MEDS: Normal Saline Flush 10 ML SYR IVP (09:21)
--- NOTE | 2020-08-23 10:01 | PDOC.CMDIS ---
LACE Index Scoring Tool - Questions: Length of Stay (in days): 7 - 13 Acuity (Admit via E.D.?): Yes E.D. Visits: 2 - Answers: Total Score: 10 Risk of Readmission: High Risk Care Management Discharge Reason for Hospitalization: Acute Appendicitis Discharge Plan: Lilliana will return home when ready per MD. She will follow up with her PCP and plan of care as prescribed. She will transport via private vehicle with her friend Eladia. Patient/Family Education Needs: Review discharge instructions, discuss Ask Me Three.
--- NOTE | 2020-08-23 10:16 | W.PM.PROGNOT ---
Date of Service Date of service: 08/23/20 Time of Service: 10:17 Assessment and Plan Assessment and plan (1) Atrial fibrillation: Status: Acute Assessment and plan: Diltiazem and metoprolol have been changed over to the long-acting forms and have been titrated upwards. Continue Eliquis. Probable discharge home this afternoon. Recommend outpatient polysomnogram to rule out ANGEL. Recommend 48-hour Holter upon discharge. Qualifiers: Atrial fibrillation type: persistent Qualified Code(s): I48.1 - Persistent atrial fibrillation (2) S/P laparoscopic appendectomy: Status: Acute Assessment and plan: s/p lap appy on 08/13 w/ subsequent development of SBO and ileus d/t incarcerated abdominal wall hernia. Patient is doing much better since hernia repair. (3) Incisional hernia of anterior abdominal wall with obstruction: Status: Acute Assessment and plan: s/p abdominal wall hernia w/ SBO repaired w/ mesh on 08/18. No ischemic bowel and no bowel resection needed. Now passing flatus and BM. Patient on regular diet. Subjective Subjective Interval history since last seen: Patient is doing well from postoperative standpoint. She is passing gas and having bowel movements and tolerating a regular diet. Atrial fibrillation rates seem to be well controlled overnight but this morning after activity her heart rate was sustained in low 130s to 140s requiring some IV Lopressor. I have titrated her Toprol-XL to 37.5 mg daily and and changed her oral Cardizem from 60 mg every 8 hours to Cardizem CD 180 mg daily. Patient is disappointed that she is not able to be discharged this morning. I talked with her surgeon, Dr. Darling, and indicated to him that I think she still may be able to go home this afternoon but we will watch her heart rate over the course of the day. I would reassess her after lunch and if her heart rate is controlled she could go home on the increased dose of Toprol and Cardizem CD. Patient denies any symptoms of chest pain or palpitations or shortness of breath or dizziness. Exam Narrative Exam Narrative: Elderly female who is alert and oriented person place time circumstance in no discomfort. She is sitting up in her chair having completed breakfast. Heart irregularly irregular and slightly tachycardic Lungs are clear anteriorly but posteriorly she has some fine bibasilar rales. Abdomen soft nontender nondistended normal bowel sounds Extremities: Edema in her left hand and wrist has resolved. She still has some residual edema in her left foot and calf. Negative Homans' sign on the left. Normal pedal pulses. Objective Last Vital Signs Temp 36.3 C L 08/23/20 08:30 Pulse 105 H 08/23/20 09:22 Resp 165 H 08/23/20 09:22 BP 87/50 L 08/23/20 09:22 Pulse Ox 95 08/23/20 09:22
--- NOTE | 2020-08-23 10:27 | W.NUTRFU ---
Date of service: 08/23/20 Time of Service: 10:28 Nutritional Follow up NOTE: Lilliana is s/p appendectomy, s/p ileus, s/p hernia repair. Diet advanced to regular texture 08/21/20 with excellent intake (>75% of meals). Currently meeting nutrient and fluid needs by mouth. Will continue to follow. Time Spent in Nutritional Counseling and Treatment: 5
[2020-08-23] MEDS: Pantoprazole 40 MG TABCR PO (11:47)
--- NOTE | 2020-08-23 13:07 | PGE_ITS ---
Date of Service Date of service: 08/23/20 Time of Service: 13:07 Assessment and Plan Assessment and plan (1) Incisional hernia of anterior abdominal wall with obstruction: Status: Acute (2) S/P laparoscopic appendectomy: Status: Acute Assessment and plan: Patient stable from surgical standpoint. Has resolved ileus/small bowel obstruction and is now about A week and a half status post appendectomy. Advised to add fiber supplement to avoid constipation Patient has no stairs to deal with at home and is been ambulating routinely here in the hospital. Potentially home later today if medical service feels that A. fib/cardiac rate reasonably controlled. Will await their advice. Subjective Subjective Interval history since last seen: Patient remains comfortable. Denies abdominal pain or nausea. Tolerating diet. Continued bowel function. Some issues with cardiac rate control. Medicine service adjusting medications and wants to observe patient through day for stability before approving discharge. Exam Narrative Exam Narrative: General?patient comfortable. Sitting at bedside in chair playing [employer] Resp-normal breathing, no audible wheeze Abdomen?nondistended, nontender, incision with ecchymoses beginning to fade. No obvious fluid collection or sign of infection. Objective Last Vital Signs Temp 97.3 F L 08/23/20 08:30 Pulse 105 H 08/23/20 09:22 Resp 16 08/23/20 11:15 BP 87/50 L 08/23/20 09:22 Pulse Ox 95 08/23/20 09:22
--- NOTE | 2020-08-23 16:00 | PT.INDS ---
Date of service: 08/25/20 Time of Service: 13:33 PT Notes Visit Reasons: ACUTE APPENDICITIS Physical Therapy Inpatient Discharge Summary Date: 08/23/2020 Date of service: 08/19/2020 through 08/23/2020 This is a clinical summary of care provided on the duration of dates listed above. No charge was made in the completion of this documentation. Referring Doctor: Yousif Darling MD PT Orders: PT CONSULT: Extended stay weakness. Elderly, S/P two abdominal operation- eval and treat please Precautions: Fall. Standard. Activity as tolerated. Patient Profile/Admitting Diagnosis: Lilliana is an 79-year-old female who presented to the ED on 08/19/2020 with abdominal pain and nausea. Patient is diagnosed with acute appendicitis and is status post laparoscopic appendectomy on 08/13/2020 with repair of incisional hernia on 08/18/2020. Patient is also diagnosed with ileus. PMHX: Medical History (Updated 08/13/20 @ 09:32 by Angi Urban DO) Asthma Asthma Atrial fibrillation Diverticulosis GERD (gastroesophageal reflux disease) H/O mitral valve replacement Hypothyroidism Hypothyroidism Mitral valve disorder Right ureteral calculus 90% calcium oxalate monohydrate and 10% calcium oxalate dihydrate Trigeminal neuralgia Urinoma Surgical History Cholecystectomy Colonoscopy - IV Sedation (04/24/16) History of open heart surgery Social History/Home Situation: Lives alone with 4 other adults in an apartment building with a ramp to enter. Independent with all aspects of ADLs without need for adaptive equipment or assistive ambulatory device. Still drives. Has an alternate 3-4 steps to enter the apartment building. Equipment Owned/DME: None Subjective: NT. See most recent ENVIRONMENTAL HEALTH OFFICER notes. Objective: General Observation: NT. See most recent ENVIRONMENTAL HEALTH OFFICER notes. Pain: NT. See most recent ENVIRONMENTAL HEALTH OFFICER notes. Vital Signs: NT. See most recent ENVIRONMENTAL HEALTH OFFICER notes. ROM: Right Upper Extremity: Shoulder Flexion WFL. Shoulder abduction WFL. Shoulder ER/IR WFL. Elbow flexion WFL. Forearm pronation/supination WFL. Wrist flexion WFL. Opening and closing of hand WFL. Left Upper Extremity: Shoulder Flexion WFL. Shoulder abduction WFL. Shoulder ER/IR WFL. Elbow flexion WFL. Forearm pronation/supination WFL. Wrist flexion WFL. Opening and closing of hand WFL. Right Lower Extremity: Hip flexion WFL. Hip abduction WFL. Hip ER/IR WFL. Knee flexion WFL. Knee extension. Ankle dorsiflexion/eversion WFL. Ankle plantarflexion/inversion WFL. Left Lower Extremity: Hip flexion WFL. Hip abduction WFL. Hip ER/IR WFL. Knee flexion WFL. Knee extension. Ankle dorsiflexion WFL. Ankle plantarflexion WFL. Strength: Right Upper Extremity: Shoulder flexors 4/5. Shoulder abductors 4/5. Shoulder ER 4/5/ Shoulder IR 4/5. Forearm pronators 4/5. Forearm supinators 4/5. Elbow flexors 5/5. Elbow extensors 5/5. [employer] strong. Left Upper Extremity: Shoulder flexors 4/5. Shoulder abductors 4/5. Shoulder ER 4/5/ Shoulder IR 4/5. Forearm pronators 4/5. Forearm supinators 4/5. Elbow flexors 5/5. Elbow extensors 5/5. [employer] strong. Right Lower Extremity: Hip flexors 4/5. Hip abductors 4/5. Hip external rotators 4/5. HIp internal rotators 4/5. Knee flexors 4/5. Knee extensors 4/5. Ankle dorsiflexors/evertors 4/5. Ankle plantarflexors/invertors 4/5. Left Lower Extremity: Hip flexors 4/5. Hip abductors 4/5. Hip external rotators 4/5. HIp internal rotators 4/5. Knee flexors 4/5. Knee extensors 4/5. Ankle dorsiflexors/evertors 4/5. Ankle plantarflexors/invertors 4/5. Bed Mobility/Transfers: Sit to supine independent Sit to stand independent Stand to sit independent Bed to chair independent Chair to bed independent Gait: Guided patient with level surface ambulation with a distance of up to 800 feet requiring contact-guard assist. Katherine decreased. Step height decreased. Step length decreased. No report of increased lower abdominal pain during activity. Balance: Static Sitting: Normal Dynamic Sitting: Normal Static Standing: Fair Dynamic Standing: Fair Assessment: Lilliana continues to demonstrate functional mobility decline requiring the use of front wheeled walker for all mobility ADL performance to maximize independence and reduce fall risk, generalized postoperative weakness, and increased risk for falls due to admitting diagnosis and postoperative status. Patient will benefit from home health PT services in order to progress mobility level using least restrictive assistive ambulatory device, assess home safety, identify additional equipment needs, and establish a functional maintenance program that will increase ability of patient to remain at home. Patient continues to present with clinical signs and symptoms consistent with current/admitting diagnoses that have resulted to mobility limitations, gait instability, generalized weakness, and impairment of motor control as demonstrated by the following impairment level findings: 1. Decreased strength to B hip major muscle groups 2. Impaired standing balance 3. Impaired activity tolerance 4. Lower abdominal pain Impairments are continuing to contribute to the following functional limitations: 1. Dependent sit to supine 2. Increased dependence with transfers 3. Inability to safely ambulate without assistive device and physical assistance 4. Increase completion time for mobility ADL performance 5. Increased fall risk 6. Inability to negotiate steps alone safely 7. Inability to return to prior living environment at this time Goals: Goals X1 week 1. Supine-Sit independent MET 2. Sit-Supine independent MET 3. Sit-Stand independent MET 4. Stand-Sit independent MET 5. Bed-Chair independent MET 6. Chair-Bed independent MET 7. Independent gait on level surface with use of no assistive device for at least 300 feet without report of pain nor dyspnea MET 8. Independent stair negotiation while holding onto rails for at least 5 steps without report of pain nor dyspnea 9. Independent with home exercise program NOT MET 10. Good static and dynamic standing balance/tolerance MET DISCHARGE RECOMMENDATIONS: Discharge home when medically cleared by hospitalist. Patient will benefit from home health PT services in order to progress mobility level using least restrictive assistive ambulatory device, assess home safety, identify additional equipment needs, and establish a functional maintenance program that will increase ability of patient to remain at home. TREATMENT CODE/TIME: [place] Thank you for the opportunity to participate in the care of this patient. Anna Gann PT, DPT, CLT [facility] [place], [place]
--- NOTE | 2020-08-23 16:07 | PT.INTREAT ---
Date of service: 08/23/20 Time of Service: 13:30 PT Notes Visit Reasons: ACUTE APPENDICITIS Inpatient Physical Therapy Treatment Note [facility] Date: 08/23/2020 SUBJECTIVE: Lilliana is pleasant and agreeable to participating in PT. She states that she is hopeful that she will be going home later today. OBJECTIVE: PAIN: No c/o pain BED MOBILITY/TRANSFERS Sit-stand: I Stand-sit: I Bed-Chair: I Chair-bed: I GAIT Assistive Device: No AD Weight bearing: Full Assist: I Distance: 800' Deviation: Refused gait belt ASSESSMENT: Patient demonstrates independence with ambulation and transfers at this time. She ambulates without SOB, LOB, or path deviations. PLAN: Discharge from PT services. TREATMENT CODE/TIME: 10 minutes; 57897 (13:30)
--- NOTE | 2020-08-23 16:57 | W.PM.DS.N ---
Date of service: 08/23/20 DS: Diagnosis Discharge Diagnosis (1) Incisional hernia of anterior abdominal wall with obstruction: Status: Acute (2) S/P laparoscopic appendectomy: Status: Acute Discharge Plan Disposition Patient Disposition: HOME Condition: Good Discharge Details Reason For Visit: ACUTE APPENDICITIS Admit Date/Time: 08/12/20 22:11 Admit Provider: Angi Urban Attending Provider: Angi Urban Primary Care Provider: Magdalena Tariq V Hospital Course Hospital Course: 79-year-old lady presented with signs and symptoms and imaging findings consistent with acute appendicitis on 08/12/2020. The patient has atrial fibrillation and is status post mitral valve replacement and is on chronic anticoagulants. She was reversed and taken to the operating room for laparoscopic appendectomy per Dr. Urban on 08/13/2020. An uncomplicated appendectomy was achieved. Patient had slow resolution of ileus and on Sunday08/18/20 was diagnosed with an acute incisional hernia with incarcerated small bowel. This was felt responsible for SBO. She returned to the OR on 08/18/[address] Darling who found incarcerated but viable small bowel. This was returned to the abdomen and a mesh repair of incisional hernia achieved. Thereafter she had resolution of small bowel obstruction and was initiated on diet on postop day 3 after incisional hernia repair. She began progressive ambulation with physical therapy assist and was felt appropriate for home discharge. Patient was cared for in the intensive care unit for hemodynamic and cardiac monitoring purposes throughout most of her stay. Hospitalist service and ICU team were engaged in management of atrial fibrillation. She required beta-hilda drip and this was converted to oral medications near the time of discharge. Patient was felt rate controlled and hemodynamically stable on 08/23/2020. Medications were prescribed by internal medicine as outlined below. Patient was discharged home with instructions not to lift greater than 20 pounds for 1 month. Follow-up per Dr. Urban in 7-10 days and general surgery office. Home Meds and New Rx's Prescriptions: New diltiazem HCl 180 mg capsule,extended release 24hr 180 mg PO DAILY Qty: 30 RF: 1 metoprolol succinate 25 mg tablet extended release 24 hr 37.5 mg PO DAILY Qty: 30 RF: 0 Continued Eliquis 5 mg tablet 5 mg PO BID RF: 0 fluticasone propion-salmeterol [Advair Diskus] 250-50 mcg/dose blister with device 1 INHALATION DAILY RF: 0 levothyroxine 100 MCG tablet 100 mcg PO DAILY RF: 0 montelukast [Singulair] 10 MG tablet 10 mg PO DAILY PRN PRNRF: 0 Changed metoprolol succinate 25 mg tablet extended release 24 hr 37.5 mg PO DAILY Qty: 30 RF: 6 Discontinued lisinopril 5 MG tablet 5 mg PO DAILY RF: 0 Discharge Instructions Instructions: A-fib (Atrial Fibrillation) (DC), Laparoscopic Herniorrhaphy (DC), Laparoscopic Appendectomy (DC) Stand Alone Forms: Nursing Discharge Form Referrals: Magdalena Tariq MD [Primary Care Provider] - 09/03/20 10:45 am (Follow up scheduled for you. ) Angi Urban DO [OSTEOPATHIC DOCTOR] - (SundayAugust 30 @ 330 PM) Activity:: Activity as Tolerated Equipment/Supplies:: No Equipment Needed Diet:: Normal Diet Discharge Orders Discharge Orders: Discharge Order (Routine); Ordered 08/23/20 Ordered By: Leo Gillespie Discharge Data Discharge Date/Time-TO BE ENTERED AT DEPARTURE: 08/23/20 18:17 DS: Summary Time Spent with Patient providing and/or coordinating discharge services: Less than 30 minutes Status at Discharge Functional status at discharge: independent ambulation Overall status at discharge: patient is progressing back to baseline Mental Status: mental status grossly normal Speech and Movement: speech and movement normal Mood: congruent mood Affect: normal affect Exam Const General: cooperative, comfortable and no acute distress Orientation: oriented x3 Eyes Sclera: sclerae normal Resp Effort & Inspection: normal respiratory effort and able to speak in complete sentences GI Other: scaphoid, nontender , mild ecchymosis about infraumbilical incision, no hematoma, seroma. No sign of hernia recurrence when Valsalva Skin General skin exam: turgor normal Neuro Motor: no movement abnormalities noted Extrem General: normal gait Psych Mental Status: mental status grossly normal Speech and Movement: speech and movement normal Mood: congruent mood Affect: normal affect DS: Data Vitals/I&O Vitals and I&O: Vital Signs Temperature 97.3 F L 08/23/20 08:30 Temperature Source Temporal Artery Scan 08/23/20 15:08 Pulse 75 08/23/20 15:08 Pulse Rhythm Regular 08/15/20 19:55 Pulse 90 08/23/20 15:00 Respiratory Rate 16 08/23/20 15:08 Respiratory Effort Non-Labored 08/23/20 12:10 Respiratory Depth Normal 08/23/20 12:10 Respiratory Pattern Normal 08/23/20 12:10 Blood Pressure 105/70 08/23/20 15:08 Blood Pressure Mean 103 08/23/20 04:15 Blood Pressure Position Sitting 08/23/20 12:10 Pulse Oximetry 95 08/23/20 15:08 Respiratory End-tidal CO2 37 08/13/20 16:25 Oxygen Delivery Method Room Air 08/23/20 15:08 Oxygen Flow Rate 0 08/23/20 15:08 Fraction of Inspired Oxygen (FIO2) 96 08/13/20 22:09 Pain Level 0 08/23/20 18:17 Comment 08/22/20 09:24 PFSH Medical History Asthma Asthma Atrial fibrillation Diverticulosis GERD (gastroesophageal reflux disease) H/O mitral valve replacement Hypothyroidism Hypothyroidism Mitral valve disorder Right ureteral calculus 90% calcium oxalate monohydrate and 10% calcium oxalate dihydrate Trigeminal neuralgia Urinoma Surgical History Cholecystectomy Colonoscopy - IV Sedation (04/24/16) History of open heart surgery Family History Father Parkinsons Son Cardiovascular disease Sister Colon cancer diseased Social History Smoking/Tobacco Use Status: Never Smoking risk assessment performed?: Yes Alcohol Intake: current Alcohol Intake frequency: holidays/special occasions only Drug use: Never Substance use type: does not use Do you feel safe at home: Yes Do you feel safe in your relationship?: Yes
== END 2020-08-23 18:17 | disposition home or self-care (01) | DRG 342 ==
LOC: ER 22:26 → MS 22:48 → ICU 08-13 18:24 → MS 08-14 15:05 → ICU 08-15 21:19
PROVIDERS: General Practice; Internal Medicine; Nurse Anesthetist, Certified Registered; Surgery Vascular Surgery; Admitting Provider Surgery; Emergency Provider Physician Assistant; PCP Family Medicine; Visit Provider Surgery
PROC: 0DTJ4ZZ Resection of Appendix, Percutaneous Endoscopic Approach (ICD-10-PCS; CPT 44970; principal; 2020-08-13 13:45)
PROC: 0WUF0JZ Supplement Abdominal Wall with Synthetic Substitute, Open Approach (ICD-10-PCS; CPT 49568; principal; 2020-08-18 10:30)
DX: K35.80 Unspecified acute appendicitis (principal); K57.92 Diverticulitis of intestine, part unspecified, without perforation or abscess without bleeding; K91.31 Postprocedural partial intestinal obstruction; K43.0 Incisional hernia with obstruction, without gangrene; I48.19 Other persistent atrial fibrillation; K38.2 Diverticulum of appendix; I25.10 Atherosclerotic heart disease of native coronary artery without angina pectoris; E03.9 Hypothyroidism, unspecified; J45.909 Unspecified asthma, uncomplicated; Z95.2 Presence of prosthetic heart valve; K21.9 Gastro-esophageal reflux disease without esophagitis; G50.0 Trigeminal neuralgia; E87.79 Other fluid overload
CPT/HCPCS: 49568; 44970; 49561; 36415; 80048; 80053; 83690; 86850; 86900; 86901; 87635; 93005; 94640; 96361; 96365; 96375; 97110; 97163; 97530; 99223; 99231; 99232; 99252; 99285; J1650; NC; 74018; 74019; 74177; 81003; 81015; 83605; 83735; 83880; 84132; 84439; 84443; 84484; 85014; 85018; 85025; 85610; 85730; 88304; 93010; 99221; C1781; J0131; J0690; J1100; J1885; J1941; J2001; J2060; J2270; J2370; J2405; J2543; J2704; J3475; J3480; J3490

== ENCOUNTER 2020-08-23 15:06 | Outpatient (RCR) | payer MEDICARE, BC, SELFPAY ==
--- NOTE | 2020-08-23 15:15 | HOLTER_ITS ---
APPROVED REPORT Exam Type: HOLTER MONITOR APPLICATION Reason for Test: ATRIAL FIBRILLATION Patient Location: O Conclusion This was a 48-hour Holter monitor ordered for atrial fibrillation Predominant rhythm was sinus with an average heart rate of 66. Minimum was 50, maximum 122 Moderately frequent ventricular ectopic beats, rare ventricular couplets and triplets. There was no significant ventricular tachycardia. Tracing labeled nonsustained VT appeared to be atrial fibrillat ion with aberrancy There were very frequent atrial premature beats. Atrial fibrillation was noted for a total of 8 hour s 17 minutes, or 17% of the total recording
== END 2020-09-03 23:59 | disposition home or self-care (01) ==
LOC: RT 15:06
PROVIDERS: PCP Family Medicine; Visit Provider Family Medicine
DX: I48.91 Unspecified atrial fibrillation (principal); I49.3 Ventricular premature depolarization; I49.1 Atrial premature depolarization
CPT/HCPCS: 93227; 93225; 93226

== ENCOUNTER → 2020-08-30 15:20 | Outpatient (BNVA) | payer MEDICARE, BC, SELFPAY | PROVIDERS: PCP Family Medicine; Referring Provider Family Medicine; Visit Provider Surgery | DX: Z48.815 Encounter for surgical aftercare following surgery on the digestive system (principal); Z90.49 Acquired absence of other specified parts of digestive tract ==

== ENCOUNTER → 2020-09-10 08:51 | Outpatient (BNVA) | payer MEDICARE, BC, SELFPAY | PROVIDERS: PCP Family Medicine; Referring Provider Family Medicine; Visit Provider Internal Medicine Cardiovascular Disease | DX: I25.10 Atherosclerotic heart disease of native coronary artery without angina pectoris (principal); Z98.890 Other specified postprocedural states; I48.0 Paroxysmal atrial fibrillation; Z79.01 Long term (current) use of anticoagulants | CPT/HCPCS: 99203; 99214 ==

== ENCOUNTER → 2020-09-13 09:23 | Outpatient (BNVA) | payer MEDICARE, BC, SELFPAY | PROVIDERS: PCP Family Medicine; Referring Provider Family Medicine; Visit Provider Surgery | DX: Z48.815 Encounter for surgical aftercare following surgery on the digestive system (principal); Z90.49 Acquired absence of other specified parts of digestive tract; K43.0 Incisional hernia with obstruction, without gangrene ==

== ENCOUNTER 2021-03-22 13:15 | Outpatient (REF) | payer MEDICARE, BC, SELFPAY ==
--- NOTE | 2021-03-22 12:00 | SKI_PTH ---
PATIENT: Lilliana Sellers LOC: [facility] U#:[id number] AGE/SX: 80/F ROOM: RE03/22/[address]: Magdalena Tariq V : 1940 BED: DIS: 03/22/2021 SPEC #: [id number] RECD: 03/22/21 18:25 STATUS: SOPHIA RERoxana #: [id number] EFRAÍN: 03/22/21 12:[address]: Magdalena Tariq V DEPT: Surgical Specimen RECD BY: Brandy Mckeon Tissues: 1 - SKIN BIOPSY(SHAVE/PUNCH) Procedures: SKIN LEVEL 4 SPECIAL STAIN 1 Comments: [id number]
[2021-03-22 21:16] LABS: Vitamin B12 327 pg/mL (193-986)
[2021-03-22 21:42] LABS: FREE T4 1.21 ng/dL (0.76-1.46)
== END 2021-03-22 13:16 | disposition home or self-care (01) ==
LOC: NCHCN 13:15
PROVIDERS: PCP Family Medicine; Visit Provider Family Medicine
DX: E03.9 Hypothyroidism, unspecified (principal); R20.2 Paresthesia of skin
CPT/HCPCS: 82607; 84439; 88305; 88312

== ENCOUNTER → 2021-04-08 08:49 | Outpatient (BNVA) | payer MEDICARE, BC, SELFPAY | PROVIDERS: PCP Family Medicine; Referring Provider Family Medicine; Visit Provider Internal Medicine Cardiovascular Disease | DX: I25.10 Atherosclerotic heart disease of native coronary artery without angina pectoris (principal); Z79.01 Long term (current) use of anticoagulants; Z95.4 Presence of other heart-valve replacement | CPT/HCPCS: 99214; 99213 ==

== ENCOUNTER 2021-06-01 13:22 | Outpatient (REF) | payer MEDICARE, BC, SELFPAY ==
[2021-06-02 13:35] LABS: COVID-19 RT-PCR UVMMC Result Negative (Negative)
== END 2021-06-01 13:23 | disposition home or self-care (01) ==
LOC: LBN 13:22
PROVIDERS: PCP Family Medicine; Visit Provider Physician Assistant Medical
DX: Z20.822 Contact with and (suspected) exposure to COVID-19 (principal); J06.9 Acute upper respiratory infection, unspecified
CPT/HCPCS: U0003; U0005

== ENCOUNTER 2021-06-01 14:55 | Outpatient (CLI) | payer MEDICARE, BC, SELFPAY ==
--- NOTE | 2021-06-01 13:54 | DI.RAD_ITS ---
Exam(s) XR CHEST 2V PA LATERAL EXAM: XR CHEST 2V PA LATERAL CLINICAL HISTORY: SOB, R06.02. TECHNIQUE: 2D digital imaging was performed. COMPARISON: CR XR CHEST 2V PA LATERAL from 06/29/2018 CR XR ABDOMEN FLAT UPRIGHT from 08/20/2020 FINDINGS: Sternotomy wires again noted as is a cardiomegaly. Mediastinum not widened Left hemidiaphragm is no longer elevated. Right parahilar mass decreased size. Presently no obvious infiltrates nor pleural effusions. No pulmonary edema. Calcified rotator cuff tendinitis in the right shoulder is noted. There is a 5 millimeter chunk of c alcium just above the right greater tuberosity. IMPRESSION: Findings as above but with improved appearance of the lung patten when compared to 06/29/2018. DATA REPOSITORY: RADIATION DOSE DELIVERED:
== END 2021-06-01 15:15 ==
PROVIDERS: PCP Family Medicine; Visit Provider Physician Assistant Medical
DX: R06.02 Shortness of breath (principal)
CPT/HCPCS: 71046

== ENCOUNTER 2021-06-01 21:39 | Outpatient (REF) | payer MEDICARE, BC, SELFPAY ==
[2021-06-01 21:21] LABS: Abs Immature Grans 0.02 10^3/uL (0.0-0.06); Absolute Basophil Count 0.06 10^3/uL (0.0-0.2); Absolute Lymphocyte Count 0.79 10^3/uL (1.2-3.4); Absolute Monocyte Count 1.08 10^3/uL (0.1-0.8); Absolute Neutrophil Count 4.06 10^3/uL (1.2-6.7); Basophils % 0.9; Eosinophils % 6.2; HCT 42.8 % (36.0-46.0); HGB 13.6 g/dL (11.2-15.7); Immature Grans % 0.3; Lymphocytes % 12.3; MCH 29.1 pg (27.0-33.0); MCHC 31.8 % (32.0-36.0); MCV 91.5 fL (80-95); MPV 12.3 fL (8.0-11.0); Monocytes % 16.8; Neutrophils % 63.5; Nucleated RBC 0 %; Platelet Count 195 10^3/uL (130-400); RBC 4.68 10^6/uL (3.93-5.22); RDW 13.4 % (11.7-14.6); RDW-SD 45.7 fL; WBC 6.41 10^3/uL (4.4-10.8)
[2021-06-01 21:36] LABS: Anion Gap 11.8 mmol/L (3-11); BUN 24 mg/dL (7-18); CO2 24.2 mmol/L (21.0-32.0); CREATININE 0.7 mg/dL (0.55-1.02); Chloride 106 mmol/L (98-107); Glucose 90 mg/dL (74-106); Potassium 4.5 mmol/L (3.5-5.1); Sodium 142 mmol/L (136-145); TSH (W/Ref FT4) 0.26 uIU/mL (0.36-3.74)
[2021-06-01 21:53] LABS: FREE T4 1.18 ng/dL (0.76-1.46)
== END 2021-06-01 21:40 | disposition home or self-care (01) ==
LOC: LBN 21:39
PROVIDERS: PCP Family Medicine; Visit Provider Physician Assistant Medical
DX: R06.02 Shortness of breath (principal); E03.9 Hypothyroidism, unspecified
CPT/HCPCS: 80048; 84439; 84443; 85025

== ENCOUNTER 2021-06-28 01:31 | Outpatient (CLI) | payer MEDICARE, BC, SELFPAY ==
--- NOTE | 2021-06-28 14:46 | DI.US_ITS ---
APPROVED REPORT EXAM: Comprehensive 2D, Doppler, and color-flow Echocardiogram Patient Location: Out-Patient [employer] Operator: Maliha Kinsey RDCS (AE) Indications: Shortness of breath, A Fib, s/p MItral valve repair Other Information Study Quality: Fair Conclusion Normal left ventricular wall thickness and chamber size. Estimated ejection fraction is 55 to 60%. Wall motion is normal Normal right ventricular size and systolic function Left atrium is moderately dilated. The right atrium is mildly dilated Mildly sclerotic trileaflet aortic valve with mild regurgitation Patient is status post mitral valve repair with an annuloplasty ring. There is mild mitral regurgita tion Normal tricuspid valve with moderate regurgitation. Estimated right ventricular systolic pressure is 32 mmHg Normal pulmonic valve with moderate regurgitation Mildly dilated ascending aorta Wall motion Left Ventricle The left ventricle is normal size. The left ventricular systolic function is normal. The left ventric ular ejection fraction is within the normal range. There is normal left ventricular wall thickness. T here is normal LV segmental wall motion. There is no ventricular septal defect visualized. LVEF is 57 %. Right Ventricle The right ventricle is normal size. The right ventricular systolic function is normal. The RVSP is 32 .3 mmHg. Atria Left atrium is moderately dilated. Right atrium is mildly dilated. The interatrial septum is intact w ith no evidence for an atrial septal defect. Aortic Valve The aortic valve is mildly sclerotic Aortic valve is trileaflet. There is no aortic valvular stenosis . Mild aortic regurgitation. Mitral Valve No evidence of mitral valve stenosis. Mild mitral regurgitation. Annuloplasty ring is noted in the mi tral position. Tricuspid Valve The tricuspid valve is normal in structure. There is no tricuspid valve stenosis. Moderate tricuspid regurgitation. Pulmonic Valve The pulmonary valve is normal in structure. There is no pulmonic valvular stenosis. Moderate pulmonic regurgitation.. Great Vessels The aortic root is normal in size. The ascending aorta is mildly dilated. Aortic arch is not well vis ualized. IVC is normal in size and collapses >50% with inspiration. Pericardium There is no pericardial effusion. 2D Dimensions IVSD d PLAX 0.88 cm F: 0.6-1.0 LV Vol A2C d MOD 112.3 mL LVPW d PLAX 0.87 cm F: 0.6 - 1.0 LV Vol A4C d MOD 89.8 mL LVID d PLAX 5.01 cm F: 3.8 - 5.2 LA vol/ BSA A2C s A-L 61.1 mL/m2 LVDs 3.45 cm F: 2.2 - 3.5 LA vol/ BSA A4C s A-L 39.8 mL/m2 Ao Root d 3.06 cm F: 2.7 - 3.3 LA Vol/ BSA Biplane s A-L 49.6 mL/m2 RA Area A4C 15.46 cm2 LA Area A4C s MOD 21.14 cm2 RA Vol/ BSA A4C s A-L 27.3 mL/m2 LA Area A2C s MOD 26.08 cm2 Ao Asc Diam d 3.47 cm F: 2.3 - 3.1 LV EF A4C MOD 58.8 % LV EF Teichholz 57.8 % LV EF A2C MOD 55.2 % LVEF (Garland's) 54.27 % F: 54 - 74 LV EF Biplane MOD 54.3 % LV Volume 84.25 mL F: 46 - 106 SV 55.05 mL LV Volume Index 55.79 mL/m2 F: 29 - 61 SV Index 36.39 mL/m2 LV Vol Biplane MOD 101.4 mL FS 30.55 % M-Mode TAPSE 1.59 cm (M/F) >1.7 LV Diastology MV E' medial 0.059 (>0.07 m/s) E/A Ratio 0.8 LV E/e MED 11.35 (<14) MV E Vmax 0.68 (0.4-1.3 m/s) MV E' lateral 0.064 (>0.1 m/s) MV A Vmax 0.90 (0.4-1.3 m/s) LV E/e LAT 10.65 (<14) MV E/A Ratio 0.72 MV E/E' medial 11.40 MV E/E' lateral 10.67 Aortic Valve LVOT Area 3.42 cm2 AoV Area Vmax 2.70 cm2 LVOT Vmax 1.02 m/s AoV Area/ BSA (Vmax) 1.79 cm2/m2 LVOT Mean [place]. 0.63 m/s BIJAN Mean [place]. 2.43 cm2 LVOT Peak Grad 4.1 mmHg BIJAN Mean [place]. Index 1.60 cm2/m2 LVOT Mean Grad 1.9 mmHg AR DT 2777 msec LVOT VTI 0.244 m AR PHT 805 msec LVOT Diam s 2.05 cm AoV Vmax 1.29 m/s Velocity Ratio 0.79 AoV Mean [place]. 0.89 m/s AoV Peak Grad 6.6 mmHg LVOT SV 83.68 mL AoV Mean Grad 3.5 mmHg AoV VTI 0.275 m AoV Area VTI 3.04 cm2 AoV Area/ BSA (VTI) 2.01 cm/m2 Mitral Valve MV DT 541 (160-240 msec) MV PHT 157 msec MV Area PHT 1.40 cm2 MV VTI 0.471 m MV Area VTI 1.78 (4.0-6.0 cm2) Pulmonary Valve PV Vmax 0.77 (0.5-1.5 m/s) RVOT Peak Gr. 1.17 mmHg PV Peak Grad 2.4 mmHg RVOT Mean Gr. 0.60 mmHg PV Mean Grad 1.1 mmHg RVOT VTI 0.108 m PV VTI 0.163 m RVOT Vmax 0.54 m/s Tricuspid Valve TR Peak Grad 29.3 mmHg TR Vmax 2.71 m/s RA Pressure 3.00 mmHg RVSP (TR) 32.3 mmHg
== END 2021-06-28 01:51 ==
PROVIDERS: PCP Family Medicine; Visit Provider Family Medicine
DX: R06.02 Shortness of breath (principal); I48.20 Chronic atrial fibrillation, unspecified; Z95.4 Presence of other heart-valve replacement
CPT/HCPCS: 93306

== ENCOUNTER 2021-08-02 03:24 | Outpatient (CLI) | payer MEDICARE, BC, SELFPAY ==
[2021-08-02] MEDS: Albuterol HFA 18 GM 200 PUFF INH IH (12:29)
[2021-08-02] MEDS: Methacholine 100 MG VIAL IH (12:29)
[2021-08-02] MEDS: Inhaler, Assist Device 1 EACH MC (12:30)
== END 2021-08-02 03:25 | disposition home or self-care (01) ==
LOC: RT 03:24
PROVIDERS: PCP Family Medicine; Visit Provider Family Medicine
DX: R06.09 Other forms of dyspnea (principal); Z87.09 Personal history of other diseases of the respiratory system
CPT/HCPCS: 94060; 94070; 94726; 94729; 94010; J7674

== ENCOUNTER 2021-08-16 14:35 | Outpatient (REF) | payer MEDICARE, BC, SELFPAY ==
[2021-08-16 14:38] LABS: Anion Gap 8.2 mmol/L (3-11); BUN 21 mg/dL (7-18); CO2 29.8 mmol/L (21.0-32.0); CREATININE 0.7 mg/dL (0.55-1.02); Calcium 9.3 mg/dL (8.5-10.1); Chloride 105 mmol/L (98-107); Glucose 95 mg/dL (74-106); Potassium 4.5 mmol/L (3.5-5.1); Sodium 143 mmol/L (136-145)
== END 2021-08-16 14:36 | disposition home or self-care (01) ==
LOC: NCHCN 14:35
PROVIDERS: PCP Family Medicine; Visit Provider Family Medicine
DX: R03.0 Elevated blood-pressure reading, without diagnosis of hypertension (principal)
CPT/HCPCS: 80048

== ENCOUNTER 2021-08-19 00:01 | Outpatient (CLI) | payer MEDICARE, BC, SELFPAY ==
--- NOTE | 2021-08-19 | DI.MAMMO_ITS ---
Exam(s) MAMMO SCREENING EXAM: MAMMO SCREENING CLINICAL HISTORY: SCREENING, Z12.31 TECHNIQUE: Bilateral full field digital CC and MLO mammographic images were obtained with 3D tomosyn thesis and utilizing computer aided detection (CAD). COMPARISON: Available for comparison. FINDINGS: Masses/Architectural Distortion: None seen. Microcalcifications: No suspicious pleomorphic-type are seen. Skin Thickening/Nipple Retraction: None. IMPRESSION: 1. No significant interval change with no specific features of malignancy noted. 2. Unless there is more urgent need, screening mammography is recommended, as per [employer] guidelines. BI-RADS Category 1 - Negative Breast Density - Category B - Scattered areas of fibroglandular density Breast density category C or D implies that the patient has dense breast tissue. Dense breast tissue is very common and is not abnormal but dense breast tissue can make it harder to find cancer on a ma mmogram. Also, dense breast tissue may increase their breast cancer risk. This information about the result of the mammogram report was provided to the patient to raise their awareness. Use this report when you speak with the patient about their risks for breast cancer, which includes their family hist ory. At that time, you may recommend for more screening tests (Ultrasound or MRI) as they might be us eful based on their risk. A negative radiographic report should not delay biopsy if a dominant or clinically suspicious mass is present. Up to ten percent of cancers are not identified on mammography. A negative report may reinforce clinical impression. Adenosis and dense breasts may obscure an underlying neoplasm. False positive reports average 6 to 10%. Patient will receive a letter notifying them of these results.
--- NOTE | 2021-08-19 | DI.DEXA_ITS ---
Exam(s) XR DEXA BONE DENSITY W/WO ARAMIS EXAM: XR DEXA BONE DENSITY W/WO ARAMIS CLINICAL HISTORY: POSTMENOPAUSAL STATE, Z78.0, SCREENING TECHNIQUE: Routine DEXA evaluation of the lumbar spine, hip, or forearm. COMPARISON: No exams were available for comparison FINDINGS: Performed on a Hologic unit. Lateral image: No compression fracture evident. Lumbar Spine total T-score: -2.0 Hip total T-score:-3.3 Independent reading at the level of the femoral neck yields at T-score of -3.3. Forearm total T-score: -5.5 IMPRESSION: Bone mineral density measures in the osteoporosis range. Fracture risk is high. Note: Any spine fracture indicates 5x risk for subsequent spine fracture and 2x risk for subsequent h ip fracture. World Health Organization criteria for BMD interpretation classify patients: Normal...... T- Score at or above -1.0 Osteopenic... T- Score between -1.0 and -2.5 Osteoporosis... T-Score at or below -2.5
== END 2021-08-19 00:21 ==
PROVIDERS: PCP Family Medicine; Visit Provider Family Medicine
DX: Z12.31 Encounter for screening mammogram for malignant neoplasm of breast (principal); Z78.0 Asymptomatic menopausal state; M81.0 Age-related osteoporosis without current pathological fracture
CPT/HCPCS: 77063; 77067; 77080

== ENCOUNTER 2021-11-25 19:58 | Outpatient (REF) | payer MEDICARE, BC, SELFPAY ==
[2021-11-28 09:38] LABS: IgA 224 mg/dL (85-499); IgG 719 mg/dL (610-1,616); IgM 204 mg/dL (35-242)
[2021-11-28 09:41] LABS: IgE 31 IU/mL (<158)
== END 2021-11-25 19:59 | disposition home or self-care (01) ==
LOC: LBN 19:58
PROVIDERS: PCP Family Medicine; Visit Provider Student in an Organized Health Care Education/Training Program
DX: J47.9 Bronchiectasis, uncomplicated (principal)
CPT/HCPCS: 82784; 82785; 82787

== ENCOUNTER → 2021-12-12 01:47 | Outpatient (CLI) | payer MEDICARE, BC, SELFPAY ==
[2021-12-12 09:08] LABS: CREATININE 0.8 mg/dL (0.55-1.02)
--- NOTE | 2021-12-12 09:51 | DI.CT_ITS ---
Exam(s) CT CHEST W HIGH RES EXAM: CT CHEST W HIGH RES CLINICAL HISTORY: prior question of AV fistula and tracheomegaly,j39.8,i77.0. TECHNIQUE: Multi planar reconstructions were performed. CONTRAST MATERIAL: Omnipaque 350; 75 cc COMPARISON: CT CT chest w from 06/29/2018 FINDINGS: CHEST: LUNGS: Unchanged scarring is noted in both lung apices. There is a new 3 millimeter nodule in the la teral basal segment of the left lower lobe (series 3/image 41). There are no other significant focal left lung findings. There are no new significant right lung findings. No pleural effusions on eith er side. No new focal findings in the trachea and mainstem bronchi. MEDIASTINUM: There is no hilar nor mediastinal adenopathy. Previously described right hilar vascular finding is unchanged with superimposed pulmonary artery and vein again noted. These vessels have not increased or decreased in size. CARDIAC: Cardiomegaly again noted. No pericardial effusion.Sternotomy wires. Caliber thoracic aorta is within normal limits. No dissection. VISUALIZED UPPER ABDOMEN:There are no significant adrenal masses. Small hypodensity in the medial ri ght hepatic lobe is unchanged from 2019 and therefore benign. OSSEOUS: No significant osseous lesions.. IMPRESSION: 1. New 3 millimeter nodule in the lateral basal segment of the left lower lobe. Recommend repeat CT scan in 6 months. 2. No new right lung findings. Previously described vascular findings in the right infrahilar region are unchanged. 3. Sternotomy wires. Cardiomegaly, unchanged. No pericardial effusion. RADIATION DOSE DELIVERED: 374.08mGy.cm Total DLP DATA REPOSITORY: All CT scans at this facility are submitted to the National Radiology Data Registry (NRDR) Dose Index Registry (DIR) with the [employer] (A[employer]). RADIATION OPTIMIZATION: All CT scans at this facility use at least one of these dose optimization te chniques: automated exposure control; mA and/or kV adjustment per patient size (includes targeted exa ms where dose is matched to clinical indication); or iterative reconstruction.
[2021-12-12] MEDS: Omnipaque 350 MG/ML 100 ML BTL 70 ML IJ (10:11)
== END ==
PROVIDERS: PCP Family Medicine; Visit Provider Student in an Organized Health Care Education/Training Program
DX: I77.0 Arteriovenous fistula, acquired (principal); J39.8 Other specified diseases of upper respiratory tract; Z01.812 Encounter for preprocedural laboratory examination; R91.1 Solitary pulmonary nodule
CPT/HCPCS: 71270; 82565; J3490

== ENCOUNTER 2022-03-03 12:51 | Outpatient (REF) | payer MEDICARE, BC, SELFPAY ==
[2022-03-03 15:43] LABS: HCT 44.3 % (36.0-46.0); HGB 14.5 g/dL (11.2-15.7); MCH 29.4 pg (27.0-33.0); MCHC 32.7 % (32.0-36.0); MCV 90 fL (80-95); MPV 11.3 fL (8.0-11.0); Platelet Count 263 10^3/uL (130-400); RBC 4.94 10^6/uL (3.93-5.22); RDW 13.2 % (11.7-14.6); RDW-SD 43.5 fL; WBC 6.22 10^3/uL (4.4-10.8)
[2022-03-03 16:51] LABS: Anion Gap 4.8 mmol/L (3-11); BUN 24 mg/dL (7-18); CO2 32.2 mmol/L (21.0-32.0); CREATININE 0.7 mg/dL (0.55-1.02); Calcium 10.2 mg/dL (8.5-10.1); Chloride 101 mmol/L (98-107); FREE T4 1.53 ng/dL (0.76-1.46); Glucose 93 mg/dL (74-106); Potassium 4.1 mmol/L (3.5-5.1); Sodium 138 mmol/L (136-145)
== END 2022-03-03 12:52 | disposition home or self-care (01) ==
LOC: NCHCN 12:51
PROVIDERS: PCP Family Medicine; Visit Provider Family Medicine
DX: R06.09 Other forms of dyspnea (principal); I10 Essential (primary) hypertension; E03.9 Hypothyroidism, unspecified
CPT/HCPCS: 80048; 85027; 84439; 88305

== ENCOUNTER 2022-05-26 15:57 | Outpatient (REF) | payer MEDICARE, BC, SELFPAY ==
[2022-05-26 15:42] LABS: BUN 28 mg/dL (7-18); CREATININE 0.8 mg/dL (0.55-1.02); Calcium 9.5 mg/dL (8.5-10.1); Chloride 102 mmol/L (98-107); Estimated GFR 73.52 (mL/min/1.73m2); FREE T4 1.43 ng/dL (0.76-1.46); Glucose 100 mg/dL (74-106); Potassium 3.3 mmol/L (3.5-5.1); Sodium 140 mmol/L (136-145); TSH 0.41 uIU/mL (0.36-3.74)
== END 2022-05-26 15:58 | disposition home or self-care (01) ==
LOC: NCHCN 15:57
PROVIDERS: PCP Family Medicine; Visit Provider Family Medicine
DX: E03.9 Hypothyroidism, unspecified (principal)
CPT/HCPCS: 80048; 84439; 84443

== ENCOUNTER 2023-03-09 15:36 | Outpatient (REF) | payer MEDICARE, BC, SELFPAY ==
[2023-03-09 15:48] LABS: HCT 42.7 % (36.0-46.0); MCH 29.6 pg (27.0-33.0); MCHC 32.8 % (32.0-36.0); MCV 90 fL (80-95); MPV 11.8 fL (8.0-11.0); Platelet Count 217 10^3/uL (130-400); RBC 4.73 10^6/uL (3.93-5.22); RDW 13.2 % (11.7-14.6); RDW-SD 43.6 fL; WBC 5.72 10^3/uL (4.4-10.8)
[2023-03-09 16:10] LABS: Anion Gap 4.6 mmol/L (3-11); BUN 25 mg/dL (7-18); CO2 32.4 mmol/L (21.0-32.0); CREATININE 0.7 mg/dL (0.55-1.02); Chloride 100 mmol/L (98-107); Estimated GFR 85.76 (mL/min/1.73m2); Glucose 102 mg/dL (74-106); Potassium 3.3 mmol/L (3.5-5.1); Sodium 137 mmol/L (136-145); TSH (W/Ref FT4) 0.11 uIU/mL (0.36-3.74)
== END 2023-03-09 15:37 | disposition home or self-care (01) ==
LOC: NCHCN 15:36
PROVIDERS: PCP Family Medicine; Visit Provider Family Medicine
DX: I10 Essential (primary) hypertension (principal); E03.9 Hypothyroidism, unspecified; Z76.89 Persons encountering health services in other specified circumstances; Z86.79 Personal history of other diseases of the circulatory system
CPT/HCPCS: 80048; 85027; 84439; 84443

== ENCOUNTER → 2023-03-19 14:34 | Outpatient (BNVA) | payer MEDICARE, BC, SELFPAY | PROVIDERS: PCP Family Medicine; Referring Provider Family Medicine; Visit Provider Physician Assistant Surgical | DX: J39.8 Other specified diseases of upper respiratory tract (principal); J47.9 Bronchiectasis, uncomplicated | CPT/HCPCS: 99213 ==

== ENCOUNTER 2023-05-11 10:41 | Outpatient (CLI) | payer MEDICARE, BC, SELFPAY ==
--- NOTE | 2023-05-11 10:30 | RT.EKG_ITS ---
APPROVED REPORT Exam: Resting ECG Reason for Exam: Ear complaints Patient Location: O HR:144 bpm ECG Measurements Heart Rate 144 AXIS HI [id number] P [id number] QRSd 94 QRS -27 QT 318 T 44 QTc 492 Conclusion Atrial fibrillation with rapid V-rate...A-rate 322 Borderline left axis deviation...QRS axis (-15,-29) Borderline low voltage, extremity leads...all extremity leads <0.6mV Abnormal R-wave progression, late transition...QRS area<0 in V5/V6 I have reviewed and interpreted ECG and agree with software generated interpretation.
== END 2023-05-11 10:42 | disposition home or self-care (01) ==
LOC: DI.CM 10:41
PROVIDERS: PCP Family Medicine; Visit Provider Nurse Practitioner Family
DX: I48.91 Unspecified atrial fibrillation (principal)
CPT/HCPCS: 93010

== ENCOUNTER 2023-06-12 15:22 | Outpatient (REF) | payer MEDICARE, BC, SELFPAY ==
[2023-06-12 19:15] LABS: Abs Immature Grans 0.01 10^3/uL (0.0-0.06); Absolute Basophil Count 0.07 10^3/uL (0.0-0.2); Absolute Eosinophil Count 0.63 10^3/uL (0.0-0.7); Absolute Lymphocyte Count 0.84 10^3/uL (1.2-3.4); Absolute Monocyte Count 0.94 10^3/uL (0.1-0.8); Absolute Neutrophil Count 3.87 10^3/uL (1.2-6.7); Basophils % 1.1; Eosinophils % 9.9; HCT 43.1 % (36.0-46.0); Immature Grans % 0.2; Lymphocytes % 13.2; MCH 29.3 pg (27.0-33.0); MCHC 32.5 % (32.0-36.0); MCV 90 fL (80-95); MPV 11.5 fL (8.0-11.0); Monocytes % 14.8; Neutrophils % 60.8; Platelet Count 210 10^3/uL (130-400); RBC 4.78 10^6/uL (3.93-5.22); RDW 13.4 % (11.7-14.6); WBC 6.36 10^3/uL (4.4-10.8)
[2023-06-12 19:42] LABS: Anion Gap 7.8 mmol/L (3-11); BUN 29 mg/dL (7-18); CO2 32.2 mmol/L (21.0-32.0); CREATININE 0.8 mg/dL (0.55-1.02); Calcium 9.8 mg/dL (8.5-10.1); Chloride 102 mmol/L (98-107); Estimated GFR 73.06 (mL/min/1.73m2); Glucose 105 mg/dL (74-106); Potassium 3.1 mmol/L (3.5-5.1); Sodium 142 mmol/L (136-145); TSH (W/Ref FT4) 0.26 uIU/mL (0.36-3.74)
[2023-06-12 20:04] LABS: FREE T4 1.41 ng/dL (0.76-1.46)
== END 2023-06-12 15:23 | disposition home or self-care (01) ==
LOC: NCHCN 15:22
PROVIDERS: PCP Family Medicine; Visit Provider Family Medicine
DX: E03.9 Hypothyroidism, unspecified (principal); I10 Essential (primary) hypertension; I48.0 Paroxysmal atrial fibrillation; Z79.01 Long term (current) use of anticoagulants
CPT/HCPCS: 80048; 84439; 84443; 85025

== ENCOUNTER 2023-07-19 20:17 | Outpatient (REF) | payer MEDICARE, BC, SELFPAY ==
[2023-07-19 19:25] LABS: Anion Gap 8.7 mmol/L (3-11); BUN 32 mg/dL (7-18); CO2 30.3 mmol/L (21.0-32.0); CREATININE 0.8 mg/dL (0.55-1.02); Chloride 104 mmol/L (98-107); Estimated GFR 73.06 (mL/min/1.73m2); Glucose 109 mg/dL (74-106); Potassium 3.8 mmol/L (3.5-5.1); Sodium 143 mmol/L (136-145)
== END 2023-07-19 20:18 | disposition home or self-care (01) ==
LOC: NCHCN 20:17
PROVIDERS: PCP Family Medicine; Visit Provider Family Medicine
DX: I10 Essential (primary) hypertension (principal)
CPT/HCPCS: 80048

== ENCOUNTER → 2023-08-04 10:11 | Outpatient (REF) | payer MEDICARE, BC, SELFPAY ==
--- NOTE | 2023-08-04 10:40 | DI.RAD_ITS ---
Exam(s) XR CHEST 2V PA LATERAL EXAM: XR CHEST 2V PA LATERAL CLINICAL HISTORY: evaluate pathology J06.9 TECHNIQUE: 2D digital imaging was performed of the chest. Two images were obtained. PA and lateral views were obtained. COMPARISON: CR XR CHEST 2V PA LATERAL from 06/01/2021 FINDINGS: MEDIASTINUM: There is rounded prominence of the right hilum not present on prior examinations. HEART: Cardiomegaly PULMONARY VASCULATURE: Normal. LUNGS: The lungs are hyperinflated. Linear atelectatic changes are seen in the bases. No focal cons olidating infiltrate is seen. PLEURAL SPACE: No pleural effusion or pneumothorax. BONE:Within normal limits for the patient's age. Sternal wires are in place. OTHER FINDINGS:Normal. IMPRESSION: 1. No focal consolidating infiltrates. 2. Cardiomegaly. 3. Question of a right hilar mass. CT scan of the chest with contrast should be considered for furth er evaluation. DATA REPOSITORY: RADIATION DOSE DELIVERED:
--- NOTE | 2023-08-04 11:19 | DI.VRAD_ITS ---
PROCEDURE INFORMATION: Exam: XR Chest Exam date and time: 08/04/2023 10:36 AM Age: 82 years old Clinical indication: Other: Evaluate pathology; Prior surgery; Surgery date: 6+ months; Surgery type: Heart surgery 5 years ago TECHNIQUE: Imaging protocol: Radiologic exam of the chest. Views: 2 views. COMPARISON: CT CHEST W HIGH RES 12/12/2021 09:38 FINDINGS: Tubes, catheters and devices: Sternal wires. Lungs: Lungs are hyperexpanded with diaphragmatic flattening and slightly coarsened interstitial markings. No focal infiltrate. Pleural spaces: Unremarkable. No pleural effusion. No pneumothorax. Heart/Mediastinum: Cardiomegaly. Vasculature: Atherosclerotic aorta. Bones/joints: Unremarkable. Soft tissues: Soft tissue prominence in the right hilar region is increased compared to previous exam. There is a soft tissue density measuring about 3 cm. IMPRESSION: Possible soft tissue mass in the right hilar region. Consider CT evaluation of the chest. Dictated and Authenticated by: Hal Reyna MD. Ordering:OTTO Hernandez MD
== END ==
LOC: DI 10:11
PROVIDERS: PCP Family Medicine; Visit Provider Nurse Practitioner Family
DX: J06.9 Acute upper respiratory infection, unspecified (principal); R91.8 Other nonspecific abnormal finding of lung field; I51.7 Cardiomegaly
CPT/HCPCS: 71046

== ENCOUNTER 2023-08-25 10:07 | Inpatient (IN) | payer MEDICARE, BC, SELFPAY ==
[2023-08-25] VITALS (33 sets, daily range): BP systolic 96–128; BP diastolic 64–108; PULSE 68–155; RESP 15–29; TEMP 35.3–36.7; O2SAT 92–95
--- NOTE | 2023-08-25 10:00 | RT.EKG_ITS ---
APPROVED REPORT Exam: Resting ECG Reason for Exam: AFIB Patient Location: E HR:134 bpm ECG Measurements Heart Rate 134 [place]IS [place] [id number] P [id number] QRSd 87 QRS 263 QT 326 T 47 QTc 487 Conclusion Atrial fibrillation...V-rate 83-161, irreg A-activity Markedly posterior QRS axis...late V-lead transition Low voltage, extremity leads...all extremity leads <0.5mV
--- NOTE | 2023-08-25 10:15 | DI.CT_ITS ---
Exam(s) CT CHEST PE CTA EXAM: CT CHEST PE CTA CLINICAL HISTORY: dyspnea, ?pe vs pulmonary edema. TECHNIQUE: Imaging Protocol: Axial CT angiography was performed with multi-slice acquisition and mu lti-planar reconstructions as well as axial, coronal and sagittal MIP reconstructions. CONTRAST MATERIAL: Intravenous: Omnipaque 350 Contrast volume:Moderate bilateral pleural effusions. Ml COMPARISON: CT CT CHEST W HIGH RES from 12/12/2021 CR,XR XR CHEST 2V PA LATERAL from 08/04/2023 FINDINGS: Pulmonary Arteries: No evidence of filling defect to suggest pulmonary emboli. Prominent pulmonary a rteries, consistent with pulmonary hypertension.. Tracheobronchial tree: No mucous plugging. Mediastinum and [place]: No dominant adenopathy or fluid collection. Hiatal hernia. Pulmonary parenchyma: Evaluation limited due to expiratory changes and respiratory motion. No consol idation or dominant measurable mass. Interlobular septal thickening Pleura: No effusion or pneumothorax. Heart: The heart is massively dilated. coronary artery calcifications are seen. Mitral valve prosth esis. Reflux of contrast into the IVC consistent with right heart failure. Aorta: Thoracic aorta non-dilated. No dissection. Upper abdomen: No acute findings. Bones: Degenerative changes in the spine. Sternal wires. Tubes, Catheters, and Lines: None Soft tissues: Unremarkable. IMPRESSION: Findings consistent with CHF. Moderate-sized bilateral pleural effusions. No evidence of pulmonary emboli. RADIATION DOSE DELIVERED: Total DLP DATA REPOSITORY: All CT scans at this facility are submitted to the National Radiology Data Registry (NRDR) Dose Index Registry (DIR) with the [employer] (ACR). RADIATION OPTIMIZATION: All CT scans at this facility use at least one of these dose optimization te chniques: automated exposure control; mA and/or kV adjustment per patient size (includes targeted exa ms where dose is matched to clinical indication); or iterative reconstruction.
[2023-08-25 10:26] LABS: BE (Venous) 1 mmol/L (-2-3); HCO3 (Venous) 27 mmol/L (23-28); O2 Sat (Venous) 33 %; TCO2 (Venous) 25 mmol/L (24-29); pCO2 (Venous) 59 mmHg (41-51); pH (Venous) 7.28 (7.31-7.41); pO2 (Venous) 26 mmHg
[2023-08-25 10:28] LABS: Abs Immature Grans 0.03 10^3/uL (0.0-0.06); Absolute Basophil Count 0.05 10^3/uL (0.0-0.2); Absolute Eosinophil Count 0.32 10^3/uL (0.0-0.7); Absolute Lymphocyte Count 1.15 10^3/uL (1.2-3.4); Absolute Monocyte Count 1.09 10^3/uL (0.1-0.8); Absolute Neutrophil Count 5.41 10^3/uL (1.2-6.7); Basophils % 0.6; HGB 15.3 g/dL (11.2-15.7); Immature Grans % 0.4; Lymphocytes % 14.3; MCHC 31.9 % (32.0-36.0); MCV 94 fL (80-95); MPV 10.8 fL (8.0-11.0); Monocytes % 13.5; Neutrophils % 67.2; Platelet Count 272 10^3/uL (130-400); RDW 14.9 % (11.7-14.6); RDW-SD 51.6 fL; WBC 8.05 10^3/uL (4.4-10.8)
--- NOTE | 2023-08-25 10:29 | ED.GENADUL_ITS ---
Discharge Plan Disposition Patient Disposition: Admit to [facility] Condition: Stable Discharge Details Chief Complaint: Chest Pain Clinical Impression: CHF (congestive heart failure), Dyspnea, Atrial fibrillation with RVR Primary Care Provider: Magdalena Tariq V ED Provider: Nomi Nieto Home Meds and New Rx's Prescriptions: No Action Eliquis 5 mg tablet 5 mg PO BID calcium carbonate-vitamin D3 [Caltrate with Vitamin D3] 600 mg-20 mcg (800 unit) tablet 1 tab PO BID chlorthalidone 25 mg tablet 25 mg PO DIRECTED levalbuterol tartrate 45 mcg/actuation HFA aerosol inhaler 2 inh inhalation Q6H Qty: 15 12RF Rx Instructions: Use prior to VibraPEP and prn for shortness of breath metoprolol succinate 25 mg tablet extended release 24 hr 50 mg PO DAILY Patient Comments: 08/06/23 per PCP noted RH levothyroxine 100 MCG tablet 100 mcg PO DAILY HPI General Mode of arrival: EMS . Date/Time Provider Initiated Documentation: 08/25/23 10:08 . Limitations to Documentation: no limitations . Information obtained by: patient . History of Present Illness 82 year old F presents to the emergency department with the chief complaint of dyspnea, described as moderate, Patient started experiencing this day(s) (2) and it has been constant. Rest improves symptom(s), Movement worsens symptoms . Patient notes cough and shortness of breath; denies chest pain and fever/chills. Patient did receive the following treatments prior to arrival, none Related Data Home Medications Medication Instructions Recorded Confirmed levothyroxine 100 mcg tablet 100 mcg PO DAILY 12/20/17 08/25/23 apixaban 5 mg tablet (Eliquis) 5 mg PO BID 11/13/18 08/25/23 calcium carbonate 600 mg-vitamin 1 tab PO BID 11/25/21 08/25/23 D3 20 mcg (800 unit) tablet (Caltrate with Vitamin D3) chlorthalidone 25 mg tablet 25 mg PO DIRECTED 02/28/22 08/25/23 levalbuterol tartrate 45 2 inh inhalation Q6H #15 grams 06/29/23 08/25/23 mcg/actuation aerosol inhaler metoprolol succinate 25 mg 50 mg PO DAILY 08/06/23 08/25/23 tablet,extended release 24 hr Previous Rx's Medication Instructions Recorded levalbuterol tartrate 45 2 inh inhalation Q6H #15 grams 06/29/23 mcg/actuation aerosol inhaler Allergies Allergy/AdvReac Type Severity Reaction Status Date / Time egg Allergy Unknown UNKNOWN Unverified 08/25/23 09:23 peas Allergy Unknown UNKNOWN Unverified 08/25/23 09:23 tomato Allergy Unknown UNKNOWN Unverified 08/25/23 09:23 diltiazem Allergy Skin Rash Verified 08/25/23 09:23 promethazine AdvReac Intermediate Other (See Unverified 08/25/23 09:23 Comment) lactose AdvReac Unknown Diarrhea Unverified 08/25/23 09:23 lisinopril AdvReac ? caused Verified 08/25/23 09:23 Pervascular dermatitis General Stated Complaint: Chest Pain MERI: 3 Review of Systems All systems reviewed & are unremarkable except as noted in HPI and below Constitutional Constitutional: Denies chills, Denies fever(s) and Denies weakness Cardiovascular Cardiovascular: Denies chest pain, Reports dyspnea and Reports dyspnea on exertion Respiratory Respiratory: Reports cough, Reports dyspnea and Reports dyspnea on exertion Gastrointestinal Gastrointestinal: Denies abdominal pain, Denies nausea and Denies vomiting Genitourinary Genitourinary: Denies dysuria Musculoskeletal Musculoskeletal: Denies joint swelling Integumentary/Breasts Skin/Breast: Denies rash Neurologic Neurologic: Denies weakness Exam Const General: no acute distress Orientation: alert [facility] Head: normal to inspection Ears: external ears normal General nose exam: external nose normal Mouth: moist mucous membranes Eyes General: appearance normal, both eyes and all related structures Neck Neck: normal visual inspection Resp Effort & Inspection: normal respiratory effort and able to speak in complete sentences Auscultation: clear to auscultation bilaterally Cardio Jugular venous pressure: no JVD Rate: regular rate GI Palpation: soft and nontender Skin General skin exam: no rashes or lesions noted Neuro General: patient alert and patient oriented x3 Extrem General: capillary refill normal and no calf tenderness bilaterally Psych Mental Status: mental status grossly normal Course Vital Signs Vital signs: Vital Signs Pulse 155 H 08/25/23 10:11 Respiratory Rate 20 08/25/23 10:11 Pulse Oximetry 94 08/25/23 10:11 Temperature 35.3 C L 08/25/23 10:20 Temperature Source Tympanic 08/25/23 10:20 Pulse 155 H 08/25/23 10:11 Respiratory Rate 20 08/25/23 10:11 Respiratory Effort Short of Breath 08/25/23 10:20 Blood Pressure 128/107 H 08/25/23 10:22 Blood Pressure Position Sitting 08/25/23 10:11 Pulse Oximetry 94 08/25/23 10:11 Oxygen Delivery Method Room Air 08/25/23 10:11 Oxygen Flow Rate 0 08/25/23 10:11 Lab/Test Results Lab/Test Results: Laboratory Tests Range/Units 08/25/23 10:21 WBC (4.4-10.8) 10^3/uL 8.05 RBC (3.93-5.22) 10^6/uL 5.10 Hgb (11.2-15.7) g/dL 15.3 Hct (36.0-46.0) % 48.0 H MCV (80-95) fL 94 MCH (27.0-33.0) pg 30.0 MCHC (32.0-36.0) % 31.9 L RDW (11.7-14.6) % 14.9 H Plt Count (130-400) 10^3/uL 272 MPV (8.0-11.0) fL 10.8 Immature Gran % 0.4 Neutrophils % 67.2 Lymphocytes % 14.3 Monocytes % 13.5 Eosinophils % 4.0 Basophils % 0.6 Nucleated RBC % (0.0-0.3) % 0.0 Absolute Neutrophils (1.2-6.7) 10^3/uL 5.41 Absolute Lymphocytes (1.2-3.4) 10^3/uL 1.15 L Absolute Monocytes (0.1-0.8) 10^3/uL 1.09 H Absolute Eosinophils (0.0-0.7) 10^3/uL 0.32 Absolute Basophils (0.0-0.2) 10^3/uL 0.05 VBG pH (7.31-7.41) 7.28 L VBG pCO2 (41-51) mmHg 59 H VBG pO2 mmHg 26 VBG HCO3 (23-28) mmol/L 27 VBG Total CO2 (24-29) mmol/L 25 VBG O2 Saturation % 33 VBG Base Excess (-2-3) mmol/L 1 Medical Decision Making 82-year-old female with a history of A-fib on apixaban and metoprolol, comes in with 2 days of worsening shortness of breath especially with exertion. She was treated for possible pneumonia with Augmentin over a week ago states her symptoms did improve but then returned 2 days ago. Also has a cough, denies any chest pain or fevers. She has noted to be in A-fib with rates ranging from 1 3- 1 50, she is alert 90 x 4 speaking in full sentences in no distress. She does have pitting edema up to the mid tibia bilaterally, no calf tenderness, clear lung sounds. Bedside ultrasound does appear to have decreased ejection fraction, no large pericardial effusion. Given her symptoms we will obtain EKG and troponin, CBC, CMP, and obtain a CTA of the chest to evaluate for PE, pulmonary edema, pleural effusion and possibly pneumonia. Treat her A-fib with IV metoprolol as she is on this at home, and give a dose of 20 mg Lasix. Patient's heart rate currently 110 in A-fib, she has urinated over 800 cc per nursing, CTA shows no PE but does have moderate pleural effusions bilaterally. Does become very symptomatic just getting to the commode. Given the A-fib with RVR requiring metoprolol and CHF will discuss with hospitalist about admission Differential Diagnosis Differential Diagnosis: CHF, A-fib, pneumonia, PE Imaging Data Radiologic Study: Attestation: I personally reviewed and interpreted this imaging study as follows: Imaging: CT Scan Radiologist's impression: IMPRESSION: 1. Negative for acute pulmonary embolism. 2. Moderate pleural effusions bilaterally. 3. Cardiomegaly. Reflux of contrast into the IVC, likely component of right heart failure. 4. Septal thickening, concerning for edema due to congestive failure. 5. Pulmonary artery trunk measures 3.3 cm, suggesting pulmonary artery hypertension. Clinical correlation recommended. Lab Data Lab results reviewed: Yes I reviewed the patient's lab results. ECG Data Attestation: I personally reviewed and interpreted this ECG (s) as follows: Prior ECG tracings: available for review Interpretation: A-fib, rate of 134, no STEMI Quality:SDOH Health Related Social Needs: No Data to Display Critical Care Time Critical Care Time Critical Care Time: Yes Total Critical Care Time: 45 (minutes) Attestation: Time spent on frequent reassessments and hemodynamic monitoring in a patient with atrial fibrillation with rapid ventricular response requiring IV metoprolol and potential to deteriorate at any time. PFSH All Active Problems (Updated 08/25/23 @ 11:48 by Nomi Nieto MD) Atrial fibrillation with RVR (Acute) Dyspnea (Acute) CHF (congestive heart failure) (Chronic) AV fistula (Acute) Bronchiectasis (Acute) Tracheomegaly (Acute) Nasal polyp (Acute) Incarcerated incisional hernia (Acute) Rash (Acute) Paresthesia of hand (Acute) Dyspnea on exertion (Acute) Perivascular dermatitis (Acute) H/O mitral valve repair (Acute) Volume overload (Acute) Incisional hernia of anterior abdominal wall with obstruction (Acute) S/P laparoscopic appendectomy (Acute) Acute appendicitis (Acute) Rectal polyp (Acute ~06/12/18) H/O sigmoidoscopy (Acute ~06/12/18) Coronary arteriosclerosis (Acute) Stent placed RCA; 80%lesion Atrial fibrillation (Acute) H/O mitral valve replacement (Acute) Hypothyroidism (Acute) Medical History Cataract Diverticulosis Urinoma Asthma Trigeminal neuralgia Mitral valve disorder Hypothyroidism Surgical History History of hernia repair History of appendectomy History of open heart surgery Mitral Valve repair Colonoscopy - IV Sedation (04/24/16) Cholecystectomy Family History Father Parkinsons Son Cardiovascular disease Sister Colon cancer diseased Social History Smoking/Tobacco Use Status: Never Smoking risk assessment performed?: Yes Alcohol Intake: current Alcohol Intake frequency: holidays/special occasions only Drug use: Never Substance use type: does not use What type of physical activity do you participate in: walking and additional Details: golfing, kayaking, bikes all summer (although is not allowed now). Do you feel safe at home: Yes Do you feel safe in your relationship?: Yes POCUS Exam (ED) Limited Cardiac Exam IS THIS A REPEAT EXAM DURING THIS ENCOUNTER: no REASON FOR EXAM: Dyspnea VISUALIZED STRUCTURES: Four Chambers VIEW OBTAINED: Parasternal long-axis PERTINENT FINDINGS/IMPRESSION: LV dysfunction Exam complete
[2023-08-25] MEDS: Metoprolol 5 MG/5 ML VIAL IVP ×2 (10:34→14:16)
[2023-08-25] MEDS: Furosemide 20 MG/2 ML VIAL IVP ×2 (10:35→16:33)
[2023-08-25 10:42] LABS: INR 1.1 (0.9-1.1); PTT Activated 25.6 sec (23.6-32.8); Prothrombin Time 11.2 sec (9.1-11.1)
[2023-08-25 10:53] LABS: ALT 47 U/L (14-59); AST 29 U/L (15-37); Albumin 3.3 g/dL (3.4-5.0); Alkaline Phosphatase 101 U/L (46-116); Anion Gap 9.4 mmol/L (3-11); BUN 31 mg/dL (7-18); Bilirubin, Total 0.6 mg/dL (0.2-1.0); CO2 27.6 mmol/L (21.0-32.0); CREATININE 0.9 mg/dL (0.55-1.02); Calcium 9.8 mg/dL (8.5-10.1); Chloride 107 mmol/L (98-107); Estimated GFR 63.43 (mL/min/1.73m2); Glucose 135 mg/dL (74-106); NT-proBNP 19494 pg/mL (<300); Potassium 4.2 mmol/L (3.5-5.1); Sodium 144 mmol/L (136-145); TSH (W/Ref FT4) 2.49 uIU/mL (0.36-3.74); Total Protein 6.2 g/dL (6.4-8.2); Troponin I < 50 ng/L (< or =60)
[2023-08-25] MEDS: Normal Saline - Diluent 50 ML VIAL IJ (10:54)
[2023-08-25] MEDS: Normal Saline Flush 10 ML SYR IVP ×3 (10:55→19:55)
[2023-08-25] MEDS: Omnipaque 350 MG/ML 100 ML BTL 60 ML IJ (10:56)
[2023-08-25 11:00] LABS: Procalcitonin < 0.1 ng/mL
[2023-08-25 11:17] LABS: COVID-19 PCR Negative (Negative); Influenza A PCR Negative (Negative); Influenza B PCR Negative (Negative); RSV PCR Negative (Negative)
[2023-08-25 11:18] LABS: Source Nasopharynx
--- NOTE | 2023-08-25 11:32 | DI.VRAD_ITS ---
PROCEDURE INFORMATION: Exam: CTA Chest With Contrast Exam date and time: 08/25/2023 11:03 AM Age: 82 years old Clinical indication: Other: Dyspnea, ? pe TECHNIQUE: Imaging protocol: Computed tomographic angiography of the chest with contrast. Exam focused on the arteries. 3D rendering (Not supervised by radiologist): MIP and/or 3D reconstructed images were created by the technologist. Radiation optimization: All CT scans at this facility use at least one of these dose optimization techniques: automated exposure control; mA and/or kV adjustment per patient size (includes targeted exams where dose is matched to clinical indication); or iterative reconstruction. Contrast material: OMNI 350; Contrast volume: 60 ml; Contrast route: IV; COMPARISON: CT CHEST W HIGH RES 12/12/2021 9:38 AM FINDINGS: Pulmonary arteries: Negative for acute pulmonary embolism. Pulmonary artery trunk measures 3.3 cm, suggesting pulmonary artery hypertension. Clinical correlation recommended. Aorta: Unremarkable. No aortic aneurysm. No aortic dissection. Lungs: Septal thickening, concerning for edema due to congestive failure. Bibasilar atelectasis. Pleural spaces: Moderate pleural effusions bilaterally. Heart: Cardiomegaly. Reflux of contrast into the IVC, likely component of right heart failure. Lymph nodes: Unremarkable. No enlarged lymph nodes. Diaphragm: Small hiatal hernia. Bones/joints: Unremarkable. No acute fracture. Soft tissues: Unremarkable. IMPRESSION: 1. Negative for acute pulmonary embolism. 2. Moderate pleural effusions bilaterally. 3. Cardiomegaly. Reflux of contrast into the IVC, likely component of right heart failure. 4. Septal thickening, concerning for edema due to congestive failure. 5. Pulmonary artery trunk measures 3.3 cm, suggesting pulmonary artery hypertension. Clinical correlation recommended. Dictated and Authenticated by: Meghan Hernandez MD. Ordering:SCOTT Mosher MD
--- NOTE | 2023-08-25 12:20 | W.PM.HP.N ---
Date of service: 08/25/23 Time of Service: 12:21 Assessment and Plan Assessment and plan (1) CHF (congestive heart failure): Status: Chronic Assessment and plan: Echo Continue IV Lasix When stable consider guideline directed medical therapy (2) Dyspnea: Status: Acute Assessment and plan: Monitor need for oxygen supplementation Continue home nebulizers as needed Acapella (3) Atrial fibrillation with RVR: Status: Acute Assessment and plan: Telemetry As needed IV Lopressor for sustained heart rate over 120: Caution to be exerted due to POCUS result indicating ejection fraction, awaiting correlation with echo Resume home dose of metoprolol succinate but with equally divided doses of immediate release metoprolol to tartrate. Consideration given to diltiazem but the patient is allergic; also considering verapamil Consideration given to digoxin Cardiology consult (4) Contraindication to deep vein thrombosis (DVT) prophylaxis: Status: Acute Assessment and plan: Patient is fully anticoagulated on Eliquis for atrial fibrillation CBC in a.m. Discussed with Dr. Figueredo (5) Discharge planning issues: Status: Acute Assessment and plan: Care management to follow History of Present Illness History of Present Illness Chief Complaint: Cough, shortness of breath Narrative: This 81 years old female patient with past medical history of atrial fibrillation on metoprolol and anticoagulated on Eliquis, bronchiectasis, AV fistula, perivascular dermatitis, mitral valve repair, and hypothyroidism presented to the ED at [facility] today status post visit to express care with a Dx of Dorian-ileana with rapid ventricular response for evaluation of cough, shortness of breath, dyspnea starting 2 days ago and progressing to be constant. The patient reported that symptoms were exacerbated with movement and improving with rest. The patient reported being treated for pneumonia with Augmentin over a week ago with improve ment of symptoms initially. The patient denied any chest pains fevers or chills in the ED. The patient was found to be in atrial fibrillation in the ED ranging from 130s to 150s.Bilateral leg edema up to mid calf without calf tenderness also noticed. Remarkable labs in the ED were a proBNP of . VBG revealed pH of 7.28 and a pCO2 of 59. Saturation oxygen remained 95% on room air. CTA revealed moderate bilateral pleural effusions, cardiomegaly with reflux contrast into the IVC likely component of right heart failure, septal thickening with concerns for edema due to congestive heart failure, pulmonary artery trunk measurement of 3.3 cm suggesting pulmonary artery hypertension with recommendation for clinical correlation. In the ED the patient was treated with IV Lasix, and IV metoprolol. A [id number] ultrasound was completed by the provider and revealed what appears to be decreased ejection fraction without large pericardial effusion. The hospitalist was consulted and the patient was admitted to the medical surgical floor as an inpatient with telemetry for evaluation and management of atrial fibrillation with rapid ventricular response and congestive heart failure. When met on the floor, the patient reported recent changes to her home med regimen but could not detail except to state that her medicine felt wrong for couple of weeks. The patient reported being more alarmed as she felt pulling in her chest this morning, slight dizziness, as well as increased swelling in her legs. The patient the patient denies change in vision, recent falls, chest pain, hemoptysis, nausea, vomiting, abdominal pain or other GI distress, or dysuria. Patient would like to receive CPR . Review of Systems Constitutional Constitutional: Reports as per HPI Cardiovascular Cardiovascular: Reports as per HPI and Reports system reviewed and no additional complaints, except as documented Respiratory Respiratory: Reports as per HPI and Reports system reviewed and no additional complaints, except as documented Gastrointestinal Gastrointestinal: Reports as per HPI and Reports system reviewed and no additional complaints, except as documented Genitourinary Genitourinary: Reports system reviewed and no additional complaints, except as documented and Reports as per HPI Neurologic Neurologic: Reports system reviewed and no additional complaints, except as documented and Reports as per HPI Endocrine Endocrine: Reports system reviewed and no additional complaints, except as documented and Reports as per HPI [facility] All Active Problems (Updated 08/25/23 @ 15:26 by Coral Freitas APRN) Contraindication to deep vein thrombosis (DVT) prophylaxis (Acute) Discharge planning issues (Acute) Atrial fibrillation with RVR (Acute) Dyspnea (Acute) CHF (congestive heart failure) (Chronic) AV fistula (Acute) Bronchiectasis (Acute) Tracheomegaly (Acute) Nasal polyp (Acute) Incarcerated incisional hernia (Acute) Rash (Acute) Paresthesia of hand (Acute) Dyspnea on exertion (Acute) Perivascular dermatitis (Acute) H/O mitral valve repair (Acute) Volume overload (Acute) Incisional hernia of anterior abdominal wall with obstruction (Acute) S/P laparoscopic appendectomy (Acute) Acute appendicitis (Acute) Rectal polyp (Acute ~06/12/18) H/O sigmoidoscopy (Acute ~06/12/18) Coronary arteriosclerosis (Acute) Stent placed RCA; 80%lesion Atrial fibrillation (Acute) H/O mitral valve replacement (Acute) Hypothyroidism (Acute) Medical History Cataract Diverticulosis Urinoma Asthma Trigeminal neuralgia Mitral valve disorder Hypothyroidism Surgical History History of hernia repair History of appendectomy History of open heart surgery Mitral Valve repair Colonoscopy - IV Sedation (04/24/16) Cholecystectomy Family History Father Parkinsons Son Cardiovascular disease Sister Colon cancer diseased Social History Smoking/Tobacco Use Status: Never Smoking risk assessment performed?: Yes Alcohol Intake: current Alcohol Intake frequency: holidays/special occasions only Drug use: Never Substance use type: does not use Housing: apartment What type of physical activity do you participate in: walking and additional Details: golfing, kayaking, bikes all summer (although is not allowed now). Do you feel safe at home: Yes Do you feel safe in your relationship?: Yes Meds Allergies and Home Medications Allergies Allergy/AdvReac Type Severity Reaction Status Date / Time egg Allergy Unknown UNKNOWN Unverified 08/25/23 09:23 peas Allergy Unknown UNKNOWN Unverified 08/25/23 09:23 tomato Allergy Unknown UNKNOWN Unverified 08/25/23 09:23 diltiazem Allergy Skin Rash Verified 08/25/23 09:23 promethazine AdvReac Intermediate Other (See Unverified 08/25/23 09:23 Comment) lactose AdvReac Unknown Diarrhea Unverified 08/25/23 09:23 lisinopril AdvReac ? caused Verified 08/25/23 09:23 Pervascular dermatitis Home Medications Medication Instructions Recorded Confirmed Type levothyroxine 100 mcg tablet 100 mcg PO DAILY 12/20/17 08/25/23 History apixaban 5 mg tablet (Eliquis) 5 mg PO BID 11/13/18 08/25/23 History calcium carbonate 600 mg-vitamin 1 tab PO BID 11/25/21 08/25/23 History D3 20 mcg (800 unit) tablet (Caltrate with Vitamin D3) chlorthalidone 25 mg tablet 25 mg PO DIRECTED 02/28/22 08/25/23 History levalbuterol tartrate 45 2 inh inhalation Q6H #15 grams 06/29/23 08/25/23 Rx mcg/actuation aerosol inhaler metoprolol succinate 25 mg 50 mg PO DAILY 08/06/23 08/25/23 History tablet,extended release 24 hr Exam Narrative Exam Narrative: Constitutional The patient is sitting on bed comfortable and cooperative during the interview. HENMT: Facial structures with normal appearance Eyes: Well aligned Neuro:alert and oriented to self, person, place, time and situation. No neurological focal deficit Chest:Chest is symmetrical and normal appearance Resp: Speaks in full sentences, labored breathing with mobilization bu improved from this AM , bibasilar crackles Cardio: regular rhythm, S1, S2, atrial fibrillation w RVR on telemetry, heart rate transient max at 161, high 90s to low 100s after IV push Lopressor : Negative Costovertebral angle tenderness, no bladder distension Back/spine/Pelvis: No back tenderness, normal alignment Integumentary: No skin lesions or rash Extremities: strength 5/5 to bilateral lower and upper extremities Psych: RASS 0, congruent mood and normal affect. Results Labs 08/25/23 10:21 08/25/23 10:21 Labs: Laboratory Results - last 24 hr 08/25/23 08/25/23 10:20 10:21 WBC 8.05 RBC 5.10 Hgb 15.3 Hct 48.0 H MCV 94 MCH 30.0 MCHC 31.9 L RDW 14.9 H Plt Count 272 MPV 10.8 Immature Gran % 0.4 Neutrophils % 67.2 Lymphocytes % 14.3 Monocytes % 13.5 Eosinophils % 4.0 Basophils % 0.6 Nucleated RBC % 0.0 Absolute Neutrophils 5.41 Absolute Lymphocytes 1.15 L Absolute Monocytes 1.09 H Absolute Eosinophils 0.32 Absolute Basophils 0.05 PT 11.2 H INR 1.1 APTT 25.6 VBG pH 7.28 L VBG pCO2 59 H VBG pO2 26 VBG HCO3 27 VBG Total CO2 25 VBG O2 Saturation 33 VBG Base Excess 1 Sodium 144 Potassium 4.2 Chloride 107 Carbon Dioxide 27.6 Anion Gap 9.4 BUN 31 H Creatinine 0.9 Est GFR (CKD-EPI 2020) 63.43 Glucose 135 H Calcium 9.8 Magnesium 2.0 Total Bilirubin 0.6 AST 29 ALT 47 Alkaline Phosphatase 101 Troponin I < 50 NT-Pro-B Natriuret Pep 80997 H Total Protein 6.2 L Albumin 3.3 L Procalcitonin < 0.1 TSH 2.49 COVID-19 Source Nasopharynx SARS-CoV-2 (PCR) Negative Influenza Type A (PCR) Negative Influenza Type B (PCR) Negative RSV (PCR) Negative Last Vital Signs Temp 36.7 C 08/25/23 10:46 Pulse 97 H 08/25/23 10:46 Resp 16 08/25/23 11:46 BP 124/108 H 08/25/23 10:46 Pulse Ox 94 08/25/23 10:50 Time Spent Time spent with Patient: >75 minutes Time was spent: preparing to see the patient(eg.review tests), obtaining and/or reviewing separately otained hiistory, ordering medications,tests, procedures, referring, communicating with other health animal care technician, indepentently interpreting results, counseling the patient and care coordination
[2023-08-25] MEDS: Metoprolol 25 MG TAB 12.5 MG PO (12:44)
[2023-08-25 15:19] LABS: Troponin I < 50 ng/L (< or =60)
[2023-08-25] MEDS: Metoprolol 12.5 MG TAB PO (17:54)
[2023-08-25] MEDS: Calcium 600mg/Vit D 200U TAB 1 TAB PO (19:20)
[2023-08-25] MEDS: Apixaban 5 MG TAB PO (19:20)
[2023-08-25] MEDS: Benzonatate 100 MG CAP PO (19:20)
[2023-08-26] VITALS (10 sets, daily range): BP systolic 100–115; BP diastolic 62–96; PULSE 63–126; RESP 16–18; TEMP 35.6–36.8; O2SAT 92–94
[2023-08-26] MEDS: Metoprolol 12.5 MG TAB PO ×5 (00:04→23:48)
[2023-08-26] MEDS: Levothyroxine 100 MCG TAB PO (06:00)
[2023-08-26 06:48] LABS: Abs Immature Grans 0.01 10^3/uL (0.0-0.06); Absolute Basophil Count 0.07 10^3/uL (0.0-0.2); Absolute Eosinophil Count 0.45 10^3/uL (0.0-0.7); Absolute Lymphocyte Count 0.89 10^3/uL (1.2-3.4); Absolute Monocyte Count 0.91 10^3/uL (0.1-0.8); Absolute Neutrophil Count 3.14 10^3/uL (1.2-6.7); Basophils % 1.3; Eosinophils % 8.2; HCT 43.9 % (36.0-46.0); HGB 14.3 g/dL (11.2-15.7); Immature Grans % 0.2; Lymphocytes % 16.3; MCH 30.1 pg (27.0-33.0); MCHC 32.6 % (32.0-36.0); MCV 92 fL (80-95); MPV 10.6 fL (8.0-11.0); Monocytes % 16.6; Neutrophils % 57.4; Platelet Count 233 10^3/uL (130-400); RBC 4.75 10^6/uL (3.93-5.22); RDW 14.8 % (11.7-14.6); RDW-SD 50.8 fL; WBC 5.47 10^3/uL (4.4-10.8)
[2023-08-26 07:07] LABS: Anion Gap 6.1 mmol/L (3-11); BUN 35 mg/dL (7-18); CO2 31.9 mmol/L (21.0-32.0); CREATININE 1.2 mg/dL (0.55-1.02); Calcium 9.7 mg/dL (8.5-10.1); Chloride 109 mmol/L (98-107); Estimated GFR 44.91 (mL/min/1.73m2); Glucose 92 mg/dL (74-106); Magnesium 1.9 mg/dL (1.8-2.4); Potassium 3.6 mmol/L (3.5-5.1); Sodium 147 mmol/L (136-145)
[2023-08-26] MEDS: Apixaban 5 MG TAB PO ×2 (07:57→20:27)
[2023-08-26] MEDS: Benzonatate 100 MG CAP PO ×3 (07:57→20:27)
[2023-08-26] MEDS: Calcium 600mg/Vit D 200U TAB 1 TAB PO ×2 (07:57→20:28)
[2023-08-26] MEDS: Furosemide 20 MG/2 ML VIAL IVP ×2 (07:58→16:21)
[2023-08-26] MEDS: Normal Saline Flush 10 ML SYR IVP ×2 (07:58→20:28)
--- NOTE | 2023-08-26 08:25 | INITIAL_ITS ---
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 Her son Jorge lives in [facility] and is supportive. Per pt, she has no local family but has many friends that have become family. Jorge and Flores are her good friends and live in her apartment building. Her best friend is Eladia Raya she is supportive and lives locally. Lilliana drives and is active and independent with her ADL/IADL's at baseline. She enjoys participating in Senior activities through the [employer]. She currently attends Line dancing and goes to exercise class at the [facility]. CURRENT FUNCTIONAL STATUS:: Lilliana was lying in bed when CM met with her. She is awake and easy to engage in conversation. She recently went to [facility] to visit her son. A highlight of her trip was watching her grandson (who is now a Senior in ) dance in a play. Dancing has been one of her great joys and she is grateful that her Grandson enjoys it also. 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 Her next performance is in [place] next week, although she doesn't expect to be well enough to attend. Lilliana feels supported in the community and values her independence. ADVANCE DIRECTIVES:: On file, [facility] Yousif Sellers, SINDY Sellers Has patient been provided with info about the portal/API?: Yes Did the patient sign up for the portal?: No CODE STATUS:: Full Code INSURANCE COVERAGE / FINANCIAL ISSUES:: Medicare /[facility] CURRENT HOME/COMMUNITY SERVICES/EQUIPMENT:: [employer], line dancing and exercise class PRIMARY CARE PHYSICIAN:: Magdalena Tariq POTENTIAL DISCHARGE NEEDS:: Follow up appointments, discharge plan of care, evaluations for further needs PATIENT/FAMILY EDUCATION NEEDS:: Review discharge instructions, limitations, medications and plan to follow up with community providers. Discuss ask me three. ANTICIPATED BARRIERS TO DISCHARGE:: None identified at this time TRANSPORTATION:: Via private vehicle with family PLAN:: Lilliana requires close cardiac monitoring and IV Lopressor. Anticipate, she will discharge home and follow up with community providers when Medically ready for discharge. New services, if indicated based on further evaluations. She plans to drive herself home, otherwise her friend Jorge will drive her home. [facility] All Active Problems (Updated 08/25/23 @ 15:26 by Coral Freitas APRN) Contraindication to deep vein thrombosis (DVT) prophylaxis (Acute) Discharge planning issues (Acute) Atrial fibrillation with RVR (Acute) Dyspnea (Acute) CHF (congestive heart failure) (Chronic) AV fistula (Acute) Bronchiectasis (Acute) Tracheomegaly (Acute) Nasal polyp (Acute) Incarcerated incisional hernia (Acute) Rash (Acute) Paresthesia of hand (Acute) Dyspnea on exertion (Acute) Perivascular dermatitis (Acute) H/O mitral valve repair (Acute) Volume overload (Acute) Incisional hernia of anterior abdominal wall with obstruction (Acute) S/P laparoscopic appendectomy (Acute) Acute appendicitis (Acute) Rectal polyp (Acute ~06/12/18) H/O sigmoidoscopy (Acute ~06/12/18) Coronary arteriosclerosis (Acute) Stent placed RCA; 80%lesion Atrial fibrillation (Acute) H/O mitral valve replacement (Acute) Hypothyroidism (Acute) Medical History Cataract Diverticulosis Urinoma Asthma Trigeminal neuralgia Mitral valve disorder Hypothyroidism Surgical History History of hernia repair History of appendectomy History of open heart surgery Mitral Valve repair Colonoscopy - IV Sedation (04/24/16) Cholecystectomy Family History Father Parkinsons Son Cardiovascular disease Sister Colon cancer diseased Social History Smoking/Tobacco Use Status: Never Smoking risk assessment performed?: Yes Alcohol Intake: current Alcohol Intake frequency: holidays/special occasions only Drug use: Never Substance use type: does not use Housing: apartment What type of physical activity do you participate in: walking and additional Details: golfing, kayaking, bikes all summer (although is not allowed now). Do you feel safe at home: Yes Do you feel safe in your relationship?: Yes SDOH(Care Management) Screening Will the Patient Participate in the Screening?: Declined to provide Do you worry about having a steady place to live?: choose not to answer In the past 12 months, have you had to go without electric, gas, oil or water in your home?: choose not to answer Have you or anyone in your house had to go without enough food to eat?: choose not to answer Has lack of transportation kept you from medical appointments or from doing things needed for daily living?: choose not to answer Has anyone in your support network made you feel unsafe for any reason?: choose not to answer
--- NOTE | 2023-08-26 10:40 | PGE_ITS ---
Date of Service Date of service: 08/26/23 Time of Service: 10:40 Assessment and Plan Assessment and plan (1) CHF (congestive heart failure): Status: Chronic Assessment and plan: Echo Continue IV Lasix, transition to oral in AM When stable consider guideline directed medical therapy (2) Dyspnea: Status: Acute Assessment and plan: No further c/o dyspnea, CTA neagtive for PE on admit Continue to monitor need for oxygen supplementation Continue home nebulizers as needed Acapella reported coughing on admit (3) Atrial fibrillation with RVR: Status: Acute Assessment and plan: Telemetry max 159 on ambulaion 130-150 overnight IV Lopressor for sustained heart rate over 120 discontinued - Caution to be exerted due to POCUS result indicating ejection fraction, awaiting correlation with echo Continue immediate release metoprolol to tartrate was on metoprolol succinate at home Consideration given to diltiazem but the patient is allergic Digoxin load this AM then Q6 dosing then daily; digoxin level on 08/26 Cardiology consult (4) Contraindication to deep vein thrombosis (DVT) prophylaxis: Status: Acute Assessment and plan: Anticoagulated on Eliquis for atrial fibrillation CBC in a.m. (5) Discharge planning issues: Status: Acute Assessment and plan: Care management to follow Might need community support, drove to the hospital Discussed with Dr. Figueredo Subjective Subjective Patient reports: no new complaints, feels better, tolerating liquids well, tolerating a regular diet, voiding w/o difficulty, flatus, bowel movement and shortness of breath; denies diarrhea, nausea, vomiting or fever Exam Narrative Exam Narrative: Constitutional The patient is ambulating in room, wants to walk in halls despite HR at 140- 150 feels comfortable and cooperative during the interview. HENMT: Facial structures with normal appearance Eyes: Well aligned Neuro:alert and oriented to self, person, place, time and situation. No neurological focal deficit Chest:Chest is symmetrical and normal appearance Resp: Speaks in full sentences, labored breathing with mobilization bu improved from this AM , bibasilar crackles Cardio: HR 146-159 ambulating, HR 125 at, S1, S2, atrial fibrillation w RVR on telemetry, heart rate transient max at 159, Extremities: strength 5/5 to bilateral lower and upper extremities Psych: RASS 0, congruent mood and normal affect. Objective Last Vital Signs Temp 36.1 C L 08/26/23 07:47 Pulse 63 08/26/23 07:47 Resp 17 08/26/23 07:47 BP 105/88 08/26/23 07:47 Pulse Ox 93 08/26/23 07:47 Laboratory Results - last 24 hr 08/25/23 08/25/23 08/25/23 10:20 10:21 14:52 WBC RBC Hgb Hct MCV MCH MCHC RDW Plt Count MPV Immature Gran % Neutrophils % Lymphocytes % Monocytes % Eosinophils % Basophils % Nucleated RBC % Absolute Neutrophils Absolute Lymphocytes Absolute Monocytes Absolute Eosinophils Absolute Basophils PT 11.2 H INR 1.1 APTT 25.6 Sodium 144 Potassium 4.2 Chloride 107 Carbon Dioxide 27.6 Anion Gap 9.4 BUN 31 H Creatinine 0.9 Est GFR (CKD-EPI 2020) 63.43 Glucose 135 H Calcium 9.8 Magnesium 2.0 Total Bilirubin 0.6 AST 29 ALT 47 Alkaline Phosphatase 101 Troponin I < 50 < 50 NT-Pro-B Natriuret Pep 11699 H Total Protein 6.2 L Albumin 3.3 L Procalcitonin < 0.1 TSH 2.49 COVID-19 Source Nasopharynx SARS-CoV-2 (PCR) Negative Influenza Type A (PCR) Negative Influenza Type B (PCR) Negative RSV (PCR) Negative 08/26/23 06:30 WBC 5.47 RBC 4.75 Hgb 14.3 Hct 43.9 MCV 92 MCH 30.1 MCHC 32.6 RDW 14.8 H Plt Count 233 MPV 10.6 Immature Gran % 0.2 Neutrophils % 57.4 Lymphocytes % 16.3 Monocytes % 16.6 Eosinophils % 8.2 Basophils % 1.3 Nucleated RBC % 0.0 Absolute Neutrophils 3.14 Absolute Lymphocytes 0.89 L Absolute Monocytes 0.91 H Absolute Eosinophils 0.45 Absolute Basophils 0.07 PT INR APTT Sodium 147 H Potassium 3.6 Chloride 109 H Carbon Dioxide 31.9 Anion Gap 6.1 BUN 35 H Creatinine 1.2 H Est GFR (CKD-EPI 2020) 44.91 Glucose 92 Calcium 9.7 Magnesium 1.9 Total Bilirubin AST ALT Alkaline Phosphatase Troponin I NT-Pro-B Natriuret Pep Total Protein Albumin Procalcitonin TSH COVID-19 Source SARS-CoV-2 (PCR) Influenza Type A (PCR) Influenza Type B (PCR) RSV (PCR) Time Spent with Patient Time Spent with Patient: >50 minutes Time was spent: preparing to see the patient(eg.review tests), obtaining and/or reviewing separately otained hiistory, ordering medications,tests, procedures, referring, communicating with other health nurse care manager, indepentently interpreting results, counseling the patient and care coordination
--- NOTE | 2023-08-26 10:56 | PT.INIE ---
Date of service: 08/26/23 Time of Service: 10:30 PT Notes Visit Reasons: New onset CHF, Atrial-fibrillation with RVR Inpatient Physical Therapy Evaluation Date: August Referring Doctor: Coral Freitas PT Orders: PT CONSULT: Safety consult for discharge Precautions: Standard Patient Profile/Admitting Diagnosis: Lilliana is an 81 year old female patient with past medical history of atrial fibrillation on metoprolol and anticoagulated on Eliquis, bronchiectasis, AV fistula, perivascular dermatitis, mitral valve repair, and hypothyroidism presented to the ED at [facility] yesterday status post visit to express care with a Dx of A-fib with rapid ventricular response for evaluation of cough, shortness of breath, dyspnea starting 3 days ago and progressing to be constant. The patient reported that symptoms were exacerbated with movement and improving with rest. Notes she had not attended her regular exercise classes for the past 4 weeks. PMHX: (Updated 08/25/23 @ 15:26 by Coral Freitas APRN) Contraindication to deep vein thrombosis (DVT) prophylaxis (Acute) Discharge planning issues (Acute) Atrial fibrillation with RVR (Acute) Dyspnea (Acute) CHF (congestive heart failure) (Chronic) AV fistula (Acute) Bronchiectasis (Acute) Tracheomegaly (Acute) Nasal polyp (Acute) Incarcerated incisional hernia (Acute) Rash (Acute) Paresthesia of hand (Acute) Dyspnea on exertion (Acute) Perivascular dermatitis (Acute) H/O mitral valve repair (Acute) Volume overload (Acute) Incisional hernia of anterior abdominal wall with obstruction (Acute) S/P laparoscopic appendectomy (Acute) Acute appendicitis (Acute) Rectal polyp (Acute ~06/12/18) H/O sigmoidoscopy (Acute ~06/12/18) Coronary arteriosclerosis (Acute) Stent placed RCA; 80%lesion Atrial fibrillation (Acute) H/O mitral valve replacement (Acute) Hypothyroidism (Acute) Medical History Cataract Diverticulosis Urinoma Asthma Trigeminal neuralgia Mitral valve disorder Hypothyroidism Surgical History History of hernia repair History of appendectomy History of open heart surgery Mitral Valve repairColonoscopy - IV Sedation (04/24/16) Cholecystectomy Social History/Home Situation: 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 Her son Jorge lives in [facility] and is supportive. Per pt, she has no local family but has many friends that have become family. Jorge and Flores are her good friends and live in her apartment building. Her best friend is Eladia Raya she is supportive and lives locally. Lilliana drives and is active and independent with her ADL/IADL's at baseline. She enjoys participating in Senior activities through the [employer]. She currently attends Line dancing and goes to exercise class at the [facility]. Current Functional Limitations: SOB with activity Subjective: Lilliana notes she is feeling well. Would really like to go home however they will not release her due to her Afib. She notes that she has dealt with this for a long time. Has gotten used to her heart racing. Objective: General Observation: IV R UE, telemetry Mental Status: Alert and oriented x3 Pain: Declines any pain Vital Signs: O2 saturation ranges from 80-95% on room air. HR ranges from 55-150 bpm ROM: Right Upper Extremity: Demonstrates full and painfree active R UE ROM Left Upper Extremity: Demonstrate full and painfree active L UE ROM Right Lower Extremity: Demonstrates full and painfree active R LE ROM Left Lower Extremity: Demonstrates full and painfree active L LE ROM Strength: Right Upper Extremity: Demonstrates grossly 4+-5/5 R UE strength Left Upper Extremity: Demonstrates grossly 4+-5/5 L UE strength Right Lower Extremity: Demonstrates grossly 4+-5/5 R LE strength Left Lower Extremity: Demonstrates grossly 4+-5/5 L LE strength Sensation: Intact to light touch Bed Mobility/Transfers: Sit-stand independent Stand-sit independent Chair-bed independent Bed-chair independent Supine-sit independent Gait: Lilliana demonstrated good diane with nonantalgic gait without assistive device x100 ft. O2 saturation fluctuates from 80-95% on room air. No shortness of breath noted. HR also fluctuates from 55 bpm-150 bpm. Telemetry monitored Balance: Static Sitting: Normal Dynamic Sitting: Normal Static Standing: Normal Dynamic Standing: Good Special Tests: Mobility Limitations Standardized Measure [facility] AM-PAC 6 clicks Basic Mobility Inpatient Short Form: Raw Score: 24 CMS Score: 0% Informed Consent/Education: Patient instructed in purpose of PT consult and plan of care. Assessment: Patient is a 82 year old female referred to physical therapy services with the diagnosis of new onset congestive heart failure, A-fib with RVR. Patient presents with clinical signs and symptoms consistent with diagnosis, as demonstrated by the following impairment level findings: Decreased activity tolerance secondary to A-fib new onset CHF needing to be monitored with overall mobility and ambulation. Impairments are contributing to the following functional limitations: Fluctuating O2 saturation and heart rate with transfers and functional mobility requiring close monitoring with all mobility and endurance Patient is assessed as a Moderate 34440 complexity based on the following: History: As above Examination: As above Presentation: Evolving Decision Making: Moderate Goals: Goals X1 week 1. Gait 300 feet or greater without dyspnea 2. Stairs up/down flight of stairs without dyspnea 3. Independent with home exercise program Plan of Care/Treatment Plan: 1-2x/day, 7 days/week x 1 week. Plan of care has been reviewed with the AIR TABLE OPERATOR providing the service under Physical Therapy direction. Initiate Physical Therapy intervention for strengthening, bed mobility, transfers, gait, stairs, balance training, use of assistive device. DISCHARGE RECOMMENDATIONS: Home with no services once medially cleared TREATMENT CODE/TIME: 44255,IE, 25 minutes beginning at 10:30 am SHILPA Faust [facility] Please sign an return this page within 30 days if you agree with the above POC. Thank you! Physician Signature Date [facility] Disclaimer: This note was created using [employer] voice recognition software. It was reviewed for major content. However, there may be multiple small discrepancies and errors due to the voice recognition aspects of the software.
[2023-08-26] MEDS: Digoxin 0.5 MG/2 ML AMP 0.25 MG IVP (11:32)
[2023-08-26] MEDS: Digoxin 0.5 MG/2 ML AMP 0.125 MG IVP ×2 (16:21→23:46)
[2023-08-26] MEDS: Normal Saline 10 ML VIAL IJ (23:48)
[2023-08-27] VITALS (11 sets, daily range): BP systolic 100–139; BP diastolic 67–105; PULSE 72–117; RESP 16–19; TEMP 35.5–36.9; O2SAT 91–97
[2023-08-27] MEDS: Levothyroxine 100 MCG TAB PO (06:03)
[2023-08-27] MEDS: Metoprolol 12.5 MG TAB PO ×2 (06:03→12:44)
[2023-08-27 06:30] LABS: Abs Immature Grans 0.02 10^3/uL (0.0-0.06); Absolute Basophil Count 0.09 10^3/uL (0.0-0.2); Absolute Eosinophil Count 0.61 10^3/uL (0.0-0.7); Absolute Monocyte Count 1.02 10^3/uL (0.1-0.8); Absolute Neutrophil Count 3.29 10^3/uL (1.2-6.7); Basophils % 1.5; Eosinophils % 10.3; HCT 45.2 % (36.0-46.0); HGB 14.8 g/dL (11.2-15.7); Immature Grans % 0.3; Lymphocytes % 15.2; MCH 30.4 pg (27.0-33.0); MCHC 32.7 % (32.0-36.0); MCV 93 fL (80-95); MPV 12.4 fL (8.0-11.0); Monocytes % 17.2; Neutrophils % 55.5; Platelet Count 140 10^3/uL (130-400); RBC 4.87 10^6/uL (3.93-5.22); RDW 14.7 % (11.7-14.6); RDW-SD 50.2 fL; WBC 5.93 10^3/uL (4.4-10.8)
[2023-08-27 06:35] LABS: Anion Gap 7.6 mmol/L (3-11); BUN 28 mg/dL (7-18); CO2 30.4 mmol/L (21.0-32.0); Calcium 9.2 mg/dL (8.5-10.1); Chloride 106 mmol/L (98-107); Glucose 86 mg/dL (74-106); Sodium 144 mmol/L (136-145)
--- NOTE | 2023-08-27 08:00 | DI.US_ITS ---
APPROVED REPORT EXAM: Comprehensive 2D, Doppler, and color-flow Echocardiogram Patient Location: In-Patient Room/Bed: 212 Integrated Program Teacher: Maliha Kinsey RDCS (AE) Indications: New onset CHF, A Fib,h/o MV Repair Other Information Study Quality: Adequate Conclusion Normal left ventricular wall thickness and chamber size. EF is 30% with global hypokinesis Mildly dilated and hypokinetic right ventricle Both atria are severely dilated The aortic valve is sclerotic with moderate regurgitation There has been a mitral valve repair. There is moderate eccentric mitral regurgitation Severe tricuspid regurgitation . Estimated right ventricualr systolic pressure is 25 mmHg Wall motion Left Ventricle The left ventricle is normal size. Left ventricular systolic function is decreased. Arrhythmia throug hout exam. There is normal left ventricular wall thickness. There is global hypokinesis of the left v entricle. There is no ventricular septal defect visualized. LVEF is 30%. Right Ventricle Right ventricle is mildly enlarged Right ventricle is mildly hypokinetic. Atria Left atrium is severely dilated. Right atrium is severely dilated. The interatrial septum is intact w ith no evidence for an atrial septal defect. Aortic Valve The Aortic valve is sclerotic. Aortic valve is trileaflet. There is no aortic valvular stenosis. Mod erate aortic regurgitation. Mitral Valve Mitral annuloplasty changes are present. No evidence of mitral valve stenosis. Moderate eccentric garrett ral regurgitation. Tricuspid Valve The tricuspid valve is normal in structure. There is no tricuspid valve stenosis. Severe tricuspid re gurgitation. The RVSP is 24.8 mmHg. Pulmonic Valve The pulmonary valve is normal in structure. There is no pulmonic valvular stenosis. Mild pulmonic reg urgitation. Great Vessels The aortic root is normal in size. The ascending aorta is mildly dilated. Aortic arch is not well vis ualized. IVC is normal in size and collapses >50% with inspiration. Pericardium Trivial pericardial effusion. 2D Dimensions IVSD d PLAX 1.10 cm F: 0.6-1.0 Ao Root d 2.99 cm F: 2.7 - 3.3 LVPW d PLAX 1.10 cm F: 0.6 - 1.0 Ao Asc Diam d 3.30 cm F: 2.3 - 3.1 LVID d PLAX 4.81 cm F: 3.8 - 5.2 LVDs 4.14 cm F: 2.2 - 3.5 LV EF Teichholz 29.8 % FS 13.97 % LV EDV (Teich) 108.0 mL LV ESV (Teich) 75.8 mL Auto EF LV EDV A4C 99.3 mL LV EDV A2C 101.0 mL LV EDV BP 101.3 mL LV ESV A4C 64.3 mL LV ESV A2C 70.8 mL LV ESV BP 66.7 mL LVEF(%) A4C 35.2 % LVEF(%) A2C 29.9 % LVEF(%) BP 34.1 % LV SV A4C 35.0 ml LV SV A2C 30.3 ml LV SV BP 34.5 ml LV CO A4C 3.0 L/min LV CO A2C 2.5 L/min LV CO BP 2.8 L/min HR A4C 85.72 BPM HR A2C 84.11 BPM LV EDV Index (BP) LV Strain Long Pk Overal Avg (s) 6.29 RV Strain Global Peak Long. Strain A4C 10.67 Global Peak Long. Strain A4C FW 13.57 LA Volume LA Length A4C 6.8 cm LA Length A2C 5.9 cm LA Area A4C s 29.26 cm2 LA Area A2C s 26.36 cm2 LA Vol A4C A-L 107.59 mL LA Vol A2C A-L 99.65 mL LA Vol Biplane A-L 110.6 mL LA Vol/BSA A4C A-L LA Vol/BSA A2C A-L LA Vol/BSA BP A-L 71.8 mL/m2 LA Vol A4C MOD 101.7 mL LA Vol A2C MOD 94.5 mL LA Vol BP MOD 104.6 mL RA Volume RA Area A4C 20.6 cm2 RA ESV A4C (A-L) 65.6mL RA Vol/BSA A4C A-L RA Length A4C 5.5 cm RA ESV A4C (MOD) 61.9mL LV Diastology MV E' medial 0.055 (>0.07 m/s) MV E Vmax 0.71 (0.4-1.3 m/s) MV E/E' MED 12.78 (<14) MV A Vmax 0.95 (0.4-1.3 m/s) MV E' lateral 0.080 (>0.1 m/s) E/A Ratio 0.7 MV E/E' LAT 8.84 (<14) MV E' Average 0.068 m/s MV E/E'(average) 10.45 Aortic Valve AoV Vmax 1.31 m/s LVOT Vmax 0.94 m/s AoV Peak Grad 39.0 mmHg LVOT Peak Grad 3.5 mmHg AoV Area (Vmax) 2.09 cm2 LVOT VTI 0.160 m AoV VTI 0.254 m LVOT Mean Grad 2.0 mmHg AoV Mean [place]. 0.91 m/s LVOT SV 46.88 mL AoV Mean Grad 3.8 mmHg LVOT Diam s 1.90 cm AoV Area (VTI) 1.85 cm2 AV Regurg Peak Gr. 70.95 mmHg Velocity Ratio 0.72 AR Decel [place] 1.3m/sec2 AR DT 3326 msec AR PHT 964 msec AR Vmax 4.21 m/s Mitral Valve MV DT 382 (160-240 msec) MV Vmax TIPS 1.27 m/s MV Mean Grad 2.7 (<2mmHg) MV VTI 0.321 m Pulmonary Valve PV Vmax 0.73 (0.5-1.5 m/s) RVOT Vmax 0.45 m/s PV Peak Grad 2.2 mmHg RVOT Peak Gr. 0.8 mmHg PV Mean [place] 0.52 m/s RVOT VTI 0.077 m PV Mean Grad 1.2 mmHg RVOT Mean Gr. 0.5 mmHg Tricuspid Valve RA Pressure 3.00 mmHg TR Vmax 2.31 m/s TV S' 0.07 m/s TR Peak Grad 21.7 mmHg RVSP (TR) 24.8 mmHg
--- NOTE | 2023-08-27 08:42 | PT.INTREAT ---
PT Notes Visit Reasons: New onset CHF, Atrial-fibrillation with RVR Inpatient Physical Therapy Treatment Note Date: August 27, 2023 Precautions: Fall. Standard. Activity as tolerated. Subjective: Did not report some pulling in her chest throughout the two laps around the big loop in the med surg hallway. Did complain of her knees being weaker but resolved with rest. Denied headache, chest pain, and lightheadedness. Objective: General Observation: IV R UE. Telemetry monitoring in place. Mental Status: Alert and oriented x 3 Pain: None reported Vital Signs: Oxygen saturation low of 75% on RA but with quick resaturation rate of less than 1 minute back to above 90% with rest; HR ranged from 48-63 bpm throughout session. Bed Mobility/Transfers: Sit-stand independent Stand-sit independent Chair-bed independent Bed-chair independent Supine-sit independent Gait: Gait pattern unremarkable except for decreased diane. Oxygen and heart rate variations as above. Minimal verbal cueing provided for intermittent deep breathing exercises while walking to minimize desaturation episodes. Balance: Static Sitting: Normal Dynamic Sitting: Normal Static Standing: Normal Dynamic Standing: Good Assessment: Oxygen saturation as low as 72% towards the end of the second loop which required 2-3 standing rests for deep breathing exercises. Resaturation rate less than 1 minute back to above 90 degrees. Reported fatigue in B knees toward the end of each loop. No sensation of pulling in chest felt throughout. Continues to not need an assistive device. No stairs, has ramp to enter. Plan of Care/Treatment Plan: See patient one time a day until discharged from hospital. Continue with Physical Therapy intervention for strengthening, bed mobility, transfers, gait, stairs, balance training, use of assistive device. DISCHARGE RECOMMENDATIONS: Home with [facility] No PT services needed at home. TREATMENT CODE/TIME: 92459 x 27 minutes for 2 units (8:42-9:09).
[2023-08-27] MEDS: Digoxin 0.25 MG TAB PO (08:49)
[2023-08-27] MEDS: Benzonatate 100 MG CAP PO ×3 (08:50→20:19)
[2023-08-27] MEDS: Apixaban 5 MG TAB PO (08:50)
[2023-08-27] MEDS: Calcium 600mg/Vit D 200U TAB 1 TAB PO ×2 (08:50→20:18)
[2023-08-27] MEDS: Furosemide 20 MG TAB PO ×2 (08:51→15:51)
[2023-08-27] MEDS: Normal Saline Flush 10 ML SYR IVP ×2 (08:51→20:19)
--- NOTE | 2023-08-27 13:12 | CMPROGNOTE_ITS ---
Date of service: 08/27/23 Time of Service: 13:12 Care Management Progress Note Progress Note Text Progress Note Text: S/O: Lilliana continues to require close monitoring and medication management for Afib with RVR. She was talking with Hospitalist LE Moncada when CM met with her. Lilliana will likely discharge home tomorrow with new medications if she is medically ready for discharge. LE Moncada discussed her new meds however she doesn't feel confident with her ability to figure out it. Pt is agreeable to New [facility] RN to support medication changes. Lilliana is active at baseline and is also encouraged to follow up with her PCP before she goes back to exercise class. She agrees. A: 82 year old female admitted to [facility] on 08/25/23 with AFib with RVR. P: Lilliana requires close cardiac monitoring and IV Lopressor. Anticipate, she will discharge home tomorrow if she is medically ready. New RN/PT/OT services will be ordered. Pt will follow up with community providers and her discharge plan of care as instructed. She plans to drive herself home, otherwise her friend Jorge will drive her home. New meds are covered by her insurance, copay is $3. CM following. SDOH(Care Management) Screening Will the Patient Participate in the Screening?: Declined to provide Do you worry about having a steady place to live?: choose not to answer In the past 12 months, have you had to go without electric, gas, oil or water in your home?: choose not to answer Have you or anyone in your house had to go without enough food to eat?: choose not to answer Has lack of transportation kept you from medical appointments or from doing things needed for daily living?: choose not to answer Has anyone in your support network made you feel unsafe for any reason?: choose not to answer
[2023-08-27 13:15] LABS: Digoxin 2.28 ng/mL (0.90-2.00)
--- NOTE | 2023-08-27 13:29 | W.CARDCONSUL ---
Date of service: 08/27/23 Time of Service: 13:29 Assessment and Plan Assessment and plan (1) CHF (congestive heart failure): Status: Chronic Assessment and plan: I suspect the patient may still be volume overloaded and that decompensated heart failure could be driving her heart rate. She probably needs more furosemide. She now has significant LV dysfunction As part of guideline directed medical therapy, metoprolol succinate would be preferable. Metoprolol tartrate and diltiazem are relatively contraindicated. She should be considered for Entresto and/or Jardiance She is already on spironolactone Qualifiers: Heart failure type: combined systolic and diastolic Heart failure chronicity: acute on chronic Qualified Code(s): I50.43 - Acute on chronic combined systolic (congestive) and diastolic (congestive) heart failure (2) Atrial fibrillation with RVR: Status: Acute Assessment and plan: As above, needs heart failure to be compensated before we can expect heart rate control (3) H/O mitral valve repair: Status: Acute Assessment and plan: Once on good guideline directed medical therapy, she could possibly be referred to the structural heart team at [facility] to address her mitral regurgitation. That it is a decision for the future History of Present Illness History of Present Illness Chief Complaint: Shortness of breath Narrative: This is an 82-year-old woman who apparently presented to the hospital because of shortness of breath. She is not a good historian. It sounds as though she has had decreasing exercise capacity and worsening shortness of breath for several months. She presented here to the hospital where she was found to be in decompensated heart failure, atrial fibrillation with an uncontrolled rate. She has a history of a mitral valve repair done in 2018 at [facility]. She did not have any coronary artery disease at that time. In 2021 her left ventricular function was normal, the degree of mitral regurgitation was mild Her echocardiogram was recently updated. She now has left ventricular dysfunction, EF approximately 30%, moderate to severe eccentric mitral regurgitation, severe tricuspid regurgitation, very dilated atria. Hospital course has been notable for difficulty with rate control for her atrial fibrillation Review of Systems Cardiovascular Cardiovascular: Reports as per HPI, Denies chest pain, Denies radiating jaw, neck or arm pain and Reports dyspnea Respiratory Respiratory: Reports dyspnea PFSH All Active Problems (Updated 08/27/23 @ 13:34 by Almaz Kelley MD) Contraindication to deep vein thrombosis (DVT) prophylaxis (Acute) Discharge planning issues (Acute) Atrial fibrillation with RVR (Acute) Dyspnea (Acute) CHF (congestive heart failure) (Chronic) AV fistula (Acute) Bronchiectasis (Acute) Tracheomegaly (Acute) Nasal polyp (Acute) Incarcerated incisional hernia (Acute) Rash (Acute) Paresthesia of hand (Acute) Dyspnea on exertion (Acute) Perivascular dermatitis (Acute) H/O mitral valve repair (Acute) Volume overload (Acute) Incisional hernia of anterior abdominal wall with obstruction (Acute) S/P laparoscopic appendectomy (Acute) Acute appendicitis (Acute) Rectal polyp (Acute ~06/12/18) H/O sigmoidoscopy (Acute ~06/12/18) Coronary arteriosclerosis (Acute) Stent placed RCA; 80%lesion Atrial fibrillation (Acute) H/O mitral valve replacement (Acute) Hypothyroidism (Acute) Medical History Cataract Diverticulosis Urinoma Asthma Trigeminal neuralgia Mitral valve disorder Hypothyroidism Surgical History History of hernia repair History of appendectomy History of open heart surgery Mitral Valve repair Colonoscopy - IV Sedation (04/24/16) Cholecystectomy Family History Father Parkinsons Son Cardiovascular disease Sister Colon cancer diseased Social History Smoking/Tobacco Use Status: Never Smoking risk assessment performed?: Yes Alcohol Intake: current Alcohol Intake frequency: holidays/special occasions only Drug use: Never Substance use type: does not use Housing: apartment What type of physical activity do you participate in: walking and additional Details: golfing, kayaking, bikes all summer (although is not allowed now). Do you feel safe at home: Yes Do you feel safe in your relationship?: Yes Exam Const Other: Small woman looks younger than stated age no acute distress Neck Other: Normal carotid upstrokes no bruits Resp Other: Decreased breath sounds at the bases Cardio Other: Irregular rate is currently approximately 120. There is a 2/6 systolic ejection quality murmur and an apical systolic murmur Extrem Other: No significant edema Results Last Vital Signs Temp 36.2 C L 08/27/23 12:45 Pulse 97 H 08/27/23 12:45 Resp 16 08/27/23 12:45 BP 122/88 08/27/23 12:45 Pulse Ox 93 08/27/23 12:45 Labs 08/27/23 06:18 08/27/23 06:18 Labs: Laboratory Results - last 24 hr 08/27/23 08/27/23 06:18 11:16 WBC 5.93 RBC 4.87 Hgb 14.8 Hct 45.2 MCV 93 MCH 30.4 MCHC 32.7 RDW 14.7 H Plt Count 140 MPV 12.4 H Immature Gran % 0.3 Neutrophils % 55.5 Lymphocytes % 15.2 Monocytes % 17.2 Eosinophils % 10.3 Basophils % 1.5 Nucleated RBC % 0.0 Absolute Neutrophils 3.29 Absolute Lymphocytes 0.90 L Absolute Monocytes 1.02 H Absolute Eosinophils 0.61 Absolute Basophils 0.09 Sodium 144 Potassium 4.0 Chloride 106 Carbon Dioxide 30.4 Anion Gap 7.6 BUN 28 H Creatinine 1.0 Est GFR (CKD-EPI 2020) 55.90 Glucose 86 Calcium 9.2 Digoxin 2.28 H*
[2023-08-27] MEDS: Empaglifozin 10 MG TAB PO (14:47)
[2023-08-27] MEDS: Spironolactone 25 MG TAB 12.5 MG PO (14:47)
--- NOTE | 2023-08-27 16:56 | PGE_ITS ---
Date of Service Date of service: 08/27/23 Time of Service: 16:57 Assessment and Plan Assessment and plan (1) CHF (congestive heart failure): Status: Chronic Assessment and plan: Echo Continue IV Lasix as per cardiology consult Guideline directed medical therapy: -Entresto -Metoprolol succinate -jardiance -Spirinolactone Qualifiers: Heart failure type: combined systolic and diastolic Heart failure chronicity: acute on chronic Qualified Code(s): I50.43 - Acute on chronic combined systolic (congestive) and diastolic (congestive) heart failure (2) Dyspnea: Status: Acute Assessment and plan: improved , CTA neagtive for PE on admit No need for oxygen supplementation Continue home nebulizers as needed Acapella (3) Atrial fibrillation with RVR: Status: Acute Assessment and plan: Telemetry HR controlled at rest, up on ambulation but recovers Digoxin load completed adjusting daily dose to renal labs Digoxin level on 08/27 Cardiology consult completed: Recommendations for diuresis and guideline dir ected medical therapy, then possibilty for mitral valve repair to be discussed OPT. Please read notes (4) Contraindication to deep vein thrombosis (DVT) prophylaxis: Status: Acute Assessment and plan: Anticoagulated on Eliquis for atrial fibrillation CBC in a.m. (5) Discharge planning issues: Status: Acute Assessment and plan: Care management to follow. 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 Figueredo Subjective Subjective Patient reports: no new complaints, feels better, tolerating liquids well, tolerating a regular diet, voiding w/o difficulty, flatus, bowel movement and shortness of breath; denies diarrhea, nausea, vomiting or fever Exam Narrative Exam Narrative: Constitutional The patient is ambulating in room, wants to walk in halls despite HR at 140- 150 feels comfortable and cooperative during the interview. HENMT: Facial structures with normal appearance Eyes: Well aligned Neuro:alert and oriented to self, person, place, time and situation. No neurological focal deficit Chest:Chest is symmetrical and normal appearance Resp: Speaks in full sentences, labored breathing with mobilization bu improved from this AM , bibasilar crackles Cardio: HR 146-159 ambulating, HR 125 at, S1, S2, atrial fibrillation w RVR on telemetry, heart rate transient max at 159, Extremities: strength 5/5 to bilateral lower and upper extremities Psych: RASS 0, congruent mood and normal affect. Objective Last Vital Signs Temp 35.7 C L 08/27/23 15:27 Pulse 80 08/27/23 15:27 Resp 18 08/27/23 15:27 BP 124/84 08/27/23 15:32 Pulse Ox 96 08/27/23 15:27 Laboratory Results - last 24 hr 08/27/23 08/27/23 06:18 11:16 WBC 5.93 RBC 4.87 Hgb 14.8 Hct 45.2 MCV 93 MCH 30.4 MCHC 32.7 RDW 14.7 H Plt Count 140 MPV 12.4 H Immature Gran % 0.3 Neutrophils % 55.5 Lymphocytes % 15.2 Monocytes % 17.2 Eosinophils % 10.3 Basophils % 1.5 Nucleated RBC % 0.0 Absolute Neutrophils 3.29 Absolute Lymphocytes 0.90 L Absolute Monocytes 1.02 H Absolute Eosinophils 0.61 Absolute Basophils 0.09 Sodium 144 Potassium 4.0 Chloride 106 Carbon Dioxide 30.4 Anion Gap 7.6 BUN 28 H Creatinine 1.0 Est GFR (CKD-EPI 2020) 55.90 Glucose 86 Calcium 9.2 Digoxin 2.28 H* Time Spent with Patient Time Spent with Patient: >50 minutes Time was spent: preparing to see the patient(eg.review tests), obtaining and/or reviewing separately otained hiistory, ordering medications,tests, procedures, referring, communicating with other health rn acute care, indepentently interpreting results, counseling the patient and care coordination
[2023-08-27] MEDS: Metoprolol CR 25 MG TABCR 12.5 MG PO (17:44)
[2023-08-27] MEDS: Sacubitril/Valsartan 24 mg/26 mg TAB 1 EACH PO (20:18)
[2023-08-27] MEDS: Apixaban 2.5 MG TAB PO (20:19)
[2023-08-28] VITALS (12 sets, daily range): BP systolic 81–112; BP diastolic 48–81; PULSE 48–115; RESP 16–22; TEMP 35.6–36.7; O2SAT 88–96
[2023-08-28] MEDS: Levothyroxine 100 MCG TAB PO (06:26)
[2023-08-28] MEDS: Calcium 600mg/Vit D 200U TAB 1 TAB PO ×2 (08:43→21:07)
[2023-08-28] MEDS: Metoprolol CR 25 MG TABCR 12.5 MG PO (08:43)
[2023-08-28] MEDS: Apixaban 2.5 MG TAB PO ×2 (08:45→21:07)
[2023-08-28] MEDS: Furosemide 20 MG/2 ML VIAL IVP (08:46)
[2023-08-28] MEDS: Spironolactone 25 MG TAB 12.5 MG PO (08:46)
[2023-08-28] MEDS: Empaglifozin 10 MG TAB PO (08:46)
[2023-08-28] MEDS: Benzonatate 100 MG CAP PO ×3 (08:46→21:07)
[2023-08-28] MEDS: Sacubitril/Valsartan 24 mg/26 mg TAB 1 EACH PO (08:46)
[2023-08-28] MEDS: Normal Saline Flush 10 ML SYR IVP ×2 (08:47→21:05)
--- NOTE | 2023-08-28 09:22 | W.PM.PROGNOT ---
Date of Service Date of service: 08/28/23 Time of Service: Assessment and Plan Assessment and plan (1) CHF (congestive heart failure): Status: Chronic Assessment and plan: Echo Continue IV Lasix as per cardiology consult Guideline directed medical therapy(GDMT): -Entresto PO BID well tolerated, could be reduced in half BID if hypotension -Metoprolol succinate 25 mg PO daily was on 50mg prior to the initiation of the GDMT -jardiance 10 mg Po daily -Spirinolactone 12.5 mg PO daily minimal recommended dose GMDT to be adjusted as per PCP or tank riveter upon discharge and f/u Will recommend cardiac rehab OPT if possible Qualifiers: Heart failure chronicity: acute on chronic Heart failure type: combined systolic and diastolic Qualified Code(s): I50.43 - Acute on chronic combined systolic (congestive) and diastolic (congestive) heart failure (2) Dyspnea: Status: Acute Assessment and plan: Improved , No PE on CTA on admission No need for oxygen supplementation so far Continue home nebulizers as needed Acapella (3) Atrial fibrillation with RVR: Status: Acute Assessment and plan: Telemetry HR controlled at rest, up on ambulation but recovers Digoxin load completed at around 10mcg/kg and adjusted daily dose to 0.0625mg po daily as per pharmacy consultation and renal labs Digoxin level 12 hours following loading was 2.28, repeat on 08/27, but steady state usually achieve in a week, dig level on d/c prior to f/u with PCP Cardiology consult completed (Please read notes): -Implementation of recommendations for further diuresis and GDMT with further adjustment as per providers on discharge -Further recommendation regarding the possibility for mitral valve repair to be discussed OPT also issued by cardiology . (4) Contraindication to deep vein thrombosis (DVT) prophylaxis: Status: Acute Assessment and plan: Home dosing of Apixaban adjusted to renal function as per pharmacy consult. Fully anticoagulated on Eliquis for atrial fibrillation CBC in a.m. (5) Discharge planning issues: Status: Acute Assessment and plan: Discussion with care management and patient. Patient expressed concerns that she has difficulty with changes such as the one made to her drug regimen. 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 Figueredo Exam Narrative Exam Narrative: Constitutional The patient experienced dizziness and hypotension on ambulation HENMT: Facial structures with normal appearance, but pale looking Eyes: Well aligned Neuro:alert and oriented to self, person, place, time, no focal deficit Chest:Chest is symmetrical and normal appearance Resp: Labored breathing with mobilization, new O2 requirement , diminished bibasilar breath sounds Cardio: HR max 167 ambulating, atrial fibrillation w RVR on telemetry with multiple non-sustained 3-5-beat run of V-tach bursts , Extremities: generalized weakness Psych: RASS 0, congruent mood and normal affect. Psych Mental Status: mental status grossly normal Speech and Movement: speech and movement normal Mood: anxious mood Affect: normal affect Objective Last Vital Signs Temp 35.6 C L 08/28/23 07:14 Pulse 53 L 08/28/23 07:14 Resp 16 08/28/23 07:14 BP 112/66 08/28/23 07:14 Pulse Ox 89 L 08/28/23 07:14 Laboratory Results - last 24 hr 08/27/23 11:16 Digoxin 2.28 H*
[2023-08-28 09:56] LABS: Abs Immature Grans 0.02 10^3/uL (0.0-0.06); Absolute Basophil Count 0.06 10^3/uL (0.0-0.2); Absolute Lymphocyte Count 0.73 10^3/uL (1.2-3.4); Absolute Monocyte Count 1.25 10^3/uL (0.1-0.8); Absolute Neutrophil Count 5.05 10^3/uL (1.2-6.7); Basophils % 0.8; Eosinophils % 5.3; HCT 48.9 % (36.0-46.0); HGB 16.1 g/dL (11.2-15.7); Immature Grans % 0.3; Lymphocytes % 9.7; MCH 30.3 pg (27.0-33.0); MCHC 32.9 % (32.0-36.0); MCV 92 fL (80-95); MPV 10.9 fL (8.0-11.0); Monocytes % 16.6; Neutrophils % 67.3; Platelet Count 258 10^3/uL (130-400); RBC 5.32 10^6/uL (3.93-5.22); RDW 14.6 % (11.7-14.6); RDW-SD 49.6 fL; WBC 7.51 10^3/uL (4.4-10.8)
[2023-08-28 10:05] LABS: Anion Gap 7.8 mmol/L (3-11); BUN 22 mg/dL (7-18); CO2 30.2 mmol/L (21.0-32.0); CREATININE 1.1 mg/dL (0.55-1.02); Calcium 9.7 mg/dL (8.5-10.1); Chloride 103 mmol/L (98-107); Estimated GFR 49.86 (mL/min/1.73m2); Glucose 128 mg/dL (74-106); Magnesium 1.9 mg/dL (1.8-2.4); Potassium 3.8 mmol/L (3.5-5.1); Sodium 141 mmol/L (136-145)
[2023-08-28 10:25] LABS: Digoxin 0.98 ng/mL (0.90-2.00)
[2023-08-28] MEDS: Digoxin 0.125 MG TAB 0.0625 MG PO (11:30)
--- NOTE | 2023-08-28 12:30 | CMPROGNOTE_ITS ---
Date of service: 08/28/23 Care Management Progress Note Progress Note Text Progress Note Text: S/O: Lilliana was sitting up eating and visiting with her son Jorge when CM arrived. Lilliana shared she hopes to discharge home tomorrow, she had an episode of tachycardia which later lead to a rapid response being called. She continues to be closely monitored. Lilliana shares she is hesitant to have HH services, however, knows she has new medications that require special attention. Lilliana s hares her daughter and granddaughter are planning to come visit her in the next day or so and they, in addition to Yousif, will be able to assist in getting her medications and her home safely. A: 82 year old female admitted to [facility] on 08/25/23 with AFib with RVR. P: Lilliana requires close cardiac monitoring and IV Lopressor. Anticipate, she will discharge home tomorrow if she is medically ready. New RN/PT/OT services will be ordered. Pt will follow up with community providers and her discharge plan of care as instructed. She plans to drive herself home, otherwise her friend Jorge will drive her home. New meds are covered by her insurance, copay is $3. CM following. SDOH(Care Management) Screening Will the Patient Participate in the Screening?: Declined to provide Do you worry about having a steady place to live?: choose not to answer In the past 12 months, have you had to go without electric, gas, oil or water in your home?: choose not to answer Have you or anyone in your house had to go without enough food to eat?: choose not to answer Has lack of transportation kept you from medical appointments or from doing things needed for daily living?: choose not to answer Has anyone in your support network made you feel unsafe for any reason?: choose not to answer
--- NOTE | 2023-08-28 13:15 | RT.EKG_ITS ---
APPROVED REPORT Exam: Resting ECG Reason for Exam: rapid response Patient Location: I HR:133 bpm ECG Measurements Heart Rate 133 AXIS [place] [id number] P [id number] QRSd 89 QRS -56 QT 314 T 184 QTc 468 Conclusion Age not entered, assumed to be 49 years old for purpose of ECG interpretation Atrial fibrillation...? atrial activity Left anterior fascicular block...axis(240,-40), init forces inf Abnormal R-wave progression, late transition...QRS area<0 in V5/V6
--- NOTE | 2023-08-28 13:19 | PT.INTREAT ---
PT Notes Visit Reasons: New onset CHF, Atrial-fibrillation with RVR Inpatient Physical Therapy Treatment Note Date: 08/28/2023 Precautions: Fall. Standard. Activity as tolerated. Subjective: Son Yousif from [place] present throughout session. Patient just got done her lunch. Patient stated she needs to stay one more night to continue to monitor her response to medications for her heart rate. She just had Digoxin earlier before noon and stated that she was a little lightheaded when she sat up for this session. She followed instructions to slowly stand up. After slowly walking about 250 feet and doing 2 sets of slow 30-second pedalling on the NuStep bike, patient was tired and complained of her head being weary. She was able to walk about 50 feet more to her room. She then complained of still being lightheaded and her eyes feeling funny. Nurse miller was updated as soon as PT session was done and was advised about heart rate changes and patient's symptoms. Objective: General Observation: IV R UE. Telemetry monitoring in place. Cosme Hunter present in room Mental Status: Alert and oriented x 3 Pain: Denied chest pain Vital Signs: O2 sat stayed above 90% on RA throughout session; HR very fluctuant throughout with low of 39 bpm and high of 67, Bed Mobility/Transfers: Sit-stand independent Stand-sit independent Chair-bed independent Bed-chair independent Supine-sit independent Gait: Advised patient to go slow with walking. Stand by assist with constant monitoring of HR and O2 sat using VS machine. Denied headache and chest pain. Mildly lightheaded. Covered 250 feet + 50 feet using no assistive device. THERA EX: NuStep x 30 seconds for 2 sets using no resistance and advised patient to go slow. After second set, she complained of fatigue and her head feeling weary/heavy. Activity immediately stopped. Patient asked to rest for 1-2 minutes before walling another 50 feet back to room. Patient was assisted back to bed, HOB elevated and VS remeasured. HR very fluctuant with low of 38 bpm and high of 65 bpm. Oxygen saturation remained above 90% throughout. Balance: Static Sitting: Normal Dynamic Sitting: Normal Static Standing: Normal Dynamic Standing: Good Assessment: Patient HR very fluctuant with lowest at 38-39 bpm and highest at 65-67 bpm throughout session. VS variation reported to Nurse Miller right away. Continues to not need an assistive device. No stairs, has ramp to enter. Patient was repositioned comfortably back in bed at end of session. Plan of Care/Treatment Plan: See patient one time a day until discharged from hospital. Continue with Physical Therapy intervention for strengthening, bed mobility, transfers, gait, stairs, balance training, use of assistive device. DISCHARGE RECOMMENDATIONS: PT for continued monitoring of vital signs during activity while progressive stregnthening and balance training are done. TREATMENT CODE/TIME: 83505 x 25 minutes for 2 units, 84244 x 14 minutes for 1 unit (12:29-13:03).
--- NOTE | 2023-08-28 13:47 | CHAPLAIN ---
I had a conversation with Lilliana this morning. 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 She said she has no family close by know but has developed close friendships with people here. This afternoon a Rapid Response code was called for Lilliana. I will check in with her later.
--- NOTE | 2023-08-28 14:27 | W.PM.DS.N ---
Date of service: 08/28/23 Time of Service: 17:00 DS: Diagnosis Discharge Diagnosis (1) CHF (congestive heart failure): Status: Chronic (2) Dyspnea: Status: Acute (3) Atrial fibrillation with RVR: Status: Acute (4) Contraindication to deep vein thrombosis (DVT) prophylaxis: Status: Acute (5) Discharge planning issues: Status: Acute Discharge Plan Disposition Patient Disposition: Home Condition: Improving Discharge Details Reason For Visit: New onset CHF, Atrial-fibrillation with RVR Admit Date/Time: 08/25/23 12:15 Admit Provider: Ryan Figueredo Attending Provider: Ryan Figueredo Primary Care Provider: Magdalena Tariq V Hospital Course Hospital Course: This 81 years old female patient with past medical history of atrial fibrillation with LVEF of 55-60% on 06/2021 on metoprolol and fully anticoagulated on Eliquis, bronchiectasis, 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 The patient reported that symptoms were exacerbated with movement and improving with rest. The patient reported being treated for CAP with Augmentin over a week ago with improvement of symptoms initially. The patient denied any chest pains fevers or chills in the ED. The patient was also found to be in atrial fibrillation with RVR in the ED with rates ranging from 130s to 150s. Bilateral leg edema up to mid calf without calf tenderness also noticed. Remarkable labs in the [place] [address]. VBG revealed pH of 7.28 and a pCO2 of 59. Saturation oxygen remained 95% on room air. CTA revealed moderate bilateral pleural effusions, cardiomegaly with reflux contrast into the IVC likely a component of right heart failure, septal thickening with concerns for edema due to congestive heart failure, pulmonary artery trunk measurement of 3.3 cm suggesting pulmonary artery hypertension with recommendation for clinical correlation. In the ED the patient was treated with IV Lasix, and IV metoprolol.The patient has a recorded allergy to diltiazem. A [id number] ultrasound was completed by the provider and revealed what appears to be decreased ejection fraction without large pericardial effusion. The hospitalist was consulted and the patient was admitted to the medical surgical floor as an inpatient with telemetry for evaluation and management of atrial fibrillation with rapid ventricular response and congestive heart failure. When met on the floor, the patient reported recent changes to her home med regimen but could not detail except to state that her medicine felt wrong for couple of weeks. The patient reported being more alarmed as she felt pulling in her chest this morning, slight dizziness, as well as increased swelling in her legs. The patient the patient denied change in vision, recent falls, chest pain, hemoptysis, nausea, vomiting, abdominal pain or other GI distress, or dysuria. Patient would like to receive CPR. During the stay, the patient continued to receive diuresis. The home low dose metoprolol succinate was divided into 4 doses of metoprolol tartrate in an attempt to achieve rate control. An echocardiogram was completed showing an LVEF of 30%, and mitral valve and triscupid valve regurgitation. Over the first 24 hours rate control was that she the patient was then digitalized without successful rate control. Cardiology service was consulted with recommendation for further diuresis as patient was still overloaded with expectation for better rate control with euvolemia. Recommendation also made for initiation of guideline directed medical therapy which was initiated at low doses. Telemetry showed heart rate 100's to 120s at rest. When sitting up or on ambulation heart rate is up to the mid 160s. The patient later developed dizziness with transient apical and radial pulses in the high 40s low 50s, telemetry showed shorter R-R intervals most likely d/t transient non-perfusing beats, longest R-R interval pointed to a HR of 53 for less than 3 seconds. Systolic blood pressure 87-90 and diastolic blood pressure in the 50s. At the time the patient required oxygen supplementation with her saturation dropping to 88%. Upon further discussion with Dr. Kelley from cardiology recommendations were made to hold of digoxin and seek transfer to [facility], for ongoing atrial-fibrillation uncontrolled rapid ventricular response and hemodynamic instability as per case was getting complicated. Amiodarone loading and treatment was not recommended by cardiology. The transfer center at [facility] was contacted, after discussion with steam drier operator Jorge WILLINGHAM. The patient was accepted on the team of Dr. Nehemiah Rachele to a medical step-down.Patient agrees to transfer.E[place] and tele[place] [facility] [place] [phone]. Discussed with Dr. Figueredo Home Meds and New Rx's Prescriptions: New Eliquis 2.5 mg Tablet 2.5 mg PO BID Qty: 60 0RF digoxin 125 mcg (0.125 mg) Tablet 0.0625 mg PO DAILY Qty: 15 0RF furosemide 20 mg Tablet 20 mg PO BID@0830,1600 Qty: 60 0RF Entresto 24-26 mg tablet 1 tab PO BID Qty: 60 0RF spironolactone 25 mg tablet 12.5 mg PO DAILY Qty: 15 0RF Jardiance 10 mg tablet 10 mg PO DAILY Qty: 30 0RF Continued calcium carbonate-vitamin D3 [Caltrate with Vitamin D3] 600 mg-20 mcg (800 unit) tablet 1 tab PO BID chlorthalidone 25 mg tablet 25 mg PO DIRECTED levalbuterol tartrate 45 mcg/actuation HFA aerosol inhaler 2 inh inhalation Q6H Qty: 15 12RF Rx Instructions: Use prior to VibraPEP and prn for shortness of breath metoprolol succinate 25 mg tablet extended release 24 hr 50 mg PO DAILY Patient Comments: 08/06/23 per PCP noted RH levothyroxine 100 MCG tablet 100 mcg PO DAILY Discontinued Eliquis 5 mg tablet 5 mg PO BID Discharge Instructions Activity:: Activity as Tolerated Equipment/Supplies:: No Equipment Needed Diet:: heart healthy Discharge Orders Discharge Orders: Discharge Order (Routine); Ordered 08/28/23 Ordered By: Coral Freitas DS: Summary Time Spent with Patient providing and/or coordinating discharge services: Greater than 30 minutes Status at Discharge Functional status at discharge: independent ambulation Overall status at discharge: patient is not back to baseline Mental Status: mental status grossly normal Speech and Movement: speech and movement normal Mood: anxious mood Affect: normal affect Quality:SDOH Health Related Social Needs: No Data to Display Exam Narrative Exam Narrative: Constitutional The patient experienced dizziness and hypotension on ambulation HENMT: Facial structures with normal appearance, but pale looking Eyes: Well aligned Neuro:alert and oriented to self, person, place, time, no focal deficit Chest:Chest is symmetrical and normal appearance Resp: Labored breathing with mobilization, new O2 requirement , diminished bibasilar breath sounds Cardio: HR max 167 ambulating, atrial fibrillation w RVR on telemetry with multiple non-sustained 3-5-beat run of V-tach bursts , Extremities: generalized weakness Psych: RASS 0, congruent mood and normal affect. Psych Mental Status: mental status grossly normal Speech and Movement: speech and movement normal Mood: anxious mood Affect: normal affect DS: Data Vitals/I&O Vitals and I&O: Vital Signs Temperature 36.6 C 08/28/23 11:38 Temperature Source Tympanic 08/28/23 11:38 Pulse 62 08/28/23 14:20 Pulse Rhythm Irregular 08/28/23 09:37 Pulse 107 H 08/25/23 12:40 Respiratory Rate 16 08/28/23 14:20 Respiratory Effort Normal, Non-Labored 08/28/23 09:37 Respiratory Depth Normal 08/28/23 09:37 Respiratory Pattern Normal 08/28/23 09:37 Blood Pressure 103/63 08/28/23 14:20 Blood Pressure Mean 99 08/25/23 12:37 Blood Pressure Position Sitting 08/25/23 10:11 Pulse Oximetry 93 08/28/23 14:20 Oxygen Delivery Method Nasal Cannula 08/28/23 14:20 Oxygen Flow Rate 2 08/28/23 14:20 Pain Level 0 08/28/23 11:38 Comment BP called over radio 08/27/23 18:33 Intake & Output 08/27/23 08/28/23 08/28/23 23:59 11:59 23:59 Output Total 1900 / 2200 1250 / 1250 Balance -1900 / -1989 -1250 / -1250 Weight 55.2 kg Output: Urine 1900 / 2200 1250 / 1250 Other: Urine Color Yellow Yellow Urine Appearance Clear Clear Comment toilet insert pT independent in room, rings as needed. Voiding Methods Toilet Data Completed and Pending Labs on day of discharge: Labs from last 24 hours 08/28/23 09:35 WBC 7.51 RBC 5.32 H Hgb 16.1 H Hct 48.9 H MCV 92 MCH 30.3 MCHC 32.9 RDW 14.6 Plt Count 258 D MPV 10.9 Immature Gran % 0.3 Neutrophils % 67.3 Lymphocytes % 9.7 Monocytes % 16.6 Eosinophils % 5.3 Basophils % 0.8 Nucleated RBC % 0.0 Absolute Neutrophils 5.05 Absolute Lymphocytes 0.73 L Absolute Monocytes 1.25 H Absolute Eosinophils 0.40 Absolute Basophils 0.06 Sodium 141 Potassium 3.8 Chloride 103 Carbon Dioxide 30.2 Anion Gap 7.8 BUN 22 H Creatinine 1.1 H Est GFR (CKD-EPI 2020) 49.86 Glucose 128 H Calcium 9.7 Magnesium 1.9 Digoxin 0.98 PFSH All Active Problems (Updated 08/27/23 @ 13:34 by Almaz Kelley MD) Contraindication to deep vein thrombosis (DVT) prophylaxis (Acute) Discharge planning issues (Acute) Atrial fibrillation with RVR (Acute) Dyspnea (Acute) CHF (congestive heart failure) (Chronic) AV fistula (Acute) Bronchiectasis (Acute) Tracheomegaly (Acute) Nasal polyp (Acute) Incarcerated incisional hernia (Acute) Rash (Acute) Paresthesia of hand (Acute) Dyspnea on exertion (Acute) Perivascular dermatitis (Acute) H/O mitral valve repair (Acute) Volume overload (Acute) Incisional hernia of anterior abdominal wall with obstruction (Acute) S/P laparoscopic appendectomy (Acute) Acute appendicitis (Acute) Rectal polyp (Acute ~06/12/18) H/O sigmoidoscopy (Acute ~06/12/18) Coronary arteriosclerosis (Acute) Stent placed RCA; 80%lesion Atrial fibrillation (Acute) H/O mitral valve replacement (Acute) Hypothyroidism (Acute) Medical History Cataract Diverticulosis Urinoma Asthma Trigeminal neuralgia Mitral valve disorder Hypothyroidism Surgical History History of hernia repair History of appendectomy History of open heart surgery Mitral Valve repair Colonoscopy - IV Sedation (04/24/16) Cholecystectomy Family History Father Parkinsons Son Cardiovascular disease Sister Colon cancer diseased Social History Smoking/Tobacco Use Status: Never Smoking risk assessment performed?: Yes Alcohol Intake: current Alcohol Intake frequency: holidays/special occasions only Drug use: Never Substance use type: does not use Housing: apartment What type of physical activity do you participate in: walking and additional Details: golfing, kayaking, bikes all summer (although is not allowed now). Do you feel safe at home: Yes Do you feel safe in your relationship?: Yes Time Spent with Patient Time Spent with Patient: >85 minutes Time was spent: preparing to see the patient(eg.review tests), obtaining and/or reviewing separately otained hiistory, ordering medications,tests, procedures, referring, communicating with other health care team coordinator scheduler, indepentently interpreting results, counseling the patient and care coordination
[2023-08-28 19:35] LABS: Troponin I < 50 ng/L (< or =60)
[2023-08-29 01:21] VITALS: BP 129/59; PULSE 109; RESP 17; TEMP 36.1; O2SAT 100
== END 2023-08-29 01:32 | disposition home or self-care (01) | DRG 293 ==
LOC: ER 11:48 → MS 13:05
PROVIDERS: Nurse Practitioner Acute Care; Admitting Provider Family Medicine; Emergency Provider Emergency Medicine; PCP Family Medicine; Visit Provider Family Medicine
DX: I50.43 Acute on chronic combined systolic (congestive) and diastolic (congestive) heart failure (principal); I48.91 Unspecified atrial fibrillation; Z95.4 Presence of other heart-valve replacement; I08.1 Rheumatic disorders of both mitral and tricuspid valves; I25.10 Atherosclerotic heart disease of native coronary artery without angina pectoris; E03.9 Hypothyroidism, unspecified; Z95.5 Presence of coronary angioplasty implant and graft; Z79.01 Long term (current) use of anticoagulants; Z79.899 Other long term (current) drug therapy; J47.9 Bronchiectasis, uncomplicated; L30.8 Other specified dermatitis; R06.00 Dyspnea, unspecified; I95.9 Hypotension, unspecified
CPT/HCPCS: 00123; 36415; 71275; 80048; 80053; 82805; 84145; 87637; 93005; 93306; 93308; 96374; 96375; 97110; 97162; 97530; 99291; 80162; 83735; 83880; 84443; 84484; 85025; 85610; 85730; 93010; 99223; 99233; 99239; J1160; J1941; J3490

== ENCOUNTER → 2023-08-27 07:47 | Outpatient (BNVA) | payer MEDICARE, BC, SELFPAY | PROVIDERS: PCP Family Medicine; Referring Provider Family Medicine; Visit Provider Internal Medicine Cardiovascular Disease ==

== ENCOUNTER → 2023-08-28 13:53 | Outpatient (BNVA) | payer MEDICARE, BC, SELFPAY | PROVIDERS: PCP Family Medicine; Referring Provider Family Medicine; Visit Provider Internal Medicine Cardiovascular Disease ==

== ENCOUNTER → 2023-09-05 01:46 | Outpatient (CLI) | payer MEDICARE, BC, SELFPAY ==
--- NOTE | 2023-09-05 | DI.CT_ITS ---
Exam(s) CT CHEST W EXAM: CT CHEST W CLINICAL HISTORY: RT HILAR MASS ON XRAY, ABNL FINDINGS, R01.8. TECHNIQUE: Multi planar reconstructions were performed. CONTRAST MATERIAL: Omnipaque 350; 75 cc COMPARISON: CR XR CHEST 2V PA LATERAL from 06/01/[address] CHEST W HIGH RES from 12/12/2021 CR,XR XR CHEST 2V PA LATERAL from 08/04/[address] CHEST PE CTA from 08/25/2023 FINDINGS: CHEST: LUNGS: Scarring in both lung apices is unchanged. There are no new pulmonary infiltrates nor pleural effusions. The previously described small nodular density in the left lower lobe seen on CT scan of December 2021 is less evident on the present study. There are no new lung nodules on either side. No new findings in the trachea and mainstem bronchi. MEDIASTINUM: There is no new hilar marked nor mediastinal adenopathy. The crossing innominate vein e xhibits slightly larger caliber than previous which may account for the finding on the recent chest x -ray. There is no evidence of intraluminal thrombus in this vein. Visualized thyroid unremarkable. CARDIAC: Sternotomy wires are again noted. Also cardiomegaly with slight increased from previous. N o pericardial effusion.The diameter of the ascending thoracic aorta is within normal limits as are th e diameters of the thoracic arch and descending thoracic aorta. No evidence of dissection. VISUALIZED UPPER ABDOMEN:There is cholecystectomy. No adrenal masses. OSSEOUS: No significant osseous lesions.No new fractures.. IMPRESSION: 1. No new significant lung findings and no new mediastinal nor hilar adenopathy when compared to the CT scan of December 2021. There also no pleural effusions. 2. Sternotomy wires and cardiomegaly again noted. No evidence of significant thoracic aortic aneurys m. No dissection. RADIATION DOSE DELIVERED: 328.97mGy.cm Total DLP DATA REPOSITORY: All CT scans at this facility are submitted to the National Radiology Data Registry (NRDR) Dose Index Registry (DIR) with the [employer] (ACR). RADIATION OPTIMIZATION: All CT scans at this facility use at least one of these dose optimization te chniques: automated exposure control; mA and/or kV adjustment per patient size (includes targeted exa ms where dose is matched to clinical indication); or iterative reconstruction.
[2023-09-05] MEDS: Omnipaque 350 MG/ML 100 ML BTL IJ (10:38)
[2023-09-05] MEDS: Normal Saline - Diluent 50 ML VIAL IJ (10:38)
== END ==
PROVIDERS: PCP Family Medicine; Visit Provider Family Medicine
DX: I51.7 Cardiomegaly (principal)
CPT/HCPCS: 71260; J3490

== ENCOUNTER 2023-09-14 11:24 | Outpatient (REF) | payer MEDICARE, BC, SELFPAY ==
[2023-09-14 14:46] LABS: Anion Gap 10.3 mmol/L (3-11); BUN 31 mg/dL (7-18); CO2 30.7 mmol/L (21.0-32.0); Calcium 9.7 mg/dL (8.5-10.1); Chloride 104 mmol/L (98-107); Digoxin < 0.20 ng/mL (0.90-2.00); Glucose 85 mg/dL (74-106); Potassium 3.9 mmol/L (3.5-5.1); Sodium 145 mmol/L (136-145)
== END 2023-09-14 11:25 | disposition home or self-care (01) ==
LOC: NCHCN 11:24
PROVIDERS: PCP Family Medicine; Visit Provider Family Medicine
DX: I48.91 Unspecified atrial fibrillation (principal)
CPT/HCPCS: 80048; 80162; 83735

== ENCOUNTER → 2023-09-18 10:46 | Outpatient (BNVA) | payer MEDICARE, BC, SELFPAY | PROVIDERS: PCP Family Medicine; Referring Provider Family Medicine; Visit Provider Student in an Organized Health Care Education/Training Program | DX: J39.8 Other specified diseases of upper respiratory tract (principal); J47.9 Bronchiectasis, uncomplicated | CPT/HCPCS: 99214 ==

== ENCOUNTER 2023-11-22 17:16 | Outpatient (REF) | payer MEDICARE, BC, SELFPAY ==
[2023-11-22 20:20] LABS: HCT 45.3 % (36.0-46.0); HGB 14.7 g/dL (11.2-15.7); MCH 29.9 pg (27.0-33.0); MCHC 32.5 % (32.0-36.0); MCV 92 fL (80-95); MPV 11.1 fL (8.0-11.0); Platelet Count 245 10^3/uL (130-400); RBC 4.92 10^6/uL (3.93-5.22); RDW 14.3 % (11.7-14.6); RDW-SD 48.3 fL; WBC 5.33 10^3/uL (4.4-10.8)
[2023-11-22 20:38] LABS: ALT 51 U/L (14-59); AST 35 U/L (15-37); Alkaline Phosphatase 124 U/L (46-116); Anion Gap 0 mmol/L (3-11); BUN 28 mg/dL (7-18); Bilirubin, Total 0.48 mg/dL (0.2-1.0); CREATININE 1.2 mg/dL (0.55-1.02); Calcium 9.7 mg/dL (8.5-10.1); Chloride 104 mmol/L (98-107); Estimated GFR 44.91 (mL/min/1.73m2); Glucose 142 mg/dL (74-106); Potassium 3.3 mmol/L (3.5-5.1); Sodium 136 mmol/L (136-145); TSH (W/Ref FT4) 3.91 uIU/mL (0.36-3.74); Total Protein 7.1 g/dL (6.4-8.2)
== END 2023-11-22 17:17 | disposition home or self-care (01) ==
LOC: NCHCN 17:16
PROVIDERS: PCP Family Medicine; Visit Provider Family Medicine
DX: I48.91 Unspecified atrial fibrillation (principal); E03.9 Hypothyroidism, unspecified
CPT/HCPCS: 80053; 85027; 84439; 84443

== ENCOUNTER 2024-02-19 14:15 | Outpatient (REF) | payer MEDICARE, BC, SELFPAY ==
[2024-02-19 15:44] LABS: HCT 45.4 % (36.0-46.0); HGB 14.3 g/dL (11.2-15.7); MCH 30.4 pg (27.0-33.0); MCHC 31.5 % (32.0-36.0); MCV 96 fL (80-95); MPV 10.5 fL (8.0-11.0); Platelet Count 228 10^3/uL (130-400); RBC 4.71 10^6/uL (3.93-5.22); RDW 13.5 % (11.7-14.6); RDW-SD 48.4 fL; WBC 4.87 10^3/uL (4.4-10.8)
[2024-02-19 16:27] LABS: ALT 43 U/L (14-59); AST 32 U/L (15-37); Albumin 3.9 g/dL (3.4-5.0); Alkaline Phosphatase 121 U/L (46-116); Anion Gap 9.7 mmol/L (3-11); BUN 32 mg/dL (7-18); CO2 29.3 mmol/L (21.0-32.0); Calcium 9.6 mg/dL (8.5-10.1); Chloride 105 mmol/L (98-107); Estimated GFR 55.55 (mL/min/1.73m2); Glucose 82 mg/dL (74-106); Magnesium 2.3 mg/dL (1.8-2.4); Potassium 4.1 mmol/L (3.5-5.1); Sodium 144 mmol/L (136-145); TSH (W/Ref FT4) 5.47 uIU/mL (0.36-3.74)
[2024-02-19 16:54] LABS: FREE T4 1.42 ng/dL (0.76-1.46)
== END 2024-02-19 14:16 | disposition home or self-care (01) ==
LOC: NCHCN 14:15
PROVIDERS: PCP Family Medicine; Visit Provider Family Medicine
DX: I48.91 Unspecified atrial fibrillation (principal); E03.9 Hypothyroidism, unspecified; R41.3 Other amnesia
CPT/HCPCS: 80053; 85027; 83735; 84439; 84443

== ENCOUNTER 2024-02-27 12:29 | Outpatient (CLI) | payer MEDICARE, BC, SELFPAY ==
--- NOTE | 2024-02-27 | DI.RAD_ITS ---
Exam(s) XR CHEST 2V PA LATERAL EXAM: XR CHEST 2V PA LATERAL CLINICAL HISTORY: AFIB I48.0. TECHNIQUE: 2D digital imaging was performed. COMPARISON: CR,XR XR CHEST 2V PA LATERAL from 08/04/2023 FINDINGS: 2 views: Again noted are sternotomy wires and cardiomegaly. Mediastinum unchanged. Moderate-large hiatal hernia versus tortuous descending thoracic aorta again noted. Lungs are presently clear with no infiltrates nor pleural effusions and no evidence of pulmonary floyd a. IMPRESSION: No acute pulmonary findings. Sternotomy wires. Cardiomegaly again noted. DATA REPOSITORY: RADIATION DOSE DELIVERED:
== END 2024-02-27 12:49 ==
LOC: DI 12:31
PROVIDERS: PCP Family Medicine; Visit Provider Internal Medicine Cardiovascular Disease
DX: I48.0 Paroxysmal atrial fibrillation (principal)
CPT/HCPCS: 71046

== ENCOUNTER 2024-04-21 14:06 | Outpatient (CLI) | payer MEDICARE, BC, SELFPAY ==
--- NOTE | 2024-04-21 13:15 | DI.CT_ITS ---
Exam(s) CT BRAIN NECK CTA EXAM: CT BRAIN NECK CTA CLINICAL HISTORY: vascular sound right ear x 1 month, worse 1 week.H93.A9 PULSATILE TINNITUS. TECHNIQUE: Imaging Protocol: Axial CT angiography was performed with multi-slice acquisition and mu lti-planar and/or 3D reconstructions. CONTRAST MATERIAL: Intravenous: Omnipaque 350 Contrast volume:70 mL COMPARISON: No exams were available for comparison FINDINGS: CTA Neck W: Aortic arch anatomy: The aortic arch anatomy is conventional and there is no significant stenosis at the origin of the great vessels off of the aortic arch. No intimal flap evident. Anterior circulation: Both common carotid arteries ascend with normal luminal diameters. At the level the carotid bulbs and proximal internal carotid arteries there is minimal plaque without hemodynamically significant stenosis evident. The internal carotid arteries in the upper neck are patent as well as within the skull base-carotid c anals. No aneurysm seen at these levels. Posterior circulation: Both vertebral arteries originate in conventional fashion off of the subclavian arteries and there is no obvious stenosis at the origin of the vertebral arteries. Both vertebral arteries exhibit normal luminal diameters within the foramen transversarium. Both vertebral arteries contribute to the formation of the basilar artery at the skull base. CTA Brain W: Anterior circulation: Both internal carotid arteries are patent in the skull base-carotid canals as well as within the cave rnous sinuses. The supraclinoid aspects of the ICAs are patent. Both A1 segments are patent as are the anterior cer ebral arteries and there is no evidence of aneurysm at the level of the anterior communicating artery . Both middle cerebral arteries are patent with no evidence of significant stenosis nor intraluminal th rombus. There also no aneurysms of these vessels. Posterior circulation: The basilar artery ascends without significant stenosis.. Distally it gives off patent bilateral sup erior cerebellar arteries. Above this level the basilar artery terminates as patent bilateral posterior cerebral arteries. There is no evidence of aneurysm at the tip of the basilar artery nor elsewhere in the [id number] is. CT BRAIN: Right occipital craniectomy noted. There is no evidence of intracranial hemorrhage, mass effect, or shift of midline structures. There are no extra-axial fluid collections. Ventricles are not enlarged or shifted. There are no ring enh ancing lesions in the brain and no abnormal meningeal enhancement. There is nonhemorrhagic lacunar infarct in the anterior limb of the right internal capsule, age indet erminate. IMPRESSION: 1. Patent carotid arteries in the neck. No hemodynamically significant stenosis. 2. Patent vertebral arteries. No significant stenosis nor dissection. 3. Patent intracranial arteries. No significant stenosis nor intraluminal thrombus. No aneurysms. No evidence of obvious vascular malformation in the brain. No ring enhancing lesions in the brain. 4. There is a nonhemorrhagic lacunar infarct in the anterior limb of the right internal capsule, age indeterminate. 5. Sternotomy wires are noted. RADIATION DOSE DELIVERED: 1,991.37mGy.cm Total DLP DATA REPOSITORY: All CT scans at this facility are submitted to the National Radiology Data Registry (NRDR) Dose Index Registry (DIR) with the [employer] (ACR). RADIATION OPTIMIZATION: All CT scans at this facility use at least one of these dose optimization te chniques: automated exposure control; mA and/or kV adjustment per patient size (includes targeted exa ms where dose is matched to clinical indication); or iterative reconstruction.
[2024-04-21 14:30] LABS: CREATININE 1.2 mg/dL (0.55-1.02); Estimated GFR 44.64 (mL/min/1.73m2)
[2024-04-21] MEDS: Omnipaque 350 MG/ML 100 ML BTL IJ (15:23)
[2024-04-21] MEDS: Normal Saline - Diluent 50 ML VIAL IJ (15:34)
== END 2024-04-21 14:26 ==
LOC: DI 14:09
PROVIDERS: PCP Family Medicine; Visit Provider Physician Assistant
DX: H93.A1 Pulsatile tinnitus, right ear (principal)
CPT/HCPCS: 70496; 70498; 82565; J3490

== ENCOUNTER 2024-07-03 12:04 | Outpatient (REF) | payer MEDICARE, BC, SELFPAY ==
[2024-07-03 15:42] LABS: HCT 43.9 % (36.0-46.0); HGB 14.1 g/dL (11.2-15.7)
[2024-07-03 16:03] LABS: ALT 47 U/L (14-59); AST 32 U/L (15-37); Alkaline Phosphatase 170 U/L (46-116); Anion Gap 5.8 mmol/L (3-11); BUN 35 mg/dL (7-18); Bilirubin, Total 0.41 mg/dL (0.2-1.0); CO2 32.2 mmol/L (21.0-32.0); Calcium 9.6 mg/dL (8.5-10.1); Chloride 104 mmol/L (98-107); Estimated GFR 55.55 (mL/min/1.73m2); Glucose 93 mg/dL (74-106); Potassium 3.9 mmol/L (3.5-5.1); Sodium 142 mmol/L (136-145); TSH (W/Ref FT4) 6.79 uIU/mL (0.36-3.74); Total Protein 7.1 g/dL (6.4-8.2)
[2024-07-04 22:44] LABS: T4, Free 1.8 ng/dL (0.8-2.2)
== END 2024-07-03 12:05 | disposition home or self-care (01) ==
LOC: NCHCN 12:04
PROVIDERS: PCP Family Medicine; Visit Provider Family Medicine
DX: E03.9 Hypothyroidism, unspecified (principal); I63.9 Cerebral infarction, unspecified
CPT/HCPCS: 80053; 84439; 84443; 85014; 85018

== ENCOUNTER 2024-07-11 00:30 | Outpatient (CLI) | payer MEDICARE, BC, SELFPAY ==
--- NOTE | 2024-07-11 | DI.CT_ITS ---
Exam(s) CT HEAD WO EXAM: CT HEAD WO CLINICAL HISTORY: Unspecified fall, W19.XXXA. TECHNIQUE: Imaging Protocol: Axial computed tomography images with coronal and sagittal reformatted images were created and reviewed COMPARISON: CT CT BRAIN NECK CTA from 04/21/2024 FINDINGS: There are no skull fractures. Again noted is evidence of right occipital craniotomy/craniectomy. There is no evidence of intracranial hemorrhage, mass effect, or shift of midline structures. There are no extra-axial fluid collections. The ventricles are not enlarged or shifted and there is no blo od within the ventricular system nor within the basal cisterns. Previously described lacunar infarct in anterior limb of the right internal capsule is unchanged. Lee btle area of hypodensity in left periventricular white is also unchanged. IMPRESSION: No acute intracranial findings on this noninfused CT scan of the brain. Bilateral findings described above are unchanged from prior CT scan of April 2024. Again noted is evidence of prior right occipital craniotomy/craniectomy. RADIATION DOSE DELIVERED: 857.9mGy.cm Total DLP DATA REPOSITORY: All CT scans at this facility are submitted to the National Radiology Data Registry (NRDR) Dose Index Registry (DIR) with the [employer] (ACR). RADIATION OPTIMIZATION: All CT scans at this facility use at least one of these dose optimization te chniques: automated exposure control; mA and/or kV adjustment per patient size (includes targeted exa ms where dose is matched to clinical indication); or iterative reconstruction.
== END 2024-07-11 00:50 ==
LOC: DI 00:30
PROVIDERS: PCP Family Medicine; Visit Provider Family Medicine
DX: W19.XXXA Unspecified fall, initial encounter (principal); I63.81 Other cerebral infarction due to occlusion or stenosis of small artery
CPT/HCPCS: 70450

== ENCOUNTER 2024-09-15 18:12 | Outpatient (CLI) | payer MEDICARE, BC, SELFPAY ==
--- NOTE | 2024-09-15 18:45 | DI.RAD_ITS ---
Exam(s) XR ELBOW LT COMPLETE EXAM: XR ELBOW LT COMPLETE CLINICAL HISTORY: eval pathology, M25.429 - Effusion, unspecified elbow. TECHNIQUE: 2D digital imaging was performed. COMPARISON: No exams were available for comparison FINDINGS: 3 views No evidence of fracture. There is prominent soft tissue swelling posterior to the elbow in the olecr anon fossa and extending down the dorsal aspect of the forearm. There is no gas in the soft tissues and no radiopaque foreign bodies although phleboliths are noted in the dorsal medial aspect of the fo rearm. There are no fractures but there are significant degenerative changes in the elbow including some rocky nt space narrowing and there is osteophyte off the lateral aspect of the radial head and there are so me degenerative subarticular cysts in the capitellum. Also some degenerative changes in the medial a spect of the elbow joint at the coronoid process level. With respect to the epicondyles, there is a bony excrescence off of the lateral epicondyle at the ins ertion site of the common extensor tendon. On the medial aspect of the elbow there is very faint elias cifications adjacent to the medial epicondyle within the common flexor tendon insertion. IMPRESSION: Prominent soft tissue swelling dorsally over the olecranon bursa and extending down the dorsal aspect of forearm. Correlation with trauma versus infection history recommended. There is no radiopaque f oreign body and there is no gas in the edematous soft tissues. No evidence of osteomyelitis. Other degenerative findings in the elbow joint as described above. DATA REPOSITORY: RADIATION DOSE DELIVERED:
--- NOTE | 2024-09-15 19:30 | DI.VRAD_ITS ---
PROCEDURE INFORMATION: Exam: XR Left Elbow Exam date and time: 09/15/2024 6:58 PM Age: 83 years old Clinical indication: Pain; Left; Effusion, unspecified elbow. Suspect bursitis vs hematoma TECHNIQUE: Imaging protocol: Radiologic exam of the left elbow. Views: 3 or more views. COMPARISON: No relevant prior studies available. FINDINGS: Bones/joints: No acute fracture. Osteoarthritis. Findings suspicious for small elbow effusion. Soft tissues: Soft tissue prominence in the posterior aspect of the elbow suggestive of olecranon bursitis. Please correlate clinically. IMPRESSION: 1. No acute fracture. 2. Findings suggesting olecranon bursitis. Please correlate clinically. 3. Osteoarthritis. 4. Findings suggesting a small elbow effusion. Dictated and Authenticated by: Mitchell Carroll MD. Orderin Marti Hernandez MD
== END 2024-09-15 18:32 ==
PROVIDERS: PCP Family Medicine; Visit Provider Nurse Practitioner Family
DX: M25.422 Effusion, left elbow (principal)
CPT/HCPCS: 73080

== ENCOUNTER 2025-02-27 18:35 | Outpatient (REF) | payer MEDICARE, BC, SELFPAY ==
[2025-02-27 18:58] LABS: HCT 41.2 % (36.0-46.0); HGB 13.2 g/dL (11.2-15.7); MCH 30.3 pg (27.0-33.0); MCHC 32.0 % (32.0-36.0); MCV 95 fL (80-95); MPV 11.1 fL (8.0-11.0); Platelet Count 215 10^3/uL (130-400); RBC 4.36 10^6/uL (3.93-5.22); RDW 13.8 % (11.7-14.6); RDW-SD 48.3 fL; WBC 4.45 10^3/uL (4.4-10.8)
[2025-02-27 19:23] LABS: ALT 37 U/L (14-59); AST 23 U/L (15-37); Albumin 3.8 g/dL (3.4-5.0); Alkaline Phosphatase 132 U/L (46-116); Anion Gap 6.4 mmol/L (3-11); BUN 27 mg/dL (7-18); Bilirubin, Total 0.5 mg/dL (0.2-1.0); CO2 31.6 mmol/L (21.0-32.0); Calcium 9.6 mg/dL (8.5-10.1); Chloride 105 mmol/L (98-107); Estimated GFR 55.21 (mL/min/1.73m2); Glucose 105 mg/dL (74-106); Potassium 4.2 mmol/L (3.5-5.1); Sodium 143 mmol/L (136-145); TSH (W/Ref FT4) 7.04 uIU/mL (0.36-3.74); Total Protein 6.7 g/dL (6.4-8.2)
== END 2025-02-27 18:36 | disposition home or self-care (01) ==
LOC: NCHCN 18:35
PROVIDERS: PCP Family Medicine; Visit Provider Family Medicine
DX: E03.9 Hypothyroidism, unspecified (principal); Z79.01 Long term (current) use of anticoagulants; I10 Essential (primary) hypertension
CPT/HCPCS: 80053; 85027; 84439; 84443

== ENCOUNTER → 2025-03-18 01:17 | Outpatient (CLI) | payer MEDICARE, BC, SELFPAY ==
--- NOTE | 2025-03-18 | DI.DEXA_ITS ---
Exam(s) XR DEXA BONE DENSITY W/WO ARAMIS EXAM: XR DEXA BONE DENSITY W/WO ARAMIS CLINICAL HISTORY: ASYMPTOMATIC MENOPAUSAL STATE Z78.0 OSTEOPOROSIS TECHNIQUE: Hologic Horizon C densitometer analysis of left hip, lumbar spine and right forearm. Lateral survey image of the thoracic and lumbar spine. COMPARISON: CR XR DEXA BONE DENSITY W/WO ARAMIS from 08/19/[address] CHEST PE CTA from 08/25/2023 FINDINGS: Lateral view of the thoracic and lumbar spine shows no evidence of compression fractures. Bone mineral density measurements of the lumbar spine correspond to a total T- score of -1.4, in the osteopenic range. This represents an 8.3 percent increase compared to 2021. Bone mineral density measurements of the left hip correspond to a total T-score of -3.4, not significantly changed from prior. The femoral neck T-score is - 3.6, in the osteoporotic range. Theright forearm bone mineral density measurements correspond to a T-score of the distal 3rd of -6.1, in the osteoporotic range. The left forearm was analyzed on the previous exam, which showed a T-score of the distal 3rd of - 5.5. IMPRESSION: Osteopenia of the lumbar spine. Osteoporosis of the hip and forearm.
--- NOTE | 2025-03-18 | DI.MAMMO_ITS ---
Exam(s) MAMMO SCREENING EXAM: MAMMO SCREENING CLINICAL HISTORY: SCREENING MAMMO Z12.31 TECHNIQUE: Mammograms were interpreted according to the usual protocol including computer analysis with CAD system, tomosynthesis and C-view imaging. COMPARISON: 2021 FINDINGS: The breasts are composed of mainly fatty density , Breast Density category A. No suspicious masses or suspicious microcalcifications are seen. No skin thickening or abnormal axillary lymph nodes are seen. There has been no significant change from prior exams. IMPRESSION: BI-RADS Category 1, Negative mammogram Yearly screening mammography is recommended. Breast Density- Category A - The breast are almost entirely fatty. Breast density Category C or D implies that the patient has dense breast tissue. Dense breast tissue can make it harder to find cancer on a mammogram. Dense breast tissue is also associated with an increased risk of breast cancer. This information about the result of the mammogram report was provided to the patient to raise their awareness. Use this report when you speak with the patient about their risks for breast cancer, which includes their family history. At that time, you may recommend additional screening tests (Ultrasound or MRI) as these tests may add significant information. A negative radiographic report should not delay biopsy if a dominant or clinically suspicious mass is present. Up to ten percent of cancers are not identified on mammography. A negative report may reinforce clinical impression. Adenosis and dense breasts may obscure an underlying neoplasm. False positive reports average 6 to 10%. Patient will receive a letter notifying them of these results.
== END ==
LOC: DI 01:17
PROVIDERS: PCP Family Medicine; Visit Provider Family Medicine
DX: Z78.0 Asymptomatic menopausal state (principal); R92.313 Mammographic fatty tissue density, bilateral breasts; Z12.31 Encounter for screening mammogram for malignant neoplasm of breast
CPT/HCPCS: 77063; 77067; 77080